=== PATIENT | male | born 1955 | race Caucasian/White ===

== ENCOUNTER 2022-03-20 08:03 | Outpatient (CLI) | payer OTHER, SELFPAY ==
--- NOTE | 2022-03-20 08:15 | MR_ITS ---
[address] [address] Phone:?[phone] Fax:?[phone] Referring Physician Information: Fareed Downing M.D. [facility] [address] [facility] [address] Phone:?[phone] Fax:?[phone] Patient:?Trell Gunter D.O.B:?1955 Sex:?Male Phone:?[phone] [facility] MRN:?[id number] Exam Date:?03/20/2022 ? EXAM: MRI OF THE LEFT ANKLE WITHOUT CONTRAST CLINICAL INFORMATION: Male, 67 years old, with left ankle pain and instability. INDICATION: Evaluate ankle pain. PRIOR SURGERY: History of Achilles tendon repair. PLAIN FILMS: None available. COMPARISONS: No prior MRIs available. TECHNICAL INFORMATION: Using a 1.5T MR scanner and a localizing surface coil: sagittals: PD, T2, STIR coronals: PD, T2 axials: PD, T2FS SEDATION: None. CONTRAST: None. FINDINGS: Osseous structures: No stress/occult fracture or other marrow edema/pathology. Os trigonum: Mildly prominent Stieda's process, which demonstrates bone marrow edema in the posterior tip (sagittal STIR series 5 images 14-16). Tarsal coalition: No calcaneonavicular, talocalcaneal or cubonavicular coalition. Tibiotalar joint: Effusion: Small tibiotalar joint effusion. Ganglion cyst: None. Osteochondral surfaces: No osteochondral abnormality. Loose bodies: No demonstrable loose bodies. Subtalar joint: Effusion: Physiologic. Articular cartilage: No osteochondral abnormality. Tarsal joints: Talonavicular: Unremarkable. Calcaneocuboid: Unremarkable. Naviculocuneiform: Unremarkable. Tarsometatarsal: Unremarkable. Ligaments: Syndesmotic ligaments:?The anterior and posterior inferior tibiofibular syndesmotic ligaments are normal. Lateral ligaments:?Moderate-marked attenuation and irregularity of the anterior talofibular and calcaneofibular ligaments (axial PD series 3 images 17-23). Deltoid ligament:?The visualized components of the superficial and deep deltoid ligament, specifically the tibiospring and posterior tibiotalar ligaments, are intact, but mildly attenuated and irregular in appearance. Calcaneonavicular spring ligament:?The superomedial component of the calcaneonavicular spring ligament is grossly intact. Bifurcate and calcaneocuboid ligaments:?Intact lateral calcaneonavicular and medial calcaneocuboid ligaments. The dorsolateral calcaneocuboid ligament is intact. Tendons: Peroneal:?The peroneal tendons are appropriately situated within the retromalleolar groove and the superior peroneal retinaculum is intact. The peroneus brevis tendon becomes markedly attenuated at the level of the peroneal tubercle, with a slender tendon remnant appearing to extend into the 5th metatarsal attachment (coronal PD series 8 images 5-20). Peroneus longus is unremarkable. No peroneal tenosynovitis. Flexor tendons:?Moderate-marked posterior tibialis insertional tendinopathy, without tear (axial PD series 3 images 21-24). Flexor hallucis longus and flexor digitorum longus are intact, without tendinopathy or tear. No flexor tenosynovitis. Extensor tendons:?The anterior tibialis, extensor digitorum longus, and extensor hallucis longus tendons are intact. No significant tendinopathy and without tenosynovitis, tendon split or tendon disruption. Achilles:?Status post Achilles tendon repair. The Achilles tendon is moderately thickened and irregular in appearance, although without residual or recurrent tendon tearing (sagittal PD series 6 image 14 and axial T2 series 4 image 20). Sinus tarsi:?Moderate soft tissue edema and thickening of the tarsal sinus (sagittal PD series 6 and sagittal STIR series 5 image 19). Plantar aponeurosis: There is no abnormal thickening of, abnormal intrasubstance signal involving, or perifascial edema about the plantar aponeurosis. Specifically, the plantar fascia origin appears normal in signal intensity and morphology. Plantar musculature:?Marked atrophy of the intrinsic foot musculature (coronal PD series 8 image 5). Neurovascular structures and tarsal tunnel: The posterior tibial neurovascular structures appear unremarkable coursing past the ankle and through the tarsal tunnel. IMPRESSION: 1. Chronic sequela of an [id number] lateral ligamentous sprain injury. 2. Moderately-markedly attenuated appearance of the distal aspect of the peroneus brevis tendon, which is suggestive of a chronic injury. 3. Moderate-marked posterior tibialis tendinopathy, without tear. 4. Status post Achilles tendon repair. The tendon is moderately thickened and irregular in appearance, but without residual or recurrent tendon tearing. 5. Mildly edematous Stieda's process, with mild surrounding soft tissue edema. This could reflect any clinical evidence of posterior impingement. 6. Small tibiotalar joint effusion. No chondromalacia or osteochondral lesion throughout the hindfoot/ankle. 7. Marked atrophy of the intrinsic foot musculature, which is nonspecific, but commonly seen in the setting of diabetes mellitus. 8. No fracture or osseous stress reaction. BC Electronically signed on 03/20/2022 11:08:00 AM by Bishnu Grullon M.D.
== END 2022-03-20 08:04 | disposition home or self-care (01) ==
PROVIDERS: PCP Family Medicine; Visit Provider Orthopaedic Surgery Foot and Ankle Surgery
DX: M25.372 Other instability, left ankle (principal); M25.572 Pain in left ankle and joints of left foot; S93.402A Sprain of unspecified ligament of left ankle, initial encounter; M25.472 Effusion, left ankle
CPT/HCPCS: 73721

== ENCOUNTER 2022-03-24 10:42 | Outpatient (CLI) | payer OTHER, SELFPAY ==
[2022-03-24 13:24] LABS: Albumin* 4.3 g/dL (3.3-5.0); Chloride* 101 mmol/L (96-114)
[2022-03-24 13:25] LABS: Sodium* 139 mmol/L (135-149)
[2022-03-24 13:27] LABS: Carbon Dioxide* 32 mmol/L (20-32); Cholesterol* 150 mg/dL (90-199); Creatinine* 0.9 mg/dL (0.5-1.5); Estimated Glomerular Filt Rate 92 ml/min; Total Protein* 6.8 g/dL (6.0-8.3)
[2022-03-24 13:28] LABS: Alanine Aminotransferase* 21 U/L (4-50); Alkaline Phosphatase* 72 U/L (40-150); Aspartate Amino Transferase* 26 U/L (12-35); Bilirubin Total* 0.9 mg/dL (0.1-1.5); Blood Urea Nitrogen* 26 mg/dL (7-30); Calcium* 9.5 mg/dL (8.4-10.6); Glucose* 97 mg/dL (60-115); HDL Cholesterol* 52 mg/dL (>=40); LDL Cholesterol Calculated 80 mg/dL (<100); Triglycerides* 89 mg/dL (40-149)
[2022-03-24 13:53] LABS: PSA Screen* 2.37 ng/mL (0.10-4.00)
== END 2022-03-24 10:43 | disposition home or self-care (01) ==
PROVIDERS: PCP Family Medicine; Visit Provider Family Medicine
DX: Z00.00 Encounter for general adult medical examination without abnormal findings (principal); Z12.5 Encounter for screening for malignant neoplasm of prostate; Z13.6 Encounter for screening for cardiovascular disorders
CPT/HCPCS: 80053; 80061; 84153

== ENCOUNTER 2022-04-10 08:48 | Outpatient (CLI) | payer OTHER, SELFPAY ==
--- NOTE | 2022-04-10 09:00 | CRLHL7_ITS ---
For Patients: As a result of the Century Cures Act, medical imaging exams and procedure reports are released immediately into your electronic medical record. You may view this report before your referring provider. If you have questions, please contact your health care provider. Indication: F/U ASCENDING AORTIC ANEURYSM Technique: Noncontrast CT chest. Please note that all CT scans at this facility use dose modulation, iterative reconstruction, and/or weight-based dosing when appropriate to reduce radiation dose to as low as reasonably achievable. Comparison: 02/10/2020 Findings: Stable 4.5 cm ascending aortic aneurysm. Vascular calcifications. No pleural effusion or edema. Postop changes cholecystectomy. Similar appearance of the splenic artery. No infiltrate. Right shoulder replacement. Stable 4 millimeter left lower lobe nodule stable 2 millimeter right lower lobe nodule. Impression: Stable 4.5 cm aneurysm of the ascending aorta. Please note that all CT scans at this facility use dose modulation, iterative reconstruction, and/or weight-based dosing when appropriate to reduce radiation dose to as low as reasonably achievable. Dictated by Roger Jasso MD @ 04/10/2022 10:35:43 AM (Electronically Signed)
== END 2022-04-10 08:49 | disposition home or self-care (01) ==
LOC: CT 08:49
PROVIDERS: PCP Family Medicine; Visit Provider Family Medicine
DX: I71.2 Thoracic aortic aneurysm, without rupture (principal)
CPT/HCPCS: 71250

== ENCOUNTER 2022-07-02 17:06 | Observation (INO) | payer OTHER, SELFPAY ==
[2022-07-02] VITALS (26 sets, daily range): BP systolic 106–145; BP diastolic 74–97; PULSE 61–93; RESP 20; TEMP 36.4–36.6; O2SAT 89–98; BMI 36.0; BMI 36.1
--- NOTE | 2022-07-02 17:49 | ED.SOB ---
HPI - SOB/Dyspnea General Time Seen by Provider: 17:49 Date Seen: 07/02/22 Chief Complaint: Shortness of Breath/Dyspnea Stated Complaint: Trouble Breathing Time Seen by Provider: 07/02/22 17:49 Source: patient, family, RN notes reviewed and old records reviewed Mode of arrival: ambulatory Limitations: no limitations History of Present Illness HPI Narrative: Patient is a very pleasant 67-year-old gentleman with a history of COPD recent treatment with prednisone and inhaler for reactive airway as well as history of hypertension and TE who comes to the emergency room for evaluation regarding difficulty breathing. Patient notes that he had helped of family with 5 weeks of harvest and that there was a lot of dust this year because the crops or so dry. Patient saw his primary doctor Ac who put him on prednisone and Combivent. He did feel that this that helped somewhat. He then went fast and hunting this past week and upon his return he noticed increased work of breathing and difficulty sleeping even with his CPAP. Specifically he could not lay flat. He notes that he has a cough that is productive of green sputum and more of a headache today. He notes that he is also short of breath with any activity. He does not smoke anymore having given at up previously but still uses cigars. He denies nausea vomiting. He denies any unusual lower extremity edema. He does have a history of a right lower extremity DVT following surgery in 2017. He is not on blood thinners but does take an aspirin daily. He is his 6 hour trip to [place] was interrupted at least 3 times for a bathroom break. He has no fever. No chest pain at this time. He has a known aortic aneurysm and states that recently he had an ultrasound that showed no change. Patient's describes shortness of breath with activity. Related Data Home Medications Medication Instructions Recorded Confirmed aspirin 81 mg tablet,delayed 81 mg PO DAILY 03/27/22 06/06/22 release coenzyme Q10 30 mg capsule mg PO 03/27/22 06/06/22 glucosamine sulfate 500 mg capsule 500 mg PO 03/27/22 06/06/22 ibuprofen 200 mg tablet 200 - 400 mg PO PRN 03/27/22 06/06/22 omega-3 acid ethyl esters 1 gram 1 cap PO QDAY 03/27/22 06/06/22 capsule triamcinolone acetonide 0.1 % 1 applic topical BID PRN 03/28/22 06/06/22 topical ointment Previous Rx's Medication Instructions Recorded hydrochlorothiazide 12.5 mg capsule 12.5 mg PO DAILY #90 caps 03/28/22 losartan 100 mg tablet 100 mg PO QDAY #90 tabs 03/28/22 omeprazole 20 mg capsule,delayed 20 mg PO DAILY #90 caps 03/28/22 release rosuvastatin 10 mg tablet 10 mg PO .Bedtime #90 tabs 03/28/22 ipratropium 20 mcg-albuterol 100 1 puff inhalation Q6H #4 grams 06/06/22 mcg/actuation mist for inhalation (Combivent Respimat) prednisone 20 mg tablet 20 mg PO .COMPLEX #20 tabs 06/06/22 Allergies Allergy/AdvReac Type Severity Reaction Status Date / Time penicillin V Allergy Intermediate Swelling Verified 06/06/22 18:02 and redness Review of Systems Status of ROS: Reports: 10 or more systems reviewed and unremarkable except as noted in History and below Const: Reports: fatigue; Denies: fever or chills Eyes: Denies: change in vision ENMT: Denies: throat pain or difficulty swallowing Cardio: Reports: swelling of feet/ankles (Chronic and unchanged) and shortness of breath with exertion; Denies: chest pain Resp: Reports: shortness of breath, cough and change in phlegm color (Green) GI: Denies: abdominal pain, nausea, vomiting or difficulty swallowing : Denies: painful urination Integ/Breast: Denies: rash Neuro: Reports: headache; Denies: weakness in extremities Endo: Reports: fatigue PFSH PFS Medical History Encounter for routine history and physical examination of adult Rupture of Achilles tendon Umbilical hernia (07/29/09) Surgical History H/O Achilles tendon repair (08/05/12) H/O arthroscopy of left knee (03/11/12) H/O inguinal hernia repair (07/29/09) Hx of shoulder surgery (07/29/09) Status post cholecystectomy 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 Very pleasant gentleman in no acute distress. Eyes are clear. Neck is supple without lymphadenopathy. Heart with a regular rate and rhythm. Lung sounds decreased on the right. No wheezing noted. Abdomen soft nontender. Lower extremities with increased edema of the right lower extremity but no calf tenderness. Const: Vital Signs, click to edit/add: Vital Signs - 24 hr 07/02/22 17:11 07/02/22 19:13 07/02/22 19:14 Temperature 97.9 F Pulse Rate 63 80 Pulse Rate [Pulse Oximeter] 87 Respiratory Rate 20 Blood Pressure 124/95 H Blood Pressure [Ri ght Upper Arm] 145/94 H Pulse Oximetry 98 97 96 Oxygen Delivery Me thod Room Air 07/02/22 19:15 07/02/22 19:30 07/02/22 19:32 Temperature Pulse Rate 61 75 86 Pulse Rate [Pulse Oximeter] Respiratory Rate Blood Pressure 117/90 H Blood Pressure [Ri ght Upper Arm] Pulse Oximetry 97 95 95 Oxygen Delivery Me thod 07/02/22 19:45 07/02/22 20:00 07/02/22 20:01 Temperature Pulse Rate 77 77 69 Pulse Rate [Pulse Oximeter] Respiratory Rate Blood Pressure 119/93 H Blood Pressure [Ri ght Upper Arm] Pulse Oximetry 94 96 95 Oxygen Delivery Me thod 07/02/22 20:15 07/02/22 20:53 07/02/22 20:54 Temperature Pulse Rate 78 80 79 Pulse Rate [Pulse Oximeter] Respiratory Rate Blood Pressure 110/97 H Blood Pressure [Ri ght Upper Arm] Pulse Oximetry 97 93 94 Oxygen Delivery Me thod 07/02/22 21:00 07/02/22 21:02 Temperature Pulse Rate 90 76 Pulse Rate [Pulse Oximeter] Respiratory Rate Blood Pressure 115/79 Blood Pressure [Ri ght Upper Arm] Pulse Oximetry 92 89 Oxygen Delivery Me thod Documenting provider has reviewed patient's vital signs: yes Course Course Hospital Course: Given patient's increasing symptoms, orthopnea and recent travel I thought it best that we go forward with not only checking chest x-ray, COVID/influenza/RSV but also do some blood work to ensure no other lying abnormality. CBC, comprehensive panel, sed rate, troponin, EKG are pending at this time. Reevaluation(s) Reevaluation #1: Patient noted improvement from DuoNeb. Patient is informed that his D-dimer is elevated and that I do suggest CT. He is receptive to this idea. Vital Signs Vital signs: Initial Vital Signs Temperature 97.9 F 07/02/22 17:11 Temperature Source Temporal Artery Scan 07/02/22 17:11 Pulse Rate 87 07/02/22 17:11 Respiratory Rate 20 07/02/22 17:11 Blood Pressure 145/94 H 07/02/22 17:11 Blood Pressure Mean 111 07/02/22 17:11 Blood Pressure Position Sitting 07/02/22 17:11 Pulse Oximetry 98 07/02/22 17:11 Oxygen Delivery Method 07/02/22 17:11 Vital Signs Temperature 97.9 F 07/02/22 17:11 Pulse Rate 87 07/02/22 17:11 Respiratory Rate 20 07/02/22 17:11 Blood Pressure 145/94 H 07/02/22 17:11 Pulse Oximetry 98 07/02/22 17:11 Oxygen Delivery Method 07/02/22 17:11 Temperature 97.9 F 07/02/22 17:11 Pulse Rate 76 07/02/22 21:02 Respiratory Rate 20 07/02/22 17:11 Blood Pressure 115/79 07/02/22 21:02 Pulse Oximetry 89 07/02/22 21:02 Oxygen Delivery Method 07/02/22 17:11 MDM - SOB/Dyspnea MDM Narrative Medical decision making narrative: 1. Pulmonary embolism-patient has positive CT but is maintaining his oxygen levels. Main symptoms are shortness of breath with exertion and orthopnea. At this time I have spoken with our hospitalist. Patient will be admitted for outpatient observation. Will initiate Lovenox 110 mg subQ. Plan on echocardiogram. 2. COPD exacerbation-patient noted to have green sputum and improvement with DuoNeb. Zithromax 500 mg p.o.. 3. Frequent PVC-EKG shows sinus rhythm but with frequent PVC. Magnesium level pending. 4.TE-patient's is going to get his CPAP machine for tonight. 5. Disposition-admitted under the care of [facility] hospitalist. Medical Records Attestation: I reviewed the patient's medical records. Lab Data Attestation: I reviewed the patient's lab results. Labs: Lab Results 07/02/22 07/02/22 07/02/22 Range/Units 18:20 18:20 18:20 WBC 5.30 (4.50-11.00) K/uL RBC 4.78 (4.30-5.90) m/uL Hgb 15.2 (13.5-17.5) gm/dL Hct 43.5 (37.0-53.0) % MCV 91 (80-100) fL MCH 32 (26-34) pg MCHC 35 (32-36) gm/dL RDW Coeff of Sandra 13.0 (11.5-15.5) % Plt Count 221 (140-440) K/uL Neut % (Auto) 39.8 L (42.0-72.0) % Lymph % (Auto) 40.0 (20-44) % [place] % (Auto) 15.3 H (0.0-11.0) % Eos % (Auto) 3.4 (0.0-7.0) % Baso % (Auto) 1.1 (0.0-3.0) % Neut # (Auto) 2.10 (1.7-7.0) K/uL Lymph # (Auto) 2.12 (0.90-2.90) K/uL [place] # (Auto) 0.80 (0.00-0.90) K/UL Eos # (Auto) 0.18 (0.00-0.50) K/uL Baso # (Auto) 0.06 (0.00-0.30) K/uL Abs Immat Gran (auto) 0.02 (0.00-0.30) K/uL Imm/Tot Granulo (auto) 0.4 % D-Dimer Quant (PE/DVT) (0.00-0.50) ug/ml Sodium 139 (135-149) mmol/L Potassium 4.0 (3.6-5.1) mmol/L Chloride 108 (96-114) mmol/L Carbon Dioxide 25 (20-32) mmol/L BUN 26 (7-30) mg/dL Creatinine 0.9 (0.5-1.5) mg/dL Estimated Creat Clear 67.45 Estimated GFR 92 ml/min Glucose 86 (60-115) mg/dL Calcium 9.4 (8.4-10.6) mg/dL Total Bilirubin 0.9 (0.1-1.5) mg/dL AST 30 (12-35) U/L ALT 27 (4-50) U/L Alkaline Phosphatase 70 (40-150) U/L C-Reactive Protein < 0.5 L (0.5-1.0) mg/dL NT-Pro-B Natriuret Pep 144 H (0-125) PG/mL Total Protein 7.2 (6.0-8.3) g/dL Albumin 4.4 (3.3-5.0) g/dL SARS-CoV-2 (PCR) (Negative) Influenza Type A (PCR) (Negative) Influenza Type B (PCR) (Negative) RSV (PCR) (Negative) POC Troponin I 0.00 L (0.01-0.04) ng/ml 07/02/22 07/02/22 Range/Units 18:20 18:20 WBC (4.50-11.00) K/uL RBC (4.30-5.90) m/uL Hgb (13.5-17.5) gm/dL Hct (37.0-53.0) % MCV (80-100) fL MCH (26-34) pg MCHC (32-36) gm/dL RDW Coeff of Sandra (11.5-15.5) % Plt Count (140-440) K/uL Neut % (Auto) (42.0-72.0) % Lymph % (Auto) (20-44) % [place] % (Auto) (0.0-11.0) % Eos % (Auto) (0.0-7.0) % Baso % (Auto) (0.0-3.0) % Neut # (Auto) (1.7-7.0) K/uL Lymph # (Auto) (0.90-2.90) K/uL [place] # (Auto) (0.00-0.90) K/UL Eos # (Auto) (0.00-0.50) K/uL Baso # (Auto) (0.00-0.30) K/uL Abs Immat Gran (auto) (0.00-0.30) K/uL Imm/Tot Granulo (auto) % D-Dimer Quant (PE/DVT) 2.22 H (0.00-0.50) ug/ml Sodium (135-149) mmol/L Potassium (3.6-5.1) mmol/L Chloride (96-114) mmol/L Carbon Dioxide (20-32) mmol/L BUN (7-30) mg/dL Creatinine (0.5-1.5) mg/dL Estimated Creat Clear Estimated GFR ml/min Glucose (60-115) mg/dL Calcium (8.4-10.6) mg/dL Total Bilirubin (0.1-1.5) mg/dL AST (12-35) U/L ALT (4-50) U/L Alkaline Phosphatase (40-150) U/L C-Reactive Protein (0.5-1.0) mg/dL NT-Pro-B Natriuret Pep (0-125) PG/mL Total Protein (6.0-8.3) g/dL Albumin (3.3-5.0) g/dL SARS-CoV-2 (PCR) Negative SARS-CoV-2 (Negative) Influenza Type A (PCR) Negative PCR FLU A (Negative) Influenza Type B (PCR) Negative PCR FLU B (Negative) RSV (PCR) Negative PCR RSV (Negative) POC Troponin I (0.01-0.04) ng/ml Imaging Data Chest x-ray: Attestation: I have reviewed the pertinent imaging results. My impression: No significant infiltrates. Radiologist's impression: No airspace consolidation. No pleural effusion or pneumothorax. Pulmonary vasculature and cardiomediastinal silhouette are unremarkable. IMPRESSION: No cardiopulmonary abnormality. CT scan - chest: Attestation: I have reviewed the pertinent imaging results. My impression: I believe he has PE. Radiologist's impression: Heart and vasculature: Contrast opacification of the pulmonary arterial tree is adequate to the proximal subsegmental pulmonary arteries, and mildly limited of the left lower lobe pulmonary artery secondary to poor contrast bolus. Acute pulmonary embolism in the right middle and lower lobe segmental and subsegmental pulmonary arteries. Additional emboli seen in the left upper, and lingular lingular, segmental/subsegmental pulmonary artery heart size is normal. Mild enlargement of the ascending aorta, measuring approximately 4.5 centimeters. Aortic arch and coronary artery calcifications. Lungs and pleura: Stable scattered pulmonary nodules. No suspicious nodules or infiltrates.? No pleural effusions, pleural thickening, or pneumothorax. Lymph nodes/mediastinum: No mediastinal, hilar, or axillary adenopathy. Chest wall: No masses. Upper abdomen: Cholecystectomy. Pneumobilia, also seen on prior study. Bones: Unremarkable for age. Right shoulder arthroplasty. IMPRESSION: Acute pulmonary embolism involving the right upper/middle and left upper segmental and subsegmental pulmonary arteries.? No definite right heart strain. Mild ascending aortic aneurysm, measuring approximately 4.5 centimeters. ECG Data Attestation: I personally reviewed and interpreted this ECG as follows: Interpretation: EKG shows sinus rhythm at a rate of 78. Occasional PVC. Otherwise no acute ST or T-wave changes. Discharge Plan Discharge Clinical Impression: Chronic obstructive pulmonary disease with acute exacerbation, Pulmonary embolism Patient Disposition: Admitted As Inpatient Condition: Stable
--- NOTE | 2022-07-02 18:06 | CRLHL7_ITS ---
For Patients: As a result of the Cures Act, medical imaging exams and procedure reports are released immediately into your electronic medical record. You may view this report before your referring provider. If you have questions, please contact your health care provider. HISTORY: Orthopnea. TECHNIQUE: Two-view chest. COMPARISON: None. FINDINGS: No airspace consolidation. No pleural effusion or pneumothorax. Pulmonary vasculature and cardiomediastinal silhouette are unremarkable. IMPRESSION: No cardiopulmonary abnormality. Dictated by Kalyan Riley MD @ 07/02/2022 6:39:00 PM (Electronically Signed)
[2022-07-02 18:35] LABS: Basophils Absolute Auto 0.06 K/uL (0.00-0.30); Basophils Percent Auto 1.1 % (0.0-3.0); Eosinophils Absolute Auto 0.18 K/uL (0.00-0.50); Eosinophils Percent Auto 3.4 % (0.0-7.0); Hematocrit 43.5 % (37.0-53.0); Hemoglobin* 15.2 gm/dL (13.5-17.5); Immature Granulocytes Abs Auto 0.02 K/uL (0.00-0.30); Immature Granulocytes Pct Auto 0.4 %; Lymphocytes Absolute Auto 2.12 K/uL (0.90-2.90); Mean Corpuscular HGB Conc 35 gm/dL (32-36); Mean Corpuscular Hemoglobin 32 pg (26-34); Mean Corpuscular Volume 91 fL (80-100); Monocytes Percent Auto 15.3 % (0.0-11.0); Neutrophils Percent Auto 39.8 % (42.0-72.0); Platelet Count* 221 K/uL (140-440); Red Blood Count 4.78 m/uL (4.30-5.90)
[2022-07-02 18:41] LABS: Slide Review Reflex No
[2022-07-02 18:44] LABS: Albumin* 4.4 g/dL (3.3-5.0); Chloride* 108 mmol/L (96-114); Sodium* 139 mmol/L (135-149)
[2022-07-02 18:48] LABS: Alanine Aminotransferase* 27 U/L (4-50); Alkaline Phosphatase* 70 U/L (40-150); Aspartate Amino Transferase* 30 U/L (12-35); Bilirubin Total* 0.9 mg/dL (0.1-1.5); Blood Urea Nitrogen* 26 mg/dL (7-30); Calcium* 9.4 mg/dL (8.4-10.6); Carbon Dioxide* 25 mmol/L (20-32); Creatinine* 0.9 mg/dL (0.5-1.5); Est. Creatinine Clearance* 67.45; Estimated Glomerular Filt Rate 92 ml/min; Glucose* 86 mg/dL (60-115); Total Protein* 7.2 g/dL (6.0-8.3)
[2022-07-02 18:57] LABS: C Reactive Protein* < 0.5 mg/dL (0.5-1.0)
[2022-07-02 19:14] LABS: PCR FLU A Negative PCR FLU A (Negative); PCR FLU B Negative PCR FLU B (Negative); PCR RSV Negative PCR RSV (Negative)
[2022-07-02 19:19] LABS: SARS PCR* Negative SARS-CoV-2 (Negative)
[2022-07-02 19:58] LABS: D Dimer Quantitative* 2.22 ug/ml (0.00-0.50)
[2022-07-02] MEDS: IPRAT-ALBUT 0.5-2.5 MG/3 ML NEB 1 NEB IH (20:06)
[2022-07-02 20:10] LABS: NT Pro B Type NatriureticPept* 144 PG/mL (0-125)
--- NOTE | 2022-07-02 20:36 | CRLHL7_ITS ---
For Patients: As a result of the Century Cures Act, medical imaging exams and procedure reports are released immediately into your electronic medical record. You may view this report before your referring provider. If you have questions, please contact your health care provider. INDICATION: [id number]. TECHNIQUE: CT chest PE was acquired with 95 cc Omnipaque 350 IV contrast. COMPARISON: April 10, 2022. FINDINGS: Heart and vasculature: Contrast opacification of the pulmonary arterial tree is adequate to the proximal subsegmental pulmonary arteries, and mildly limited of the left lower lobe pulmonary artery secondary to poor contrast bolus. Acute pulmonary embolism in the right middle and lower lobe segmental and subsegmental pulmonary arteries. Additional emboli seen in the left upper, and lingular lingular, segmental/subsegmental pulmonary artery heart size is normal. Mild enlargement of the ascending aorta, measuring approximately 4.5 centimeters. Aortic arch and coronary artery calcifications. Lungs and pleura: Stable scattered pulmonary nodules. No suspicious nodules or infiltrates. No pleural effusions, pleural thickening, or pneumothorax. Lymph nodes/mediastinum: No mediastinal, hilar, or axillary adenopathy. Chest wall: No masses. Upper abdomen: Cholecystectomy. Pneumobilia, also seen on prior study. Bones: Unremarkable for age. Right shoulder arthroplasty. IMPRESSION: Acute pulmonary embolism involving the right upper/middle and left upper segmental and subsegmental pulmonary arteries. No definite right heart strain. Mild ascending aortic aneurysm, measuring approximately 4.5 centimeters. Case discussed with Yaz Norman at 7:55 p.m. on 07/02/2022. Please note that all CT scans at this facility use dose modulation, iterative reconstruction, and/or weight-based dosing when appropriate to reduce radiation dose to as low as reasonably achievable. Dictated by Zuhair Yarbrough MD @ 07/02/2022 10:00:40 PM (Electronically Signed)
[2022-07-02] MEDS: ENOXAPARIN 120 MG/0.8 ML INJ 110 MG SUBCUT (22:25)
[2022-07-02 22:35] LABS: Magnesium* 2.1 mg/dL (1.5-2.6)
[2022-07-02] MEDS: AZITHROMYCIN 250 MG TABLET 500 MG PO (22:43)
--- NOTE | 2022-07-03 00:10 | P.IMCN_ITS ---
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) Social History Highest level of school completed/degree received: high school graduate Smoking Status: Former smoker What tobacco products do you use: cigars Do you use any of these nicotine containing products: None Second hand tobacco smoke exposure: No How often do you have a drink containing alcohol: monthly or less Alcohol type: beer How often do you have six or more drinks on one occasion: Never AUDIT-C Alcohol total score: 1 Non-prescribed substance use: denies use Caffeine: No service: Yes Meds Home Medications and Allergies Home Medications Medication Instructions Recorded Confirmed Type aspirin 81 mg tablet,delayed 81 mg PO DAILY 03/27/22 06/06/22 History release coenzyme Q10 30 mg capsule mg PO 03/27/22 06/06/22 History glucosamine sulfate 500 mg capsule 500 mg PO 03/27/22 06/06/22 History ibuprofen 200 mg tablet 200 - 400 mg PO PRN 03/27/22 06/06/22 History omega-3 acid ethyl esters 1 gram 1 cap PO QDAY 03/27/22 06/06/22 History capsule triamcinolone acetonide 0.1 % 1 applic topical BID PRN 03/28/22 06/06/22 History topical ointment Allergies Allergy/AdvReac Type Severity Reaction Status Date / Time penicillin V Allergy Intermediate Swelling Verified 06/06/22 18:02 and redness Exam Const: Vital Signs, click to edit/add: Vital Signs - 24 hr 07/02/22 17:11 07/02/22 19:13 07/02/22 19:14 Temperature 97.9 F Pulse Rate 63 80 Pulse Rate [Pulse Oximeter] 87 Respiratory Rate 20 Blood Pressure 124/95 H Blood Pressure [Le ft Arm] Blood Pressure [Ri ght Upper Arm] 145/94 H Pulse Oximetry 98 97 96 Oxygen Delivery Me thod Room Air 07/02/22 19:15 07/02/22 19:30 07/02/22 19:32 Temperature Pulse Rate 61 75 86 Pulse Rate [Pulse Oximeter] Respiratory Rate Blood Pressure 117/90 H Blood Pressure [Le ft Arm] Blood Pressure [Ri ght Upper Arm] Pulse Oximetry 97 95 95 Oxygen Delivery Me thod 07/02/22 19:45 07/02/22 20:00 07/02/22 20:01 Temperature Pulse Rate 77 77 69 Pulse Rate [Pulse Oximeter] Respiratory Rate Blood Pressure 119/93 H Blood Pressure [Le ft Arm] Blood Pressure [Ri ght Upper Arm] Pulse Oximetry 94 96 95 Oxygen Delivery Me thod 07/02/22 20:15 07/02/22 20:53 07/02/22 20:54 Temperature Pulse Rate 78 80 79 Pulse Rate [Pulse Oximeter] Respiratory Rate Blood Pressure 110/97 H Blood Pressure [Le ft Arm] Blood Pressure [Ri ght Upper Arm] Pulse Oximetry 97 93 94 Oxygen Delivery Me thod 07/02/22 21:00 07/02/22 21:02 07/02/22 21:03 Temperature Pulse Rate 90 76 80 Pulse Rate [Pulse Oximeter] Respiratory Rate Blood Pressure 115/79 Blood Pressure [Le ft Arm] Blood Pressure [Ri ght Upper Arm] Pulse Oximetry 92 89 93 Oxygen Delivery Me thod 07/02/22 21:35 07/02/22 21:36 07/02/22 21:45 Temperature Pulse Rate 87 93 88 Pulse Rate [Pulse Oximeter] Respiratory Rate Blood Pressure Blood Pressure [Le ft Arm] Blood Pressure [Ri ght Upper Arm] Pulse Oximetry 97 95 97 Oxygen Delivery Me thod 07/02/22 22:05 07/02/22 22:15 07/02/22 22:29 Temperature Pulse Rate 89 80 83 Pulse Rate [Pulse Oximeter] Respiratory Rate Blood Pressure 116/74 Blood Pressure [Le ft Arm] Blood Pressure [Ri ght Upper Arm] Pulse Oximetry 92 96 96 Oxygen Delivery Me thod 07/02/22 22:30 07/02/22 22:32 07/02/22 22:45 Temperature Pulse Rate 81 78 82 Pulse Rate [Pulse Oximeter] Respiratory Rate Blood Pressure 106/77 Blood Pressure [Le ft Arm] Blood Pressure [Ri ght Upper Arm] Pulse Oximetry 96 96 97 Oxygen Delivery Me thod 07/02/22 23:20 07/02/22 19:30 Temperature 97.5 F L Pulse Rate Pulse Rate [Pulse Oximeter] 66 75 Respiratory Rate 20 Blood Pressure Blood Pressure [Le ft Arm] 137/89 Blood Pressure [Ri ght Upper Arm] 117/90 H Pulse Oximetry 95 95 Oxygen Delivery Me thod Room Air Room Air Labs Labs: Short CBC 07/02/22 Range/Units 18:20 WBC 5.30 (4.50-11.00) K/uL Hgb 15.2 (13.5-17.5) gm/dL Hct 43.5 (37.0-53.0) % Plt Count 221 (140-440) K/uL BMP 07/02/22 18:20 Sodium 139 Potassium 4.0 Chloride 108 Carbon Dioxide 25 BUN 26 Creatinine 0.9 Glucose 86 Calcium 9.4 Liver Function 07/02/22 Range/Units 18:20 Total Bilirubin 0.9 (0.1-1.5) mg/dL AST 30 (12-35) U/L ALT 27 (4-50) U/L Alkaline Phosphatase 70 (40-150) U/L Albumin 4.4 (3.3-5.0) g/dL Assessment and Plan Assessment and plan (1) Pulmonary embolism: Status: Acute Plan [facility] Hospitalist CONSULTATION NOTE: Reason for consult: Pulmonary embolism HPI: Patient is a pleasant 67-year-old male past medical history of COPD, obstructive sleep apnea, and a prior DVT in 2017 following surgery. Who presents to the ER today because he has had shortness of breath for the last 4 to 5 weeks which is worsened over the last 1 to 2 days. In the ER he had a CT scan which showed bilateral pulmonary embolism. He was given enoxaparin 1 mg/kg and admitted for further cares. He has not had any associated chest pain. He has been dealing with cough and congestion for the last month or so but his cough is largely nonproductive. He has not had any new swelling in his legs, but does comment that his right leg is always a bit swollen which is where he had a DVT previously. Anticoagulation was stopped after several months for his prior DVT as he was precipitated by surgery. Interestingly, his father had several blood clots following surgeries and his sister has had blood clots following surgery as well. Patient is a non-smoker. He drinks alcohol on occasion. We did discuss CODE STATUS he wishes to be full code. Assessment and Plan: 1. Pulmonary embolism Patient is a pleasant 67-year-old gentleman admitted for bilateral PEs. He is placed on enoxaparin 1 mg/kg subcutaneous every 12 hours. Oral anticoagulant can be chosen tomorrow when pharmacy can be reached and insurance coverage can be determined. With his prior clot as well as his family history he should probably be at lifetime anticoagulation. If carries a hypercoagulable work-up could be considered, however he should be anticoagulated indefinitely regardless. His chronic outpatient medications will be continued as appropriate when fully verified in the morning. PRNs are available for pain and nausea. Patient is a full code. Thank you for including Domenico Degroot in the patients care. This service is available for further assistance as requested by your care team by calling [phone].
[2022-07-03 03:00] VITALS: BP 96/64; PULSE 72; RESP 20; TEMP 36.2; O2SAT 92
[2022-07-03 05:56] VITALS: RESP 20; O2SAT 92
--- NOTE | 2022-07-03 06:38 | PC.NURSE ---
indep in room. Pleasant and cooperative. pts brought in CPAP machine, pt did not wear while asleep, stated ?i can't breathe with that thing on?. O2 sats >90% on RA.
[2022-07-03 08:00] VITALS: BP 117/94; PULSE 80; RESP 18; TEMP 36.6; O2SAT 96
[2022-07-03] MEDS: APIXABAN 5 MG TABLET 10 MG PO (09:18)
--- NOTE | 2022-07-03 10:26 | P.IMHP_ITS ---
Hospitalist- H&P: HPI History of Present Illness Date Seen: 07/04/22 Chief complaint: Trouble Breathing Narrative: Trell Gunter is a 67 year old male [facility] Medical History (Updated 07/03/22 @ 14:59 by Julius Fiore MD) Abnormal echocardiogram Encounter for routine history and physical examination of adult Exertional dyspnea Rupture of Achilles tendon Umbilical hernia (07/29/09) Surgical History H/O Achilles tendon repair (08/05/12) H/O arthroscopy of left knee (03/11/12) H/O inguinal hernia repair (07/29/09) Hx of shoulder surgery (07/29/09) Status post cholecystectomy 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 Highest level of school completed/degree received: high school graduate Smoking Status: Former smoker What tobacco products do you use: cigars Do you use any of these nicotine containing products: None Second hand tobacco smoke exposure: No How often do you have a drink containing alcohol: monthly or less Alcohol type: beer How often do you have six or more drinks on one occasion: Never AUDIT-C Alcohol total score: 1 Non-prescribed substance use: denies use Caffeine: No service: Yes Meds Home Medications and Allergies Home Medications Medication Instructions Recorded Confirmed Type coenzyme Q10 30 mg capsule 30 mg PO DAILY 03/27/22 07/03/22 History glucosamine sulfate 500 mg capsule 500 mg PO DAILY 03/27/22 07/03/22 History omega-3 acid ethyl esters 1 gram 1 cap PO DAILY 03/27/22 07/03/22 History capsule losartan 100 mg tablet 100 mg PO DAILY 07/03/22 07/03/22 History rosuvastatin 10 mg tablet 10 mg PO HS 07/03/22 07/03/22 History Allergies Allergy/AdvReac Type Severity Reaction Status Date / Time penicillin V Allergy Intermediate Swelling Verified 06/06/22 18:02 and redness Exam Const: Vital Signs, click to edit/add: Vital Signs - 24 hr 07/02/22 17:11 07/02/22 19:13 07/02/22 19:14 Temperature 97.9 F Pulse Rate 63 80 Pulse Rate [Pulse Oximeter] 87 Respiratory Rate 20 Blood Pressure 124/95 H Blood Pressure [Le ft Arm] Blood Pressure [Ri ght Arm] Blood Pressure [Ri ght Upper Arm] 145/94 H Pulse Oximetry 98 97 96 Oxygen Delivery Me thod Room Air 07/02/22 19:15 07/02/22 19:30 07/02/22 19:32 Temperature Pulse Rate 61 75 86 Pulse Rate [Pulse Oximeter] Respiratory Rate Blood Pressure 117/90 H Blood Pressure [Le ft Arm] Blood Pressure [Ri ght Arm] Blood Pressure [Ri ght Upper Arm] Pulse Oximetry 97 95 95 Oxygen Delivery Me thod 07/02/22 19:45 07/02/22 20:00 07/02/22 20:01 Temperature Pulse Rate 77 77 69 Pulse Rate [Pulse Oximeter] Respiratory Rate Blood Pressure 119/93 H Blood Pressure [Le ft Arm] Blood Pressure [Ri ght Arm] Blood Pressure [Ri ght Upper Arm] Pulse Oximetry 94 96 95 Oxygen Delivery Me thod 07/02/22 20:15 07/02/22 20:53 07/02/22 20:54 Temperature Pulse Rate 78 80 79 Pulse Rate [Pulse Oximeter] Respiratory Rate Blood Pressure 110/97 H Blood Pressure [Le ft Arm] Blood Pressure [Ri ght Arm] Blood Pressure [Ri ght Upper Arm] Pulse Oximetry 97 93 94 Oxygen Delivery Me thod 07/02/22 21:00 07/02/22 21:02 07/02/22 21:03 Temperature Pulse Rate 90 76 80 Pulse Rate [Pulse Oximeter] Respiratory Rate Blood Pressure 115/79 Blood Pressure [Le ft Arm] Blood Pressure [Ri ght Arm] Blood Pressure [Ri ght Upper Arm] Pulse Oximetry 92 89 93 Oxygen Delivery Me thod 07/02/22 21:35 07/02/22 21:36 07/02/22 21:45 Temperature Pulse Rate 87 93 88 Pulse Rate [Pulse Oximeter] Respiratory Rate Blood Pressure Blood Pressure [Le ft Arm] Blood Pressure [Ri ght Arm] Blood Pressure [Ri ght Upper Arm] Pulse Oximetry 97 95 97 Oxygen Delivery Me thod 07/02/22 22:05 07/02/22 22:15 07/02/22 22:29 Temperature Pulse Rate 89 80 83 Pulse Rate [Pulse Oximeter] Respiratory Rate Blood Pressure 116/74 Blood Pressure [Le ft Arm] Blood Pressure [Ri ght Arm] Blood Pressure [Ri ght Upper Arm] Pulse Oximetry 92 96 96 Oxygen Delivery Me thod 07/02/22 22:30 07/02/22 22:32 07/02/22 22:45 Temperature Pulse Rate 81 78 82 Pulse Rate [Pulse Oximeter] Respiratory Rate Blood Pressure 106/77 Blood Pressure [Le ft Arm] Blood Pressure [Ri ght Arm] Blood Pressure [Ri ght Upper Arm] Pulse Oximetry 96 96 97 Oxygen Delivery Me thod 07/02/22 23:20 07/02/22 19:30 07/03/22 05:56 Temperature 97.5 F L Pulse Rate Pulse Rate [Pulse Oximeter] 66 75 Respiratory Rate 20 20 Blood Pressure Blood Pressure [Le ft Arm] 137/89 Blood Pressure [Ri ght Arm] Blood Pressure [Ri ght Upper Arm] 117/90 H Pulse Oximetry 95 95 92 Oxygen Delivery Me thod Room Air Room Air Room Air 07/02/22 23:57 07/03/22 03:00 Temperature 97.2 F L Pulse Rate Pulse Rate [Pulse Oximeter] 72 Respiratory Rate 20 Blood Pressure Blood Pressure [Le ft Arm] Blood Pressure [Ri ght Arm] 96/64 Blood Pressure [Ri ght Upper Arm] Pulse Oximetry 92 92 Oxygen Delivery Me thod Room Air Hospitalist - H&P: Result Labs Labs: Short CBC 07/02/22 Range/Units 18:20 WBC 5.30 (4.50-11.00) K/uL Hgb 15.2 (13.5-17.5) gm/dL Hct 43.5 (37.0-53.0) % Plt Count 221 (140-440) K/uL BMP 07/02/22 18:20 Sodium 139 Potassium 4.0 Chloride 108 Carbon Dioxide 25 BUN 26 Creatinine 0.9 Glucose 86 Calcium 9.4 Liver Function 07/02/22 Range/Units 18:20 Total Bilirubin 0.9 (0.1-1.5) mg/dL AST 30 (12-35) U/L ALT 27 (4-50) U/L Alkaline Phosphatase 70 (40-150) U/L Albumin 4.4 (3.3-5.0) g/dL
[2022-07-03 11:00] VITALS: BP 126/86; PULSE 81; RESP 18; TEMP 36.6; O2SAT 95
--- NOTE | 2022-07-03 13:23 | P.IMHP_ITS ---
Hospitalist- H&P: HPI History of Present Illness Date Seen: 07/03/22 Chief complaint: Trouble Breathing Narrative: Trell Gunter is a 67 year old male presents with worsening dyspnea and cough. 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 He was seen by his doctor and prescribed an inhaler and prednisone. He did not have formal spirometry to evaluate for COPD. Does not carry a history of asthma or COPD or chronic lung disease. He smokes about 3 or 4 cigars per year. He is not aware of history of heart disease. He has a thoracic aortic aneurysm which is being followed as an outpatient. He is not aware of a fever or other respiratory symptoms of illness. He does have CPAP for sleep apnea. He has a personal history of a DVT following shoulder surgery. He was briefly treated with warfarin after that. Family history is significant for his father and sister both having DVTs after surgery. No known family history of thrombophilia. Patient does not have a history of bleeding or clotting disorder except as above. In the emergency department he was diagnosed with bilateral pulmonary emboli with no evidence of right heart strain. There is no evidence of chronic lung disease or significant parenchymal disease. Ascending thoracic aneurysm at 4.5 cm was noted. Preliminary echo report today shows mildly reduced left and right ventricular function. No pulmonary hypertension. Formal echo interpretation is pending Review of Systems Narrative: He reports he has generally been doing well other than symptoms above. He does note he has had significant coughing which has gotten worse in the last couple days as well. He did report that he got some improvement in symptoms with the nebulizer treatment. 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 Highest level of school completed/degree received: high school graduate Smoking Status: Former smoker What tobacco products do you use: cigars Do you use any of these nicotine containing products: None Second hand tobacco smoke exposure: No How often do you have a drink containing alcohol: monthly or less Alcohol type: beer How often do you have six or more drinks on one occasion: Never AUDIT-C Alcohol total score: 1 Non-prescribed substance use: denies use Caffeine: No service: Yes Meds Home Medications and Allergies Home Medications Medication Instructions Recorded Confirmed Type coenzyme Q10 30 mg capsule 30 mg PO DAILY 03/27/22 07/03/22 History glucosamine sulfate 500 mg capsule 500 mg PO DAILY 03/27/22 07/03/22 History omega-3 acid ethyl esters 1 gram 1 cap PO DAILY 03/27/22 07/03/22 History capsule losartan 100 mg tablet 100 mg PO DAILY 07/03/22 07/03/22 History rosuvastatin 10 mg tablet 10 mg PO HS 07/03/22 07/03/22 History Allergies Allergy/AdvReac Type Severity Reaction Status Date / Time penicillin V Allergy Intermediate Swelling Verified 06/06/22 18:02 and redness Exam Narrative: Exam Narrative: He is alert and appears in no distress. Breathing is unlabored. He is oriented to his circumstances and gives his own history. Eyes normal. Oropharynx normal. Neck is supple without mass or adenopathy. Respirations are clear to auscultation. No wheezing. No prolonged expiratory phase. Good air exchange in all lung martinez. Cardiovascular: S1, S2, regular rate and rhythm. No murmur gallop or rub. Abdomen: Bowel sounds active. Abdomen is soft without tenderness or mass. Extremities with good peripheral perfusion. Good pulses. No edema. No rash. No clubbing. Const: Vital Signs, click to edit/add: Vital Signs - 24 hr 07/02/22 17:11 07/02/22 19:13 07/02/22 19:14 Temperature 97.9 F Pulse Rate 63 80 Pulse Rate [Pulse Oximeter] 87 Respiratory Rate 20 Blood Pressure 124/95 H Blood Pressure [Le ft Arm] Blood Pressure [Ri ght Arm] Blood Pressure [Ri ght Upper Arm] 145/94 H Pulse Oximetry 98 97 96 Oxygen Delivery Me thod Room Air 07/02/22 19:15 07/02/22 19:30 07/02/22 19:32 Temperature Pulse Rate 61 75 86 Pulse Rate [Pulse Oximeter] Respiratory Rate Blood Pressure 117/90 H Blood Pressure [Le ft Arm] Blood Pressure [Ri ght Arm] Blood Pressure [Ri ght Upper Arm] Pulse Oximetry 97 95 95 Oxygen Delivery Me thod 07/02/22 19:45 07/02/22 20:00 07/02/22 20:01 Temperature Pulse Rate 77 77 69 Pulse Rate [Pulse Oximeter] Respiratory Rate Blood Pressure 119/93 H Blood Pressure [Le ft Arm] Blood Pressure [Ri ght Arm] Blood Pressure [Ri ght Upper Arm] Pulse Oximetry 94 96 95 Oxygen Delivery Me thod 07/02/22 20:15 07/02/22 20:53 07/02/22 20:54 Temperature Pulse Rate 78 80 79 Pulse Rate [Pulse Oximeter] Respiratory Rate Blood Pressure 110/97 H Blood Pressure [Le ft Arm] Blood Pressure [Ri ght Arm] Blood Pressure [Ri ght Upper Arm] Pulse Oximetry 97 93 94 Oxygen Delivery Me thod 07/02/22 21:00 07/02/22 21:02 07/02/22 21:03 Temperature Pulse Rate 90 76 80 Pulse Rate [Pulse Oximeter] Respiratory Rate Blood Pressure 115/79 Blood Pressure [Le ft Arm] Blood Pressure [Ri ght Arm] Blood Pressure [Ri ght Upper Arm] Pulse Oximetry 92 89 93 Oxygen Delivery Me thod 07/02/22 21:35 07/02/22 21:36 07/02/22 21:45 Temperature Pulse Rate 87 93 88 Pulse Rate [Pulse Oximeter] Respiratory Rate Blood Pressure Blood Pressure [Le ft Arm] Blood Pressure [Ri ght Arm] Blood Pressure [Ri ght Upper Arm] Pulse Oximetry 97 95 97 Oxygen Delivery Me thod 07/02/22 22:05 07/02/22 22:15 07/02/22 22:29 Temperature Pulse Rate 89 80 83 Pulse Rate [Pulse Oximeter] Respiratory Rate Blood Pressure 116/74 Blood Pressure [Le ft Arm] Blood Pressure [Ri ght Arm] Blood Pressure [Ri ght Upper Arm] Pulse Oximetry 92 96 96 Oxygen Delivery Me thod 07/02/22 22:30 07/02/22 22:32 07/02/22 22:45 Temperature Pulse Rate 81 78 82 Pulse Rate [Pulse Oximeter] Respiratory Rate Blood Pressure 106/77 Blood Pressure [Le ft Arm] Blood Pressure [Ri ght Arm] Blood Pressure [Ri ght Upper Arm] Pulse Oximetry 96 96 97 Oxygen Delivery Me thod 07/02/22 23:20 07/02/22 19:30 07/03/22 05:56 Temperature 97.5 F L Pulse Rate Pulse Rate [Pulse Oximeter] 66 75 Respiratory Rate 20 20 Blood Pressure Blood Pressure [Le ft Arm] 137/89 Blood Pressure [Ri ght Arm] Blood Pressure [Ri ght Upper Arm] 117/90 H Pulse Oximetry 95 95 92 Oxygen Delivery Me thod Room Air Room Air Room Air 07/02/22 23:57 07/03/22 03:00 Temperature 97.2 F L Pulse Rate Pulse Rate [Pulse Oximeter] 72 Respiratory Rate 20 Blood Pressure Blood Pressure [Le ft Arm] Blood Pressure [Ri ght Arm] 96/64 Blood Pressure [Ri ght Upper Arm] Pulse Oximetry 92 92 Oxygen Delivery Me thod Room Air Documenting provider has reviewed patient's vital signs: yes Hospitalist - H&P: Result Labs Labs: Short CBC 07/02/22 Range/Units 18:20 WBC 5.30 (4.50-11.00) K/uL Hgb 15.2 (13.5-17.5) gm/dL Hct 43.5 (37.0-53.0) % Plt Count 221 (140-440) K/uL BMP 07/02/22 18:20 Sodium 139 Potassium 4.0 Chloride 108 Carbon Dioxide 25 BUN 26 Creatinine 0.9 Glucose 86 Calcium 9.4 Liver Function 07/02/22 Range/Units 18:20 Total Bilirubin 0.9 (0.1-1.5) mg/dL AST 30 (12-35) U/L ALT 27 (4-50) U/L Alkaline Phosphatase 70 (40-150) U/L Albumin 4.4 (3.3-5.0) g/dL ECG Attestation: I personally reviewed and interpreted this ECG as follows: (Normal sinus rhythm with frequent PVCs. No acute ST-T changes) Imaging CT scan - chest: Radiologist's impression: Bilateral PE. No apparent right heart strain. Ascending thoracic aortic aneurysm at 4.5 cm Assessment and Plan Assessment and plan (1) Pulmonary embolism: Problem comment: Multiple bilateral pulmonary emboli likely the primary cause of his current dyspnea. Treat with apixaban. Because of family and personal history of DVT, I recommend lifelong treatment unless he develops bleeding disorder. Status: Acute (2) Cough: Problem comment: He has acute on chronic cough. Acute portion likely due to PE. Cause of chronic cough uncertain. He has been clinically diagnosed with COPD. Recommend pulmonary follow-up after he has had appropriate treatment for his PE. Status: Acute (3) Exertional dyspnea: Problem comment: He had exertional dyspnea preceding his current pulmonary embolism. Cause is uncertain. Possible COPD or possibly undiagnosed previous PE. Status: Acute (4) Obstructive sleep apnea treated with continuous positive airway pressure (CPAP): Status: Acute (5) Abnormal echocardiogram: Problem comment: Preliminary echocardiogram shows mildly reduced left and right ventricular function. No pulmonary hypertension. Status: Acute Plan Discharge to home on apixaban for pulmonary emboli. Recommend long-term anticoagulation in the absence of contraindication. Consider outpatient evaluation for possible COPD and heart disease evaluation Total time spent today is 75 minutes, 50 minutes in coordination of care and discussing with patient, and other providers ongoing evaluation management of heart and lung disease
[2022-07-03 15:00] VITALS: PULSE 100; RESP 18
--- NOTE | 2022-07-03 15:05 | PM.DS1 ---
DS: Providers Provider Date Seen: 07/03/22 Date of admission: 07/02/22 22:27 Primary care physician: Ayan Shen MD Admitting Clinician: Yaz Norman MD Attending Physician on discharge: Yaz Norman MD Date of Discharge: 07/03/22 DS: Diagnosis Discharge Diagnosis (1) Pulmonary embolism: Status: Acute Problem details: Multiple bilateral pulmonary emboli likely the primary cause of his current dyspnea. Treat with apixaban. Because of family and personal history of DVT, I recommend lifelong treatment unless he develops bleeding disorder. (2) Cough: Status: Acute Problem details: He has acute on chronic cough. Acute portion likely due to PE. Cause of chronic cough uncertain. He has been clinically diagnosed with COPD. Recommend pulmonary follow-up after he has had appropriate treatment for his PE. (3) Exertional dyspnea: Status: Acute Problem details: He had exertional dyspnea preceding his current pulmonary embolism. Cause is uncertain. Possible COPD or possibly undiagnosed previous PE. (4) Abnormal echocardiogram: Status: Acute Problem details: Preliminary echocardiogram shows mildly reduced left and right ventricular function. No pulmonary hypertension. (5) Obstructive sleep apnea treated with continuous positive airway pressure (CPAP): Status: Acute DS: Summary Hospital Course Hospital Course: 67-year-old male admitted to the hospital with worsening exertional dyspnea. The time of admission he was found to have bilateral pulmonary emboli. He has previous history of DVT. He was started on enoxaparin and then switched to apixaban for treatment of this. During his hospital stay he was not hypoxic. He did not have hypotension. Chest CT did not show right heart strain. Echocardiogram did not show right heart strain or pulmonary hypertension. He did show mildly reduced left and right ventricular function however. Status at Discharge Functional status at discharge: independent ambulation Overall status at discharge: patient is progressing back to baseline Time Spent with Patient Time attestation: Total time spent providing and/or coordinating discharge services: Exam Narrative: Exam Narrative: He is alert no distress. Lungs are clear to auscultation. Cardiovascular: S1, S2, regular rate and rhythm. Abdomen is soft without tenderness. He has 1 + edema in the left lower extremity and 2 to 3+ edema in the right lower extremity. He says this is chronic since his DVT Const: Vital Signs, click to edit/add: Vital Signs - 24 hr 07/02/22 17:11 07/02/22 19:13 07/02/22 19:14 Temperature 97.9 F Pulse Rate 63 80 Pulse Rate [Pulse Oximeter] 87 Respiratory Rate 20 Blood Pressure 124/95 H Blood Pressure [Le ft Arm] Blood Pressure [Ri ght Arm] Blood Pressure [Ri ght Upper Arm] 145/94 H Pulse Oximetry 98 97 96 Oxygen Delivery Me thod Room Air 07/02/22 19:15 07/02/22 19:30 07/02/22 19:32 Temperature Pulse Rate 61 75 86 Pulse Rate [Pulse Oximeter] Respiratory Rate Blood Pressure 117/90 H Blood Pressure [Le ft Arm] Blood Pressure [Ri ght Arm] Blood Pressure [Ri ght Upper Arm] Pulse Oximetry 97 95 95 Oxygen Delivery Me thod 07/02/22 19:45 07/02/22 20:00 07/02/22 20:01 Temperature Pulse Rate 77 77 69 Pulse Rate [Pulse Oximeter] Respiratory Rate Blood Pressure 119/93 H Blood Pressure [Le ft Arm] Blood Pressure [Ri ght Arm] Blood Pressure [Ri ght Upper Arm] Pulse Oximetry 94 96 95 Oxygen Delivery Me thod 07/02/22 20:15 07/02/22 20:53 07/02/22 20:54 Temperature Pulse Rate 78 80 79 Pulse Rate [Pulse Oximeter] Respiratory Rate Blood Pressure 110/97 H Blood Pressure [Le ft Arm] Blood Pressure [Ri ght Arm] Blood Pressure [Ri ght Upper Arm] Pulse Oximetry 97 93 94 Oxygen Delivery Me thod 07/02/22 21:00 07/02/22 21:02 07/02/22 21:03 Temperature Pulse Rate 90 76 80 Pulse Rate [Pulse Oximeter] Respiratory Rate Blood Pressure 115/79 Blood Pressure [Le ft Arm] Blood Pressure [Ri ght Arm] Blood Pressure [Ri ght Upper Arm] Pulse Oximetry 92 89 93 Oxygen Delivery Me thod 07/02/22 21:35 07/02/22 21:36 07/02/22 21:45 Temperature Pulse Rate 87 93 88 Pulse Rate [Pulse Oximeter] Respiratory Rate Blood Pressure Blood Pressure [Le ft Arm] Blood Pressure [Ri ght Arm] Blood Pressure [Ri ght Upper Arm] Pulse Oximetry 97 95 97 Oxygen Delivery Me thod 07/02/22 22:05 07/02/22 22:15 07/02/22 22:29 Temperature Pulse Rate 89 80 83 Pulse Rate [Pulse Oximeter] Respiratory Rate Blood Pressure 116/74 Blood Pressure [Le ft Arm] Blood Pressure [Ri ght Arm] Blood Pressure [Ri ght Upper Arm] Pulse Oximetry 92 96 96 Oxygen Delivery Me thod 07/02/22 22:30 07/02/22 22:32 07/02/22 22:45 Temperature Pulse Rate 81 78 82 Pulse Rate [Pulse Oximeter] Respiratory Rate Blood Pressure 106/77 Blood Pressure [Le ft Arm] Blood Pressure [Ri ght Arm] Blood Pressure [Ri ght Upper Arm] Pulse Oximetry 96 96 97 Oxygen Delivery Me thod 07/02/22 23:20 07/02/22 19:30 07/03/22 05:56 Temperature 97.5 F L Pulse Rate Pulse Rate [Pulse Oximeter] 66 75 Respiratory Rate 20 20 Blood Pressure Blood Pressure [Le ft Arm] 137/89 Blood Pressure [Ri ght Arm] Blood Pressure [Ri ght Upper Arm] 117/90 H Pulse Oximetry 95 95 92 Oxygen Delivery Me thod Room Air Room Air Room Air 07/02/22 23:57 07/03/22 03:00 Temperature 97.2 F L Pulse Rate Pulse Rate [Pulse Oximeter] 72 Respiratory Rate 20 Blood Pressure Blood Pressure [Le ft Arm] Blood Pressure [Ri ght Arm] 96/64 Blood Pressure [Ri ght Upper Arm] Pulse Oximetry 92 92 Oxygen Delivery Me thod Room Air Documenting provider has reviewed patient's vital signs: yes DS: Data Data Completed and Pending Labs on day of discharge: Labs from last 24 hours 07/02/22 07/02/22 07/02/22 18:20 18:20 18:20 WBC RBC Hgb Hct MCV MCH MCHC RDW Coeff of Sandra Plt Count Neut % (Auto) Lymph % (Auto) [place] % (Auto) Eos % (Auto) Baso % (Auto) Neut # (Auto) Lymph # (Auto) [place] # (Auto) Eos # (Auto) Baso # (Auto) Abs Immat Gran (auto) Imm/Tot Granulo (auto) D-Dimer Quant (PE/DVT) 2.22 H Sodium Potassium Chloride Carbon Dioxide BUN Creatinine Estimated Creat Clear Estimated GFR Glucose Calcium Magnesium Total Bilirubin AST ALT Alkaline Phosphatase C-Reactive Protein NT-Pro-B Natriuret Pep Total Protein Albumin SARS-CoV-2 (PCR) Negative SARS-CoV-2 Influenza Type A (PCR) Negative PCR FLU A Influenza Type B (PCR) Negative PCR FLU B RSV (PCR) Negative PCR RSV POC Troponin I 0.00 L 07/02/22 07/02/22 18:20 18:20 WBC 5.30 RBC 4.78 Hgb 15.2 Hct 43.5 MCV 91 MCH 32 MCHC 35 RDW Coeff of Sandra 13.0 Plt Count 221 Neut % (Auto) 39.8 L Lymph % (Auto) 40.0 Hamilton % (Auto) 15.3 H Eos % (Auto) 3.4 Baso % (Auto) 1.1 Neut # (Auto) 2.10 Lymph # (Auto) 2.12 Hamilton # (Auto) 0.80 Eos # (Auto) 0.18 Baso # (Auto) 0.06 Abs Immat Gran (auto) 0.02 Imm/Tot Granulo (auto) 0.4 D-Dimer Quant (PE/DVT) Sodium 139 Potassium 4.0 Chloride 108 Carbon Dioxide 25 BUN 26 Creatinine 0.9 Estimated Creat Clear 67.45 Estimated GFR 92 Glucose 86 Calcium 9.4 Magnesium 2.1 Total Bilirubin 0.9 AST 30 ALT 27 Alkaline Phosphatase 70 C-Reactive Protein < 0.5 L NT-Pro-B Natriuret Pep 144 H Total Protein 7.2 Albumin 4.4 SARS-CoV-2 (PCR) Influenza Type A (PCR) Influenza Type B (PCR) RSV (PCR) POC Troponin I Discharge Plan Discharge Disposition: Home, Self-Care Date of Admission: 07/02/22 22:27 Attending Provider on Discharge: Julius Fiore Primary Care Provider: Ayan Shen Condition: Stable Anticipated Discharge Date/Time: 07/03/22 15:01 Discharge Medications: New apixaban 5 mg (74 tabs) tablets,dose pack 5 mg PO BID Qty: 74 0RF Continued coenzyme Q10 30 mg capsule 30 mg PO DAILY glucosamine sulfate 500 mg capsule 500 mg PO DAILY omega-3 acid ethyl esters 1 gram capsule 1 cap PO DAILY hydrochlorothiazide 12.5 mg capsule 12.5 mg PO DAILY Qty: 90 4RF omeprazole 20 mg capsule,delayed release(DR/EC) 20 mg PO DAILY Qty: 90 4RF Combivent Respimat 20-100 mcg/actuation mist 1 puff inhalation Q6H Qty: 4 1RF losartan 100 mg tablet 100 mg PO DAILY rosuvastatin 10 mg tablet 10 mg PO HS Discontinued ibuprofen 200 mg tablet 200 - 400 mg PO Q8H PRN aspirin 81 mg tablet,delayed release (DR/EC) 81 mg PO DAILY Discharge Orders: Discharge Order (Routine); Ordered 07/03/22 Ordered By: Julius Fiore Additional Instructions: See your doctor next week for recheck of your heart and lungs and blood clots. Activity Level: Activity as Tolerated Discharge Diet: Regular Follow Up Appointments: Ayan Shen MD [Primary Care Provider] - (One week) Forms: [employer] Info Instructions
--- NOTE | 2022-07-03 18:03 | PC.NURSE ---
shift note: pt up indept in room. pt denies c.p or pressure. pt denies sob. pt on RA with sats 95-96%. LS clr. IV dc'd intact prior to dc. Reviewed dc instructions and copies sent with pt. Reviewed belongings. Belongings sent with pt on dc.
== END 2022-07-03 17:30 | disposition home or self-care (01) ==
LOC: ED 22:23 → MEDSURG 22:28
PROVIDERS: Admitting Provider Family Medicine; Emergency Provider Family Medicine; PCP Family Medicine; Visit Provider Family Medicine
DX: I26.99 Other pulmonary embolism without acute cor pulmonale (principal); J44.1 Chronic obstructive pulmonary disease with (acute) exacerbation; R06.01 Orthopnea; R05.9 Cough, unspecified; R06.09 Other forms of dyspnea; R93.1 Abnormal findings on diagnostic imaging of heart and coronary circulation; G47.33 Obstructive sleep apnea (adult) (pediatric); Z99.89 Dependence on other enabling machines and devices; Z83.2 Family history of diseases of the blood and blood-forming organs and certain disorders involving the immune mechanism; I10 Essential (primary) hypertension; Z87.09 Personal history of other diseases of the respiratory system; Z87.891 Personal history of nicotine dependence; Z79.82 Long term (current) use of aspirin; I71.21 Aneurysm of the ascending aorta, without rupture; Z90.49 Acquired absence of other specified parts of digestive tract; Z98.890 Other specified postprocedural states; Z20.822 Contact with and (suspected) exposure to COVID-19; R06.02 Shortness of breath
CPT/HCPCS: 36415; 71046; 71260; 80053; 83735; 83880; 84484; 85025; 85379; 86140; 87502; 87634; 87635; 93005; 93306; 94640; 94761; 96372; 99285; A9270; G0378; J1650; Q9967

== ENCOUNTER 2022-12-05 17:20 | Emergency (ER) | payer OTHER, MEDICARE, SELFPAY ==
[2022-12-05] VITALS (10 sets, daily range): BP systolic 97–133; BP diastolic 66–90; PULSE 81–112; RESP 12–18; TEMP 37.2; O2SAT 92–100; BMI 35.1
--- NOTE | 2022-12-05 17:39 | CRLHL7_ITS ---
For Patients: As a result of the 21st Century Cures Act, medical imaging exams and procedure reports are released immediately into your electronic medical record. You may view this report before your referring provider. If you have questions, please contact your health care provider. INDICATION: Flank pain, hematuria. TECHNIQUE: CT abdomen and pelvis without contrast. COMPARISON: December 2018. FINDINGS: Lower chest: 3 millimeter left lower lobe indeterminate pulmonary nodule. Unchanged, statistically benign. ABDOMEN: Liver: Normal attenuation. Gallbladder and biliary: Cholecystectomy. Pneumobilia. Spleen: Normal size and attenuation. Pancreas: The noncontrast pancreas is homogeneous in attenuation without peripancreatic inflammatory changes or ductal dilatation. Adrenal glands: Normal adrenal glands. Kidneys and ureters: Within the left kidney predominantly in the anterior aspect of the inferior pole there is high attenuation nodular foci, the largest of which measures 60 Hounsfield units and 50 millimeters. No hydroureteronephrosis. Trace fluid fluid levels in the right renal pelvis. No hydroureteronephrosis. Subcentimeter hypodensities are too small to characterize however statistically represent cysts. GI tract: The stomach is relatively decompressed. Normal caliber small and large bowel loops. Normal appendix. Vascular structures: Normal caliber aorta with atherosclerotic calcifications. Lymph nodes: No lymphadenopathy in the abdomen or pelvis by size criteria. Peritoneum: No free air, free fluid, or focal drainable fluid collection. PELVIS: Genitourinary system: Mild circumferential wall thickening of the urinary bladder. Prostatomegaly. SKELETAL STRUCTURES AND SOFT TISSUES: Curvature of the lumbar spine, convex to the left. Severe. Transitional lumbosacral anatomy. IMPRESSION: 1. Within the left kidney predominantly in the anterior aspect of the inferior pole there is high attenuation nodular foci, the largest of which measures 60 Hounsfield units and 50 millimeters. No hydroureteronephrosis. Findings may reflect renal parenchymal hemorrhage into the collecting system. Lack of intravenous contrast degrades solid organ evaluation. Recommend further characterization with dedicated renal protocol CT. 2. A few tiny fluid fluid levels in the right renal pelvis are indeterminate however may also reflect blood products. 3. Circumferential wall thickening of the urinary bladder may be secondary to muscular hypertrophy in the setting of chronic outlet obstruction from an enlarged prostate. Please note that all CT scans at this facility use dose modulation, iterative reconstruction, and/or weight-based dosing when appropriate to reduce radiation dose to as low as reasonably achievable. Dictated by Roger Haider MD @ 12/05/2022 7:41:34 PM (Electronically Signed)
--- NOTE | 2022-12-05 17:51 | ED_ITS ---
HPI - General Adult General Date Seen: 12/05/22 Chief complaint: Urogenital Problems, Male Stated complaint: Possible Kidney Stone Time Seen by Provider: 12/05/22 17:30 Source: patient Mode of arrival: ambulatory Limitations: no limitations History of Present Illness HPI narrative: Patient is a 67-year-old male who presented urgent care today for evaluation of some left-sided flank pain. He notes that yesterday he saw some blood in his urine although that is resolved today. They did do UA in Urgent Care and he had 10-25 red blood cells microscopically. He says it felt like someone was stabbing him in the flank. He received Toradol in Urgent Care and pain is much improved. He denies any history of similar pain, no history of kidney stones. He has not had any other urinary symptoms such as dysuria, frequency, urgency. No fevers, no abdominal pain, nausea, vomiting, diarrhea, black or bloody stools. Medical history was reviewed. He does take Coumadin secondary to history of DVT. Related Data Home Medications Medication Instructions Recorded Confirmed coenzyme Q10 30 mg capsule 30 mg PO DAILY 03/27/22 12/05/22 glucosamine sulfate 500 mg capsule 500 mg PO DAILY 03/27/22 12/05/22 omega-3 acid ethyl esters 1 gram 1 cap PO DAILY 03/27/22 12/05/22 capsule rosuvastatin 10 mg tablet 10 mg PO HS 07/03/22 12/05/22 losartan 100 mg tablet 100 mg PO DAILY 10/31/22 12/05/22 Previous Rx's Medication Instructions Recorded hydrochlorothiazide 12.5 mg capsule 12.5 mg PO DAILY #90 caps 03/28/22 omeprazole 20 mg capsule,delayed 20 mg PO DAILY #90 caps 03/28/22 release fluticasone 250 mcg-salmeterol 50 1 inh inhalation BID #60 ea 07/10/22 mcg/dose blistr powdr for inhalation (Advair Diskus) nebulizers (Aeroneb Go Nebulizer) #1 ea 08/03/22 fluticasone propionate 50 1 spray intranasal BID #16 grams 09/26/22 mcg/actuation nasal spray,suspension (Flonase Allergy Relief) warfarin 5 mg tablet 5 mg PO QDAY #90 tabs 10/31/22 Allergies Allergy/AdvReac Type Severity Reaction Status Date / Time penicillin V Allergy Intermediate Swelling Verified 12/05/22 21:17 and redness Review of Systems Status of ROS: Reports: 10 or more systems reviewed and unremarkable except as noted in History and below PFSH [facility] Medical History Dysuria ?R30.0 - Dysuria (ICD-10) Abnormal echocardiogram ?R93.1 - Abnormal findings on diagnostic imaging of heart and coronary circulation (ICD-10) Exertional dyspnea ?R06.09 - Other forms of dyspnea (ICD-10) Umbilical hernia (07/29/09) ?K42.9 - Umbilical hernia without obstruction or gangrene (ICD-10) Rupture of Achilles tendon ?S86.019A - Strain of unspecified Achilles tendon, initial encounter (ICD-10) Encounter for routine history and physical examination of adult ?Z00.00 - Encounter for general adult medical examination without abnormal findings (ICD-10) Surgical History H/O arthroscopy of left knee (03/11/12) ?Z98.890 - Other specified postprocedural states (ICD-10) H/O Achilles tendon repair (08/05/12) ?Z98.890 - Other specified postprocedural states (ICD-10) H/O inguinal hernia repair (07/29/09) ?Z98.890 - Other specified postprocedural states (ICD-10) ?Z87.19 - Personal history of other diseases of the digestive system (ICD-10) Hx of shoulder surgery (07/29/09) ?Z98.890 - Other specified postprocedural states (ICD-10) 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 Highest level of school completed/degree received: high school graduate Smoking Status: Never smoker Do you use any of these nicotine containing products: None Second hand tobacco smoke exposure: No How often do you have a drink containing alcohol: monthly or less Alcohol type: beer How many standard drinks containing alcohol do you have on a typical day: 1 or 2 How often do you have six or more drinks on one occasion: Never AUDIT-C Alcohol total score: 1 Non-prescribed substance use: denies use Caffeine: No service: Yes Exam Narrative: Exam Narrative: Vital signs as noted above. In general, an alert, well-appearing patient. Looks comfortable at this time. Head: Normocephalic, atraumatic. Eyes: Pupils are equal reactive. Extraocular movements are full. Conjunctivae are normal. ENT: Mucous membranes are moist. Neck: Supple without lymphadenopathy. Heart: Regular rate and rhythm. No murmur or rub. Lungs: Clear bilaterally. No increased work of breathing, crackles or wheezes. Abdomen: Soft and nontender. No CVA tenderness. Extremities: Well perfused. Neurologic: Patient is alert and oriented to person and place. Speech is fluent. Face is symmetric. Moves all extremities equally. Affect: Normal. Skin: Warm and dry. Well perfused. Const: Vital Signs, click to edit/add: Vital Signs - 24 hr 12/05/22 17:24 12/05/22 18:07 12/05/22 19:12 Temperature 99.0 F Pulse Rate Pulse Rate [Right Pulse Oximeter] 112 H 92 87 Respiratory Rate 16 12 18 Blood Pressure Blood Pressure [Ri ght Upper Arm] 133/90 H 110/85 114/80 Pulse Oximetry 95 96 96 Oxygen Delivery Me thod Room Air Room Air Room Air 12/05/22 21:13 12/05/22 21:23 12/05/22 21:30 Temperature Pulse Rate 83 84 Pulse Rate [Right Pulse Oximeter] 88 Respiratory Rate 18 Blood Pressure Blood Pressure [Ri ght Upper Arm] 97/66 Pulse Oximetry 95 92 94 Oxygen Delivery Me thod Room Air 12/05/22 21:32 12/05/22 21:45 Temperature Pulse Rate 83 83 Pulse Rate [Right Pulse Oximeter] Respiratory Rate Blood Pressure 103/76 Blood Pressure [Ri ght Upper Arm] Pulse Oximetry 94 93 Oxygen Delivery Me thod Documenting provider has reviewed patient's vital signs: yes Course Course Hospital Course: Records were reviewed including his UA from Urgent Care. This showed no significant white blood cells but 10-25 red blood cells. Diagnostic cons iderations include kidney stone, other obstructive uropathy, bladder stones, UTI, renal mass, among others. CT scan of the abdomen without contrast is pending at this time to evaluate further. Pain is controlled at this time. Urinalysis does not suggest significant infection currently but culture is pending from urgent care. CT of the abdomen without contrast by my review showed a masslike structure in the left kidney, final radiology read is as follows:IMPRESSION: 1. Within the left kidney predominantly in the anterior aspect of the inferior pole there is high attenuation nodular foci, the largest of which measures 60 Hounsfield units and 50 millimeters. No hydroureteronephrosis. Findings may reflect renal parenchymal hemorrhage into the collecting system. Lack of intravenous contrast degrades solid organ evaluation. Recommend further characterization with dedicated renal protocol CT. 2. A few tiny fluid fluid levels in the right renal pelvis are indeterminate however may also reflect blood products. 3. Circumferential wall thickening of the urinary bladder may be secondary to muscular hypertrophy in the setting of chronic outlet obstruction from an enlarged prostate. He went on to have a CT urogram, an INR was checked as well and this came back elevated at 5.4. Creatinine was 1.4. Urogram read as follows:IMPRESSION: Left renal sinus predominantly hyperattenuating 4.5 cm lesion is without identifiable enhancement on post-contrast imaging, favoring a benign hemorrhagic cyst. Recommend repeat contrast-enhanced renal CT or MR in 3-6 months to evaluate for resolution or underlying neoplasm. Patient is doing well at this point. He has not had significant pain since receiving the Toradol in Urgent Care. I did discuss this with the on-call urologist at [place], who felt that it was reasonable to discharge him home as long as he was feeling okay. Certainly if he is worsening, has significant hematuria or new symptoms such as fever he should come back. I gave him 5 mg of vitamin K, will have him hold his Coumadin for now and have him follow up with primary care for a plan to resume anticoagulation. For pain, I have asked him to use Tylenol and I have given him a few oxycodone if needed for uncontrolled pain. He will need a repeat CT scan in about 6 weeks to reassess this for resolution. Vital Signs Vital signs: Initial Vital Signs Temperature 99.0 F 05/09/23 17:24 Temperature Source Temporal Artery Scan 12/05/22 17:24 Pulse Rate 112 H 12/05/22 17:24 Pulse Rhythm Regular 12/05/22 17:24 Pulse Strength 3+ Normal 12/05/22 17:24 Respiratory Rate 16 12/05/22 17:24 Blood Pressure 133/90 H 12/05/22 17:24 Blood Pressure Mean 104 12/05/22 17:24 Blood Pressure Position Sitting 12/05/22 17:24 Pulse Oximetry 95 12/05/22 17:24 Oxygen Delivery Method Room Air 12/05/22 17:24 Vital Signs Temperature 99.0 F 12/05/22 17:24 Pulse Rate 112 H 12/05/22 17:24 Respiratory Rate 16 12/05/22 17:24 Blood Pressure 133/90 H 12/05/22 17:24 Pulse Oximetry 95 12/05/22 17:24 Oxygen Delivery Method Room Air 12/05/22 17:24 Temperature 99.0 F 12/05/22 17:24 Pulse Rate 83 12/05/22 21:45 Respiratory Rate 18 12/05/22 21:13 Blood Pressure 103/76 12/05/22 21:32 Pulse Oximetry 93 12/05/22 21:45 Oxygen Delivery Method Room Air 12/05/22 21:13 Medical Decision Making Lab Data Labs: Lab Results 12/05/22 12/05/22 Range/Units 20:02 20:18 INR 5.44 H* (0.91-1.10) POC Creatinine 1.4 H (0.6-1.3) mg/dl Discharge Plan Discharge Clinical Impression: Supratherapeutic INR, Hemorrhage of cyst of [place] kidney Patient Disposition: Home, Self-Care Condition: Improved Instructions: Elevated INR (ED), Kidney Cyst (ED) Additional Instructions: Hold your Coumadin for now, call Dr. Alex tomorrow to make a plan for resuming your anticoagulation. You will need a repeat CT scan in about 6 weeks to follow-up on this. If at any time you have more severe pain, significant blood in your urine, new symptoms such as fevers or vomiting, return to the emergency department for re-evaluation. Tylenol 1000 mg 3 times daily, oxycodone if needed for uncontrolled pain. Prescriptions: No Action fluticasone propion-salmeterol [Advair Diskus] 250-50 mcg/dose blister with device 1 inh inhalation BID Qty: 60 1RF fluticasone propionate [Flonase Allergy Relief] 50 mcg/actuation spray,suspension 1 spray intranasal BID Qty: 16 0RF Rx Instructions: administer into each nostril coenzyme Q10 30 mg capsule 30 mg PO DAILY glucosamine sulfate 500 mg capsule 500 mg PO DAILY omega-3 acid ethyl esters 1 gram capsule 1 cap PO DAILY hydrochlorothiazide 12.5 mg capsule 12.5 mg PO DAILY Qty: 90 4RF omeprazole 20 mg capsule,delayed release(DR/EC) 20 mg PO DAILY Qty: 90 4RF losartan 100 mg tablet 100 mg PO DAILY warfarin 5 mg tablet 5 mg PO QDAY Qty: 90 0RF rosuvastatin 10 mg tablet 10 mg PO HS (DME) nebulizers [Aeroneb Go Nebulizer] Misc See Rx Instructions .Route Qty: 1 0RF Rx Instructions: As directed Follow Up/Referrals: Ayan Shen MD [Primary Care Provider] - Stand Alone Forms: [email or web address] Info Instructions
--- NOTE | 2022-12-05 19:51 | CRLHL7_ITS ---
For Patients: As a result of the Century Cures Act, medical imaging exams and procedure reports are released immediately into your electronic medical record. You may view this report before your referring provider. If you have questions, please contact your health care provider. INDICATION: Hematuria. TECHNIQUE: CT abdomen and pelvis acquired with and without intravenous contrast, 100 mL of Isovue 370. Post-contrast imaging performed in nephrographic and urinary excretory phases. Coronal and sagittal reformats. COMPARISON: Earlier same day CT abdomen/pelvis without contrast. CT 01/03/2019. FINDINGS: The imaged lower chest appears unremarkable. Normal liver contour. No suspicious hepatic lesion identified. Gallbladder surgically absent. No biliary dilatation. Mild pneumobilia. The pancreas, spleen, and adrenals are unremarkable. Redemonstrated bilateral renal sinus cysts. Redemonstrated lesion in the left anterior renal sinus measuring approximately 4.5 x 4.1 x 4.0 cm (series 5, image 64; series 8, image 56), which appears predominantly hyperattenuating on noncontrast enhanced imaging (63 Hounsfield units; series 2, image 60) and without apparent enhancement on postcontrast imaging (62 Hounsfield units; series 4, image 37). No urolithiasis or hydronephrosis bilaterally. No suspicious filling defect identified in the contrast opacified portions of the upper urinary tracts. Unremarkable bladder. Prostatomegaly. The bowel appears normal in caliber and enhancement diffusely. Normal appendix. No free air, free fluid, focal collection, or lymphadenopathy. Normal caliber abdominal aorta with mild-moderate atherosclerotic changes. Moderate scoliosis. No suspicious osseous lesion. IMPRESSION: Left renal sinus predominantly hyperattenuating 4.5 cm lesion is without identifiable enhancement on post-contrast imaging, favoring a benign hemorrhagic cyst. Recommend repeat contrast-enhanced renal CT or MR in 3-6 months to evaluate for resolution or underlying neoplasm. Dictated by Franki Cheung MD @ 12/05/2022 9:22:47 PM Please note that all CT scans at this facility use dose modulation, iterative reconstruction, and/or weight-based dosing when appropriate to reduce radiation dose to as low as reasonably achievable. Dictated by: Franki Cheung MD @ 12/05/2022 21:22:51 (Electronically Signed)
[2022-12-05 20:24] LABS: Creatinine, Point-of-Care* 1.4 mg/dl (0.6-1.3)
[2022-12-05 21:20] LABS: Prothrombin Time 51.8 Seconds
[2022-12-05 21:22] LABS: INR 5.44 (0.91-1.10)
--- NOTE | 2022-12-05 21:23 | ED.NURSE ---
Lab called regarding INR value pending for greater then 60 minutes. INR reported at 5.4 per supervisor [facility] facility. They reported a system error.
== END 2022-12-05 22:20 | disposition home or self-care (01) ==
PROVIDERS: Emergency Provider Emergency Medicine; PCP Family Medicine
DX: N28.1 Cyst of kidney, acquired (principal); R79.1 Abnormal coagulation profile
CPT/HCPCS: 36415; 74176; 74178; 82565; 85610; 96372; 99284; J3430; Q9967

== ENCOUNTER 2023-03-05 09:22 | Outpatient (CLI) | payer OTHER, SELFPAY ==
--- NOTE | 2023-03-05 10:00 | CRLHL7_ITS ---
For Patients: As a result of the Century Cures Act, medical imaging exams and procedure reports are released immediately into your electronic medical record. You may view this report before your referring provider. If you have questions, please contact your health care provider. Indication: Left renal lesion Technique: Pre and post-contrast CT abdomen and pelvis. 116 cc Isovue 370 intravenous contrast. Postcontrast images in the arterial, portal venous and delayed phases. Please note that all CT scans at this facility use dose modulation, iterative reconstruction, and/or weight-based dosing when appropriate to reduce radiation dose to as low as reasonably achievable. Comparison: 12/05/2022 Findings: There is decreased size and definition of the previously noted hemorrhagic structure arising from the anterior left kidney. Small residual area of decreased attenuation is present measuring 1.5 cm. No perinephric stranding or perinephric fluid. No abscess. No stone. Simple cyst posterior left kidney measuring 2.7 cm. Right kidney normal. Mild atelectasis in both lung bases. No intrahepatic masses. Gallbladder absent with mild incidental pneumobilia. Small duodenal diverticulum. Pancreas normal. Normal adrenal glands. Ectatic aorta. Scoliotic deformity. No bowel obstruction. Impression: Interval near complete resolution of the previously noted hemorrhagic left renal cyst. No underlying mass. Please note that all CT scans at this facility use dose modulation, iterative reconstruction, and/or weight-based dosing when appropriate to reduce radiation dose to as low as reasonably achievable. Dictated by Roger Jasso MD @ 03/05/2023 1:08:37 PM (Electronically Signed)
[2023-03-05 10:09] LABS: Estimated Glomerular Filt Rate 81 ml/min
== END 2023-03-05 09:23 | disposition home or self-care (01) ==
LOC: CT 09:28
PROVIDERS: PCP Family Medicine; Visit Provider Family Medicine
DX: N28.9 Disorder of kidney and ureter, unspecified (principal); N28.1 Cyst of kidney, acquired
CPT/HCPCS: 36415; 74170; 82565; Q9967

== ENCOUNTER 2023-07-24 09:16 | Outpatient (CLI) | payer OTHER, SELFPAY | END 2023-07-24 09:17 | disposition home or self-care (01) | PROVIDERS: PCP Family Medicine; Visit Provider Family Medicine | DX: I10 Essential (primary) hypertension (principal); Z12.5 Encounter for screening for malignant neoplasm of prostate | CPT/HCPCS: 80053; 84153 ==

== ENCOUNTER 2023-08-09 05:37 | Inpatient (IN) | payer OTHER, MEDICARE, SELFPAY ==
[2023-08-09] VITALS (57 sets, daily range): BP systolic 100–142; BP diastolic 76–102; PULSE 72–104; RESP 18; TEMP 36.6; O2SAT 89–95; BMI 35.4
--- NOTE | 2023-08-09 05:51 | ED_ITS ---
HPI - Chest Pain General Time Seen by Provider: 05:51 <Yaz Norman MD - Last Filed: 08/09/23 08:24> Date Seen: 08/09/23 <Yaz Norman MD - Last Filed: 08/09/23 08:24> Chief Complaint: Chest Pain <Yaz Norman MD - Last Filed: 08/09/23 08:24> Stated Complaint: chest pain, shortness of breath <Yaz Norman MD - Last Filed: 08/09/23 08:24> Time Seen by Provider: 08/09/23 05:51 <Yaz Norman MD - Last Filed: 08/09/23 08:24> Source: patient, RN notes reviewed and old records reviewed <Yaz Norman MD - Last Filed: 08/09/23 08:24> Mode of arrival: ambulatory <Yaz Norman MD - Last Filed: 08/09/23 08:24> Limitations: no limitations <Yaz Norman MD - Last Filed: 08/09/23 08:24> History of Present Illness HPI narrative: Patient is a very pleasant 68-year-old male with a known history of ascending aortic aneurysm, 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 Patient notes the onset of the discomfort in the epigastric area 48 hours ago or 2 nights ago. He thought this probably had something to do with reflux and acid problem as he has had this in the past. However he notes that he has never felt quite this bad. It is now to the point where he cannot sleep very well. He takes omeprazole every evening. He has a history of a cholecystectomy. He does not use alcohol on a regular basis. He has not had any cough cold congestion or recent fevers. patient denies any abdominal distension. Patient notes the discomfort does radiate into the kidney area. Initially it did not do that. He notes that he is sore up onto his lower chest wall. He denies any shortness of breath unless he bends over and then he feels like it is harder for him to breathe. He has not had any nausea vomiting or change in his stools. He has not had a significant cough. Movement does not make the pain worse and lying still does not make the pain better. He describes this as burning and constant. <Yaz Norman MD - Last Filed: 08/09/23 08:24> Related Data Home Medications: Home Medications Medication Instructions Recorded Confirmed coenzyme Q10 30 mg capsule 30 mg PO DAILY 03/27/22 07/24/23 glucosamine sulfate 500 mg capsule 500 mg PO DAILY 03/27/22 07/24/23 omega-3 acid ethyl esters 1 gram 1 cap PO DAILY 03/27/22 07/24/23 capsule Previous Rx's Medication Instructions Recorded fluticasone 250 mcg-salmeterol 50 1 inh inhalation BID #60 ea 07/10/22 mcg/dose blistr powdr for inhalation (Advair Diskus) nebulizers (Aeroneb Go Nebulizer) #1 ea 08/03/22 fluticasone propionate 50 1 spray intranasal BID #16 grams 09/26/22 mcg/actuation nasal spray,suspension (Flonase Allergy Relief) hydrochlorothiazide 12.5 mg capsule 12.5 mg PO DAILY #90 caps 05/25/23 rosuvastatin 10 mg tablet 10 mg PO HS #90 tabs 06/01/23 losartan 100 mg tablet 100 mg PO DAILY #90 tabs 06/08/23 omeprazole 20 mg capsule,delayed 20 mg PO DAILY #90 caps 07/20/23 release triamcinolone acetonide 0.1 % 1 applic topical BID #80 grams 07/24/23 topical ointment apixaban 5 mg tablet (Eliquis) 5 mg PO BID #60 tabs 07/27/23 <Yaz Norman MD - Last Filed: 08/09/23 08:24> Allergies/Adverse Reactions: Allergies Allergy/AdvReac Type Severity Reaction Status Date / Time penicillin V Allergy Intermediate Swelling Verified 07/24/23 08:52 and redness <Yaz Norman MD - Last Filed: 08/09/23 08:24> Review of Systems Status of ROS Reports: 10 or more systems reviewed and unremarkable except as noted in History and below <Yaz Norman MD - Last Filed: 08/09/23 08:24> [facility] Medical History: Medical History Dysuria ?R30.0 - Dysuria (ICD-10) Abnormal echocardiogram ?R93.1 - Abnormal findings on diagnostic imaging of heart and coronary circulation (ICD-10) Exertional dyspnea ?R06.09 - Other forms of dyspnea (ICD-10) Umbilical hernia (07/29/09) ?K42.9 - Umbilical hernia without obstruction or gangrene (ICD-10) Rupture of Achilles tendon ?S86.019A - Strain of unspecified Achilles tendon, initial encounter (ICD-10) Encounter for routine history and physical examination of adult ?Z00.00 - Encounter for general adult medical examination without abnormal findings (ICD-10) <Yaz Norman MD - Last Filed: 08/09/23 08:24> Surgical History: Surgical History H/O arthroscopy of left knee (03/11/12) ?Z98.890 - Other specified postprocedural states (ICD-10) H/O Achilles tendon repair (08/05/12) ?Z98.890 - Other specified postprocedural states (ICD-10) H/O inguinal hernia repair (07/29/09) ?Z98.890 - Other specified postprocedural states (ICD-10) ?Z87.19 - Personal history of other diseases of the digestive system (ICD-10) Hx of shoulder surgery (07/29/09) ?Z98.890 - Other specified postprocedural states (ICD-10) 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 Highest level of school completed/degree received: high school graduate Smoking Status: Never smoker Do you use any of these nicotine containing products: None Second hand tobacco smoke exposure: No How often do you have a drink containing alcohol: monthly or less Alcohol type: beer How many standard drinks containing alcohol do you have on a typical day: 1 or 2 How often do you have six or more drinks on one occasion: Never AUDIT-C Alcohol total score: 1 Non-prescribed substance use: denies use Caffeine: No Little interest or pleasure in doing things: not at all Feeling down, depressed, or hopeless: not at all service: Yes <Yaz Norman MD - Last Filed: 08/09/23 08:24> Exam Narrative Exam Narrative: Alert and oriented. Good color. Nontoxic in appearance Heart with a tachycardic rate but normal rhythm. Lungs are with decreased breath In the basesounds but no crackles bilaterally. Abdomen shows Tenderness with palpation in the epigastrium. I do not palpate pulsating mass. Tenderness does not extend onto the lower chest wall or sternum with palpation. Bowel sounds are present. Are normal. Lower extremities without edema. Pedal pulses symmetrical and intact. Moving all extremities <Yaz Norman MD - Last Filed: 08/09/23 08:24> Const Vital Signs, click to edit/add: Vital Signs - 24 hr 08/09/23 05:45 08/09/23 05:46 08/09/23 05:46 Temperature 97.9 F Pulse Rate 99 104 H Pulse Rate [Pulse Oximeter] 99 Respiratory Rate 18 Blood Pressure 142/102 H Blood Pressure [Right Upper Arm] 142/102 H Pulse Oximetry 94 95 91 Oxygen Delivery Method Room Air 08/09/23 05:47 08/09/23 06:00 08/09/23 06:01 Temperature Pulse Rate 98 93 94 Pulse Rate [Pulse Oximeter] Respiratory Rate Blood Pressure 125/94 H 133/94 H Blood Pressure [Right Upper Arm] Pulse Oximetry 95 92 93 Oxygen Delivery Method 08/09/23 06:16 08/09/23 06:17 08/09/23 06:30 Temperature Pulse Rate 89 90 90 Pulse Rate [Pulse Oximeter] Respiratory Rate Blood Pressure 121/92 H Blood Pressure [Right Upper Arm] Pulse Oximetry 90 94 94 Oxygen Delivery Method 08/09/23 06:31 08/09/23 06:32 08/09/23 07:01 Temperature Pulse Rate 92 95 Pulse Rate [Pulse Oximeter] Respiratory Rate 18 Blood Pressure 118/91 H 116/90 H Blood Pressure [Right Upper Arm] Pulse Oximetry 91 94 Oxygen Delivery Method 08/09/23 07:20 08/09/23 07:54 08/09/23 08:00 Temperature Pulse Rate 85 86 Pulse Rate [Pulse Oximeter] Respiratory Rate Blood Pressure 113/93 H Blood Pressure [Right Upper Arm] Pulse Oximetry 91 92 Oxygen Delivery Method 08/09/23 08:15 08/09/23 08:38 08/09/23 08:45 Temperature Pulse Rate 85 83 Pulse Rate [Pulse Oximeter] Respiratory Rate Blood Pressure 116/85 Blood Pressure [Right Upper Arm] Pulse Oximetry 90 92 Oxygen Delivery Method 08/09/23 09:00 08/09/23 10:06 08/09/23 10:07 Temperature Pulse Rate 83 88 85 Pulse Rate [Pulse Oximeter] Respiratory Rate Blood Pressure 106/80 Blood Pressure [Right Upper Arm] Pulse Oximetry 91 92 90 Oxygen Delivery Method 08/09/23 10:15 08/09/23 10:30 08/09/23 10:45 Temperature Pulse Rate 84 83 83 Pulse Rate [Pulse Oximeter] Respiratory Rate Blood Pressure Blood Pressure [Right Upper Arm] Pulse Oximetry 93 90 90 Oxygen Delivery Method 08/09/23 11:00 08/09/23 11:15 08/09/23 11:30 Temperature Pulse Rate 81 82 84 Pulse Rate [Pulse Oximeter] Respiratory Rate Blood Pressure Blood Pressure [Right Upper Arm] Pulse Oximetry 91 92 91 Oxygen Delivery Method 08/09/23 11:45 08/09/23 12:00 08/09/23 12:11 Temperature Pulse Rate 84 87 84 Pulse Rate [Pulse Oximeter] Respiratory Rate Blood Pressure 100/79 Blood Pressure [Right Upper Arm] Pulse Oximetry 91 91 94 Oxygen Delivery Method 08/09/23 12:15 08/09/23 12:30 08/09/23 12:42 Temperature Pulse Rate 85 80 88 Pulse Rate [Pulse Oximeter] Respiratory Rate Blood Pressure 113/86 Blood Pressure [Right Upper Arm] Pulse Oximetry 93 90 92 Oxygen Delivery Method 08/09/23 12:45 08/09/23 13:00 08/09/23 13:02 Temperature Pulse Rate 82 85 86 Pulse Rate [Pulse Oximeter] Respiratory Rate Blood Pressure 100/79 Blood Pressure [Right Upper Arm] Pulse Oximetry 93 93 94 Oxygen Delivery Method 08/09/23 13:15 08/09/23 13:30 08/09/23 13:31 Temperature Pulse Rate 83 83 82 Pulse Rate [Pulse Oximeter] Respiratory Rate Blood Pressure 105/79 Blood Pressure [Right Upper Arm] Pulse Oximetry 90 91 92 Oxygen Delivery Method 08/09/23 13:45 08/09/23 14:00 08/09/23 14:01 Temperature Pulse Rate 82 83 82 Pulse Rate [Pulse Oximeter] Respiratory Rate Blood Pressure 107/78 Blood Pressure [Right Upper Arm] Pulse Oximetry 90 89 89 Oxygen Delivery Method 08/09/23 14:15 08/09/23 14:30 08/09/23 14:31 Temperature Pulse Rate 83 84 85 Pulse Rate [Pulse Oximeter] Respiratory Rate Blood Pressure 100/78 Blood Pressure [Right Upper Arm] Pulse Oximetry 92 89 89 Oxygen Delivery Method 08/09/23 14:45 08/09/23 15:00 08/09/23 15:02 Temperature Pulse Rate 84 81 82 Pulse Rate [Pulse Oximeter] Respiratory Rate Blood Pressure 102/76 Blood Pressure [Right Upper Arm] Pulse Oximetry 89 90 90 Oxygen Delivery Method 08/09/23 15:15 08/09/23 15:30 08/09/23 15:31 Temperature Pulse Rate 81 80 80 Pulse Rate [Pulse Oximeter] Respiratory Rate Blood Pressure 104/83 Blood Pressure [Right Upper Arm] Pulse Oximetry 90 90 90 Oxygen Delivery Method 08/09/23 15:45 08/09/23 16:00 08/09/23 16:51 Temperature Pulse Rate 82 82 79 Pulse Rate [Pulse Oximeter] Respiratory Rate Blood Pressure Blood Pressure [Right Upper Arm] Pulse Oximetry 90 92 92 Oxygen Delivery Method <Yaz Norman MD - Last Filed: 08/09/23 08:24> Vital Signs - 24 hr 08/09/23 05:45 08/09/23 05:46 08/09/23 05:46 Temperature 97.9 F Pulse Rate 99 104 H Pulse Rate [Pulse Oximeter] 99 Respiratory Rate 18 Blood Pressure 142/102 H Blood Pressure [Right Upper Arm] 142/102 H Pulse Oximetry 94 95 91 Oxygen Delivery Method Room Air 08/09/23 05:47 08/09/23 06:00 08/09/23 06:01 Temperature Pulse Rate 98 93 94 Pulse Rate [Pulse Oximeter] Respiratory Rate Blood Pressure 125/94 H 133/94 H Blood Pressure [Right Upper Arm] Pulse Oximetry 95 92 93 Oxygen Delivery Method 08/09/23 06:16 08/09/23 06:17 08/09/23 06:30 Temperature Pulse Rate 89 90 90 Pulse Rate [Pulse Oximeter] Respiratory Rate Blood Pressure 121/92 H Blood Pressure [Right Upper Arm] Pulse Oximetry 90 94 94 Oxygen Delivery Method 08/09/23 06:31 08/09/23 06:32 08/09/23 07:01 Temperature Pulse Rate 92 95 Pulse Rate [Pulse Oximeter] Respiratory Rate 18 Blood Pressure 118/91 H 116/90 H Blood Pressure [Right Upper Arm] Pulse Oximetry 91 94 Oxygen Delivery Method 08/09/23 07:20 08/09/23 07:54 08/09/23 08:00 Temperature Pulse Rate 85 86 Pulse Rate [Pulse Oximeter] Respiratory Rate Blood Pressure 113/93 H Blood Pressure [Right Upper Arm] Pulse Oximetry 91 92 Oxygen Delivery Method 08/09/23 08:15 08/09/23 08:38 08/09/23 08:45 Temperature Pulse Rate 85 83 Pulse Rate [Pulse Oximeter] Respiratory Rate Blood Pressure 116/85 Blood Pressure [Right Upper Arm] Pulse Oximetry 90 92 Oxygen Delivery Method 08/09/23 09:00 08/09/23 10:06 08/09/23 10:07 Temperature Pulse Rate 83 88 85 Pulse Rate [Pulse Oximeter] Respiratory Rate Blood Pressure 106/80 Blood Pressure [Right Upper Arm] Pulse Oximetry 91 92 90 Oxygen Delivery Method 08/09/23 10:15 08/09/23 10:30 08/09/23 10:45 Temperature Pulse Rate 84 83 83 Pulse Rate [Pulse Oximeter] Respiratory Rate Blood Pressure Blood Pressure [Right Upper Arm] Pulse Oximetry 93 90 90 Oxygen Delivery Method 08/09/23 11:00 08/09/23 11:15 08/09/23 11:30 Temperature Pulse Rate 81 82 84 Pulse Rate [Pulse Oximeter] Respiratory Rate Blood Pressure Blood Pressure [Right Upper Arm] Pulse Oximetry 91 92 91 Oxygen Delivery Method 08/09/23 11:45 08/09/23 12:00 08/09/23 12:11 Temperature Pulse Rate 84 87 84 Pulse Rate [Pulse Oximeter] Respiratory Rate Blood Pressure 100/79 Blood Pressure [Right Upper Arm] Pulse Oximetry 91 91 94 Oxygen Delivery Method 08/09/23 12:15 08/09/23 12:30 08/09/23 12:42 Temperature Pulse Rate 85 80 88 Pulse Rate [Pulse Oximeter] Respiratory Rate Blood Pressure 113/86 Blood Pressure [Right Upper Arm] Pulse Oximetry 93 90 92 Oxygen Delivery Method 08/09/23 12:45 08/09/23 13:00 08/09/23 13:02 Temperature Pulse Rate 82 85 86 Pulse Rate [Pulse Oximeter] Respiratory Rate Blood Pressure 100/79 Blood Pressure [Right Upper Arm] Pulse Oximetry 93 93 94 Oxygen Delivery Method 08/09/23 13:15 08/09/23 13:30 08/09/23 13:31 Temperature Pulse Rate 83 83 82 Pulse Rate [Pulse Oximeter] Respiratory Rate Blood Pressure 105/79 Blood Pressure [Right Upper Arm] Pulse Oximetry 90 91 92 Oxygen Delivery Method 08/09/23 13:45 08/09/23 14:00 08/09/23 14:01 Temperature Pulse Rate 82 83 82 Pulse Rate [Pulse Oximeter] Respiratory Rate Blood Pressure 107/78 Blood Pressure [Right Upper Arm] Pulse Oximetry 90 89 89 Oxygen Delivery Method 08/09/23 14:15 08/09/23 14:30 08/09/23 14:31 Temperature Pulse Rate 83 84 85 Pulse Rate [Pulse Oximeter] Respiratory Rate Blood Pressure 100/78 Blood Pressure [Right Upper Arm] Pulse Oximetry 92 89 89 Oxygen Delivery Method 08/09/23 14:45 08/09/23 15:00 08/09/23 15:02 Temperature Pulse Rate 84 81 82 Pulse Rate [Pulse Oximeter] Respiratory Rate Blood Pressure 102/76 Blood Pressure [Right Upper Arm] Pulse Oximetry 89 90 90 Oxygen Delivery Method 08/09/23 15:15 08/09/23 15:30 08/09/23 15:31 Temperature Pulse Rate 81 80 80 Pulse Rate [Pulse Oximeter] Respiratory Rate Blood Pressure 104/83 Blood Pressure [Right Upper Arm] Pulse Oximetry 90 90 90 Oxygen Delivery Method 08/09/23 15:45 08/09/23 16:00 08/09/23 16:51 Temperature Pulse Rate 82 82 79 Pulse Rate [Pulse Oximeter] Respiratory Rate Blood Pressure Blood Pressure [Right Upper Arm] Pulse Oximetry 90 92 92 Oxygen Delivery Method <Kavin Morton, DO - Last Filed: 08/09/23 15:54> Vital Signs - 24 hr 08/09/23 05:45 08/09/23 05:46 08/09/23 05:46 Temperature 97.9 F Pulse Rate 99 104 H Pulse Rate [Pulse Oximeter] 99 Respiratory Rate 18 Blood Pressure 142/102 H Blood Pressure [Right Upper Arm] 142/102 H Pulse Oximetry 94 95 91 Oxygen Delivery Method Room Air 08/09/23 05:47 08/09/23 06:00 08/09/23 06:01 Temperature Pulse Rate 98 93 94 Pulse Rate [Pulse Oximeter] Respiratory Rate Blood Pressure 125/94 H 133/94 H Blood Pressure [Right Upper Arm] Pulse Oximetry 95 92 93 Oxygen Delivery Method 08/09/23 06:16 08/09/23 06:17 08/09/23 06:30 Temperature Pulse Rate 89 90 90 Pulse Rate [Pulse Oximeter] Respiratory Rate Blood Pressure 121/92 H Blood Pressure [Right Upper Arm] Pulse Oximetry 90 94 94 Oxygen Delivery Method 08/09/23 06:31 08/09/23 06:32 08/09/23 07:01 Temperature Pulse Rate 92 95 Pulse Rate [Pulse Oximeter] Respiratory Rate 18 Blood Pressure 118/91 H 116/90 H Blood Pressure [Right Upper Arm] Pulse Oximetry 91 94 Oxygen Delivery Method 08/09/23 07:20 08/09/23 07:54 08/09/23 08:00 Temperature Pulse Rate 85 86 Pulse Rate [Pulse Oximeter] Respiratory Rate Blood Pressure 113/93 H Blood Pressure [Right Upper Arm] Pulse Oximetry 91 92 Oxygen Delivery Method 08/09/23 08:15 08/09/23 08:38 08/09/23 08:45 Temperature Pulse Rate 85 83 Pulse Rate [Pulse Oximeter] Respiratory Rate Blood Pressure 116/85 Blood Pressure [Right Upper Arm] Pulse Oximetry 90 92 Oxygen Delivery Method 08/09/23 09:00 08/09/23 10:06 08/09/23 10:07 Temperature Pulse Rate 83 88 85 Pulse Rate [Pulse Oximeter] Respiratory Rate Blood Pressure 106/80 Blood Pressure [Right Upper Arm] Pulse Oximetry 91 92 90 Oxygen Delivery Method 08/09/23 10:15 08/09/23 10:30 08/09/23 10:45 Temperature Pulse Rate 84 83 83 Pulse Rate [Pulse Oximeter] Respiratory Rate Blood Pressure Blood Pressure [Right Upper Arm] Pulse Oximetry 93 90 90 Oxygen Delivery Method 08/09/23 11:00 08/09/23 11:15 08/09/23 11:30 Temperature Pulse Rate 81 82 84 Pulse Rate [Pulse Oximeter] Respiratory Rate Blood Pressure Blood Pressure [Right Upper Arm] Pulse Oximetry 91 92 91 Oxygen Delivery Method 08/09/23 11:45 08/09/23 12:00 08/09/23 12:11 Temperature Pulse Rate 84 87 84 Pulse Rate [Pulse Oximeter] Respiratory Rate Blood Pressure 100/79 Blood Pressure [Right Upper Arm] Pulse Oximetry 91 91 94 Oxygen Delivery Method 08/09/23 12:15 08/09/23 12:30 08/09/23 12:42 Temperature Pulse Rate 85 80 88 Pulse Rate [Pulse Oximeter] Respiratory Rate Blood Pressure 113/86 Blood Pressure [Right Upper Arm] Pulse Oximetry 93 90 92 Oxygen Delivery Method 08/09/23 12:45 08/09/23 13:00 08/09/23 13:02 Temperature Pulse Rate 82 85 86 Pulse Rate [Pulse Oximeter] Respiratory Rate Blood Pressure 100/79 Blood Pressure [Right Upper Arm] Pulse Oximetry 93 93 94 Oxygen Delivery Method 08/09/23 13:15 08/09/23 13:30 08/09/23 13:31 Temperature Pulse Rate 83 83 82 Pulse Rate [Pulse Oximeter] Respiratory Rate Blood Pressure 105/79 Blood Pressure [Right Upper Arm] Pulse Oximetry 90 91 92 Oxygen Delivery Method 08/09/23 13:45 08/09/23 14:00 08/09/23 14:01 Temperature Pulse Rate 82 83 82 Pulse Rate [Pulse Oximeter] Respiratory Rate Blood Pressure 107/78 Blood Pressure [Right Upper Arm] Pulse Oximetry 90 89 89 Oxygen Delivery Method 08/09/23 14:15 08/09/23 14:30 08/09/23 14:31 Temperature Pulse Rate 83 84 85 Pulse Rate [Pulse Oximeter] Respiratory Rate Blood Pressure 100/78 Blood Pressure [Right Upper Arm] Pulse Oximetry 92 89 89 Oxygen Delivery Method 08/09/23 14:45 08/09/23 15:00 08/09/23 15:02 Temperature Pulse Rate 84 81 82 Pulse Rate [Pulse Oximeter] Respiratory Rate Blood Pressure 102/76 Blood Pressure [Right Upper Arm] Pulse Oximetry 89 90 90 Oxygen Delivery Method 08/09/23 15:15 08/09/23 15:30 08/09/23 15:31 Temperature Pulse Rate 81 80 80 Pulse Rate [Pulse Oximeter] Respiratory Rate Blood Pressure 104/83 Blood Pressure [Right Upper Arm] Pulse Oximetry 90 90 90 Oxygen Delivery Method 08/09/23 15:45 08/09/23 16:00 08/09/23 16:51 Temperature Pulse Rate 82 82 79 Pulse Rate [Pulse Oximeter] Respiratory Rate Blood Pressure Blood Pressure [Right Upper Arm] Pulse Oximetry 90 92 92 Oxygen Delivery Method <Pamella Luke MD - Last Filed: 08/09/23 20:42> Documenting provider has reviewed patient's vital signs: yes <Yaz Norman MD - Last Filed: 08/09/23 08:24> Course Course ED Course: differential diagnosis includes but is not limited to angina, acute coronary eventgastritis, pancreatitis, bowel obstruction, aortic aneurysm ill dissection, muscular strain, esophagitis. At this time will place IV, obtain EKG, draw labs to include CBC, troponin, comprehensive panel, lactate, lipase. At this time given patient's history of aortic aneurysm as well as pain now radiating to kidney area in his back do suggest CT of the chest abdomen and pelvis <Yaz Norman MD - Last Filed: 08/09/23 08:24> Reevaluation(s) Reevaluation #1: patient is requesting pain medication. Patient received morphine 4 mg and Zofran 4 mg with relief. <Yaz Norman MD - Last Filed: 08/09/23 08:24> Reevaluation #2: Discussed with patient and his the fact that CT showed acute cholangitis. However, patient is not experiencing any fever, is not jaundice and really has normal LFTs. I did add a direct bilirubin as total bilirubin is near the upper limits of normal at 1.5. <Yaz Norman MD - Last Filed: 08/09/23 08:24> Time of Reevaluation #3: 18:06 <Pamella Luke MD - Last Filed: 08/09/23 20:42> Reevaluation #3: Have reviewed MRI report with patient and his . Did speak with our surgeon again Dr. Osorio. Will try to talk to GI at [facility], believe this patient needs transfer where he can have potential ERCP and EUS. He did require more morphine little while ago, is feeling better. <Pamella Luke MD - Last Filed: 08/09/23 20:42> Consultations Consultation #1: I had the pleasure of speaking with resourcing consultant Dr. Osorio. At this time suggestion of MRCP as well as antibiotics with GI consult after MRCP results have been returned <Yaz Norman MD - Last Filed: 08/09/23 08:24> Consultation #2: Just spoke with GI on-call from [facility], Dr. Santizo. he agreed that patient should have further GI evaluation. They will wait list patient where in ERCP could potentially be done which includes the facilities of [facility]. We will maintain him on clears, NPO after midnight. If he is not transferred by morning, will have to re-evaluate his nutrition status to see if he maybe allowed to have clears longer. <Pamella Luke MD - Last Filed: 08/09/23 20:42> Time: 18:28 <Pamella Luke MD - Last Filed: 08/09/23 20:42> Consultation #3: We have learned from [facility] that there are 19 people in front of [facility], they absolutely do not expect any bed availability for him this evening. They did actually recommend looking at other institutions. Nursing staff did contact all major organization surrounding us with ERCP capacity, there is no availability. Thus, did talk with Dr. Fiore our hospitalist. Plan will be for admission to our floor, transfer for available ERCP when this can be arranged. <Pamella Luke MD - Last Filed: 08/09/23 20:42> Time: 20:36 <Pamella Luke MD - Last Filed: 08/09/23 20:42> Vital Signs Vital signs: Initial Vital Signs Pulse Rate 99 08/09/23 05:45 Blood Pressure 142/102 H 08/09/23 05:45 Blood Pressure Mean 115 H 08/09/23 05:45 Pulse Oximetry 94 08/09/23 05:45 Vital Signs Pulse Rate 99 08/09/23 05:45 Blood Pressure 142/102 H 08/09/23 05:45 Pulse Oximetry 94 08/09/23 05:45 Temperature 97.9 F 08/09/23 05:46 Pulse Rate 79 08/09/23 16:51 Respiratory Rate 18 08/09/23 06:31 Blood Pressure 104/83 08/09/23 15:31 Pulse Oximetry 92 08/09/23 16:51 Oxygen Delivery Method Room Air 08/09/23 05:46 <Yaz Norman MD - Last Filed: 08/09/23 08:24> Initial Vital Signs Pulse Rate 99 08/09/23 05:45 Blood Pressure 142/102 H 08/09/23 05:45 Blood Pressure Mean 115 H 08/09/23 05:45 Pulse Oximetry 94 08/09/23 05:45 Vital Signs Pulse Rate 99 08/09/23 05:45 Blood Pressure 142/102 H 08/09/23 05:45 Pulse Oximetry 94 08/09/23 05:45 Temperature 97.9 F 08/09/23 05:46 Pulse Rate 79 08/09/23 16:51 Respiratory Rate 18 08/09/23 06:31 Blood Pressure 104/83 08/09/23 15:31 Pulse Oximetry 92 08/09/23 16:51 Oxygen Delivery Method Room Air 08/09/23 05:46 <Kavin Morton DO - Last Filed: 08/09/23 15:54> Initial Vital Signs Pulse Rate 99 08/09/23 05:45 Blood Pressure 142/102 H 08/09/23 05:45 Blood Pressure Mean 115 H 08/09/23 05:45 Pulse Oximetry 94 08/09/23 05:45 Vital Signs Pulse Rate 99 08/09/23 05:45 Blood Pressure 142/102 H 08/09/23 05:45 Pulse Oximetry 94 08/09/23 05:45 Temperature 97.9 F 08/09/23 05:46 Pulse Rate 79 08/09/23 16:51 Respiratory Rate 18 08/09/23 06:31 Blood Pressure 104/83 08/09/23 15:31 Pulse Oximetry 92 08/09/23 16:51 Oxygen Delivery Method Room Air 08/09/23 05:46 <Pamella Luke MD - Last Filed: 08/09/23 20:42> Medications Administered Medications: Generic Name Dose Route Start Last Admin Trade Name Freq PRN Reason Stop Dose Admin Lactated Ringer's 1,000 mls @ 75 mls/hr 08/09/23 18:30 08/09/23 18:42 Lactated Ringers 1000 Ml IV 75 mls/hr .[id number] JOHN Administration Discontinued Medications Generic Name Dose Route Start Last Admin Trade Name Danny PRN Reason Stop Dose Admin Ertapenem 1 gm/ Sodium 100 mls @ 200 mls/hr 08/09/23 08:02 08/09/23 10:00 Chloride IVPB 08/09/23 08:03 Infused ONCE ONE Infusion Sodium Chloride 1,000 mls @ 1,000 mls/hr 08/09/23 08:14 08/09/23 10:45 0.9 % Sodium Chloride 1000 Ml IV 08/09/23 09:13 Infused .Q1H JOHN Infusion Morphine Sulfate 4 mg 08/09/23 07:17 08/09/23 07:23 Morphine 4 Mg/Ml Inj IVP 08/09/23 07:18 4 mg ONCE ONE Administration Morphine Sulfate 4 mg 08/09/23 09:55 08/09/23 10:04 Morphine 4 Mg/Ml Inj IVP 08/09/23 09:56 4 mg ONCE ONE Administration Morphine Sulfate 4 mg 08/09/23 14:06 08/09/23 14:17 Morphine 4 Mg/Ml Inj IVP 08/09/23 14:07 4 mg ONCE ONE Administration Morphine Sulfate 4 mg 08/09/23 16:52 08/09/23 16:55 Morphine 4 Mg/Ml Inj IVP 08/09/23 16:53 4 mg ONCE ONE Administration Ondansetron HCl 4 mg 08/09/23 07:17 08/09/23 07:23 Ondansetron 2 Mg/Ml Inj IVP 08/09/23 07:18 4 mg ONCE ONE Administration <Yaz Norman MD - Last Filed: 08/09/23 08:24> Generic Name Dose Route Start Last Admin Trade Name Freq PRN Reason Stop Dose Admin Lactated Ringer's 1,000 mls @ 75 mls/hr 08/09/23 18:30 08/09/23 18:42 Lactated Ringers 1000 Ml IV 75 mls/hr .[id number] JOHN Administration Discontinued Medications Generic Name Dose Route Start Last Admin Trade Name Freq PRN Reason Stop Dose Admin Ertapenem 1 gm/ Sodium 100 mls @ 200 mls/hr 08/09/23 08:02 08/09/23 10:00 Chloride IVPB 08/09/23 08:03 Infused ONCE ONE Infusion Sodium Chloride 1,000 mls @ 1,000 mls/hr 08/09/23 08:14 08/09/23 10:45 0.9 % Sodium Chloride 1000 Ml IV 08/09/23 09:13 Infused .Q1H JOHN Infusion Morphine Sulfate 4 mg 08/09/23 07:17 08/09/23 07:23 Morphine 4 Mg/Ml Inj IVP 08/09/23 07:18 4 mg ONCE ONE Administration Morphine Sulfate 4 mg 08/09/23 09:55 08/09/23 10:04 Morphine 4 Mg/Ml Inj IVP 08/09/23 09:56 4 mg ONCE ONE Administration Morphine Sulfate 4 mg 08/09/23 14:06 08/09/23 14:17 Morphine 4 Mg/Ml Inj IVP 08/09/23 14:07 4 mg ONCE ONE Administration Morphine Sulfate 4 mg 08/09/23 16:52 08/09/23 16:55 Morphine 4 Mg/Ml Inj IVP 08/09/23 16:53 4 mg ONCE ONE Administration Ondansetron HCl 4 mg 08/09/23 07:17 08/09/23 07:23 Ondansetron 2 Mg/Ml Inj IVP 08/09/23 07:18 4 mg ONCE ONE Administration <Kavin Morton, DO - Last Filed: 08/09/23 15:54> Generic Name Dose Route Start Last Admin Trade Name Danny PRN Reason Stop Dose Admin Lactated Ringer's 1,000 mls @ 75 mls/hr 08/09/23 18:30 08/09/23 18:42 Lactated Ringers 1000 Ml IV 75 mls/hr .[id number] JOHN Administration Discontinued Medications Generic Name Dose Route Start Last Admin Trade Name Danny PRN Reason Stop Dose Admin Ertapenem 1 gm/ Sodium 100 mls @ 200 mls/hr 08/09/23 08:02 08/09/23 10:00 Chloride IVPB 08/09/23 08:03 Infused ONCE ONE Infusion Sodium Chloride 1,000 mls @ 1,000 mls/hr 08/09/23 08:14 08/09/23 10:45 0.9 % Sodium Chloride 1000 Ml IV 08/09/23 09:13 Infused .Q1H JOHN Infusion Morphine Sulfate 4 mg 08/09/23 07:17 08/09/23 07:23 Morphine 4 Mg/Ml Inj IVP 08/09/23 07:18 4 mg ONCE ONE Administration Morphine Sulfate 4 mg 08/09/23 09:55 08/09/23 10:04 Morphine 4 Mg/Ml Inj IVP 08/09/23 09:56 4 mg ONCE ONE Administration Morphine Sulfate 4 mg 08/09/23 14:06 08/09/23 14:17 Morphine 4 Mg/Ml Inj IVP 08/09/23 14:07 4 mg ONCE ONE Administration Morphine Sulfate 4 mg 08/09/23 16:52 08/09/23 16:55 Morphine 4 Mg/Ml Inj IVP 08/09/23 16:53 4 mg ONCE ONE Administration Ondansetron HCl 4 mg 08/09/23 07:17 08/09/23 07:23 Ondansetron 2 Mg/Ml Inj IVP 08/09/23 07:18 4 mg ONCE ONE Administration <Pamella Luke MD - Last Filed: 08/09/23 20:42> MDM - Chest Pain MDM Narrative Medical decision making narrative: 1. Epigastric pain- at this time there is no evidence of acute coronary syndrome . CT of the abdomen showed a suggestion of cholangitis with pneumobilia and some mild wall thickening and hyper enhancement of the extrahepatic bile duct.. patient is without fever, elevated LFTs or jaunice. at this time MRCP is pending. Will start antibiotic given possibility of cholangitis. Patient is penicillin allergic to and therefore we will use 1 g of ertapenem. No fevers but have ordered blood cultures prior to the administration of this medication. Plan on GI consult once MRCP results have been returned. Abdominal pain has been controlled with morphine and Zofran. 2. chest pain -pain radiated into chest EKG is reassuring with no evidence of acute ST or T-wave changes. Initial troponin is negative. Second troponin pending. 3. Disposition -this case will be signed out to my partner Dr. Morton. Pending at this time include 2nd troponin, blood cultures, lactate, MRCP. <Yaz Norman MD - Last Filed: 08/09/23 08:24> Patient was signed out to me by Dr. Norman pending MRCP a repeat troponin. Repeat troponin within normal limits. MRCP cannot give a definitive diagnosis says there was no contrast but there is no signs of mass or blockage in the biliary tree. I spoke to Dr. Sullivan and explained the symptoms along with his lab work. I was informed that it is extremely unlikely to be cholangitis considering the normal LFTs. He is not believe it is cholangitis and does not believe the patient needs transferred. I spoke to Dr. Suarez of general surgery and she came down to see the patient. She is concerned he could have a stricture due to his ERCP in 2017. He also told her that he is having pain in his epigastric region when he swallows. States he has not eaten for 2 days. I spoke to Dr. Sullivan again and he states it does not get strictures from ERCPs. He does recommend doing an MRI with contrast to better evaluate for possible cholangitis. He is aware this will be his 2nd MRI. Did repeat CBC and CMP showing no concerning findings Patient will be signed out to Dr. Jimenez pending MRI results <Kavin Morton DO - Last Filed: 08/09/23 15:54> Medical Records Data Attestation: I reviewed the patient's medical records. <Yaz Norman MD - Last Filed: 08/09/23 08:24> Lab Data Attestation: I reviewed the patient's lab results. <Yaz Norman MD - Last Filed: 08/09/23 08:24> Labs: Lab Results 08/09/23 08/09/23 08/09/23 Range/Units 05:55 07:46 14:37 WBC 8.54 7.93 (4.50-11.00) K/uL RBC 4.99 4.76 (4.30-5.90) m/uL Hgb 15.9 15.2 (13.5-17.5) gm/dL Hct 46.0 44.3 (37.0-53.0) % MCV 92 93 (80-100) fL MCH 32 32 (26-34) pg MCHC 35 34 (32-36) gm/dL RDW Coeff of Sandra 12.2 12.3 (11.5-15.5) % Plt Count 243 234 (140-440) K/uL Neut % (Auto) 58.3 64.9 (42.0-72.0) % Lymph % (Auto) 28.3 21.6 (20-44) % [place] % (Auto) 11.7 H 11.9 H (0.0-11.0) % Eos % (Auto) 0.9 0.6 (0.0-7.0) % Baso % (Auto) 0.7 0.5 (0.0-3.0) % Neut # (Auto) 4.97 5.15 (1.7-7.0) K/uL Lymph # (Auto) 2.42 1.71 (0.90-2.90) K/uL [place] # (Auto) 1.00 H 0.90 (0.00-0.90) K/UL Eos # (Auto) 0.08 0.05 (0.00-0.50) K/uL Baso # (Auto) 0.06 0.04 (0.00-0.30) K/uL Abs Immat Gran (auto) 0.01 0.04 (0.00-0.30) K/uL Imm/Tot Granulo (auto) 0.1 0.5 % Sodium 138 137 (135-149) mmol/L Potassium 3.5 L 3.9 (3.6-5.1) mmol/L Chloride 102 102 (96-114) mmol/L Carbon Dioxide 27 26 (20-32) mmol/L Anion Gap 9 9 (7-15) mEq/L BUN 20 17 (7-30) mg/dL Creatinine 0.7 0.8 (0.5-1.5) mg/dL Estimated Creat Clear 68.74 68.74 Estimated GFR 99 95 ml/min Glucose 111 117 H (60-115) mg/dL Lactate 0.9 (0.5-1.9) mmol/L Calcium 9.3 8.6 (8.4-10.6) mg/dL Total Bilirubin 1.5 1.2 (0.1-1.5) mg/dL Direct Bilirubin 0.2 (0.0-0.5) mg/dL AST 28 25 (12-35) U/L ALT 27 24 (4-50) U/L Alkaline Phosphatase 66 56 (40-150) U/L C-Reactive Protein 1.2 H (0.5-1.0) mg/dL Total Protein 7.5 7.2 (6.0-8.3) g/dL Albumin 4.6 4.4 (3.3-5.0) g/dL Lipase 95 (23-300) U/L Lab Acknowledgement Test Added POC Creatinine 0.8 (0.6-1.3) mg/dl POC Troponin I 0.01 0.01 (0.01-0.04) ng/ml <Yaz Norman MD - Last Filed: 08/09/23 08:24> Lab Results 08/09/23 08/09/23 08/09/23 Range/Units 05:55 07:46 14:37 WBC 8.54 7.93 (4.50-11.00) K/uL RBC 4.99 4.76 (4.30-5.90) m/uL Hgb 15.9 15.2 (13.5-17.5) gm/dL Hct 46.0 44.3 (37.0-53.0) % MCV 92 93 (80-100) fL MCH 32 32 (26-34) pg MCHC 35 34 (32-36) gm/dL RDW Coeff of Sandra 12.2 12.3 (11.5-15.5) % Plt Count 243 234 (140-440) K/uL Neut % (Auto) 58.3 64.9 (42.0-72.0) % Lymph % (Auto) 28.3 21.6 (20-44) % [place] % (Auto) 11.7 H 11.9 H (0.0-11.0) % Eos % (Auto) 0.9 0.6 (0.0-7.0) % Baso % (Auto) 0.7 0.5 (0.0-3.0) % Neut # (Auto) 4.97 5.15 (1.7-7.0) K/uL Lymph # (Auto) 2.42 1.71 (0.90-2.90) K/uL [place] # (Auto) 1.00 H 0.90 (0.00-0.90) K/UL Eos # (Auto) 0.08 0.05 (0.00-0.50) K/uL Baso # (Auto) 0.06 0.04 (0.00-0.30) K/uL Abs Immat Gran (auto) 0.01 0.04 (0.00-0.30) K/uL Imm/Tot Granulo (auto) 0.1 0.5 % Sodium 138 137 (135-149) mmol/L Potassium 3.5 L 3.9 (3.6-5.1) mmol/L Chloride 102 102 (96-114) mmol/L Carbon Dioxide 27 26 (20-32) mmol/L Anion Gap 9 9 (7-15) mEq/L BUN 20 17 (7-30) mg/dL Creatinine 0.7 0.8 (0.5-1.5) mg/dL Estimated Creat Clear 68.74 68.74 Estimated GFR 99 95 ml/min Glucose 111 117 H (60-115) mg/dL Lactate 0.9 (0.5-1.9) mmol/L Calcium 9.3 8.6 (8.4-10.6) mg/dL Total Bilirubin 1.5 1.2 (0.1-1.5) mg/dL Direct Bilirubin 0.2 (0.0-0.5) mg/dL AST 28 25 (12-35) U/L ALT 27 24 (4-50) U/L Alkaline Phosphatase 66 56 (40-150) U/L C-Reactive Protein 1.2 H (0.5-1.0) mg/dL Total Protein 7.5 7.2 (6.0-8.3) g/dL Albumin 4.6 4.4 (3.3-5.0) g/dL Lipase 95 (23-300) U/L Lab Acknowledgement Test Added POC Creatinine 0.8 (0.6-1.3) mg/dl POC Troponin I 0.01 0.01 (0.01-0.04) ng/ml <Kavin Morton, DO - Last Filed: 08/09/23 15:54> Lab Results 08/09/23 08/09/23 08/09/23 Range/Units 05:55 07:46 14:37 WBC 8.54 7.93 (4.50-11.00) K/uL RBC 4.99 4.76 (4.30-5.90) m/uL Hgb 15.9 15.2 (13.5-17.5) gm/dL Hct 46.0 44.3 (37.0-53.0) % MCV 92 93 (80-100) fL MCH 32 32 (26-34) pg MCHC 35 34 (32-36) gm/dL RDW Coeff of Sandra 12.2 12.3 (11.5-15.5) % Plt Count 243 234 (140-440) K/uL Neut % (Auto) 58.3 64.9 (42.0-72.0) % Lymph % (Auto) 28.3 21.6 (20-44) % [place] % (Auto) 11.7 H 11.9 H (0.0-11.0) % Eos % (Auto) 0.9 0.6 (0.0-7.0) % Baso % (Auto) 0.7 0.5 (0.0-3.0) % Neut # (Auto) 4.97 5.15 (1.7-7.0) K/uL Lymph # (Auto) 2.42 1.71 (0.90-2.90) K/uL [place] # (Auto) 1.00 H 0.90 (0.00-0.90) K/UL Eos # (Auto) 0.08 0.05 (0.00-0.50) K/uL Baso # (Auto) 0.06 0.04 (0.00-0.30) K/uL Abs Immat Gran (auto) 0.01 0.04 (0.00-0.30) K/uL Imm/Tot Granulo (auto) 0.1 0.5 % Sodium 138 137 (135-149) mmol/L Potassium 3.5 L 3.9 (3.6-5.1) mmol/L Chloride 102 102 (96-114) mmol/L Carbon Dioxide 27 26 (20-32) mmol/L Anion Gap 9 9 (7-15) mEq/L BUN 20 17 (7-30) mg/dL Creatinine 0.7 0.8 (0.5-1.5) mg/dL Estimated Creat Clear 68.74 68.74 Estimated GFR 99 95 ml/min Glucose 111 117 H (60-115) mg/dL Lactate 0.9 (0.5-1.9) mmol/L Calcium 9.3 8.6 (8.4-10.6) mg/dL Total Bilirubin 1.5 1.2 (0.1-1.5) mg/dL Direct Bilirubin 0.2 (0.0-0.5) mg/dL AST 28 25 (12-35) U/L ALT 27 24 (4-50) U/L Alkaline Phosphatase 66 56 (40-150) U/L C-Reactive Protein 1.2 H (0.5-1.0) mg/dL Total Protein 7.5 7.2 (6.0-8.3) g/dL Albumin 4.6 4.4 (3.3-5.0) g/dL Lipase 95 (23-300) U/L Lab Acknowledgement Test Added POC Creatinine 0.8 (0.6-1.3) mg/dl POC Troponin I 0.01 0.01 (0.01-0.04) ng/ml <Pamella Luke MD - Last Filed: 08/09/23 20:42> Imaging Data CT Chest/Ab/Pelvis: Attestation: I have reviewed the pertinent imaging results. <Yaz Norman MD - Last Filed: 08/09/23 08:24> Radiologist's impression: Inspiratory phase imaging. No worrisome nodules or masses. No consolidations. Normal appearance of the pulmonary interstitium. Pleura: No pleural effusion. No pneumothorax. Airway: Normal tracheobronchial tree. Lymph nodes: No thoracic adenopathy. Mediastinum: No pneumomediastinum. Heart and great vessels: No pericardial effusion. Normal cardiac chamber size. Few atherosclerotic plaques. No thoracic aortic aneurysm. Chest wall: Normal. No masses. ABDOMEN AND PELVIS Liver: Normal. No masses. Normal vasculature. Gallbladder and biliary tree: Cholecystectomy. Pneumobilia. No biliary ductal dilatation. There is some mild wall thickening and hyper enhancement of the extrahepatic bile duct.. Pancreas: Pancreas divisum morphology. No pancreatic or peripancreatic edema. The pancreatic duct is not dilated. Spleen: Normal. Normal size. Adrenal glands: Normal. No nodules. Kidneys and bladder: Normal size and position. There are several low-density renal lesions in both kidneys that do not appear substantially changed compared to previous exams. Minimal residual previously noted hemorrhagic left renal cyst. No calculi. No urinary tract dilation. The urinary bladder is normal. GI: Normal. No dilated segments. No abnormal bowel wall thickening or hyperenhancement. Small stool burden. The appendix is normal. Vessels: Aorta and major branches, including the mesenteric vessels: Patent. Partially peripherally calcified splenic artery aneurysm measures 1.4 cm, unchanged. Moderate diffuse atherosclerotic plaques. IVC and tributaries: Normal. Mesenteric and portal veins: Normal. Peritoneum: No free fluid. Lymph nodes: No adenopathy. Pelvis: Prostatomegaly. Abdominal wall: Small amount of irregular soft tissue just above the left inguinal ring may be related to prior hernia repair. Appearance is similar to prior. BONES: No fractures. No focal bone lesions. Normal for age. IMPRESSION: 1. Normal chest. 2. Possible cholangitis. No hepatobiliary abscess or obstruction seen. <Yaz Norman MD - Last Filed: 08/09/23 08:24> MRI - abdomen: Attestation: I have reviewed the pertinent imaging results. <Pamella Anand MD - Last Filed: 08/09/23 20:42> Radiologist's impression: Patient: TRELL MCCRARY Facility:?[facility] Patient ID:?[id number] Site Patient ID:?[id number]. Site :?[id number] Study:?MRI Abdomen/Pelvis WO/W DOTAREM 20ML-08/09/2023 4:31:10 PM Ordering Physician:Dimitri Vale Final Report: Indication: Concern for cholangitis. Technique: Limited multisequence multiplanar MRI of the abdomen both with and without IV contrast (20 mL Dotarem). MRCP and T2 weighted sequences performed on an earlier study were not repeated. Comparison: Unenhanced MRI abdomen and CT chest/abdomen/pelvis earlier same day, dated 08/09/2023. Findings: Suboptimal study secondary to motion artifact on multiple sequences. Liver: No suspicious focal hepatic lesion. Bile ducts: No significant intrahepatic or extrahepatic biliary duct dilation. There is short-segment hyperenhancement of the common bile duct/common hepatic duct wall (series 8, image 33), similar to prior CT, may reflect mild cholan gitis. Gallbladder: Postcholecystectomy. Pancreas: Unremarkable. Spleen: Unremarkable. Adrenals: Unremarkable. Kidneys: Kidneys enhance symmetrically, without hydronephrosis. Multiple small bilateral renal cysts. A 2.5 cm cyst in the lower pole of the left kidney shows layering T1 hyperintensities, compatible with proteinaceous/hemorrhagic products. Similar additional 0.7 cm proteinaceous/hemorrhagic cyst in the lower pole of the left kidney. Retroperitoneum: No lymphadenopathy. Visualized Bowel and mesentery: Visualized bowel is nondilated. Vessels: Unremarkable. Abdominal wall: No acute abdominal wall abnormality. Bones: Multilevel degenerative changes of the spine. Scoliosis. No suspicious/aggressive enhancing focal osseous lesion. Impression: 1. Short-segment hyperenhancement of the common bile duct/common hepatic duct wall, similar to prior CT, may reflect mild cholangitis. 2. Hemorrhagic/proteinaceous cysts in the left kidney noted. Dictated by Reyna Galeas MD @ 08/09/2023 5:48:45 PM (Electronic Signature) <Pamella Luke MD - Last Filed: 08/09/23 20:42> ECG Data Attestation: I personally reviewed and interpreted this ECG as follows: <Yaz Norman MD - Last Filed: 08/09/23 08:24> ECG interpretation date: 08/09/23 <Yaz Norman MD - Last Filed: 08/09/23 08:24> Interpretation: EKG by my read Shows sinus rhythm at a rate 84. No acute ST or T-wave changes. Normal QT and VA intervals. <Yaz Norman MD - Last Filed: 08/09/23 08:24> Discharge Plan Discharge Clinical Impression: Cholangitis <Yaz Norman MD - Last Filed: 08/09/23 08:24> Patient Disposition: Admitted As Observation <Yaz Norman MD - Last Filed: 08/09/23 08:24> Prescriptions: No Action fluticasone propion-salmeterol [Advair Diskus] 250-50 mcg/dose blister with device 1 inh inhalation BID Qty: 60 1RF fluticasone propionate [Flonase Allergy Relief] 50 mcg/actuation spray,suspension 1 spray intranasal BID Qty: 16 0RF Rx Instructions: administer into each nostril coenzyme Q10 30 mg capsule 30 mg PO DAILY glucosamine sulfate 500 mg capsule 500 mg PO DAILY omega-3 acid ethyl esters 1 gram capsule 1 cap PO DAILY triamcinolone acetonide 0.1 % ointment 1 applic topical BID Qty: 80 2RF (DME) nebulizers [Aeroneb Go Nebulizer] Misc See Rx Instructions .Route Qty: 1 0RF Rx Instructions: As directed hydrochlorothiazide 12.5 mg capsule 12.5 mg PO DAILY Qty: 90 0RF rosuvastatin 10 mg tablet 10 mg PO HS Qty: 90 0RF losartan 100 mg tablet 100 mg PO DAILY Qty: 90 0RF omeprazole 20 mg capsule,delayed release(DR/EC) 20 mg PO DAILY Qty: 90 2RF Eliquis 5 mg tablet 5 mg PO BID Qty: 60 5RF <Yaz Norman MD - Last Filed: 08/09/23 08:24> Follow Up/Referrals: Ayan Shen MD [Primary Care Provider] - <Yaz Norman MD - Last Filed: 08/09/23 08:24>
[2023-08-09 06:14] LABS: Creatinine, Point-of-Care* 0.8 mg/dl (0.6-1.3); Troponin, Point-of-Care* 0.01 ng/ml (0.01-0.04)
--- NOTE | 2023-08-09 06:16 | CRLHL7_ITS ---
For Patients: As a result of the 21st Century Cures Act, medical imaging exams and procedure reports are released immediately into your electronic medical record. You may view this report before your referring provider. If you have questions, please contact your health care provider. INDICATION: Chest and epigastric pain COMPARISON: Chest CT 07/02/2022, CT abdomen 03/05/2023 and 12/05/2022 TECHNIQUE: CT chest, abdomen, and pelvis with contrast. Multiplanar axial, coronal, and sagittal reformats are included. MIP images to improve detection of pulmonary nodules are included. Intravenous contrast: 118 ml Isovue 370 Oral contrast was not administered. FINDINGS: CHEST Lungs: Inspiratory phase imaging. No worrisome nodules or masses. No consolidations. Normal appearance of the pulmonary interstitium. Pleura: No pleural effusion. No pneumothorax. Airway: Normal tracheobronchial tree. Lymph nodes: No thoracic adenopathy. Mediastinum: No pneumomediastinum. Heart and great vessels: No pericardial effusion. Normal cardiac chamber size. Few atherosclerotic plaques. No thoracic aortic aneurysm. Chest wall: Normal. No masses. ABDOMEN AND PELVIS Liver: Normal. No masses. Normal vasculature. Gallbladder and biliary tree: Cholecystectomy. Pneumobilia. No biliary ductal dilatation. There is some mild wall thickening and hyper enhancement of the extrahepatic bile duct.. Pancreas: Pancreas divisum morphology. No pancreatic or peripancreatic edema. The pancreatic duct is not dilated. Spleen: Normal. Normal size. Adrenal glands: Normal. No nodules. Kidneys and bladder: Normal size and position. There are several low-density renal lesions in both kidneys that do not appear substantially changed compared to previous exams. Minimal residual previously noted hemorrhagic left renal cyst. No calculi. No urinary tract dilation. The urinary bladder is normal. GI: Normal. No dilated segments. No abnormal bowel wall thickening or hyperenhancement. Small stool burden. The appendix is normal. Vessels: Aorta and major branches, including the mesenteric vessels: Patent. Partially peripherally calcified splenic artery aneurysm measures 1.4 cm, unchanged. Moderate diffuse atherosclerotic plaques. IVC and tributaries: Normal. Mesenteric and portal veins: Normal. Peritoneum: No free fluid. Lymph nodes: No adenopathy. Pelvis: Prostatomegaly. Abdominal wall: Small amount of irregular soft tissue just above the left inguinal ring may be related to prior hernia repair. Appearance is similar to prior. BONES: No fractures. No focal bone lesions. Normal for age. IMPRESSION: 1. Normal chest. 2. Possible cholangitis. No hepatobiliary abscess or obstruction seen. Please note that all CT scans at this facility use dose modulation, iterative reconstruction, and/or weight-based dosing when appropriate to reduce radiation dose to as low as reasonably achievable. Dictated by Sonia Xavier MD @ 08/09/2023 7:23:36 AM (Electronically Signed)
--- OUTSIDE RECORDS SUMMARY | 2023-08-09 06:20 | XMS_ITS | Encounter Summary ---
Author Name [facility] Organization [facility] Address [address] [place] [address] Support Name Relationship Address Phone LASHAWN MCCRARY Next of Kin [phone] [place] [address] LASHAWN MCCRARY Emergency Contact [address] [place] [address] Insurance Providers: All historical and current Section Date Range: From patient's date of to the date document was created. This section includes the names of all active insurance providers for the patient. Insurance Provider Type of Coverage Plan Name Start of Policy Coverage End of Policy Coverage Group Number Member ID Insurance Provider's Telephone Number Policy De La Rosa's Name Patient's Relationship to Policy De La Rosa PREFERRED ONE ADM [facility] PREFERRED PROVIDER ORGANIZAT ION (PPO) [facility] Jul 30, 2019 [id number] RTIS PATIENT SS&C RX PRESCRIPT ION PREFE RRED ONE RX Jul 30, 2019 [id number] RT[place] PATIENT Selected Encounter This section includes the information on record at [place] for the Encounter. Date/Time Encounter Type Encounter Description Reason Provider Source December 21, 2022 01:30 PM CONFORMITY EVALUATION AUDIOLOGY ICD-10-CM Z46.1 Encounter for fitting and adjustment of hearing aid GASTON SMITH Encounter Template Text not used by [place] Assessments - Encounter Diagnoses This section includes the primary and secondary diagnoses documented for the Encounter. Date/Time Primary/Secondary Diagnosis Diagnosis Name Provider Source December 21, 2022 02:09 PM PRIMARY Encounter for fitting and adjustment of hearing aid JEREMIAH SMITH [facility] December 21, 2022 02:09 PM SECONDARY Sensorineural hearing loss, bilateral JEREMIAH SMITH [facility] December 21, 2022 02:09 PM SECONDARY Tinnitus, bilateral JEREMIAH SMITH [facility] Encounter Notes: All associated encounter notes This section contains the clinical notes associated to the Encounter. Date/Time Encounter Note(s) Provider Source December 21, 2022 02:07 PM AUDIOLOGY NOTE: LOCAL TITLE: AUDIOLOGY CLINIC NOTE STANDARD TITLE: AUDIOLOGY NOTE DATE OF NOTE: DECEMBER 21, 2022@14:07 ENTRY DATE: DECEMBER 21, 2022@14:07:49 AUTHOR: VALDO SMIHT COSIGNER: URGENCY: STATUS: COMPLETED SUBJECT: Hearing Aid Fitting DIAGNOSIS: Encounter for Fitting and Adjustment of Hearing Aid, Bilateral sensorineural hearing loss, Bilateral tinnitus REASON FOR VISIT: Therapeutic - hearing aid fitting, conformity evaluation (real-ear measures) Appointment Length: 60 minute appointment OTOSCOPY: Free of excessive cerumen, normal anatomy bilaterally HISTORY: is an experienced hearing aid user. He stopped using them due to frequent repair issues. Hearing aids right/left; Date Fit: November Make: Phonak Model: Audeo L90-R Style: GILMA Serial #: [id number] Clipper And Turner/Slim Tube Size: 2M Dome/Earmold: Small vented 4.0 CONFORMITY EVALUATION (VERIFICATION OF HEARING AID FUNCTION): Real Ear Aided Response (REAR) was measured using the Audioscan Verifit 2 system. According to the NAL-NL2 fitting method, the patient's hearing aid(s) is meeting target for soft, average, and loud speech. Loudness intolerance was measured using a 90 dB MPO tone sweep and the patient was able to tolerate the output of the hearing device(s). The fit was found to be satisfactory. ACTION: Hearing aid(s) are a good physical fit. Hearing aid(s) were programmed to prescriptive targets, which were derived from the Veterans hearing loss. Veterans subjective impressions were considered while adjusting the hearing aid(s). The frequency response is set at 100% of target gain. Feedback test was completed and feedback manager molecular was activated. Volume control enabled Synchronized 's cell phone was paired to the hearing aid(s). A practice phone call was completed to verify functionality. Education and counseling was completed regarding streaming capabilities. [place] was counseled on the following: -Full-time hearing aid use and acclimating to amplification -Realistic expectations for hearing aid use -Appropriate communication strategies -Charging the hearing aids -Location and operation of all controls -Proper care and maintenance -Protecting hearing in high noise levels -[facility] and Call Center contact information and services, including the trial period [place] reported good sound quality and equal balance between ears after adjustments were made. reported a comfortable fit. [place] demonstrated understanding of the new aid(s) and was able to insert the hearing aid(s) appropriately, as well as manipulate the volume control. Prognosis for success is good given the [place]'s response to the hearing aid(s). Hearing aid(s) were issued and supplies were mailed. PLAN: will return to clinic as needed for service. Patient is in agreement with this plan. /DARLING Brown STAFF SPOT WELDER BODY ASSEMBLY Signed: 12/21/2022 14:12 VALDO SMITH [facility] December 21, 2022 01:33 PM AUDIOLOGY NOTE: LOCAL TITLE: AUDIOLOGY CLINIC NOTE STANDARD TITLE: AUDIOLOGY NOTE DATE OF NOTE: DECEMBER 21, 2022@13:33 ENTRY DATE: DECEMBER 21, 2022@13:33:28 AUTHOR: VALDO SMITH EXP COSIGNER: URGENCY: STATUS: COMPLETED Toxic Exposure Screening: The [place]/caregiver was asked if they believe the experienced any toxic exposure(s), such as Airborne Hazards and Open Burn Pit, [place] War related exposures, Agent Hanna, Radiation, contaminated water at [place] or other such exposures, while serving in the Armed Forces. 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 The /caregiver was informed that we will continue to ask this screening question every 5 years. They can contact their provider/healthcare team if they have concerns about exposures and would like to be screened sooner. Printed information was offered and provided if desired. /DARLING Brown STAFF SPOT WELDER BODY ASSEMBLY Signed: 12/21/2022 14:13 VALDO SMITH [facility]
--- OUTSIDE RECORDS SUMMARY | 2023-08-09 06:20 | XMS_ITS | Continuity of Care Document ---
Author Name Unknown Organization [facility] Address [address] [address] [place] [address] Phone Care Team Providers Care Bandmill Operator Name Role Phone Vesta COREAS, Richard Unavailable Unavaila ble Procedures Procedure Date Subsqt Hosp-da E&m Stable 15 M 17 Init Hosp-da E&m Mod Severity 6 Ercp; W/sphincterotomy/papillo 16 Ercp; W/endo Retro Remov Stone 16 Subsqt Hosp-da E&m Minr Compl 6 Ugi Endo; W/bx 1/mx Init Hosp-da E&m Mod Severity 6 Advance Directives Directive Yes / No Effective Date File Name No Information Encounters Encounter Description Practice Location Reason(s) For Visit Diagnoses Date Provider Providers Copied on Encounter [facility], [address] [address], [place], [place], [id number], [place] tel:[phone] [facility] No Information 9 Vesta Ramos. [address] [place] [address], [id number], [place]. tel:[phone] Referring Provider: Richard Vegas, [address] [place] [address], [address]. tel:[phone] Subsqt Hosp-da E&m Stable 15 M [facility], [address] [address], [place], [place], [id number], tel:[phone] [facility] No Information 7 No Information Init Hosp-da E&m Mod Severity [facility], [address] [address], [place], [place], [id number], [place] tel:[phone] [facility] No Information 6 No Information [facility], [address] [address], [place], [id number], [place] tel:[phone] [facility] No Information 6 Vanda Mckay. [address] [facility] [address], [place], [place], [address], [place]. tel:[phone] Referring Provider: Woody Dc MD, [address] [facility] [address], [place], [address]. tel:[phone] Subsqt Hosp-da E&m Minr Compl [facility], [address] [address], [place], [address], [place] tel:[phone] [facility] No Information 6 Armando Perez. [address] [facility] [address], [address], [place], [place], [address], [place]. tel:[phone] Referring Provider: Freedom Kowalski, [address] [facility] [address] [place] [address], [address]. tel:[phone] [facility], [address] [address], [place], [id number], [place] tel:[phone] [facility] No Information 6 Joaquin Arias. [address] [facility], [address], [place], [place], [address], [place]. tel:[phone] Referring Provider: Freedom Kowalski, [address] [facility] [address], [place], [address]. tel:[phone] Init Hosp-da E&m Mod Severity [facility], [address] [address], [place], [address], [place] tel:[phone] [facility] No Information 6 Arlette Gabriel. [address] [facility], [facility] [address], [place], [place], [id number], . tel:[phone] Referring Provider: Freedom Comer MD [place], [address] [facility] [address], [place], [address]. tel:[phone] Family History Family Member Type Diagnosis Age At Onset No Information Payers Payer name Insurance type Covered democrat ID Authoriza tifei(s) Preferred One CI [id number] Social History Type Description Quantity Date Captured Comments Sex Male Smoking Status No Information Chief Complaint And Reason For Visit No Information Reason For Referral Reason For Referral No Information History Of Present Illness Encounter Date Complaint History Of Prese nt Illness No Information Functional Status Date Functional Assessmen t No Information Instructions Date Instruction Additional Infor mation No Information Assessments Type Assessment Date No Information Patient Care Teams Name Effective Dates (start - stop) Status Members No Information
--- OUTSIDE RECORDS SUMMARY | 2023-08-09 06:20 | XMS_ITS | Clinical Summary ---
Author Name Unknown Organization [facility] Address [place], [place] [address] Care Team Providers Care Tire Room Supervisor Name Role Phone Nonstaff, Doctor Primary Care Provider Unavailab le Allergies Active Allergy Reactions Criticality Noted Date Comments Penicillin G Rash 05/20/2016 In 20s Penicillins *Unknown 01/24/2002 Medications Medication Sig Dispensed Refills Start Date End Date Status aspirin chewable 81 mg chewable tablet Take 81 mg by mouth once daily with a meal. 0 Active coQ10, ubiquinol, 100 mg cap Take by mouth. 0 Active omega-3 fatty acids-vitamin E (FISH OIL) 1,000 mg cap Take by mouth once daily. 0 Active GLUCOSAMINE HCL (GLUCOSAMINE, BULK, MISC) As directed once daily. 0 Active losartan (COZAAR) 100 mg tablet Take 100 mg by mouth once daily. 0 Active omeprazole (PRILOSEC) 20 mg Delayed-Release capsule Take 20 mg by mouth once daily before a meal. 0 Active pravastatin (PRAVACHOL) 40 mg tablet Take 40 mg by mouth at bedtime. 0 Active acetaminophen (TYLENOL) 325 mg tablet Take 2 tablets by mouth every 4 hours if needed (For mild pain.). Max acetaminophen dose: 4000mg in 24 hrs. 0 07/30/2016 Active ginkgo biloba (GINKOBA ORAL) Take 120 mg by mouth once daily. 0 Active Active Problems Problem Noted Date Diagnosed Date Sensorineural hearing loss, bilateral 06/28/2017 Calculus of bile duct without cholangitis with o bstruction 07/28/2016 Acute deep vein thrombosis ( DVT) of popliteal vein of right lower extremity 07/28/2016 Warfarin anticoagulation 07/28/2016 Acute bilateral thoracic back pain 05/21/2016 Generalized abdominal pain 05/20/2016 Essential hypertension 05/20/2016 Hyperlipidemia 05/20/2016 Gastroesophageal reflux disease without esophagi tis 05/20/2016 Aortic aneurysm 05/20/2016 Acute cholecystitis Immunizations Name Administration Dates Next Due Influenza, IIV4 05/12/2016 Family History Medical History Relation Name Comments Aneurysm Father Heart attack Father Stroke Father Heart attack Mother Relation Name Status Comments Father Mother Social History Tobacco Use Types Packs/Day Years Used Date Smoking Tobacco: Former Smokeless Tobacco: Never Comments:cigars once in a wh ile Alcohol Use Standard Drinks/Week Comments Yes 0 (1 standard drink = 0.6 oz pur e alcohol) Not frequent Sex and Gender Information Value Date Recorded Sex Assigned at Not on file Gender Identity Not on file Sexual Orientation Not on file Obstetrics History Last Filed Vital Signs Vital Sign Reading Time Taken Comments Blood Pressure 107/74 01/21/2019 10:25 AM CDT Pulse 71 01/21/2019 10:25 AM CDT Temperature 35.9 ??C (96.7 ??F) 01/21/2019 8:56 AM CD T Respiratory Rate 18 01/21/2019 10:10 AM CDT Oxygen Saturation 91% 01/21/2019 10:25 AM CDT Inhaled Oxygen Concentration - - Weight 96.2 kg (212 lb) 01/20/2019 4:09 PM CDT Height 175.3 cm (5' 9) 01/20/2019 4:09 PM CDT Body Mass Index 31.31 01/20/2019 4:09 PM CDT Plan of Treatment Health Maintenance Due Date Last Done Comments Tdap 1964 Depression screening for age 12+ 1965 BMI (ht and wt on same day) for age 18+ 1971 Hepatitis C screening for age 18-79 1971 Tetanus booster 1973 Colonoscopy through age 75 1998 Lipids for age 45-75 1998 Zoster (shingles) series for age 50+ (1 of 2) 2003 Pneumococcal series for age 65+ (1 of 1 - PCV) 2018 COVID-19 vaccine series (3 - 2022- season) 2023 10/23/2020, 10/02/2020 Influenza for age 65+ 03/30/2023 05/12/2016 Advance Directives Latest Code Status on File Code Status Date Activated Date Inactivated Comments Full Code 01/21/2019 8:17 AM 01/21/2019 11:01 AM Code Status History Code Status Date Activated Date Inactivated Comments Full Code 07/28/2016 7:07 PM 07/30/2016 4:24 PM Question Answer Comments Code Status Discussion: Discussed Full Code 07/28/2016 6:35 PM 07/28/2016 7:07 PM Question Answer Comments Code Status Discussion: Not Discussed Per Advance Care Plan Full Code 05/24/2016 10:41 AM 05/25/2016 3:52 PM Question Answer Comments Code Status Discussion: Not Discussed Full Code 05/22/2016 1:55 PM 05/24/2016 10:41 AM Care Teams Tire Room Supervisor Relationship Specialty Start Date End Date Nonstaff, Doctor NON STAFF DOCTOR PCP - General 01/17/19
--- OUTSIDE RECORDS SUMMARY | 2023-08-09 06:20 | XMS_ITS | Continuity of Care Document ---
Author Name [facility] Organization [facility] Care Team Providers Care Environmental Services Director Name Role Phone [facility] Unavailable Unavailable Problems Combined list of problems from Department of Defense and Veterans [facility] facilities. It does not include entries that were removed or entered in error. Problem Status Onset Date Problem Type Date of Resolution Comments Source Diagnosis: ICD-10-CM Z46.1 Encounter for fitting and adjustment of hearing aid Active Diagnosis [facility] Diagnosis: ICD-10-CM H90.3 Sensorineural hearing loss, bilateral Active Diagnosis [facility] Encounters Combined list of: 1) Encounters from Department of Veterans Affairs facilities going back up to thelast 18 months. 2) Encounters from the Department of [facility] facilities going back up to 280 months. Location Location Details Encounter Type Encounter Number Reason For Visit Attending Provider ADM Date DC Date Status Disposition Source [facility] [place] [id number] Diagnos is: ICD-10- CM H90.3 Sensori neural hearing loss, bilater al
RUTHY SMITH 11/02 [facility] CONFORMITY EVALUATION [id number] Diagnos is: ICD-10- CM Z46.1 Encount er for fitting and adjustm ent of hearing aid<br/ > RUTHY SMITH E 12/21 [facility]
--- OUTSIDE RECORDS SUMMARY | 2023-08-09 06:20 | XMS_ITS | Encounter Summary ---
Author Name [facility] of Vetera [facility] Organization [facility] Address [address] [place] [address] Support Name Relationship Address Phone LASHAWN MCCRARY Next of Kin [address] [place] [address] LASHAWN MCCRARY Emergency Contact [address] [place] [address] Insurance Providers: All historical and [...] [facility] Jul 30, 2019 [id number] PATIENT SS&C RX PRESCRIPT ION PREFE RRED ONE RX Jul 30, 2019 [id number] [address] RT[address] PATIENT Selected Encounter This section includes the information on record at [place] for the Encounter. Date/Time Encounter Type Encounter Description Reason Provider Source Nov 02, 2022 09:45 AM TYMPANOMETRY AUDIOLOGY ICD-10-CM H90.3 Sensorineural hearing loss, bilateral JEREMIAH SMITH [facility] Encounter Template Text not used by [place] Assessments - Encounter Diagnoses This section includes the primary and secondary diagnoses documented for the Encounter. Date/Time Primary/Secondary Diagnosis Diagnosis Name Provider Source Nov 02, 2022 10:29 AM PRIMARY Sensorineural hearing loss, bilateral JEREMIAH SMITHA E [facility] Nov 02, 2022 10:29 AM SECONDARY Tinnitus, bilateral JEREMIAH SMITH [facility] Plan of Treatment: Future Appointments (+ 6 months) and Future Tests (+/- 45 days) The Plan of Treatment section includes future care activities for the patient [facility] This section includes future appointments and future orders which are active, pending or scheduled. Future Appointments This section includes appointments that were scheduled to occur 6 months from the date of the Encounter, up to a maximum of 20 appointments. The data comes from all [place] treatment facilities. Appointment Date/Time Appointment Type Appointme nt Facility Name December 21, 2022 01:30 PM AMBULATORY - SURGERY [facility] Encounter Notes: All associated encounter notes This section contains the clinical notes associated to the Encounter. Date/Time Encounter Note(s) Provider Source Nov 02, 2022 10:21 AM AUDIOLOGY NOTE: LOCAL TITLE: AUDIOLOGY CLINIC NOTE STANDARD TITLE: AUDIOLOGY NOTE DATE OF NOTE: NOV 02, 2022@10:21 ENTRY DATE: NOV 02, 2022@10:21:12 AUTHOR: VALDO SMITH EXP COSIGNER: URGENCY: STATUS: COMPLETED SUBJECT: HAE DIAGNOSIS: Bilateral sensorineural hearing loss. Bilateral tinnitus. REASON FOR VISIT: THERAPEUTIC:HEARING AID EVALUATION, 60 minutes: [place] was seen in the clinic today for a hearing evaluation. The is new to this clinic. The is Service Connected for Hearing Loss/Tinnitus. was unaccompanied. The has never worn hearing aids before. 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 HEALTH HISTORY: Concerns reported today by : Hearing loss, both ears: gradual Tinnitus, both ears: intermittent, onset date: Service connected condition. Denies any significant otologic history. 's reported hearing concerns: One-on-one conversations, Restaurants/Background noise, Group situations, Family/Spouse's voice, Workplace/Meetings PROCEDURES: OTOSCOPY Bilaterally: Free of excessive cerumen. Normal appearing TMs and canals. TYMPANOMETRY: RIGHT EAR: Type A Pressure: Normal Compliance: Normal Volume: Normal LEFT EAR: Type A Pressure: Normal Compliance: Normal Volume: Normal AUDIOMETRICS: Air conduction, Bone conduction, Speech testing Transducer: Circumaural headphones Reliability: good RIGHT EAR (Hz) 250 839 125 3416 1500 2000 3000 4000 6000 8000 Air: see Audiogram display under Tools->Audiology->ROES or see ADRY database. Bone: see Audiogram display under Tools->Audiology->ROES or see ADRY database. LEFT EAR (Hz) 250 893 517 7376 1500 2000 3000 4000 6000 8000 Air: see Audiogram display under Tools->Audiology->ROES or see ADRY database. Bone: see Audiogram display under Tools->Audiology->ROES or see ADRY database. - All thresholds are in dB HL * = Masked Threshold SPEECH RECOGNITION THRESHOLD (SRT): Spondees Right: 20 dB HL Left: 30 dB HL Pure tone results were consistent with speech customer service receptionist thresholds. WORD RECOGNITION: / word list Right Ear: 80% Level: 70* dB Left Ear: 64% Level: 70* dB SUMMARY: Pure tone thresholds are essentially stable when results are compared to off-site C&P exam dated 12/20/2020 (results located in [facility]). Word recognition scores obtained today are significantly better than 2020 results. RIGHT EAR: Hearing WNL 250-2000 Hz, dropping to a moderately-severe to severe SNHL 8884-8897 Hz. LEFT EAR: Hearing WNL 250-1500 Hz, dropping to a moderate to severe SNHL 3496-0331 Hz. AMPLIFICATION: - [place] is a good candidate for hearing aid use. - was counseled on their type, degree and configuration of hearing loss. - The [place]'s hearing loss has progressed currently to the extent that it affects full participation in the provision of health care as noted today in our discussions. Hearing aids are medically indicated to treat the 's auditory conditions. - Different styles/technologies were reviewed with consideration given to Houston's listening situations and lifestyle needs. - The [place] has good vision, memory, and dexterity for hearing aid use. - Hearing aids ordered: Phonak Audeo L90-R RICs, color P7, 2M receivers, small vented domes. uses an iPhone XR. He reports he is not very tech savvy and does not download apps to his phone. He may be interested in [employer] streaming for phone calls. PLAN: - will be scheduled for a 60-minute hearing aid fitting appointment. - is in agreement with this plan. /DARLING Brown STAFF SECONDARY SPECIAL EDUCATION TEACHER Signed: 11/02/2022 10:32 VALDO SMITH [facility] Nov 02, 2022 09:54 AM SUICIDE PREVENTION RISK ASSESSMENT SCREENING NOTE: LOCAL TITLE: [place] SCREENING NOTE STANDARD TITLE: SUICIDE PREVENTION RISK ASSESSMENT SCREENING NOT DATE OF NOTE: NOV 02, 2022@09:54 ENTRY DATE: NOV 02, 2022@09:54:49 AUTHOR: VALDO SMITH EXP COSIGNER: URGENCY: STATUS: COMPLETED C-SSRS Screening [place]-Suicide Severity Rating Scale (C-SSRS Screener) 1. Over the past month, have you wished you were or wished you could go to sleep and not wake up? No 2. Over the past month, have you had any actual thoughts of killing yourself? No 3. Over the past month, have you been thinking about how you might do this? Response not required due to responses to other questions. 4. Over the past month, have you had these thoughts and had some intention of acting on them? Response not required due to responses to other questions. 5. Over the past month, have you started to work out or worked out the details of how to kill yourself? Response not required due to responses to other questions. 6. If yes, at any time in the past month did you intend to carry out this plan? Response not required due to responses to other questions. 7. In your lifetime, have you ever done anything, started to do anything, or prepared to do anything to end your life (for example, collected pills, obtained a gun, gave away valuables, went to the roof but didn't jump)? No 8. If YES, was this within the past 3 months? Response not required due to responses to other questions. /DARLING Brown STAFF SECONDARY SPECIAL EDUCATION TEACHER Signed: 11/02/2022 10:37 VALDO SMITH [facility]
[2023-08-09 06:37] LABS: Chloride* 102 mmol/L (96-114)
[2023-08-09 06:38] LABS: Albumin* 4.6 g/dL (3.3-5.0); Potassium* 3.5 mmol/L (3.6-5.1); Sodium* 138 mmol/L (135-149)
[2023-08-09 06:40] LABS: Creatinine* 0.7 mg/dL (0.5-1.5); Est. Creatinine Clearance* 68.74; Estimated Glomerular Filt Rate 99 ml/min
[2023-08-09 06:41] LABS: Alanine Aminotransferase* 27 U/L (4-50); Alkaline Phosphatase* 66 U/L (40-150); Anion Gap 9 mEq/L (7-15); Aspartate Amino Transferase* 28 U/L (12-35); Bilirubin Total* 1.5 mg/dL (0.1-1.5); Blood Urea Nitrogen* 20 mg/dL (7-30); Calcium* 9.3 mg/dL (8.4-10.6); Carbon Dioxide* 27 mmol/L (20-32); Glucose* 111 mg/dL (60-115); Lipase* 95 U/L (23-300); Total Protein* 7.5 g/dL (6.0-8.3)
[2023-08-09 06:44] LABS: C Reactive Protein* 1.2 mg/dL (0.5-1.0)
[2023-08-09 06:45] LABS: Basophils Absolute Auto 0.06 K/uL (0.00-0.30); Basophils Percent Auto 0.7 % (0.0-3.0); Eosinophils Absolute Auto 0.08 K/uL (0.00-0.50); Eosinophils Percent Auto 0.9 % (0.0-7.0); Hemoglobin* 15.9 gm/dL (13.5-17.5); Immature Granulocytes Abs Auto 0.01 K/uL (0.00-0.30); Immature Granulocytes Pct Auto 0.1 %; Lymphocytes Absolute Auto 2.42 K/uL (0.90-2.90); Lymphocytes Percent Auto 28.3 % (20-44); Mean Corpuscular HGB Conc 35 gm/dL (32-36); Mean Corpuscular Hemoglobin 32 pg (26-34); Mean Corpuscular Volume 92 fL (80-100); Monocytes Percent Auto 11.7 % (0.0-11.0); Neutrophils Absolute Auto 4.97 K/uL (1.7-7.0); Neutrophils Percent Auto 58.3 % (42.0-72.0); Platelet Count* 243 K/uL (140-440); RDW Coefficient of Variation % 12.2 % (11.5-15.5); Red Blood Count 4.99 m/uL (4.30-5.90); White Blood Count* 8.54 K/uL (4.50-11.00)
[2023-08-09 06:52] LABS: Slide Review Reflex No
[2023-08-09] MEDS: MORPHINE 4 MG/ML INJ IVP ×4 (07:23→16:55)
[2023-08-09] MEDS: ONDANSETRON 2 MG/ML inj 4 MG IVP (07:23)
--- NOTE | 2023-08-09 07:42 | CRLHL7_ITS ---
For Patients: As a result of the Century Cures Act, medical imaging exams and procedure reports are released immediately into your electronic medical record. You may view this report before your referring provider. If you have questions, please contact your health care provider. INDICATION: MRCP. Cholangitis Indication: Wall thickening and hyper enhancement of the bile ducts. Cholangitis suspected. Technique: MRI of the abdomen without intravenous gadolinium, MRCP. Three plane localizer, 3 plane SSFP, axial T1 weighted in and out of phase, axial T2 weighted haste, high-resolution, heavily T2 weighted 2D/3D MRCP images. No intravenous gadolinium administered. Comparison: CT of the chest, abdomen, and pelvis, 08/09/2023. CT of the abdomen and pelvis, 03/05/2023. Findings: The common bile duct measures 10 millimeters. No choledocholithiasis or obstructing mass. Mild dilation of intrahepatic biliary radicles. The patient is post cholecystectomy. Mural thickening of the extrahepatic common duct was present on the recent CT scan. The findings remain suspicious for cholangitis. No drainable fluid collection. Peripelvic area enhancement cannot be assessed without intravenous contrast. There is a lymph node at the hepatic hilum which may be reactive in nature measuring 13 millimeters. GI consultation is suggested for this finding. Spleen size is normal. There are renal sinus and renal cortical cysts present. No abdominal lymphadenopathy. Liver morphology is non cirrhotic. No evidence for gastric outlet obstruction. No pancreatic duct dilation or glandular atrophy. Normal caliber common bile duct. Scoliosis. There is no evidence for steatosis or iron deposition and chemical shift imaging. There is no pleural or pericardial effusion. Impression: 1. There is no common bile duct stone or mass. 2. Peribiliary enhancement cannot be assessed without intravenous gadolinium. However, wall thickening on the recent CT scan involving the extrahepatic common duct is suspicious for cholangitis. Suggest correlation with LFTs and GI consultation. 3. Nerve roots within the spinal canal appear clumped together. This is favored to be secondary to the significant S-shaped scoliotic curvature. Arachnoiditis is considered less likely. Dictated by Ronnie Ruiz MD @ 08/09/2023 10:13:05 AM Dictated by: Ronnie Ruiz MD @ 08/09/2023 10:13:45 (Electronically Signed)
[2023-08-09 07:52] LABS: Lactate* 0.9 mmol/L (0.5-1.9)
[2023-08-09 08:01] LABS: Troponin, Point-of-Care* 0.01 ng/ml (0.01-0.04)
[2023-08-09 08:10] LABS: Bilirubin Direct* 0.2 mg/dL (0.0-0.5)
[2023-08-09] MEDS: ERTAPENEM 1 GM in 0.9 % SODIUM CHLORIDE Mini-bag 100 ML IVPB (08:40)
[2023-08-09] MEDS: 0.9 % SODIUM CHLORIDE 1000 ml 1,000 ML IV (08:40)
--- NOTE | 2023-08-09 12:53 | CRLHL7_ITS ---
For Patients: As a result of the Century Cures Act, medical imaging exams and procedure reports are released immediately into your electronic medical record. You may view this report before your referring provider. If you have questions, please contact your health care provider. Indication: Concern for cholangitis. Technique: Limited multisequence multiplanar MRI of the abdomen both with and without IV contrast (20 mL Dotarem). MRCP and T2 weighted sequences performed on an earlier study were not repeated. Comparison: Unenhanced MRI abdomen and CT chest/abdomen/pelvis earlier same day, dated 08/09/2023. Findings: Suboptimal study secondary to motion artifact on multiple sequences. Liver: No suspicious focal hepatic lesion. Bile ducts: No significant intrahepatic or extrahepatic biliary duct dilation. There is short-segment hyperenhancement of the common bile duct/common hepatic duct wall (series 8, image 33), similar to prior CT, may reflect mild cholangitis. Gallbladder: Postcholecystectomy. Pancreas: Unremarkable. Spleen: Unremarkable. Adrenals: Unremarkable. Kidneys: Kidneys enhance symmetrically, without hydronephrosis. Multiple small bilateral renal cysts. A 2.5 cm cyst in the lower pole of the left kidney shows layering T1 hyperintensities, compatible with proteinaceous/hemorrhagic products. Similar additional 0.7 cm proteinaceous/hemorrhagic cyst in the lower pole of the left kidney. Retroperitoneum: No lymphadenopathy. Visualized Bowel and mesentery: Visualized bowel is nondilated. Vessels: Unremarkable. Abdominal wall: No acute abdominal wall abnormality. Bones: Multilevel degenerative changes of the spine. Scoliosis. No suspicious/aggressive enhancing focal osseous lesion. Impression: 1. Short-segment hyperenhancement of the common bile duct/common hepatic duct wall, similar to prior CT, may reflect mild cholangitis. 2. Hemorrhagic/proteinaceous cysts in the left kidney noted. Dictated by Reyna Galeas MD @ 08/09/2023 5:48:45 PM (Electronically Signed)
--- NOTE | 2023-08-09 13:24 | ED.NURSE ---
tolerating food well. No n/v
[2023-08-09 14:49] LABS: Basophils Absolute Auto 0.04 K/uL (0.00-0.30); Basophils Percent Auto 0.5 % (0.0-3.0); Eosinophils Absolute Auto 0.05 K/uL (0.00-0.50); Eosinophils Percent Auto 0.6 % (0.0-7.0); Hematocrit 44.3 % (37.0-53.0); Hemoglobin* 15.2 gm/dL (13.5-17.5); Immature Granulocytes Abs Auto 0.04 K/uL (0.00-0.30); Immature Granulocytes Pct Auto 0.5 %; Lymphocytes Absolute Auto 1.71 K/uL (0.90-2.90); Lymphocytes Percent Auto 21.6 % (20-44); Mean Corpuscular HGB Conc 34 gm/dL (32-36); Mean Corpuscular Hemoglobin 32 pg (26-34); Mean Corpuscular Volume 93 fL (80-100); Monocytes Percent Auto 11.9 % (0.0-11.0); Neutrophils Absolute Auto 5.15 K/uL (1.7-7.0); Neutrophils Percent Auto 64.9 % (42.0-72.0); Platelet Count* 234 K/uL (140-440); RDW Coefficient of Variation % 12.3 % (11.5-15.5); Red Blood Count 4.76 m/uL (4.30-5.90); White Blood Count* 7.93 K/uL (4.50-11.00)
[2023-08-09 14:56] LABS: Albumin* 4.4 g/dL (3.3-5.0)
[2023-08-09 14:57] LABS: Chloride* 102 mmol/L (96-114); Potassium* 3.9 mmol/L (3.6-5.1); Sodium* 137 mmol/L (135-149)
[2023-08-09 14:59] LABS: Aspartate Amino Transferase* 25 U/L (12-35); Bilirubin Total* 1.2 mg/dL (0.1-1.5); Carbon Dioxide* 26 mmol/L (20-32); Creatinine* 0.8 mg/dL (0.5-1.5); Est. Creatinine Clearance* 68.74; Estimated Glomerular Filt Rate 95 ml/min
[2023-08-09 15:00] LABS: Alanine Aminotransferase* 24 U/L (4-50); Alkaline Phosphatase* 56 U/L (40-150); Anion Gap 9 mEq/L (7-15); Blood Urea Nitrogen* 17 mg/dL (7-30); Calcium* 8.6 mg/dL (8.4-10.6); Glucose* 117 mg/dL (60-115); Total Protein* 7.2 g/dL (6.0-8.3)
[2023-08-09 15:08] LABS: Slide Review Reflex No
[2023-08-09] MEDS: LACTATED RINGERS 1000 ML 1,000 ML 75 ML IV (18:42)
--- NOTE | 2023-08-09 19:09 | ED.NURSE ---
pt report given to oncbrooke RN
--- NOTE | 2023-08-09 20:40 | ED.NURSE ---
all major surrounding institutes able to do ERCP contacted, no beds available at this time, [facility] updated .
--- NOTE | 2023-08-09 21:18 | P.IMHP_ITS ---
Hospitalist- H&P: HPI History of Present Illness Date Seen: 08/09/23 Chief complaint: chest pain, shortness of breath Narrative: Trell Gunter is a 68 year old male with previous history of cholecystectomy, DVT and PE on Eliquis, hypertension and ascending aortic aneurysm presents with severe epigastric pain for 2 days. Patient reported that the evening of August 07 he has had onset of epigastric pain. The pain was pressure sensation and was quite severe. It did not radiate. He is unable to sleep that night or the next night. The pain seemed to be getting worse and so he came to the emergency room this morning. He has not had a fever. He had nausea without vomiting. In April of 2016 he had pain between his shoulder blades which was difficult to diagnose. Eventually went to [facility] where he was diagnosed with cholecystitis based on HIDA scan and had a laparoscopic cholecystectomy. In June of 2016 he developed epigastric pain and was found to have a common bile duct stone. Treated [facility] with ERCP. In December of 2018 he had another common bile duct stone with another ERCP. Also in June 2016 he had a right popliteal DVT after a right shoulder arthroplasty. In June 2022 he had and unprovoked pulmonary embolism. With his previous history of DVT and current P and family history of his father and sister having DVTs he was recommended to be on lifelong anticoagulation. He is currently on apixaban 5 mg b.i.d. Review of Systems Narrative: Reports no other concerns other than the past 2 days of epigastric pain. He reports he has been able to eat a little bit of food in the last 2 days but has a poor appetite. [facility] Medical History (Updated 08/09/23 @ 21:46 by Julius Fiore MD) Chronic anticoagulation ?Z79.01 - watermelon inspector (current) use of anticoagulants (ICD-10) BPH associated with nocturia ?N40.1 - Benign prostatic hyperplasia with lower urinary tract symptoms (ICD- 10) ?R35.1 - Nocturia (ICD-10) Pulmonary embolism ?I26.99 - Other pulmonary embolism without acute cor pulmonale (ICD-10) Osteoarthritis of knees, bilateral ?M17.0 - Bilateral primary osteoarthritis of knee (ICD-10) Hypertension (07/29/09) ?I10 - Essential (primary) hypertension (ICD-10) Hyperlipidemia ?E78.5 - Hyperlipidemia, unspecified (ICD-10) Dysuria ?R30.0 - Dysuria (ICD-10) Abnormal echocardiogram ?R93.1 - Abnormal findings on diagnostic imaging of heart and coronary circulation (ICD-10) Exertional dyspnea ?R06.09 - Other forms of dyspnea (ICD-10) Umbilical hernia (07/29/09) ?K42.9 - Umbilical hernia without obstruction or gangrene (ICD-10) Rupture of Achilles tendon ?S86.019A - Strain of unspecified Achilles tendon, initial encounter (ICD-10) Encounter for routine history and physical examination of adult ?Z00.00 - Encounter for general adult medical examination without abnormal findings (ICD-10) Surgical History (Updated 08/09/23 @ 21:37 by Julius Fiore MD) History of ERCP ?Z98.890 - Other specified postprocedural states (ICD-10) H/O arthroscopy of left knee (03/11/12) ?Z98.890 - Other specified postprocedural states (ICD-10) H/O Achilles tendon repair (08/05/12) ?Z98.890 - Other specified postprocedural states (ICD-10) H/O inguinal hernia repair (07/29/09) ?Z98.890 - Other specified postprocedural states (ICD-10) ?Z87.19 - Personal history of other diseases of the digestive system (ICD-10) Hx of shoulder surgery (07/29/09) ?Z98.890 - Other specified postprocedural states (ICD-10) 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 Highest level of school completed/degree received: high school graduate Smoking Status: Never smoker Do you use any of these nicotine containing products: None Second hand tobacco smoke exposure: No How often do you have a drink containing alcohol: monthly or less Alcohol type: beer How many standard drinks containing alcohol do you have on a typical day: 1 or 2 How often do you have six or more drinks on one occasion: Never AUDIT-C Alcohol total score: 1 Non-prescribed substance use: denies use Caffeine: No Little interest or pleasure in doing things: not at all Feeling down, depressed, or hopeless: not at all service: Yes Meds Home Medications and Allergies Home Medications Medication Instructions Recorded Confirmed Type coenzyme Q10 30 mg capsule 30 mg PO DAILY 03/27/22 07/24/23 History glucosamine sulfate 500 mg capsule 500 mg PO DAILY 03/27/22 07/24/23 History omega-3 acid ethyl esters 1 gram 1 cap PO DAILY 03/27/22 07/24/23 History capsule Allergies Allergy/AdvReac Type Severity Reaction Status Date / Time penicillin V Allergy Intermediate Swelling Verified 07/24/23 08:52 and redness Exam Narrative: Exam Narrative: He is alert and appears in no distress. He gives his own history. Eyes are normal. Sclerae nonicteric. Oropharynx with small airway. Neck is supple without mass or adenopathy. Respirations are clear to auscultation. Cardiovascular: S1, S2, regular rate and rhythm. No murmur gallop or rub. Abdomen: Bowel sounds active. Abdomen is soft without tenderness or mass. He indicates the very distal sternum as the location of pain but this is not tender to palpate. There is no rash. No CVA tenderness or back tenderness. External genitalia normal. Extremities notable for mild swelling in the right lower extremity compared to the left which she reports is chronic related to his previous right lower extremity popliteal DVT in 2016. Intact pedal pulses. No rash Const: Vital Signs, click to edit/add: Vital Signs - 24 hr 08/09/23 05:45 08/09/23 05:46 08/09/23 05:46 Temperature 97.9 F Pulse Rate 99 104 H Pulse Rate [Pulse Oximeter] 99 Respiratory Rate 18 Blood Pressure 142/102 H Blood Pressure [Ri ght Upper Arm] 142/102 H Pulse Oximetry 94 95 91 Oxygen Delivery Me thod Room Air 08/09/23 05:47 08/09/23 06:00 08/09/23 06:01 Temperature Pulse Rate 98 93 94 Pulse Rate [Pulse Oximeter] Respiratory Rate Blood Pressure 125/94 H 133/94 H Blood Pressure [Ri ght Upper Arm] Pulse Oximetry 95 92 93 [facility] 08/09/23 06:16 08/09/23 06:17 08/09/23 06:30 Temperature Pulse Rate 89 90 90 Pulse Rate [Pulse Oximeter] Respiratory Rate Blood Pressure 121/92 H Blood Pressure [Ri ght Upper Arm] Pulse Oximetry 90 94 94 Oxygen Delivery [facility] 08/09/23 06:31 08/09/23 06:32 08/09/23 07:01 Temperature Pulse Rate 92 95 Pulse Rate [Pulse Oximeter] Respiratory Rate 18 Blood Pressure 118/91 H 116/90 H Blood Pressure [Ri ght Upper Arm] Pulse Oximetry 91 94 Oxygen Delivery [facility] 08/09/23 07:20 08/09/23 07:54 08/09/23 08:00 Temperature Pulse Rate 85 86 Pulse Rate [Pulse Oximeter] Respiratory Rate Blood Pressure 113/93 H Blood Pressure [Ri ght Upper Arm] Pulse Oximetry 91 92 Oxygen Delivery [facility] 08/09/23 08:15 08/09/23 08:38 08/09/23 08:45 Temperature Pulse Rate 85 83 Pulse Rate [Pulse Oximeter] Respiratory Rate Blood Pressure 116/85 Blood Pressure [Ri ght Upper Arm] Pulse Oximetry 90 92 Oxygen Delivery [facility] 08/09/23 09:00 08/09/23 10:06 08/09/23 10:07 Temperature Pulse Rate 83 88 85 Pulse Rate [Pulse Oximeter] Respiratory Rate Blood Pressure 106/80 Blood Pressure [Ri ght Upper Arm] Pulse Oximetry 91 92 90 Oxygen Delivery [facility] 08/09/23 10:15 08/09/23 10:30 08/09/23 10:45 Temperature Pulse Rate 84 83 83 Pulse Rate [Pulse Oximeter] Respiratory Rate Blood Pressure Blood Pressure [Ri ght Upper Arm] Pulse Oximetry 93 90 90 Oxygen Delivery [facility] 08/09/23 11:00 08/09/23 11:15 08/09/23 11:30 Temperature Pulse Rate 81 82 84 Pulse Rate [Pulse Oximeter] Respiratory Rate Blood Pressure Blood Pressure [Ri ght Upper Arm] Pulse Oximetry 91 92 91 Oxygen Delivery [facility] 08/09/23 11:45 08/09/23 12:00 08/09/23 12:11 Temperature Pulse Rate 84 87 84 Pulse Rate [Pulse Oximeter] Respiratory Rate Blood Pressure 100/79 Blood Pressure [Ri ght Upper Arm] Pulse Oximetry 91 91 94 Oxygen Delivery [facility] 08/09/23 12:15 08/09/23 12:30 08/09/23 12:42 Temperature Pulse Rate 85 80 88 Pulse Rate [Pulse Oximeter] Respiratory Rate Blood Pressure 113/86 Blood Pressure [Ri ght Upper Arm] Pulse Oximetry 93 90 92 Oxygen Delivery [facility] 08/09/23 12:45 08/09/23 13:00 08/09/23 13:02 Temperature Pulse Rate 82 85 86 Pulse Rate [Pulse Oximeter] Respiratory Rate Blood Pressure 100/79 Blood Pressure [Ri ght Upper Arm] Pulse Oximetry 93 93 94 Oxygen Delivery [facility] 08/09/23 13:15 08/09/23 13:30 08/09/23 13:31 Temperature Pulse Rate 83 83 82 Pulse Rate [Pulse Oximeter] Respiratory Rate Blood Pressure 105/79 Blood Pressure [Ri ght Upper Arm] Pulse Oximetry 90 91 92 Oxygen Delivery [facility] 08/09/23 13:45 08/09/23 14:00 08/09/23 14:01 Temperature Pulse Rate 82 83 82 Pulse Rate [Pulse Oximeter] Respiratory Rate Blood Pressure 107/78 Blood Pressure [Ri ght Upper Arm] Pulse Oximetry 90 89 89 Oxygen Delivery [facility] 08/09/23 14:15 08/09/23 14:30 08/09/23 14:31 Temperature Pulse Rate 83 84 85 Pulse Rate [Pulse Oximeter] Respiratory Rate Blood Pressure 100/78 Blood Pressure [Ri ght Upper Arm] Pulse Oximetry 92 89 89 Oxygen Delivery [facility] 08/09/23 14:45 08/09/23 15:00 08/09/23 15:02 Temperature Pulse Rate 84 81 82 Pulse Rate [Pulse Oximeter] Respiratory Rate Blood Pressure 102/76 Blood Pressure [Ri ght Upper Arm] Pulse Oximetry 89 90 90 Oxygen Delivery [facility] 08/09/23 15:15 08/09/23 15:30 08/09/23 15:31 Temperature Pulse Rate 81 80 80 Pulse Rate [Pulse Oximeter] Respiratory Rate Blood Pressure 104/83 Blood Pressure [Ri ght Upper Arm] Pulse Oximetry 90 90 90 Oxygen Delivery [facility] 08/09/23 15:45 08/09/23 16:00 08/09/23 16:51 Temperature Pulse Rate 82 82 79 Pulse Rate [Pulse Oximeter] Respiratory Rate Blood Pressure Blood Pressure [Ri ght Upper Arm] Pulse Oximetry 90 92 92 Oxygen Delivery Me thod 08/09/23 20:43 08/09/23 20:45 Temperature Pulse Rate 72 73 Pulse Rate [Pulse Oximeter] Respiratory Rate Blood Pressure Blood Pressure [Ri ght Upper Arm] Pulse Oximetry 89 89 Oxygen Delivery Me thod Documenting provider has reviewed patient's vital signs: yes Hospitalist - H&P: Result Labs Labs: Short CBC 08/09/23 08/09/23 Range/Units 05:55 14:37 WBC 8.54 7.93 (4.50-11.00) K/uL Hgb 15.9 15.2 (13.5-17.5) gm/dL Hct 46.0 44.3 (37.0-53.0) % Plt Count 243 234 (140-440) K/uL BMP 08/09/23 08/09/23 05:55 14:37 Sodium 138 137 Potassium 3.5 L 3.9 Chloride 102 102 Carbon Dioxide 27 26 BUN 20 17 Creatinine 0.7 0.8 Glucose 111 117 H Calcium 9.3 8.6 Liver Function 08/09/23 08/09/23 08/09/23 Range/Units 05:55 07:46 14:37 Total Bilirubin 1.5 1.2 (0.1-1.5) mg/dL Direct Bilirubin 0.2 (0.0-0.5) mg/dL AST 28 25 (12-35) U/L ALT 27 24 (4-50) U/L Alkaline Phosphatase 66 56 (40-150) U/L Albumin 4.6 4.4 (3.3-5.0) g/dL Imaging MRI - abdomen: Radiologist's impression: MRCP: Indication: Wall thickening and hyper enhancement of the bile ducts. Cholangitis suspected. Technique: MRI of the abdomen without intravenous gadolinium, MRCP. Three plane localizer, 3 plane SSFP, axial T1 weighted in and out of phase, axial T2 weighted haste, high-resolution, heavily T2 weighted 2D/3D MRCP images. No intravenous gadolinium administered. Comparison: CT of the chest, abdomen, and pelvis, 08/09/2023. CT of the abdomen and pelvis, 03/05/2023. Findings: The common bile duct measures 10 millimeters. No choledocholithiasis or obstructing mass. Mild dilation of intrahepatic biliary radicles. The patient is post cholecystectomy. Mural thickening of the extrahepatic common duct was present on the recent CT scan. The findings remain suspicious for cholangitis. No drainable fluid collection. Peripelvic area enhancement cannot be assessed without intravenous contrast. There is a lymph node at the hepatic hilum which may be reactive in nature measuring 13 millimeters. GI consultation is suggested for this finding. Spleen size is normal. There are renal sinus and renal cortical cysts present. No abdominal lymphadenopathy. Liver morphology is non cirrhotic. No evidence for gastric outlet obstruction. No pancreatic duct dilation or glandular atrophy. Normal caliber common bile duct. Scoliosis. There is no evidence for steatosis or iron deposition and chemical shift imaging. There is no pleural or pericardial effusion. MRI with contrast Impression: 1. There is no common bile duct stone or mass. 2. Peribiliary enhancement cannot be assessed without intravenous gadolinium. However, wall thickening on the recent CT scan involving the extrahepatic common duct is suspicious for cholangitis. Suggest correlation with LFTs and GI consultation. 3. Nerve roots within the spinal canal appear clumped together. This is favored to be secondary to the significant S-shaped scoliotic curvature. Arachnoiditis is considered less likely. Indication: Concern for cholangitis. Technique: Limited multisequence multiplanar MRI of the abdomen both with and without IV contrast (20 mL Dotarem). MRCP and T2 weighted sequences performed on an earlier study were not repeated. Comparison: Unenhanced MRI abdomen and CT chest/abdomen/pelvis earlier same day, dated 08/09/2023. Findings: Suboptimal study secondary to motion artifact on multiple sequences. Liver: No suspicious focal hepatic lesion. Bile ducts: No significant intrahepatic or extrahepatic biliary duct dilation. There is short-segment hyperenhancement of the common bile duct/common hepatic duct wall (series 8, image 33), similar to prior CT, may reflect mild cholangitis. Gallbladder: Postcholecystectomy. Pancreas: Unremarkable. Spleen: Unremarkable. Adrenals: Unremarkable. Kidneys: Kidneys enhance symmetrically, without hydronephrosis. Multiple small bilateral renal cysts. A 2.5 cm cyst in the lower pole of the left kidney shows layering T1 hyperintensities, compatible with proteinaceous/hemorrhagic products. Similar additional 0.7 cm proteinaceous/hemorrhagic cyst in the lower pole of the left kidney. Retroperitoneum: No lymphadenopathy. Visualized Bowel and mesentery: Visualized bowel is nondilated. Vessels: Unremarkable. Abdominal wall: No acute abdominal wall abnormality. Bones: Multilevel degenerative changes of the spine. Scoliosis. No suspicious/aggressive enhancing focal osseous lesion. Impression: 1. Short-segment hyperenhancement of the common bile duct/common hepatic duct wall, similar to prior CT, may reflect mild cholangitis. 2. Hemorrhagic/proteinaceous cysts in the left kidney noted. Dictated by Reyna Galeas MD @ 08/09/2023 5:48:45 PM ----- ADDENDUM ----- There is a stable 1.2 cm splenic artery aneurysm. Assessment and Plan Assessment and plan (1) Cholangitis: Problem comment: MRCP suggest cholangitis. Clinically patient does not have obvious cholangitis without fever or elevated white blood count and abnormal liver enzymes or abdominal tenderness. Treat with Primaxin pending clinical course. Current recommendation is for transfer for ERCP when tertiary care bed becomes available. Status: Acute (2) Common bile duct calculus: Problem comment: 2 previous episodes of obstructing gallstones after cholecystitis in 2016 and 2019 with ERCP at [facility] Status: Acute (3) Pulmonary embolism: Problem comment: June 2022: Multiple bilateral pulmonary emboli likely the primary cause of his current dyspnea. Treat with apixaban. Because of family and personal history of DVT, I recommend lifelong treatment unless he develops bleeding disorder. Had DVT in his right popliteal after shoulder arthroplasty in June 2016 Status: Acute (4) Chronic anticoagulation: Problem comment: 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 Will hold Eliquis pending decision about surgical intervention and use enoxaparin for DVT prophylaxis in the meantime Status: Acute (5) Hypertension: Problem comment: Hold blood pressure medicine pending clinical course and blood pressure Status: Acute (6) Obstructive sleep apnea treated with continuous positive airway pressure (CPAP): Status: Acute Plan Patient is admitted to the hospital for ongoing evaluation treatment of suspected cholangitis. Patient prolonged stay in the emergency department pending definitive diagnosis and then pending transfer to tertiary care for possible ERCP or EUS. Tertiary care beds not available at this time. Will admit here pending clinical course and ongoing search for transfer to a facility to perform ERCP. Total time spent today is 80 minutes, 50 minutes in coordination of care discussing with patient other providers ongoing evaluation management of cholangitis.
[2023-08-10 04:24] VITALS: BP 119/77; PULSE 84; RESP 16; TEMP 37.1; O2SAT 93; BMI 35.1
[2023-08-10] MEDS: ACETAMINOPHEN 325 MG TABLET 650 MG PO (04:55)
[2023-08-10 05:00] VITALS: BP 97/71; PULSE 79; RESP 14; TEMP 36.5; O2SAT 92
[2023-08-10 07:00] VITALS: BP 106/79; PULSE 76; RESP 14; TEMP 36.7; O2SAT 94
[2023-08-10] MEDS: OMEPRAZOLE 20 MG CAPSULE DR PO (07:46)
--- NOTE | 2023-08-10 07:52 | PC.NURSE ---
Pt alert and oriented x3. Afebrile. Pt reports 2/10 epigastric pain and 4/10 headache, managed with PRN medication. Pt denies SOB and N/V. Pt is up IND on in room, tolerating a clear liquid diet. Pt slept intermittently throughout night.
[2023-08-10 08:13] LABS: Basophils Absolute Auto 0.05 K/uL (0.00-0.30); Basophils Percent Auto 0.9 % (0.0-3.0); Eosinophils Absolute Auto 0.12 K/uL (0.00-0.50); Eosinophils Percent Auto 2.1 % (0.0-7.0); Hematocrit 45.5 % (37.0-53.0); Hemoglobin* 15.4 gm/dL (13.5-17.5); Immature Granulocytes Abs Auto 0.01 K/uL (0.00-0.30); Immature Granulocytes Pct Auto 0.2 %; Lymphocytes Absolute Auto 2.03 K/uL (0.90-2.90); Lymphocytes Percent Auto 35.9 % (20-44); Mean Corpuscular HGB Conc 34 gm/dL (32-36); Mean Corpuscular Hemoglobin 32 pg (26-34); Mean Corpuscular Volume 94 fL (80-100); Monocytes Percent Auto 15.9 % (0.0-11.0); Neutrophils Absolute Auto 2.54 K/uL (1.7-7.0); Platelet Count* 234 K/uL (140-440); RDW Coefficient of Variation % 12.2 % (11.5-15.5); Red Blood Count 4.86 m/uL (4.30-5.90); White Blood Count* 5.65 K/uL (4.50-11.00)
[2023-08-10 08:14] LABS: HCO3 VBG 28 mmol/L (21-28); PCO2 VBG 43 mmHG (40-50); PO2 VBG 45.8 mmHG (25-47); pH VBG 7.419 (7.32-7.43)
[2023-08-10 08:17] LABS: Slide Review Reflex No
[2023-08-10 08:45] LABS: Albumin* 4.1 g/dL (3.3-5.0); Chloride* 103 mmol/L (96-114); Potassium* 3.8 mmol/L (3.6-5.1); Sodium* 137 mmol/L (135-149)
[2023-08-10 08:47] LABS: Bilirubin Total* 1.1 mg/dL (0.1-1.5); Creatinine* 0.8 mg/dL (0.5-1.5); Est. Creatinine Clearance* 68.74; Estimated Glomerular Filt Rate 95 ml/min
[2023-08-10 08:48] LABS: Alanine Aminotransferase* 21 U/L (4-50); Alkaline Phosphatase* 56 U/L (40-150); Anion Gap 7 mEq/L (7-15); Aspartate Amino Transferase* 24 U/L (12-35); Blood Urea Nitrogen* 20 mg/dL (7-30); Calcium* 8.8 mg/dL (8.4-10.6); Carbon Dioxide* 27 mmol/L (20-32); Gamma Glutamyl Transpeptidase* 24 U/L (8-55); Glucose* 99 mg/dL (60-115); Lipase* 136 U/L (23-300); Total Protein* 6.8 g/dL (6.0-8.3)
[2023-08-10 08:49] LABS: Magnesium* 2.2 mg/dL (1.5-2.6)
[2023-08-10 08:50] LABS: INR 0.99 (0.91-1.10); Prothrombin Time 13.7 Seconds
[2023-08-10 09:02] LABS: Troponin I* < 0.01 ng/mL (0.01-0.04)
[2023-08-10] MEDS: ENOXAPARIN 30 MG/0.3ML INJ SUBCUT (09:14)
[2023-08-10] MEDS: SODIUM CHLORIDE 0.9 % (FLUSH) 10 ML SYRINGE 5 ML IVF (09:14)
--- NOTE | 2023-08-10 12:42 | P.DS_ITS ---
DS: Providers Provider Date Seen: 08/10/23 Date of admission: 08/09/23 22:03 Primary care physician: Ayan Shen MD Admitting Clinician: Julius Fiore MD Consults: 08/09/23 21:15 Consult to Physician [CONS] Routine Comment: Consulting Provider: Pily Osorio Has provider been notified: Yes Attending Physician on discharge: Linda Isidro MD [facility] Hospitalist Date of Discharge: 08/10/23 DS: Diagnosis Discharge Diagnosis (1) Abdominal pain: Status: Acute Problem details: -unclear etiology. Clearly there was an abnormal MRCP finding of the common bile duct. However, with resolution of pain, no fever and absence of abnormal lab we felt it prudent not to transfer and to have this patient follow-up as an outpatient. (2) Abnormal magnetic resonance cholangiopancreatography (MRCP): Status: Acute Problem details: -his imaging from [facility] has been placed on CD to be review with [facility] provider. Imaging was also pushed through the PACS system to [facility]. -differential includes stricture of his common bile duct, debris, passed stone, malignancy. Follow-up imaging verses EUS/ERCP to be determined. (3) Chronic anticoagulation: Status: Acute Problem details: 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 (4) Common bile duct calculus: Status: Acute Problem details: 2 previous episodes of obstructing gallstones after cholecystitis in 2016 and 2019 with ERCP at [facility] (5) History of laparoscopic cholecystectomy: Status: Acute DS: Summary Hospital Course Hospital Course: FINAL DIAGNOSIS/FOLLOW UP ISSUES: 1. Abnormal MRCP with brief episode of abdominal pain. Given his history of common bile duct stone x2 after cholecystectomy, there is concern that this represented a similar episode. His MRCP should be reviewed by GI and further recommendations made as an outpatient. BRIEF HOSPITAL COURSE: Patient was admitted overnight. Synopsis of acute inpatient issues are outlined above. Chronic medical conditions with notable findings outlined above. DISCHARGE MEDICATIONS: See Reconciled list - SIGNIFICANT CHANGES: None Specific instructions to the patient and follow-up are outlined below. REVIEW OF SYSTEMS No new chest pain or dyspnea Pain controlled No voiding difficulties Tolerating diet challenge PHYSICAL EXAM: CONSTITUTIONAL: Alert, oriented. Tolerating a normal diet. VITAL SIGNS: see record. HEENT: Normocephalic, atraumatic. PERRL, EOMI, conjunctivae pink, no scleral icterus. Ears and nose externally normal. Pharynx normal. NECK: No JVD. No carotid bruit, no thyromegaly, no adenopathy. CHEST: Clear to auscultation bilaterally. HEART: S1 and S2 normal. Edema ABDOMEN: Soft, nontender. Normal bowel sounds. MUSCULOSKELETAL: No gross joint deformity or swelling. NEURO: Cranial nerves intact. Grossly intact. No asymmetric findings. SKIN: No rashes, petechiae, concerning changes PSYCHIATRIC: Mood euthymic. DISPOSITION: Home with Time spent on discharge 37 minutes. Time Spent with Patient Time attestation: Total time spent providing and/or coordinating discharge services: Exam Const: Vital Signs, click to edit/add: Vital Signs - 24 hr 08/09/23 12:45 08/09/23 13:00 08/09/23 13:02 Temperature Pulse Rate 82 85 86 Pulse Rate [Pulse Oximeter] Respiratory Rate Blood Pressure 100/79 Blood Pressure [Ri ght Arm] Pulse Oximetry 93 93 [facility] 08/09/[facility] 13:15 08/09/23 13:30 08/09/23 13:31 Temperature Pulse Rate 83 83 82 Pulse Rate [Pulse Oximeter] Respiratory Rate Blood Pressure 105/79 Blood Pressure [Ri ght Arm] Pulse Oximetry 90 91 92 [facility] 08/09/23 13:45 08/09/23 14:00 08/09/23 14:01 Temperature Pulse Rate 82 83 82 Pulse Rate [Pulse Oximeter] Respiratory Rate Blood Pressure 107/78 Blood Pressure [Ri ght Arm] Pulse Oximetry 90 89 89 [facility] 08/09/23 14:15 08/09/23 14:30 08/09/23 14:31 Temperature Pulse Rate 83 84 85 Pulse Rate [Pulse Oximeter] Respiratory Rate Blood Pressure 100/78 Blood Pressure [Ri ght Arm] Pulse Oximetry 92 89 89 [facility] 08/09/23 14:45 08/09/23 15:00 08/09/23 15:02 Temperature Pulse Rate 84 81 82 Pulse Rate [Pulse Oximeter] Respiratory Rate Blood Pressure 102/76 Blood Pressure [Ri ght Arm] Pulse Oximetry 89 90 90 [facility] 08/09/23 15:15 08/09/23 15:30 08/09/23 15:31 Temperature Pulse Rate 81 80 80 Pulse Rate [Pulse Oximeter] Respiratory Rate Blood Pressure 104/83 Blood Pressure [Ri ght Arm] Pulse Oximetry 90 90 90 Oxygen Delivery Me thod 08/09/23 15:45 08/09/23 16:00 08/09/23 16:51 Temperature Pulse Rate 82 82 79 Pulse Rate [Pulse Oximeter] Respiratory Rate Blood Pressure Blood Pressure [Ri ght Arm] Pulse Oximetry 90 92 92 Oxygen Delivery [facility] 08/09/23 20:43 08/09/23 20:45 08/09/23 21:01 Temperature Pulse Rate 72 73 80 Pulse Rate [Pulse Oximeter] Respiratory Rate Blood Pressure 110/83 Blood Pressure [Ri ght Arm] Pulse Oximetry 89 89 94 Oxygen Delivery Me thod 08/09/23 21:34 08/10/23 04:24 08/10/23 04:24 Temperature 98.8 F Pulse Rate 77 Pulse Rate [Pulse Oximeter] 84 Respiratory Rate 16 16 Blood Pressure 113/80 Blood Pressure [Ri ght Arm] 119/77 Pulse Oximetry 93 93 93 [facility] Room Air 08/10/23 05:00 08/10/23 07:00 08/10/23 07:00 Temperature 97.7 F 98.1 F Pulse Rate Pulse Rate [Pulse Oximeter] 79 76 76 Respiratory Rate 14 14 14 Blood Pressure Blood Pressure [Ri ght Arm] 97/71 106/79 Pulse Oximetry 92 94 Oxygen Delivery Me od Room Air Room Air DS: Data Data Completed and Pending Labs on day of discharge: Labs from last 24 hours 08/10/23 08/10/23 08/09/23 09:43 08:03 14:37 WBC 5.65 7.93 RBC 4.86 4.76 Hgb 15.4 15.2 Hct 45.5 44.3 MCV 94 93 MCH 32 32 MCHC 34 34 RDW Coeff of Sandra 12.2 12.3 Plt Count 234 234 Neut % (Auto) 45.0 64.9 Lymph % (Auto) 35.9 21.6 [place] % (Auto) 15.9 H 11.9 H Eos % (Auto) 2.1 0.6 Baso % (Auto) 0.9 0.5 Neut # (Auto) 2.54 5.15 Lymph # (Auto) 2.03 1.71 [place] # (Auto) 0.90 0.90 Eos # (Auto) 0.12 0.05 Baso # (Auto) 0.05 0.04 Abs Immat Gran (auto) 0.01 0.04 Imm/Tot Granulo (auto) 0.2 0.5 INR 0.99 VBG pH 7.419 VBG pCO2 43 VBG pO2 45.8 VBG HCO3 28 Sodium 137 137 Potassium 3.8 3.9 Chloride 103 102 Carbon Dioxide 27 26 Anion Gap 7 9 BUN 20 17 Creatinine 0.8 0.8 Estimated Creat Clear 68.74 68.74 Estimated GFR 95 95 Glucose 99 117 H Calcium 8.8 8.6 Magnesium 2.2 Total Bilirubin 1.1 1.2 GGT 24 AST 24 25 ALT 21 24 Alkaline Phosphatase 56 56 Troponin I < 0.01 L C-Reactive Protein 3.0 H Total Protein 6.8 7.2 Albumin 4.1 4.4 Lipase 136 Lab Acknowledgement Test Added Preliminary micro results at discharge 08/09/23 08:20 Blood Culture - Preliminary Blood NO GROWTH AFTER 24 HOURS 08/09/23 08:14 Blood Culture - Preliminary Blood NO GROWTH AFTER 24 HOURS Discharge Plan Discharge Disposition: Home, Self-Care Date of Admission: 08/09/23 22:03 Consulting Providers: Pily Osorio Primary Care Provider: Ayan Shen Condition: Improved Anticipated Discharge Date/Time: 08/10/23 12:31 Discharge Medications: Continued fluticasone propion-salmeterol [Advair Diskus] 250-50 mcg/dose blister with device 1 inh inhalation BID Qty: 60 1RF coenzyme Q10 30 mg capsule 30 mg PO DAILY glucosamine sulfate 500 mg capsule 500 mg PO DAILY omega-3 acid ethyl esters 1 gram capsule 1 cap PO DAILY triamcinolone acetonide 0.1 % ointment 1 applic topical BID PRN fluticasone propionate [Flonase Allergy Relief] 50 mcg/actuation spray,suspension 1 spray intranasal BID PRN Rx Instructions: administer into each nostril hydrochlorothiazide 12.5 mg capsule 12.5 mg PO DAILY Qty: 90 0RF rosuvastatin 10 mg tablet 10 mg PO HS Qty: 90 0RF losartan 100 mg tablet 100 mg PO DAILY Qty: 90 0RF omeprazole 20 mg capsule,delayed release(DR/EC) 20 mg PO DAILY Qty: 90 2RF Eliquis 5 mg tablet 5 mg PO BID Qty: 60 5RF Discharge Orders: Discharge Order (Routine); Ordered 08/10/23 Ordered By: Linda Isidro Patient Education: Gallstones (DC) Additional Instructions: resume all home meds. eat normally. be normal. if you get a fever, abdominal pain, vomiting - please come right back. Take your CD of all your images and present to [facility] appt on Sunday. Activity Level: No Restrictions Discharge Diet: Regular Follow Up Appointments: Nakul Gallo MD [Referring] - 08/15/23 10:40 am ([facility] [address] [place] [address]) Forms: [employer] Info Instructions
--- NOTE | 2023-08-10 14:37 | PC.NURSE ---
Discharge: patient discharged today at 1300 to home accompanied by daughter. IV removed intact. Patient VSS, denies pain, N/V/SOB. Patient signed discharge instructions, and belongings sheet. Patient verbalized understanding of instructions.
== END 2023-08-10 13:00 | disposition home or self-care (01) | DRG 446 ==
LOC: ED 20:42 → MEDSURG 22:03
PROVIDERS: Family Medicine; Student in an Organized Health Care Education/Training Program; Admitting Provider Family Medicine; Emergency Provider Family Medicine; PCP Family Medicine; Visit Provider Family Medicine
DX: K83.09 Other cholangitis (principal); K83.8 Other specified diseases of biliary tract; Z90.49 Acquired absence of other specified parts of digestive tract; R10.13 Epigastric pain; R07.9 Chest pain, unspecified; Z79.01 Long term (current) use of anticoagulants; I10 Essential (primary) hypertension; G47.33 Obstructive sleep apnea (adult) (pediatric); Z99.89 Dependence on other enabling machines and devices; Z86.711 Personal history of pulmonary embolism; Z86.718 Personal history of other venous thrombosis and embolism; I71.21 Aneurysm of the ascending aorta, without rupture; E78.5 Hyperlipidemia, unspecified
CPT/HCPCS: 36415; 71260; 74177; 74181; 74183; 80053; 82248; 82565; 82803; 82977; 83605; 83690; 83735; 84484; 85025; 85610; 86140; 87040; 93005; 99285; A9270; A9575; J0743; J1335; J1650; J2270; J2405; J7030; J7120; Q9967

== ENCOUNTER 2023-09-04 08:01 | Outpatient (CLI) | payer OTHER, SELFPAY ==
--- OUTSIDE RECORDS SUMMARY | 2023-09-04 08:05 | XMS_ITS | Clinical Summary ---
Author Name Unknown Organization [facility] Address [place], [place] [address] Care Team Providers Care Rail Switchman Name Role Phone Nonstaff, Doctor Primary Care [...] tis 05/20/2016 Aortic aneurysm 05/20/2016 Acute cholecystitis Encounters Date Type Department Care Team Description 08/07/2023 4:00 PM TIE UP WORKER Hospital Encounter [address] [address] s, U Hospitalist Svc from Last 3 Months Immunizations Name Administration Dates Next Due Influenza, [...] 1 - PCV) 2018 COVID-19 vaccine series ( - 2022- season) 2023 10/23/2020, 10/02/2020 Influenza [...] 1:55 PM 05/24/2016 10:41 AM Care Teams Rail Switchman Relationship Specialty Start Date End Date Nonstaff, Doctor NON STAFF DOCTOR PCP - General 01/17/19
--- OUTSIDE RECORDS SUMMARY | 2023-09-04 08:05 | XMS_ITS | Continuity of Care Document ---
Author Name [facility] Organization [facility] Care Team Providers Care Health Information Provider Name Role Phone [facility] Unavailable Unavailable Problems Combined list of problems from Department of Defense and Veterans [facility] facilities. It does not include entries that were removed or entered in error. Problem Status Onset Date Problem Type Date of Resolution Comments Source Diagnosis: ICD-10-CM Z46.1 Encounter for fitting and adjustment of hearing aid Active Diagnosis [facility] Diagnosis: ICD-10-CM H90.3 Sensorineural hearing loss, bilateral Active Diagnosis [facility] Encounters Combined list of: 1) Encounters from Department of Veterans Affairs facilities going back up to thelast 18 months. 2) Encounters from the Department of [facility] facilities going back up to 280 months. Location Location Details Encounter Type Encounter Number Reason For Visit Attending Provider ADM Date DC Date Status Disposition Source [facility] [place] [id number] Diagnos is: ICD-10- CM H90.3 Sensori neural hearing loss, bilater al
RUTHY SMITH 11/02 [facility] CONFORMITY EVALUATION [id number] Diagnos is: ICD-10- CM Z46.1 Encount er for fitting and adjustm ent of hearing aid<br/ > RUTHY SMITH E 12/21 [facility]
--- NOTE | 2023-09-04 08:15 | CRLHL7_ITS ---
For Patients: As a result of the Century Cures Act, medical imaging exams and procedure reports are released immediately into your electronic medical record. You may view this report before your referring provider. If you have questions, please contact your health care provider. INDICATION: RLE SWELLING, HX DVT COMPARISON: 06/29/2016 TECHNIQUE: A compression venous ultrasound exam was performed of both lower extremities using anderson scale imaging, color Doppler and spectral Doppler analysis. FINDINGS: Sonographic imaging of the lower extremities demonstrates normal compressibility and color Doppler venous blood flow within the common femoral, deep femoral, and proximal greater saphenous veins. Within the thighs the femoral veins are patent and compressible. At a lower level the left popliteal and posterior tibial veins also show normal compressibility and color Doppler venous blood flow. Popliteal cyst is present on the left measuring 7.7 x 3.5 x 4.1 cm. Nonocclusive thrombus within the right distal popliteal vein and right peroneal veins with partial flow. 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 No acute DVT. Left-sided popliteal cyst. Dictated by Roger Jasso MD @ 09/04/2023 9:22:44 AM (Electronically Signed)
== END 2023-09-04 08:02 | disposition home or self-care (01) ==
LOC: US 08:03
PROVIDERS: PCP Family Medicine; Visit Provider Family Medicine
DX: R22.43 Localized swelling, mass and lump, lower limb, bilateral (principal); I82.5Z1 Chronic embolism and thrombosis of unspecified deep veins of right distal lower extremity; I82.409 Acute embolism and thrombosis of unspecified deep veins of unspecified lower extremity
CPT/HCPCS: 93970

== ENCOUNTER 2023-10-26 09:13 | Outpatient (CLI) | payer OTHER, SELFPAY | END 2023-10-26 09:14 | disposition home or self-care (01) | LOC: NFLDREF 10-27 05:47 | PROVIDERS: PCP Family Medicine; Referring Provider Family Medicine; Visit Provider Family Medicine | DX: E78.5 Hyperlipidemia, unspecified (principal) | CPT/HCPCS: 80061 ==

== ENCOUNTER 2023-11-06 07:00 | Outpatient (CLI) | payer OTHER, SELFPAY ==
--- OUTSIDE RECORDS SUMMARY | 2023-11-06 07:04 | XMS_ITS | Continuity of Care Document ---
Author Name [facility] Organization [facility] Care Team Providers Care Academic Hospitalist Name Role Phone [facility] Unavailable Unavailable Problems Combined list of problems from Department of Defense and Veterans [facility] facilities. It does not include entries that were removed or entered in error. Problem Status Onset Date Problem Type Date of Resolution Comments Source Diagnosis: ICD-10-CM Z46.1 Encounter for fitting and adjustment of hearing aid Active Diagnosis [facility] Diagnosis: ICD-10-CM H90.3 Sensorineural hearing loss, bilateral Active Diagnosis [facility] Encounters Combined list of: 1) Encounters from Department of Veterans Affairs facilities going back up to thelast 18 months. 2) Encounters from the Department of [facility] facilities going back up to 280 months. Location Location Details Encounter Type Encounter Number Reason For Visit Attending Provider ADM Date DC Date Status Disposition Source [facility] [place] [id number] Diagnos is: ICD-10- CM H90.3 Sensori neural hearing loss, bilater al
RUTHY SMITH 11/02 [facility] CONFORMITY EVALUATION [id number] Diagnos is: ICD-10- CM Z46.1 Encount er for fitting and adjustm ent of hearing aid<br/ > RUTHY SMITH E 12/21 [facility]
--- OUTSIDE RECORDS SUMMARY | 2023-11-06 07:04 | XMS_ITS | Clinical Summary ---
Author Name Unknown Organization [facility] Address [facility] [place] [address] Care Team Providers Care Brokerage Coordinator Name Role Phone Ayan Shen MD Primary Care Provider [phone] Allergies Active Allergy Reactions Criticality Noted Date Comments Penicillins 01/24/2002 Medications Medication Sig Dispensed Refills Start Date End Date Status PRINIVIL 10 MG OR TABS 1po qd 30 6 01/27/2002 Active Ubiquinol 100 MG CAPS Take 1 capsule by mouth daily 0 Active losartan (COZAAR) 100 MG tablet Take 100 mg by mouth daily 0 Active omeprazole (PRILOSEC) [address] capsule Take 20 mg by mouth daily 0 Active acetaminophen (TYLENOL) 325 MG tablet Take 325-650 mg by mouth every 6 hours as needed for mild pain 0 Active apixaban ANTICOAGULANT (ELIQUIS) 5 MG tablet Take 5 mg by mouth 2 times daily 0 Active NONFORMULARY Take 1 capsule by mouth daily Coffee xt-phosphatidyl serine 100-100mg (Neuriva original) 0 Active fluticasone-salmeterol (ADVAIR) 250-50 MCG/ACT inhaler Inhale 1 puff into the lungs every 12 hours as needed (wheezing, SOB) 0 Active glucosamine 500 MG CAPS capsule Take 1,500 mg by mouth daily 0 Active hydrochlorothiazide (HYDRODIURIL) 12.5 MG tablet Take 12.5 mg by mouth daily 0 Active rosuvastatin (CRESTOR) 10 MG tablet Take 10 mg by mouth daily 0 Active triamcinolone (KENALOG) 0.1 % external lotion Apply topically 2 times daily as needed for irritation 0 Active Encounters Date Type Department Care Team Description 09/05/2023 1:30 PM [facility] [address] [place] [phone] Darion Walton MD Scott, Meredith R, HOLLY BAUM 09/05/2023 1:20 PM [facility] - 09/05/2023 2:55 PM [facility] Surgery [facility] [address] [place] [phone] Richard Sandoval MD endoscopic ultrasound 09/05/2023 10:55 AM [facility] - 09/05/2023 2:56 PM [facility] Hospital Encounter [facility] PreOP/Phase II [address] [place] [phone] Richard Sandoval MD Discharge Disposition: Home or Self Care 08/16/2023 Medical Correspondence [facility] [address] [place] [address] Scan, Non-Provider from Last 3 Months Social History Tobacco Use Types Packs/Day Years Used Date Smoking Tobacco: Never Smokeless Tobacco: Never Alcohol Use Standard Drinks/Week Comments Yes 0 (1 standard drink = 0.6 oz pur e alcohol) 1 per week Adolescent Education Answer Date Record ed Getting School Help Needed Not on file 08/30 Sex and Gender Information Value Date Recorded Sex Assigned at Not on file Gender Identity Not on file Sexual Orientation Not on file Last Filed Vital Signs Vital Sign Reading Time Taken Comments Blood Pressure 108/81 09/05/2023 2:55 PM [facility] Pulse 72 09/05/2023 2:30 PM [facility] Temperature 36.3 ??C (97.4 ??F) 09/05/2023 2:30 PM CS T Respiratory Rate 16 09/05/2023 2:55 PM [facility] Oxygen Saturation 97% 09/05/2023 2:55 PM [facility] Inhaled Oxygen Concentration - - Weight 112 kg (247 lb) 09/05/2023 11:14 AM [facility] Height 177.8 cm (5' 10) 09/05/2023 11:14 AM [facility] Body Mass Index 35.44 09/05/2023 11:14 AM [facility] Plan of Treatment Health Maintenance Due Date Last Done Comments ADVANCE CARE PLANNING 1955 ANNUAL REVIEW OF HM ORDERS 1955 CT COLONOGRAPHY 1955 FIT 1955 FLEX SIG 1955 LIPID 1953 sDNA (Cologuard) 1955 COLONOSCOPY 1963 COLORECTAL CANCER SCREENING 1963 HEPATITIS C SCREENING 1971 GLUCOSE 11/25/2007 11/24/2004 RSV VACCINE ( & 60+) (1 - 1-dose 60+ series) 2013 FALL RISK ASSESSMENT 2018 MEDICARE ANNUAL WELLNESS VISIT 2018 COVID-19 Vaccine (3 - 2022- season) 2023 10/23/2020, 10/02/2020 PHQ-2 (once per calendar year) 2023 DTAP/TDAP/TD IMMUNIZATION (3 - Td or Tdap) 07/24/2033 07/24/2023, 11/23/2010 Pneumococcal Vaccine: 65+ Years Completed 02/06/2020, 08/02/2018 ZOSTER IMMUNIZATION Completed 07/29/2020, 0 INFLUENZA VACCINE Completed 06/14/2023, , 06/10/2021, Additional history exists HPV IMMUNIZATION Aged Out No longer e ligible based on patient's age to complete this topic IPV IMMUNIZATION Aged Out No longer e ligible based on patient's age to complete this topic MENINGITIS IMMUNIZATION Aged Out No l onger eligible based on patient's age to complete this topic RSV MONOCLONAL ANTIBODY Aged Out No l onger eligible based on patient's age to complete this topic Procedures Procedure Name Priority Date/Time Associated Diagnosis Comments ESOPHAGOGASTRODUOD ENOSCOPY, WITH ENDOSCOPIC ULTRASOUND GUIDANCE 09/05/2023 1:20 PM [facility] Common bile duct (CBD) stricture (H28) History of cholangitis Special Needs *robby-cpap, htn, dvt(2016). UPPER EUS Routine 09/05/2023 12:23 PM [facility] from Last 3 Months Results * UPPER EUS (09/05/2023 12:23 PM [facility]) Upper EUS [facility] [address] ??[place] [address] ___ Patient Name: Trell Gunter ? Procedure Date: 09/05/2023 12:23 PM ? Date of : 1955 ?Admit Type: Outpatient Age: 68 ? Room: OR [facility] Note Status: Finalized ?Attending MD: RICHARD SANDOVAL MD, Instrument Name: [id number] Linear ___ Procedure: ?Upper EUS Indications: ?previous cbd stones requiring ERCP x 2 (last in ?2019) with stenosis of sphincterotomy site and ?stone removal. Recent episode of abd pain and ?increased bile duct vascularity on CT Providers: ?RICHARD SANDOVAL MD, Kika Negron RN, ?Pinky Lincoln RN Referring : ? Medicines: ?Monitored Anesthesia Care Complications: ?No immediate complications. ___ Procedure: ?After obtaining informed consent, the endoscope was ?passed under direct vision. Throughout the ?procedure, the patient's blood pressure, pulse, and ?oxygen saturations were monitored continuously. The ?Endosonoscope was introduced through the mouth, and ?advanced to the third part of duodenum. The upper ?EUS was accomplished without difficulty. The ?patient tolerated the procedure well. ? Findings: ? ENDOSCOPIC FINDING: : ? The examined esophagus was endoscopically normal. ? The entire examined stomach was endoscopically normal. ? A small diverticulum was found in the third portion of the duodenum. The ? sphincterotomy site was seen and was widely patent. ? ENDOSONOGRAPHIC FINDING: : ? Hyperechoic material suggestive of air was visualized in the common bile ? duct. ? There was no sign of significant endosonographic abnormality in the ? visualized portion of the liver. ? There was no sign of significant endosonographic abnormality in the ? entire pancreas. The pancreatic duct measured up to 2 mm in diameter. ? The pancreas was well visualized, no masses, no cysts, no ? calcifications, the pancreatic duct was well visualized from ampulla to ? tail, the pancreatic duct was thin in caliber, the pancreatic duct was ? regular in contour. ? No lymphadenopathy seen. ? Impression: ? - Pneumobilia, no stones or stricture seen in ?biliary tree. ?- Small D3 diverticulum. ?- Unremarkable post cholecystectomy upper EUS ?examination otherwise. Recommendation: ? - Discharge patient to home. ?- Resume diet. ?- Follow up with Dr. Lorenzo as needed. ? Procedure Code(s): ? --- Professional --- ? 34335, Esophagogastroduode noscopy, flexible, transoral; with endoscopic ? ultrasound examination, including the esophagus, stomach, and either the ? duodenum or a surgically altered stomach where the jejunum is examined ? distal to the anastomosis CPT copyright 2021 [employer]. All rights reserved. The codes documented in this report are preliminary and upon pmp project manager review may be revised to meet current compliance requirements. Richard Sandoval MD RICHARD SANDOVAL MD 09/05/2023 2:15:54 PM I was physically present for the entire viewing portion of the exam. RICHARD SANDOVAL MD Number of Addenda: 0 Note Initiated On: 09/05/2023 12:23 PM Total Procedure Duration: 0 hours 6 minutes 20 seconds Estimated Blood Loss: ? Estimated blood loss: none. Scope In: 1:39:56 PM Scope Out: 1:46:16 PM RADIOLOGY RESULTS 09/05/2023 12:2 3 PM [facility] Richard Sandoval MD PROCEDURES RADIOLOGY RESULTS from Last 3 Months Care Teams Brokerage Coordinator Relationship Specialty Start Date End Date Ayan Shen MD [facility] [address] [address] PCP - General Family Medicine 09/05/23
--- OUTSIDE RECORDS SUMMARY | 2023-11-06 07:04 | XMS_ITS | Clinical Summary ---
Author Name Unknown Organization [facility] Address [place], [place] [address] Care Team Providers Care Client Services Account Manager Name Role Phone Nonstaff, Doctor Primary Care Provider Unavailab le Allergies Active Allergy Reactions Criticality Noted Date Comments Penicillin G Rash 05/20/2016 In 20s Penicillins *Unknown 01/24/2002 Medications Medication Sig Dispensed Refills Start Date End Date Status aspirin chewable 81 mg chewable tablet Take 81 mg by mouth once daily with a meal. Active coQ10, ubiquinol, 100 mg cap Take by mouth. Active omega-3 fatty acids-vitamin E (FISH OIL) 1,000 mg cap Take by mouth once daily. Active GLUCOSAMINE HCL (GLUCOSAMINE, BULK, MISC) As directed once daily. Active losartan (COZAAR) 100 mg tablet Take 100 mg by mouth once daily. Active omeprazole (PRILOSEC) 20 mg Delayed-Release capsule Take 20 mg by mouth once daily before a meal. Active pravastatin (PRAVACHOL) 40 mg tablet Take 40 mg by mouth at bedtime. Active acetaminophen (TYLENOL) 325 mg tablet Take 2 tablets by mouth every 4 hours if needed (For mild pain.). Max acetaminophen dose: 4000mg in 24 hrs. 0 07/30/2016 Active ginkgo biloba (GINKOBA ORAL) Take 120 mg by mouth once daily. Active Active Problems Problem Noted Date Diagnosed [...] 2023 10/23/2020, 10/02/2020 Influenza for age 65+ 03/30/2024 05/12/2016 Advance Directives * Full Code (Latest Code Status on File) Date Activated Date Inactivated Comments 01/21/2019 8:17 AM 01/21/2019 11:01 AM * Full Code Date Activated Date Inactivated Comments 07/28/2016 7:07 PM 07/30/2016 4:24 PM Question Answer Comments Code Status Discussion: Discussed * Full Code Date Activated Date Inactivated Comments 07/28/2016 6:35 PM 07/28/2016 7:07 PM Question Answer Comments Code Status Discussion: Not DiscussedPer Advance Care Plan * Full Code Date Activated Date Inactivated Comments 05/24/2016 10:41 AM 05/25/2016 3:52 PM Question Answer Comments Code Status Discussion: Not Discussed * Full Code Date Activated Date Inactivated Comments 05/22/2016 1:55 PM 05/24/2016 10:41 AM Care Teams Client Services Account Manager Relationship Specialty Start Date End Date Nonstaff, Doctor NON STAFF DOCTOR PCP - General 01/17/19
--- OUTSIDE RECORDS SUMMARY | 2023-11-06 07:04 | XMS_ITS | Encounter Summary ---
Author Name Unknown Organization [facility] Address [address] [place] [address]. [place] [address] Care Team Providers Care Shipping Support Name Role Phone Ayan Shen MD Primary Care Provider [phone] Encounter Details Date Type Department Care Team (Late st Contact Info) Description 08/16/2023 Medical Correspondence [facility] Info Mgmt [facility] [address] [place] [id number] Scan, Non-Provider Social History Tobacco Use Types Packs/Day Years Used Date Smoking Tobacco: Never Assessed Adolescent Education Answer Date Record ed Getting School Help Needed Not on file 08/30 Sex and Gender Information Value Date Recorded Sex Assigned at Not on file Gender Identity Not on file Sexual Orientation Not on file documented as of this encounter Plan of Treatment Not on file documented as of this encounter Visit Diagnoses Not on filedocumented in this encounter Care Teams Shipping Support Relationship Specialty Start Date End Date Ayan Shen MD [facility] [address] [id number] PCP - General Family Medicine 09/05/23 documented as of this encounter
--- OUTSIDE RECORDS SUMMARY | 2023-11-06 07:04 | XMS_ITS | Encounter Summary ---
Author Name Unknown Organization [facility] Address [address] [place] [address] Care Team Providers Care Diesel Locomotive Firer Name Role Phone Ayan Shen MD Primary Care Provider [phone] Reason for Visit * Auth/Cert (Routine) Specialty Diagnoses / Procedures Referred By Jeffery pollard Referred To Contact Surgery Diagnoses Common bile duct (CBD) stricture (H28) History of cholangitis Common bile duct (CBD) stricture (H28) [K83.1] History of cholangitis [Z87.19] Procedures KS ERCP DX COLLECTION SPECIMEN BRUSHING/WASHING KS ENDOSCOPIC US EXAM, ESOPH KS UPPR GI ENDOSCOPY W/US FN BX KS EGD INTRMURAL NEEDLE ASPIR/BIOP ALTERED ANATOMY KS EDG US EXAM SURGICAL ALTER STOM DUODENUM/JEJUNUM Endoscopic retrograde cholangiopancreatogram endoscopic ultrasound [facility] [address] [place] [address] Referral ID Status Reason Start Date Expiration Date Visits Re quested Visits Authorized [id number] 1 1 Encounter Details Date Type Department Care Team (Late st Contact Info) Description 09/05/2023 1:20 PM MANAGER PEST - 09/05/2023 2:55 PM MANAGER PEST Surgery [facility] [address] [place] [address] Richard Sandoval MD [facility] [address] [facility] [place] [id number] endoscopic ultrasound Surgery Details Date/Time Status Location OR Service Patient Class Case Class Case Type Trauma Case? 09/05/23 1:20 PM Posted SH OR R 03 Gastroenterology Same Day Surgery Elective Panel 1 Procedure LRB Anes Op Region Wound Class Comments endoscopic ultrasound N/A MAC Esophagus II-Clean Contaminated Surgeon Surgeon Role Service Panel Richard Sandoval MD Primary Gastroenter ology 1 Special Needs *robby-cpap, htn, dvt(2016). documented in this encounter Social History Tobacco Use Types Packs/Day Years [...] on file documented as of this encounter Last Filed Vital Signs Vital Sign Reading Time Taken Comments Blood Pressure 108/81 09/05/2023 2:55 PM MANAGER PEST Pulse 72 09/05/2023 2:30 PM MANAGER PEST Temperature 36.3 ??C (97.4 ??F) 09/05/2023 2:30 PM CS T Respiratory Rate 16 09/05/2023 2:55 PM MANAGER PEST Oxygen Saturation 97% 09/05/2023 2:55 PM MANAGER PEST Inhaled Oxygen Concentration - - Weight 112 kg (247 lb) 09/05/2023 11:14 AM MANAGER PEST Height 177.8 cm (5' 10) 09/05/2023 11:14 AM MANAGER PEST Body Mass Index 35.44 09/05/2023 11:14 AM MANAGER PEST documented in this encounter Discharge Instructions * Discharge Instructions* Aleksander Youngblood RN - 09/05/2023 2:02 PM MANAGER PEST Same Day Surgery Discharge Instructions for Sedation and General Anesthesia It's not unusual to feel dizzy, light-headed or faint for up to 24 hours after surgery or while taking pain medication. If you have these symptoms: sit for a few minutes before standing and have someone assist you when you get up to walk or use the bathroom. You should rest and relax for the next 24 hours. We recommend you make arrangements to have an adult stay with you for at least 24 hours after your discharge. Avoid hazardous and strenuous activity. DO NOT DRIVE any vehicle or operate mechanical equipment for 24 hours following the end of your surgery. Even though you may feel normal, your reactions may be affected by the medication you have received. Do not drink alcoholic beverages for 24 hours following surgery. Slowly progress to your regular diet as you feel able. It's not unusual to feel nauseated and/or vomit after receiving anesthesia. If you develop these symptoms, drink clear liquids (apple juice, rosana alex, broth, 7-up, etc. ) until you feel better. If your nausea and vomiting persists for 24 hours, please notify your surgeon. All narcotic pain medications, along with inactivity and anesthesia, can cause constipation. Drinking plenty of liquids and increasing fiber intake will help. For any questions of a medical nature, call your surgeon. Do not make important decisions for 24 hours. If you had general anesthesia, you may have a sore throat for a couple of days related to the breathing tube used during surgery. You may use Cepacol lozenges to help with this discomfort. If it worsens or if you develop a fever, contact your surgeon. If you feel your pain is not well managed with the pain medications prescribed by your surgeon, please contact your surgeon's office to let them know so they can address your concerns. If you have questions or concerns about your procedure, call Dr. Sandoval at [phone]. GER PEST documented in this encounter Medications at Time of Discharge Medication Sig Dispensed Refills Start Date End Date acetaminophen (TYLENOL) 325 MG tablet Take 325-650 mg by mouth every 6 hours as needed for mild pain 0 fluticasone-salmeterol (ADVAIR) 250-50 MCG/ACT inhaler Inhale 1 puff into the lungs every 12 hours as needed (wheezing, SOB) 0 glucosamine 500 MG CAPS capsule Take 1,500 mg by mouth daily 0 hydrochlorothiazide (HYDRODIURIL) 12.5 MG tablet Take 12.5 mg by mouth daily 0 losartan (COZAAR) 100 MG tablet Take 100 mg by mouth daily 0 NONFORMULARY Take 1 capsule by mouth daily Coffee xt-phosphatidyl serine 100-100mg (Neuriva original) 0 omeprazole (PRILOSEC) [address] capsule Take 20 mg by mouth daily 0 PRINIVIL 10 MG OR TABS 1po qd 30 6 01/27/2002 rosuvastatin (CRESTOR) 10 MG tablet Take 10 mg by mouth daily 0 triamcinolone (KENALOG) 0.1 % external lotion Apply topically 2 times daily as needed for irritation 0 Ubiquinol 100 MG CAPS Take 1 capsule by mouth daily 0 apixaban ANTICOAGULANT (ELIQUIS) 5 MG tablet Take 5 mg by mouth 2 times daily 0 documented as of this encounter Progress Notes * Aleksander Youngblood RN - 09/05/2023 2:40 PM CST Pt dressed, up in recliner and transported to Phase 2. GER PEST * Itz Beck RN - 09/05/2023 12:37 PM CST Pt gave his wallet and cell phone to his daughter to hold onto while in surgery. GER PEST documented in this encounter Plan of Treatment Not on file documented as of this encounter Procedures Procedure Name Priority Date/Time Associated Diagnosis Comments ESOPHAGOGASTRODUOD ENOSCOPY, WITH ENDOSCOPIC ULTRASOUND GUIDANCE 09/05/2023 1:20 PM MANAGER PEST Common bile duct (CBD) stricture (H28) History of cholangitis Special Needs *robby-cpap, htn, dvt(2016). UPPER EUS Routine 09/05/2023 12:23 PM MANAGER PEST documented in this encounter Results * UPPER EUS (09/05/2023 12:23 PM MANAGER PEST) Upper EUS [facility] [address] ??[place] [id number] ___ Patient Name: Trell Gunter ? Procedure Date: 09/05/2023 12:23 PM ? Date of : 1955 ?Admit Type: Outpatient Age: 68 ? Room: OR 03 Note Status: Finalized ?Attending MD: RICHARD SANDOVAL MD, Instrument Name: [id number] Linear ___ Procedure: ?Upper EUS Indications: ?previous [...] Procedure Code(s): ? --- Professional --- ? 31196, Esophagogastroduode noscopy, flexible, transoral; with endoscopic ? ultrasound examination, including the esophagus, stomach, and either the ? duodenum or a surgically altered stomach where the jejunum is examined ? distal to the anastomosis CPT copyright 2021 [employer]. All rights reserved. The codes documented in this report are preliminary and upon outdoor adventure guides review may be revised to meet current compliance requirements. Richard Sandoval MD IRCHARD SANDOVAL MD 09/05/2023 2:15:54 PM I was physically present for the entire viewing portion of the exam. RICHARD SANDOVAL MD Number of Addenda: 0 Note Initiated On: 09/05/2023 12:23 PM Total Procedure Duration: 0 hours 6 minutes 20 seconds Estimated Blood Loss: ? Estimated blood loss: none. Scope In: 1:39:56 PM Scope Out: 1:46:16 PM RADIOLOGY RESULTS 09/05/2023 12:2 3 PM MANAGER PEST Richard Sandoval MD PROCEDURES RADIOLOGY RESULTS documented in this encounter Visit Diagnoses Diagnosis Common bile duct (CBD) stricture (H28) Obstruction of bile duct History of cholangitis Personal history of other diseases of digestive system documented in this encounter Administered Medications Inactive Administered Medications - up to 3 most recent administrations Medication Order MAR Action Action Date Dose Rate Site flumazenil (ROMAZICON) injection 0.2 mg 0.2 mg, Intravenous, EVERY 1 MIN PRN, benzodiazepine reversal, over sedation, Administer over 1 Minutes, Starting on Sun09/05/23 at 1407, For 12 hours, Give over 15 seconds. If inadequate response after 45 seconds, may repeat up to a MAX total dose of 1 mg. Continue monitoring until discharge criteria are met for a minimum of 2 hours Irritant. Use with caution in patients on benzodiazepine therapy. lactated ringers infusion at 10 mL/hr, Intravenous, CONTINUOUS, IF patient NOT on dialysis., Pre-procedure, Starting on Sun09/05/23 at 1130, Until Sun09/05/23 at 1357 $New Bag 09/05/2023 11:54 AM MANAGER PEST 10 mL/hr naloxone (NARCAN) injection 0.2 mg 0.2 mg, Intravenous, EVERY 2 MIN PRN, opioid reversal, Starting on Sun09/05/23 at 1407, Administer intravenous route when available and notify provider when administered. For unintended sedation or respiratory depression if all of the below criteria are met: ~ respiratory rate LESS than or EQUAL to 8. ~SaO2 less than 92% and or/end-tidal CO2 is greater than 50. ~ the patient is receiving an opioid, has unintended sedations assessed as RASS (-3), and is currently not on mechanical ventilation. RASS scale moderate (-3) is movement or eye opening to voice but no eye contact. Patient Monitoring Once the patient has demonstrated a response to the naloxone, continue to monitor respiratory rate, depth, oxygen saturation and end-tidal CO2 (if available) every 15 minutes x 2, then every 30 minutes x 2, then every 1 hour x 1 after each naloxone dose. Consider transfer to ICU if patient respiratory parameters have not improved after 4 naloxone doses. naloxone (NARCAN) injection 0.2 mg 0.2 mg, Intramuscular, EVERY 2 MIN PRN, opioid reversal, Starting on Sun09/05/23 at 1407, Administer intramuscular if an intravenous route is not available and notify provider when administered. For unintended sedation or respiratory depression if all of the below criteria are met: ~ respiratory rate LESS than or EQUAL to 8. ~SaO2 less than 92% and or/end-tidal CO2 is greater than 50. ~ the patient is receiving an opioid, has unintended sedations assessed as RASS (-3), and is currently not on mechanical ventilation. RASS scale moderate (-3) is movement or eye opening to voice but no eye contact. Patient Monitoring Once the patient has demonstrated a response to the naloxone, continue to monitor respiratory rate, depth, oxygen saturation and end-tidal CO2 (if available) every 15 minutes x 2, then every 30 minutes x 2, then every 1 hour x 1 after each naloxone dose. Consider transfer to ICU if patient respiratory parameters have not improved after 4 naloxone doses. naloxone (NARCAN) injection 0.4 mg 0.4 mg, Intravenous, EVERY 2 MIN PRN, opioid reversal, Starting on Sun09/05/23 at 1407, Administer intravenous route when available and notify provider when administered. For unintended sedation or respiratory depression if all of the below criteria are met: ~ respiratory rate LESS than or EQUAL to 8. ~ SaO2 less than 92% and or/end-tidal CO2 is greater than 50. ~ the patient is receiving an opioid, has unintended sedation assessed as RASS (-4) or (-5) and patient is currently not on mechanical ventilation. RASS scale (-4) is deep sedation with no response to voice but movement or eye opening to physical stimulation. RASS scale (-5) is unarousable. Patient Monitoring Once the patient has demonstrated a response to the naloxone, continue to monitor respiratory rate, depth, oxygen saturation and end-tidal CO2 (if available) every 15 minutes x 2, then every 30 minutes x 2, then every 1 hour x 1 after each naloxone dose. Consider transfer to ICU if patient respiratory parameters have not improved after 4 naloxone doses. naloxone (NARCAN) injection 0.4 mg 0.4 mg, Intramuscular, EVERY 2 MIN PRN, opioid reversal, Starting on Sun09/05/23 at 1407, Administer intramuscular if an intravenous route is not available and notify provider when administered. For unintended sedation or respiratory depression if all of the below criteria are met: ~ respiratory rate LESS than or EQUAL to 8. ~ SaO2 less than 92% and or/end-tidal CO2 is greater than 50. ~ the patient is receiving an opioid, has unintended sedation assessed as RASS (-4) or (-5) and patient is currently not on mechanical ventilation. RASS scale (-4) is deep sedation with no response to voice but movement or eye opening to physical stimulation. RASS scale (-5) is unarousable. Patient Monitoring Once the patient has demonstrated a response to the naloxone, continue to monitor respiratory rate, depth, oxygen saturation and end-tidal CO2 (if available) every 15 minutes x 2, then every 30 minutes x 2, then every 1 hour x 1 after each naloxone dose. Consider transfer to ICU if patient respiratory parameters have not improved after 4 naloxone doses. ondansetron (ZOFRAN ODT) ODT tab 4 mg 4 mg, Oral, EVERY 6 HOURS PRN, nausea, vomiting, Starting on Sun09/05/23 at 1407, This is Step 1 of nausea and vomiting management. If nausea not resolved in 15 minutes, go to Step 2 prochlorperazine (COMPAZINE). Do not push through foil backing. Peel back foil and gently remove. Place on tongue immediately. Administration with liquid unnecessary With dry hands, peel back foil backing and gently remove tablet. Do not push oral disintegrating tablet through foil backing. Administer immediately on tongue and oral disintegrating tablet dissolves in seconds, then swallow with saliva. Liquid not required. ondansetron (ZOFRAN) injection 4 mg 4 mg, Intravenous, EVERY 6 HOURS PRN, nausea, vomiting, Administer over 2-5 Minutes, Starting on Sun09/05/23 at 1407, This is Step 1 of nausea and vomiting management. If nausea not resolved in 15 minutes, go to Step 2 prochlorperazine (COMPAZINE). Irritant. documented in this encounter Active and Recently Administered Medications Times are shown in MANAGER PEST. Continuous Medication Order 09/03/2023 09/04/2023 09/05/2023 lactated ringers infusion (CANCELED) at 10 mL/hr, Intravenous, CONTINUOUS, IF patient NOT on dialysis., Pre-procedure, Starting on Sun09/05/23 at 1130, Until Sun09/05/23 at 1357 1154 ($New Bag - Pro vider: Itz Beck RN) PRN Medication Order 09/03/2023 09/04/2023 09/05/2023 flumazenil (ROMAZICON) injection 0.2 mg 0.2 mg, Intravenous, EVERY 1 MIN PRN, benzodiazepine reversal, over sedation, Administer over 1 Minutes, Starting on Sun09/05/23 at 1407, For 12 hours, Give over 15 seconds. If inadequate response after 45 seconds, may repeat up to a MAX total dose of 1 mg. Continue monitoring until discharge criteria are met for a minimum of 2 hours Irritant. Use with caution in patients on benzodiazepine therapy. naloxone (NARCAN) injection 0.2 mg 0.2 mg, Intravenous, EVERY 2 MIN PRN, opioid reversal, Starting on Sun09/05/23 at 1407, Administer intravenous route when available and notify provider when administered. For unintended sedation or respiratory depression if all of the below criteria are met: ~ respiratory rate LESS than or EQUAL to 8. ~SaO2 less than 92% and or/end-tidal CO2 is greater than 50. ~ the patient is receiving an opioid, has unintended sedations assessed as RASS (-3), and is currently not on mechanical ventilation. RASS scale moderate (-3) is movement or eye opening to voice but no eye contact. Patient Monitoring Once the patient has demonstrated a response to the naloxone, continue to monitor respiratory rate, depth, oxygen saturation and end-tidal CO2 (if available) every 15 minutes x 2, then every 30 minutes x 2, then every 1 hour x 1 after each naloxone dose. Consider transfer to ICU if patient respiratory parameters have not improved after 4 naloxone doses. naloxone (NARCAN) injection 0.2 mg 0.2 mg, Intramuscular, EVERY 2 MIN PRN, opioid reversal, Starting on Sun09/05/23 at 1407, Administer intramuscular if an intravenous route is not available and notify provider when administered. For unintended sedation or respiratory depression if all of the below criteria are met: ~ respiratory rate LESS than or EQUAL to 8. ~SaO2 less than 92% and or/end-tidal CO2 is greater than 50. ~ the patient is receiving an opioid, has unintended sedations assessed as RASS (-3), and is currently not on mechanical ventilation. RASS scale moderate (-3) is movement or eye opening to voice but no eye contact. Patient Monitoring Once the patient has demonstrated a response to the naloxone, continue to monitor respiratory rate, depth, oxygen saturation and end-tidal CO2 (if available) every 15 minutes x 2, then every 30 minutes x 2, then every 1 hour x 1 after each naloxone dose. Consider transfer to ICU if patient respiratory parameters have not improved after 4 naloxone doses. naloxone (NARCAN) injection 0.4 mg 0.4 mg, Intravenous, EVERY 2 MIN PRN, opioid reversal, Starting on Sun09/05/23 at 1407, Administer intravenous route when available and notify provider when administered. For unintended sedation or respiratory depression if all of the below criteria are met: ~ respiratory rate LESS than or EQUAL to 8. ~ SaO2 less than 92% and or/end-tidal CO2 is greater than 50. ~ the patient is receiving an opioid, has unintended sedation assessed as RASS (-4) or (-5) and patient is currently not on mechanical ventilation. RASS scale (-4) is deep sedation with no response to voice but movement or eye opening to physical stimulation. RASS scale (-5) is unarousable. Patient Monitoring Once the patient has demonstrated a response to the naloxone, continue to monitor respiratory rate, depth, oxygen saturation and end-tidal CO2 (if available) every 15 minutes x 2, then every 30 minutes x 2, then every 1 hour x 1 after each naloxone dose. Consider transfer to ICU if patient respiratory parameters have not improved after 4 naloxone doses. naloxone (NARCAN) injection 0.4 mg 0.4 mg, Intramuscular, EVERY 2 MIN PRN, opioid reversal, Starting on Sun09/05/23 at 1407, Administer intramuscular if an intravenous route is not available and notify provider when administered. For unintended sedation or respiratory depression if all of the below criteria are met: ~ respiratory rate LESS than or EQUAL to 8. ~ SaO2 less than 92% and or/end-tidal CO2 is greater than 50. ~ the patient is receiving an opioid, has unintended sedation assessed as RASS (-4) or (-5) and patient is currently not on mechanical ventilation. RASS scale (-4) is deep sedation with no response to voice but movement or eye opening to physical stimulation. RASS scale (-5) is unarousable. Patient Monitoring Once the patient has demonstrated a response to the naloxone, continue to monitor respiratory rate, depth, oxygen saturation and end-tidal CO2 (if available) every 15 minutes x 2, then every 30 minutes x 2, then every 1 hour x 1 after each naloxone dose. Consider transfer to ICU if patient respiratory parameters have not improved after 4 naloxone doses. ondansetron (ZOFRAN ODT) ODT tab 4 mg(Linked Group 1) 4 mg, Oral, EVERY 6 HOURS PRN, nausea, vomiting, Starting on Sun09/05/23 at 1407, This is Step 1 of nausea and vomiting management. If nausea not resolved in 15 minutes, go to Step 2 prochlorperazine (COMPAZINE). Do not push through foil backing. Peel back foil and gently remove. Place on tongue immediately. Administration with liquid unnecessary With dry hands, peel back foil backing and gently remove tablet. Do not push oral disintegrating tablet through foil backing. Administer immediately on tongue and oral disintegrating tablet dissolves in seconds, then swallow with saliva. Liquid not required. ondansetron (ZOFRAN) injection 4 mg(Linked Group 1) 4 mg, Intravenous, EVERY 6 HOURS PRN, nausea, vomiting, Administer over 2-5 Minutes, Starting on Sun09/05/23 at 1407, This is Step 1 of nausea and vomiting management. If nausea not resolved in 15 minutes, go to Step 2 prochlorperazine (COMPAZINE). Irritant. Linked Groups Order Group 1: ondansetron (ZOFRAN ODT) ODT tab 4 mgJump to med 4 mg, Oral, EVERY 6 HOURS PRN, nausea, vomiting, Starting on Sun09/05/23 at 1407, This is Step 1 of nausea and vomiting management. If nausea not resolved in 15 minutes, go to Step 2 prochlorperazine (COMPAZINE). Do not push through foil backing. Peel back foil and gently remove. Place on tongue immediately. Administration with liquid unnecessary With dry hands, peel back foil backing and gently remove tablet. Do not push oral disintegrating tablet through foil backing. Administer immediately on tongue and oral disintegrating tablet dissolves in seconds, then swallow with saliva. Liquid not required. Or ondansetron (ZOFRAN) injection 4 mgJump to med 4 mg, Intravenous, EVERY 6 HOURS PRN, nausea, vomiting, Administer over 2-5 Minutes, Starting on Sun09/05/23 at 1407, This is Step 1 of nausea and vomiting management. If nausea not resolved in 15 minutes, go to Step 2 prochlorperazine (COMPAZINE). Irritant. documented in this encounter Care Teams Diesel Locomotive Firer Relationship Specialty Start Date End Date Ayan Shen MD [facility] [address], [place] [address] PCP - General Family Medicine 09/05/23 documented as of this encounter
--- OUTSIDE RECORDS SUMMARY | 2023-11-06 07:04 | XMS_ITS | Referral Summary ---
Author Name Unknown Organization [facility] Address [address] [place] [address]. [place] [address] Care Team Providers Care Internet Marketing Specialist Name Role Phone Ayan Shen MD Primary Care Provider [phone] Encounters Date Type Department Care Team Description 09/05/2023 1:30 PM FIGURE SKATER Anesthesia Event [facility] [address], [address] [place] [address] Darion Walton MD Scott, Meredith R, CAR BUILDER RACING MANAGER 09/05/2023 1:20 PM FIGURE SKATER - 09/05/2023 2:55 PM FIGURE SKATER Surgery [facility] [address], [address] [place] [address] Richard Sandoval MD endoscopic ultrasound 09/05/2023 10:55 AM FIGURE SKATER - 09/05/2023 2:56 PM FIGURE SKATER Hospital Encounter [facility] PreOP/Phase II [address], [address] [place] [address] Richard Sandoval MD Discharge Disposition: Home or Self Care 08/16/2023 Medical Correspondence [facility] [address] [place] [address] [place] [id number] Scan, Non-Provider from Last 3 Months Allergies Active Allergy Reactions Criticality Noted Date [...] daily as needed for irritation 0 Active Social History Tobacco Use Types Packs/Day Years [...] Comments Blood Pressure 108/81 09/05/2023 2:55 PM FIGURE SKATER Pulse 72 09/05/2023 2:30 PM FIGURE SKATER Temperature 36.3 ??C (97.4 ??F) 09/05/2023 2:30 PM CS T Respiratory Rate 16 09/05/2023 2:55 PM FIGURE SKATER Oxygen Saturation 97% 09/05/2023 2:55 PM FIGURE SKATER Inhaled Oxygen Concentration - - Weight 112 kg (247 lb) 09/05/2023 11:14 AM FIGURE SKATER Height 177.8 cm (5' 10) 09/05/2023 11:14 AM FIGURE SKATER Body Mass Index 35.44 09/05/2023 11:14 AM FIGURE SKATER Plan of Treatment Not on file Procedures Procedure Name Priority Date/Time Associated Diagnosis Comments ESOPHAGOGASTRODUOD ENOSCOPY, WITH ENDOSCOPIC ULTRASOUND GUIDANCE 09/05/2023 1:20 PM FIGURE SKATER Common bile duct (CBD) stricture (H28) History of cholangitis Special Needs *robby-cpap, htn, dvt(2016). UPPER EUS Routine 09/05/2023 12:23 PM FIGURE SKATER from Last 3 Months Results * UPPER EUS (09/05/2023 12:23 PM FIGURE SKATER) Upper EUS [place] [address] ??[place] [address] ___ Patient Name: Trell Gunter ? Procedure Date: 09/05/2023 12:23 PM ? Date of : 1955 ?Admit Type: Outpatient Age: 68 ? Room: OR [facility] Note Status: Finalized ?Attending MD: RICHARD SANDOVAL MD, Instrument Name: [id number] Linear ___ Procedure: ?Upper EUS Indications: ?previous [...] Procedure Code(s): ? --- Professional --- ? 43871, Esophagogastroduode noscopy, flexible, transoral; with endoscopic ? ultrasound examination, including the esophagus, stomach, and either the ? duodenum or a surgically altered stomach where the jejunum is examined ? distal to the anastomosis CPT copyright 2021 [employer]. All rights reserved. The codes documented in this report are preliminary and upon candy rolling machine operator review may be revised to meet current [...] PM RADIOLOGY RESULTS 09/05/2023 12:2 3 PM FIGURE SKATER Richard Sandoval MD PROCEDURES RADIOLOGY RESULTS from Last 3 Months Care Teams Internet Marketing Specialist Relationship Specialty Start Date End Date Ayan Shen MD [facility] [address] [address] PCP - General Family Medicine 09/05/23
--- OUTSIDE RECORDS SUMMARY | 2023-11-06 07:04 | XMS_ITS | Encounter Summary ---
Author Name Unknown Organization [facility] Address [address] [place] [address] Care Team Providers Care Aluminum Pool Installer Name Role Phone Ayan Shen MD Primary Care Provider [phone] Reason for Visit * Auth/Cert (Routine) Specialty Diagnoses / Procedures Referred By Jeffery t Referred To Contact Surgery Diagnoses Common bile duct (CBD) stricture (H28) History of cholangitis Common bile duct (CBD) stricture (H28) [K83.1] History of cholangitis [Z87.19] Procedures TN ERCP DX COLLECTION SPECIMEN BRUSHING/WASHING TN ENDOSCOPIC US EXAM, ESOPH TN UPPR GI ENDOSCOPY W/US FN BX TN EGD INTRMURAL NEEDLE ASPIR/BIOP ALTERED ANATOMY TN EDG US EXAM SURGICAL ALTER STOM DUODENUM/JEJUNUM Endoscopic retrograde cholangiopancreatogram endoscopic ultrasound [facility] [address] [place] [address] Referral ID Status Reason Start Date Expiration Date Visits Re quested Visits Authorized [id number] 1 1 Encounter Details Date Type Department Care Team (Late st Contact Info) Description 09/05/2023 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 Event [facility] [address] [place] [address] Darion Walton MD [facility] [address] [place] [id number] Ginna Arias, ENDOSCOPY NURSE C ENGINEER [address] [place] [address] Anesthesia Record Procedure Summary Procedure Name Responsible Anesthesiologist Anesthesia Start Time Anesthesia Stop Time endoscopic ultrasound (Esophagus) Darion Walton MD 09/05/23 1330 09/05/23 1400 Events Date Time Event Comment 09/05/2023 1304 1330 An Start 1331 An Start Data 1332 AN REASSESS I attest that I have identified and re-evaluated the patient immediately before the induction of anesthesia and I am satisfied that the anesthetic plan is suitable for the patient's condition and procedure. The first vital signs recorded are pre- induction. Ginna Arias APRN C ENGINEER 1335 Anesthesia Ready for Procedu re 1339 AN INCISION 1349 an stop data 1400 An Stop Electronically signed by Ginna Arias APRN CRNA on September 05, 2023 2:00 PM Meds Name Total fentaNYL 50 mcg/mL 50 mcg lidocaine 2% 60 mg ondansetron 2 mg/mL 4 mg propofol (DIPRIVAN) 10 mg/mL 50 mg propofol drip mcg/kg/min 117.6 mg LR 300 mL * Agents Name NO HELIOX O2 N2O Air Exp Sevoflurane Exp Isoflurane Exp Desflurane Exp N2O O2 Delivery Device Ins Sevoflurane Ins Isoflurane Ins Desflurane O2 Auxiliary * Blood No blood administrations on file. Lines, Drains, and Airways Type Details Placement Removal Peripheral IV 09/05/23; 1154; 22 G ; BD; Left; Lower forearm; Chlorhexidine; 1; Tolerated well 09/05/23 1154 by Itz Beck RN 09/05/23 1454 by Dena Robb RN documented in this encounter Social History Tobacco [...] on file documented as of this encounter OR Notes * Anesthesia Postprocedure Evaluation - Darion Walton MD - 09/05/2023 2:34 PM CST Patient: Trell R Jani Procedure: Procedure(s): endoscopic ultrasound Anesthesia Type: MAC Note: Postop Pain Control: Uneventful Sign Out: Well controlled pain PONV: Neuro/Psych: Uneventful Sign Out: Acceptable/Baseline neuro status Airway/Respiratory: Uneventful Sign Out: Acceptable/Baseline resp. status CV/Hemodynamics: Uneventful Sign Out: Acceptable CV status; No obvious hypovolemia; No obvious fluid overload Other NRE: DID A NON-ROUTINE EVENT OCCUR? Last vitals: Vitals Value Taken Time BP 105/76 09/05/23 1430 Temp 36.3 ??C (97.4 ??F) 09/05/23 1430 Pulse 73 09/05/23 1432 Resp 14 09/05/23 1432 SpO2 94 % 09/05/23 1432 Vitals shown include unfiled device data. Electronically Signed By: Darion Walton MD September 05, 2023 2:34 PM VERY MOTORCYCLE DRIVER * Anesthesia Preprocedure Evaluation - Darion Walton MD - 09/05/2023 12:36 PM CST Anesthesia Pre-Procedure Evaluation Patient: Trell Gunter : 1955 Procedure : Procedure(s): Endoscopic retrograde cholangiopancreatogram endoscopic ultrasound Past Medical History: Diagnosis Date BPH (benign prostatic hyperplasia) DVT (deep venous thrombosis) (H) Hypertension Mixed hyperlipidemia Pulmonary embolism (H) Sleep apnea Thoracic ascending aortic aneurysm (H24) Past Surgical History: Procedure Laterality Date CHOLECYSTECTOMY ENDOSCOPIC RETROGRADE CHOLANGIOPANCREATOGRAPHY HERNIA REPAIR ORTHOPEDIC SURGERY Allergies Allergen Reactions Penicillins Social History Tobacco Use Smoking status: Never Smokeless tobacco: Never Substance Use Topics Alcohol use: Yes Comment: 1 per week Wt Readings from Last 1 Encounters: 09/05/23 112 kg (247 lb) Anesthesia Evaluation ROS/MED HX ENT/Pulmonary: (+) sleep apnea, uses CPAP, (-) tobacco use, asthma and COPD Neurologic: (-) no seizures and no CVA Cardiovascular: Comment: Ascending aortic aneurysm (+) Dyslipidemia hypertension- - - - - Previous cardiac testing Echo: Date: 2021 Results: EF WNL, mild MR Stress Test: Date: Results: ECG Reviewed: Date: Results: Cath: Date: Results: (-) CAD, CHF and arrhythmias METS/Exercise Tolerance: Hematologic: (+) History of blood clots, Musculoskeletal: GI/Hepatic: (-) GERD and liver disease Renal/Genitourinary: (+) BPH, (-) renal disease Endo: (-) Type I DM and Type II DM Psychiatric/Substance Use: Infectious Disease: Malignancy: Other: Physical Exam Airway Mallampati: III TM distance: > 3 FB Neck ROM: full Mouth opening: < 3 cm Respiratory Devices and Support Dental no notable dental history (+) Minor Abnormalities - some fillings, tiny chips Cardiovascular Rhythm and rate: regular Pulmonary breath sounds clear to auscultation OUTSIDE LABS: CBC: Lab Results Component Value Date HGB 16.4 11/24/2004 PLT 287 11/24/2004 BMP: Lab Results Component Value Date NA 139 11/24/2004 POTASSIUM 4.2 11/24/2004 CHLORIDE 102 11/24/2004 CO2 27 11/24/2004 BUN 22 11/24/2004 CR 0.94 11/24/2004 GLC 100 11/24/2004 COAGS: Lab Results Component Value Date PTT 32 11/24/2004 INR 0.96 11/24/2004 POC: No results found for: BGM, HCG, HCGS HEPATIC: No results found for: ALBUMIN, PROTTOTAL, ALT, AST, GGT, ALKPHOS, BILITOTAL,BILIDIRECT, GEOVANY OTHER: Lab Results Component Value Date WERO 9.5 11/24/2004 Anesthesia Plan ASA Status: 3 Anesthesia Type: MAC. Consents Anesthesia Plan(s) and associated risks, benefits, and realistic alternatives discussed. Questions answered and patient/food service representative(s) expressed understanding. - Discussed: - Discussed with: Patient Postoperative Care Pain management: Multi-modal analgesia. PONV prophylaxis: Ondansetron (or other 5HT-3) Comments: Darion Walton MD I have reviewed the pertinent notes and labs in the chart from the past 30 days and (re)examined the patient. Any updates or changes from those notes are reflected in this note. # Drug Induced Coagulation Defect: home medication list includes an anticoagulant medication # Obesity: Estimated body mass index is 35.44 kg/m?? as calculated from the following: Height as of this encounter: 1.778 m (5' 10). Weight as of this encounter: 112 kg (247 lb). VERY MOTORCYCLE DRIVER documented in this encounter Miscellaneous Notes * Anesthesia Care Transfer Note - Ginna Arias APRN CRNA - 09/05/2023 1:59 PM CST Patient: Trell Gunter Procedure: Procedure(s): endoscopic ultrasound Diagnosis: Common bile duct (CBD) stricture (H28) [K83.1] History of cholangitis [Z87.19] Diagnosis Additional Information: No value filed. Anesthesia Type: MAC Note: Oropharynx: oropharynx clear of all foreign objects and spontaneously breathing Level of Consciousness: awake Oxygen Supplementation: nasal cannula Level of Supplemental Oxygen (L/min / FiO2): 4 Independent Airway: airway patency satisfactory and stable Dentition: dentition unchanged Vital Signs Stable: post-procedure vital signs reviewed and stable Report to RN Given: handoff report given Patient transferred to: PACU Comments: At end of procedure, spontaneous respirations, patient alert to voice, able to follow commands. Oxygen via nasal cannula at 3 liters per minute to PACU. Oxygen tubing connected to wall O2 in PACU, SpO2, NiBP, and EKG monitors and alarms on and functioning, Ree Hugger warmer connected to patient gown, report on patient's clinical status given to DEVULCANIZER LOADER, RN questions answered. Handoff Report: Identifed the Patient, Identified the Reponsible Provider, Reviewed the pertinent medical history, Discussed the surgical course, Reviewed Intra-OP anesthesia mangement and issues during anesthesia, Set expectations for post-procedure period and Allowed opportunity for questions andacknowledgement of understanding Vitals: Vitals Value Taken Time BP 101/60 Temp Pulse 77 09/05/23 1358 Resp 9 09/05/23 1358 SpO2 97 % 09/05/23 1358 Vitals shown include unfiled device data. Electronically Signed By: Ginna Arias APRN CRNA September 05, 2023 1:59 PM VERY MOTORCYCLE DRIVER documented in this encounter Plan of Treatment Not on file documented as of this encounter Visit Diagnoses Not on filedocumented in this encounter Administered Medications Inactive Administered Medications - up to 3 most recent administrations Medication Order MAR Action Action Date Dose Rate Site fentaNYL (PF) (SUBLIMAZE) injection Intravenous, PRN, Administer over 3-5 Minutes, Starting on Sun09/05/23 at 1341, Anesthesia Intra-op $Given 09/05/2023 1:41 PM DELIVERY MOTORCYCLE DRIVER 50 mcg lactated ringers infusion Intravenous, CONTINUOUS PRN, Anesthesia Intra-op, Starting on Sun09/05/23 at 1330, Until Sun09/05/23 at 1400 $New Bag 09/05/2023 1:30 PM DELIVERY MOTORCYCLE DRIVER lidocaine 2% injection (MDV) Intravenous, PRN, Starting on Sun09/05/23 at 1333, Anesthesia Intra-op $Given 09/05/2023 1:33 PM DELIVERY MOTORCYCLE DRIVER 60 mg ondansetron (ZOFRAN) injection Intravenous, PRN, Administer over 2-5 Minutes, Starting on Sun09/05/23 at 1333, Anesthesia Intra-op $Given 09/05/2023 1:33 PM DELIVERY MOTORCYCLE DRIVER 4 mg propofol (DIPRIVAN) infusion Intravenous, CONTINUOUS PRN, Starting on Sun09/05/23 at 1334, Anesthesia Intra-op $New Bag 09/05/2023 1:34 PM DELIVERY MOTORCYCLE DRIVER 150 mcg/kg/min 100.8 mL/hr propofol (DIPRIVAN) injection 10 mg/mL vial Intravenous, PRN, Starting on Sun09/05/23 at 1334, Anesthesia Intra-op $Given 09/05/2023 1:37 PM DELIVERY MOTORCYCLE DRIVER 20 mg $Given 09/05/2023 1:34 PM DELIVERY MOTORCYCLE DRIVER 30 mg documented in this encounter Care Teams Aluminum Pool Installer Relationship Specialty Start Date End Date Ayan Shen MD [facility] [address] [address] PCP - General Family Medicine 09/05/23 documented as of this encounter
--- OUTSIDE RECORDS SUMMARY | 2023-11-06 07:04 | XMS_ITS | Continuity of Care Document ---
Author Name Unknown Organization [facility] Address [address] [address] [place] [address] Phone Care Team Providers Care Automatic Brine Mixer Operator Name Role Phone Kenneth Amaya MD Unavailable Unavailabl e Allergies, Adverse Reactions, Alerts Substance Reaction Status Criticality Penicillins Rash Active No Information Medications Medication Instructions Dosage Effective Dates (start - stop) Status Comments Eliquis 5 mg tablet take 1 tablet by oral route 2 times every day 5 MG - Active ATORVASTATIN CALCIUM (unknown strength) take 1 tablet by oral route every day Not Available - Active LISINOPRIL (unknown strength) take 2 tablet by oral route every day Not Available - Active COENZYME Q-10 (unknown strength) Take 1 tablet by oral every day Not Available - Active Glucosamine 500 mg tablet Take 1 tablet by oral every day - Active Procedures Procedure Date Ugi Endo; W/endo Ultrasound Ex 24 Offic/outpt E&m New Mod-hi Routine Serum Collection Subsqt Hosp-da E&m Stable 15 M 17 [...] Diagnoses Date Provider Providers Copied on Encounter [facility], [address] [address], [place], [id number], [place] tel:[phone] [facility] No Information 4 Kyle Cooper. [address] [facility], [address], [id number], [place]. tel:[phone] [facility], [address] [address], [place], [id number], [place] tel:[phone] [facility] No Information 4 Vesta Ramos. [address] [place] [address], [address], [id number], [place]. tel:[phone] Referring Provider: Ayan Shen MD, [address] [place] [address], [address]. tel:[phone] Offic/outpt E&m New Mod-hi [facility], [address] [address], [place], [id number], [place] tel:[phone] [facility] Symptoms or Concerns (chief complaint) Common bile duct stoneHx of cholangitis 4 Travis Mota. [address] [facility], [address], [id number], [place]. [phone] Ayan Shen MD. tel:[phone] erring Provider: Referral Self, USE FOR SELF REFERRALS. [facility], [address] [address], [place], [id number], [place] tel:[phone] [facility] No Information 4 Kyle Cooper. [address] [facility], [facility] [address], [place], [place], [id number], [place]. tel:[phone] Subsqt Hosp-da E&m Stable 15 M [facility], [address] [address], [place], [id number], [place] tel:[phone] [facility] No Information 7 No Information Init Hosp-da E&m Mod Severity [facility], [address] [address], [place], [id number], [place] tel:[phone] [facility] No Information 6 No Information [facility], [address] [address], [place], [id number], [place] tel:[phone] [facility] No Information 6 Vanda Mckay. [address] [facility], [address], [place], [place], [id number], [place]. tel:[phone] Referring Provider: Woody Dc MD, [address] [facility] [address], [facility] [place], [address] . tel:[phone] Subsqt Hosp-da E&m Minr Compl [facility], [address] [address], [place], [id number], [place] tel:[phone] [facility] No Information 6 Armando Perez. [address] [facility], [address], [place], [place], [id number], [place]. tel:[phone] Referring Provider: Freedom Kowalski, [address], [facility] [place], [address]. tel:[phone] [facility], [address] [address], [place], [id number], [place] tel:[phone] [facility] No Information 6 Joaquin Arias. [address] [facility], [address], [place], [place], [id number], [place]. tel:[phone] Referring Provider: Freedom Kowalski, [address], [place], [address]. tel:[phone] Init Hosp-da E&m Mod Severity [facility], [address] [address], [place], [id number], [place] tel:[phone] [facility] No Information 6 Arlette Gabriel. [address] [facility], [address], [place], [place], [id number], [place]. tel:[phone] Referring Provider: Freedom Kowalski, [address] [facility] [address], [place], [address]. tel:[phone] Family History Family Member Type Diagnosis Age At Onset No Information Immunizations Vaccine Date Status Comments tetanus toxoid, reduced diphtheria toxoid, and acellular pertussis vaccine, adsorbed administered Note: [facility] b i-directional interface ; Source: Other Registry influenza, high-dose seasona l, quadrivalent, 0.7mL dose, preservative free administered Note: [facility] bi-direct ional interface ; Source: Other Registry influenza, high-dose seasona l, quadrivalent, 0.7mL dose, preservative free administered Note: [facility] bi-direct ional interface ; Source: Other Registry influenza, high-dose seasona l, quadrivalent, 0.7mL dose, preservative free administered Note: [facility] bi-direct ional interface ; Source: Other Registry SARS-COV-2 (COVID-19) vaccin e, mRNA, spike protein, LNP, preservative free, 30 mcg/0.3mL dose administered Note: [facility] bi-direct ional interface ; Source: Other Registry SARS-COV-2 (COVID-19) vaccin e, mRNA, spike protein, LNP, preservative free, 30 mcg/0.3mL dose administered Note: [facility] bi-direct ional interface ; Source: Other Registry zoster vaccine recombinant administered N ote: [facility] bi-directional interface ; Source: Other Registry influenza, high-dose seasona l, quadrivalent, 0.7mL dose, preservative free administered Note: [facility] bi-direct ional interface ; Source: Other Registry zoster vaccine recombinant administered N ote: [facility] bi-directional interface ; Source: Other Registry Pneumovax 23 administered Note: [facility] bi-d irectional interface ; Source: Other Registry influenza, high dose seasona l, preservative-free administered Note: [facility] bi-direct ional interface ; Source: Other Registry Prevnar 13 administered Note: [facility] bi-d irectional interface ; Source: Other Registry influenza, high dose seasona l, preservative-free administered Note: [facility] bi-direct ional interface ; Source: Other Registry Afluria Qd administered Note: [facility] bi-directional interface ; Source: Other Registry Afluria Qd administered Note: [facility] bi-directional interface ; Source: Other Registry Afluria Qd administered Note: [facility] bi-directional interface ; Source: Other Registry Influenza, seasonal, injecta ble, preservative free administered Note: [facility] bi-direct ional interface ; Source: Other Registry Influenza, seasonal, injecta ble, preservative free administered Note: [facility] bi-direct ional interface ; Source: Other Registry Influenza, seasonal, injecta ble, preservative free administered Note: [facility] bi-direct ional interface ; Source: Other Registry Influenza, seasonal, injecta ble, preservative free administered Note: [facility] bi-direct ional interface ; Source: Other Registry tetanus toxoid, reduced diphtheria toxoid, and acellular pertussis vaccine, adsorbed administered Note: [facility] b i-directional interface ; Source: Other Registry Influenza, seasonal, injecta ble, preservative free administered Note: [facility] bi-direct ional interface ; Source: Other Registry Afluria Qd administered Note: [facility] bi-directional interface ; Source: Other Registry Novel [id number], injectable administered Note: [facility] bi-direct ional interface ; Source: Other Registry Influenza, seasonal, injecta ble, preservative free administered Note: [facility] bi-direct ional interface ; Source: Other Registry Influenza, seasonal, injectable administe red Note: [facility] bi- directional interface ; Source: Other Registry Influenza, seasonal, injectable administe red Note: [facility] bi- directional interface ; Source: Other Registry Influenza, seasonal, injectable administe red Note: [facility] bi- directional interface ; Source: Other Registry Influenza, seasonal, injectable administe red Note: [facility] bi- directional interface ; Source: Other Registry Payers Payer name Insurance type Covered democrat ID John montiel(s) R [id number] Social History Type Description Quantity Date Captured Comments Alcohol Use Details Unknown Caffeine Use Details Unknown Tobacco Use Status Smoking Status No Information Sex Male Chief Complaint And Reason For Visit No Information Reason For Referral Reason For Referral No Information Plan Of Treatment Date Type Action Status Referral Ordered: EUS Appointment date/timeframe: 09/05/2023 ordered Referral Ordered: ERCP Appointment date/timeframe: 09/05/2023 ordered History Of Present Illness Encounter Date Complaint History Of Prese nt Illness GI Symptoms or Concerns This is a 68-year-old male with a past medical history of previous cholecystectomy in 2016 for cholecystitis, follow up ERCP done for choledocholithiasis with sphincterotomy, 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 Of note patient was diagnosed with cholecystitis in 2016 that led to cholecystectomy. Patient then had his 1st ERCP a few months later with a common bile duct stone extraction as well as sphincterotomy. Patient then developed in-situ common bile duct stone that led to again stone extraction as well as extended sphincterotomy. Patient was in his normal state of health with no GI symptoms until last week where he developed significant epigastric pain which is very similar to the previous episodes that he has had in the past for choledocholithiasis that required ERCP. Reviewing records, it was demonstrated that he had a CT abdomen and pelvis that was essentially normal except for mild wall thickening and pneumobilia. Patient then had MRI of the abdomen that showed again hyper enhancement of the common bile duct and common hepatic wall but otherwise nothing concerning for an overt choledocholithiasis. During this episode he had normal hepatic function panel. Mildly increased CRP. Patient was admitted in [facility] and then placed on an antibiotic for a few days. Symptoms completely resolved and he was discharged. He comes today for evaluation of these symptoms that he had as he is currently asymptomatic with no abdominal pain nausea or vomiting and having his normal bowel movements. Functional Status Date Functional Assessmen t No Information Instructions Date Instruction Additional Infor brendan -- As we discussed i t is reassuring that your symptoms have gone away and it is potential that you could have had a stone in her common bile duct that has since passed-- it is reassuring that MRI has demonstrated no stones in your common bile duct therefore it is unlikely that there is something significant-- using a patient centered approach to ensure that there is nothing that is remaining we will perform an endoscopic ultrasound after discussion with our advanced endoscopy colleagues to ensure that there is nothing further in her common bile duct and that thickening is nothing concerning that would warrant any further testing-- if EUS is negative we will not proceed with any further intervention but if positive could proceed with ERCP during the same procedure-- our schedulers will talk to you about holding apixaban prior to the procedure in case any intervention is needed--We will obtain some blood work today as well to ensure no liver abnormalities Related to Hx of cholangitis Assessments Type Assessment Date No Information Patient Care Teams Name Effective Dates (start - stop) Status Members No Information
--- OUTSIDE RECORDS SUMMARY | 2023-11-06 07:04 | XMS_ITS | Encounter Summary ---
Author Name Unknown Organization [facility] Address [address] [place] [address] Care Team Providers Care Flash Welder Name Role Phone Ayan Shen MD Primary Care Provider [phone] Reason for Visit * Auth/Cert (Routine) Specialty Diagnoses / Procedures Referred By Jeffery t Referred To Contact Surgery Diagnoses Common bile duct (CBD) stricture (H28) History of cholangitis Common bile duct (CBD) stricture (H28) [K83.1] History of cholangitis [Z87.19] Procedures MA ERCP DX COLLECTION SPECIMEN BRUSHING/WASHING MA ENDOSCOPIC US EXAM, ESOPH MA UPPR GI ENDOSCOPY W/US FN BX MA EGD INTRMURAL NEEDLE ASPIR/BIOP ALTERED ANATOMY MA EDG US EXAM SURGICAL ALTER STOM DUODENUM/JEJUNUM Endoscopic retrograde cholangiopancreatogram endoscopic ultrasound [facility] [address], [address] [place] [address] Referral ID Status Reason Start Date Expiration Date Visits Re quested Visits Authorized [id number] 1 1 Encounter Details Date Type Department Care Team (Late st Contact Info) Description 09/05/2023 10:55 AM PERIODICALS CLERK - 09/05/2023 2:56 PM PERIODICALS CLERK Hospital Encounter [facility] PreOP/Phase II [address] [place] [address] Richard Sandoval MD [facility] [address] [facility] [place] [id number] Discharge Disposition: Home or Self Care Social History Tobacco Use Types Packs/Day Years [...] Comments Blood Pressure 108/81 09/05/2023 2:55 PM PERIODICALS CLERK Pulse 72 09/05/2023 2:30 PM PERIODICALS CLERK Temperature 36.3 ??C (97.4 ??F) 09/05/2023 2:30 PM CS T Respiratory Rate 16 09/05/2023 2:55 PM PERIODICALS CLERK Oxygen Saturation 97% 09/05/2023 2:55 PM PERIODICALS CLERK Inhaled Oxygen Concentration - - Weight 112 kg (247 lb) 09/05/2023 11:14 AM PERIODICALS CLERK Height 177.8 cm (5' 10) 09/05/2023 11:14 AM PERIODICALS CLERK Body Mass Index 35.44 09/05/2023 11:14 AM PERIODICALS CLERK documented in this encounter Discharge Instructions * Discharge Instructions* Aleksander Youngblood RN - 09/05/2023 2:02 PM PERIODICALS CLERK Same Day Surgery Discharge Instructions for Sedation [...] about your procedure, call Dr. Sandoval at [phone]. ODICALS CLERK documented in this encounter Medications at Time [...] in recliner and transported to Phase 2. ODICALS CLERK * Itz Beck RN - 09/05/2023 12:37 PM CST Pt gave his wallet and cell phone to his daughter to hold onto while in surgery. ODICALS CLERK documented in this encounter Plan of Treatment Not on file documented as of this encounter Procedures Procedure Name Priority Date/Time Associated Diagnosis Comments ESOPHAGOGASTRODUOD ENOSCOPY, WITH ENDOSCOPIC ULTRASOUND GUIDANCE 09/05/2023 1:20 PM PERIODICALS CLERK Common bile duct (CBD) stricture (H28) History of cholangitis Special Needs *robby-cpap, htn, dvt(2016). UPPER EUS Routine 09/05/2023 12:23 PM PERIODICALS CLERK documented in this encounter Results * UPPER EUS (09/05/2023 12:23 PM PERIODICALS CLERK) Upper EUS [place] [address] [place] [address] ___ Patient Name: Trell Gunter ? Procedure Date: 09/05/2023 12:23 PM ? Date of : 1955 ?Admit Type: Outpatient Age: 68 ? Room: SH OR R 03 Note Status: Finalized ?Attending MD: RICHARD SANDOVAL MD, Instrument Name: [id number] Linear ___ Procedure: ?Upper EUS Indications: ?previous [...] Procedure Code(s): ? --- Professional --- ? 69400, Esophagogastroduode noscopy, flexible, transoral; with endoscopic ? ultrasound examination, including the esophagus, stomach, and either the ? duodenum or a surgically altered stomach where the jejunum is examined ? distal to the anastomosis CPT copyright 2021 [employer]. All rights reserved. The codes documented in this report are preliminary and upon sales vendor review may be revised to meet current [...] PM RADIOLOGY RESULTS 09/05/2023 12:2 3 PM PERIODICALS CLERK Richard Sandoval MD PROCEDURES RADIOLOGY RESULTS documented in this encounter Visit Diagnoses Not on filedocumented [...] at 1357 $New Bag 09/05/2023 11:54 AM PERIODICALS CLERK 10 mL/hr naloxone (NARCAN) injection 0.2 mg [...] Recently Administered Medications Times are shown in PERIODICALS CLERK. Continuous Medication Order 09/03/2023 09/04/2023 09/05/2023 lactated [...] Irritant. documented in this encounter Care Teams Flash Welder Relationship Specialty Start Date End Date Ayan Shen MD [facility] [address] [address] PCP - General Family Medicine 09/05/23 documented as of this encounter
--- OUTSIDE RECORDS SUMMARY | 2023-11-06 07:04 | XMS_ITS | Encounter Summary ---
Author Name Unknown Organization [facility] Address [address] [place] [address] Care Team Providers Care Gas Or Petroleum Operator Name Role Phone Anisha Burnett MD Primary [facility] Provider [facility] Ayan Shah MD Primary Care Provider [phone] Encounter Details Date Type Department Care Team (Late st Contact Info) Description 01/28/2002 [facility] [address] [facility] [address] [place] [phone] Martita Franks MD [address] [place] [address] Social History Tobacco Use Types Packs/Day Years Used Date Smoking Tobacco: Never Assessed Sex and Gender Information Value Date Recorded Sex Assigned at Not on file Gender Identity Not on file Sexual Orientation Not on file documented as of this encounter Plan of Treatment Not on file documented as of this encounter Visit Diagnoses Not on filedocumented in this encounter Care Teams Gas Or Petroleum Operator Relationship Specialty Start Date End Date Anisha Burnett MD PCP - General 09/13/01 03/29/17 Ayan Shen MD [facility] [address] [address] PCP - General Family Medicine 09/05/23 documented as of this encounter
--- NOTE | 2023-11-06 07:15 | MR_ITS ---
[address] [address] Phone:?[phone] Fax:?[phone] Referring Physician Information: Oz Harp M.D. [address] [facility] [address] Phone:?[phone] Fax:?[phone] Patient:Mark Gunter D.O.B:?1955 Sex:?Male Phone:?[phone] [facility] MRN:?[id number] Exam Date:?11/06/2023 EXAM: MRI of the RIGHT KNEE, without contrast CLINICAL INFORMATION: Male, 68 years old, with right knee pain. INDICATION: Evaluate for medial meniscal tear. PRIOR SURGERY: None reported. PLAIN FILMS: Knee radiographs dated 11/01/2023. COMPARISONS: No prior MRIs available. TECHNICAL INFORMATION: Using a 1.5T MR scanner and a localizing surface coil: sagittals: PD, PDFS coronals: PD, T2FS axials: PD, PDFS SEDATION: None CONTRAST: None FINDINGS: Knee joint: Effusion: Moderate right knee effusion, with synovitis. Popliteal cyst: None. Loose bodies: None. Subcutaneous and extra-articular soft tissues: Unremarkable. Ligaments: ACL: Mild-moderate thickening and abnormal signal throughout the ACL, without ACL tear (sagittal PDFS series 6 image 15). PCL: Intact PCL, without acute or chronic injury. MCL: Intact MCL superficial and deep layers, without injury. LCL: Intact LCL, without injury. Posterolateral corner: Mild popliteus tendinopathy, without tear. Biceps femoris, iliotibial band, popliteofibular ligament and lateral gastrocnemius are intact. Posteromedial corner: Mild semimembranosus tendinopathy, without tear. Pes anserine tendons and posterior oblique ligament are without injury, tendinopathy or bursitis. Extensor mechanism: Patellar tendon: Intact, without tendinopathy. Quadriceps tendon: Intact, without tendinopathy. Retinacula: Medial and lateral retinacula are intact. Fat pads: Mild-moderate edema is present throughout the knee fat pads, in keeping with synovitis. Medial compartment: Medial meniscus: Oblique horizontal undersurface tearing of the posterior horn and body of the medial meniscus measures 2.5 cm (sagittal PDFS series 6 images 23-26 and coronal STIR series 8 images 19-22). Meniscal extrusion measures 4 mm. A 2 x 2 x 3 mm flap fragment is present at the posterior horn/root junction (sagittal PD series 5 image 20 and axial T2FS series 4 image 22). Additionally, there is intrasubstance degeneration and complex tearing throughout the anterior horn/root of the medial meniscus over a length of 2.0 cm (sagittal PDFS series 6 images 17-22). This is associated with a 1.8 x 1.7 x 2.3 cm region of localized synovitis and a complex ganglion cyst (sagittal PD series 5 image 19 and coronal STIR series 8 image 11). Medial femoral condyle & tibial plateau: Broad-based grade III chondromalacia throughout the central, weightbearing aspect of the medial compartment, with mild marginal osteophytosis and mild/moderate reactive osseous changes. Lateral compartment: Lateral meniscus: Intrasubstance degeneration and partial tearing is present throughout the posterior root of the lateral meniscus (sagittal PDFS series 6 images 12-16). Apical free edge and undersurface tearing of the body segment measures 1.2 cm (coronal STIR series 8 images 18-21). Lateral femoral condyle: [Broad-based grade II/III chondromalacia of the central surface of the lateral femoral condyle, with mild marginal osteophytosis and a prominent intra-articular osteophyte. Lateral tibial plateau: Broad-based grade III chondromalacia involving the posterior one half of the lateral tibial plateau, with mild marginal osteophytosis. Patellofemoral joint: Patella: Generalized grade III/IV chondromalacia of the patella, with mild- moderate marginal osteophytosis. Trochlea: Generalized grade III/IV chondromalacia of the trochlea, with mild marginal osteophytosis. Proximal tibiofibular joint: Unremarkable, without evidence of ligament sprain injury, joint effusion or adjacent marrow edema. Bones: No stress/occult fractures or other marrow edema/pathology. IMPRESSION: 1. Complex tear of the medial meniscus, comprised of: -Oblique horizontal undersurface tearing at the posterior horn/body junction over a length of 2.5 cm. -Intrasubstance degeneration and complex tearing of the anterior horn/root over a length of 2.0 cm. -Approximately 1.8 x 1.7 x 2.3 cm region of localized synovitis and/or complex ganglion cyst adjacent to the anterior root. -4 mm of meniscal extrusion. -Approximately 2 x 2 x 3 mm flap fragment posterior horn/root junction. 2. Complex tear of the lateral meniscus, comprised of: -Apical free edge and undersurface tearing of the body segment measuring 1.2 cm. -Intrasubstance degeneration and low-grade partial tearing of the posterior root. 3. Tricompartmental osteoarthritis of the right knee: -Moderate-advanced osteoarthritis of the patellofemoral compartment. -Mild-moderate osteoarthritis of the lateral compartment. -Moderate osteoarthritis of the medial compartment. 4. Moderate knee joint effusion, synovitis. No popliteal (Sandy's) cyst. 5. Mild popliteus and semimembranosus tendinopathy, without tear. 6. Mild mucinous degeneration of the ACL. No cruciate or collateral ligament tear. BC Electronically signed on 11/06/2023 11:04:00 AM by Bishnu Grullon M.D.
== END 2023-11-06 07:01 | disposition home or self-care (01) ==
LOC: MRI 07:02
PROVIDERS: PCP Family Medicine; Visit Provider Orthopaedic Surgery Sports Medicine
DX: M25.561 Pain in right knee (principal); S83.231A Complex tear of medial meniscus, current injury, right knee, initial encounter; S83.271A Complex tear of lateral meniscus, current injury, right knee, initial encounter; M17.11 Unilateral primary osteoarthritis, right knee; M25.461 Effusion, right knee; S89.91XA Unspecified injury of right lower leg, initial encounter
CPT/HCPCS: 73721

== ENCOUNTER 2023-11-12 10:39 | Day surgery (SDC) | payer OTHER, SELFPAY ==
[2023-11-12] VITALS (22 sets, daily range): BP systolic 86–127; BP diastolic 25–88; PULSE 60–80; RESP 10–18; TEMP 35.7–36.6; O2SAT 92–118; BMI 36.6
--- OUTSIDE RECORDS SUMMARY | 2023-11-12 10:48 | XMS_ITS | Clinical Summary ---
Author Name Unknown Organization [place] Address [address] [place] [address] Care Team Providers Care Cement Conveyor Operator Name Role Phone Ayan Shen MD Primary Care Provider [phone] Allergies Active Allergy Reactions Criticality Noted Date Comments Penicillins 01/24/2002 Medications Medication Sig Dispensed Refills Start Date End Date Status PRINIVIL 10 MG OR TABS 1po qd 30 6 01/27/2002 Active Ubiquinol 100 MG CAPS Take 1 capsule by mouth daily Active losartan (COZAAR) 100 MG tablet Take 100 mg by mouth daily Active omeprazole (PRILOSEC) [address] capsule Take 20 mg by mouth daily Active acetaminophen (TYLENOL) 325 MG tablet Take 325-650 mg by mouth every 6 hours as needed for mild pain Active apixaban ANTICOAGULANT (ELIQUIS) 5 MG tablet Take 5 mg by mouth 2 times daily Active NONFORMULARY Take 1 capsule by mouth daily Coffee xt-phosphatidyl serine 100-100mg (Neuriva original) Active fluticasone-salmeterol (ADVAIR) 250-50 MCG/ACT inhaler Inhale 1 puff into the lungs every 12 hours as needed (wheezing, SOB) Active glucosamine 500 MG CAPS capsule Take 1,500 mg by mouth daily Active hydrochlorothiazide (HYDRODIURIL) 12.5 MG tablet Take 12.5 mg by mouth daily Active rosuvastatin (CRESTOR) 10 MG tablet Take 10 mg by mouth daily Active triamcinolone (KENALOG) 0.1 % external lotion Apply topically 2 times daily as needed for irritation Active Encounters Date Type Department Care Team Description 09/05/2023 1:30 PM COMPONENT ASSEMBLER SUPERVISOR Anesthesia Event [facility] [address] [place] [address] Darion Walton MD Scott, Meredith R, APRN HAMMER DRIVER 09/05/2023 1:20 PM COMPONENT ASSEMBLER SUPERVISOR - 09/05/2023 2:55 PM COMPONENT ASSEMBLER SUPERVISOR Surgery [facility] [address] [place] [address] Richard Sandoval MD endoscopic ultrasound 09/05/2023 10:55 AM COMPONENT ASSEMBLER SUPERVISOR - 09/05/2023 2:56 PM COMPONENT ASSEMBLER SUPERVISOR Hospital Encounter [facility] PreOP/Phase II [address] [place] [phone] Richard Sandoval MD Discharge Disposition: Home or Self Care 08/16/2023 Medical Correspondence [facility] [address] [facility] [phone] Scan, Non-Provider from Last 3 Months Social [...] Comments Blood Pressure 108/81 09/05/2023 2:55 PM COMPONENT ASSEMBLER SUPERVISOR Pulse 72 09/05/2023 2:30 PM COMPONENT ASSEMBLER SUPERVISOR Temperature 36.3 ??C (97.4 ??F) 09/05/2023 2:30 PM CS T Respiratory Rate 16 09/05/2023 2:55 PM COMPONENT ASSEMBLER SUPERVISOR Oxygen Saturation 97% 09/05/2023 2:55 PM COMPONENT ASSEMBLER SUPERVISOR Inhaled Oxygen Concentration - - Weight 112 kg (247 lb) 09/05/2023 11:14 AM COMPONENT ASSEMBLER SUPERVISOR Height 177.8 cm (5' 10) 09/05/2023 11:14 AM COMPONENT ASSEMBLER SUPERVISOR Body Mass Index 35.44 09/05/2023 11:14 AM COMPONENT ASSEMBLER SUPERVISOR Plan of Treatment Health Maintenance Due Date [...] WELLNESS VISIT 2018 COVID-19 Vaccine (3 - season) 2023 10/23/2020, 10/02/2020 PHQ-2 (once per [...] WITH ENDOSCOPIC ULTRASOUND GUIDANCE 09/05/2023 1:20 PM COMPONENT ASSEMBLER SUPERVISOR Common bile duct (CBD) stricture (H28) History of cholangitis Special Needs *robby-cpap, htn, dvt(2016). UPPER EUS Routine 09/05/2023 12:23 PM COMPONENT ASSEMBLER SUPERVISOR BASIC METABOLIC PANEL Routine 11/24/2004 8:10 AM CDT from Last 3 Months or Most Recently Relevant to Health Maintenance Results * UPPER EUS (09/05/2023 12:23 PM COMPONENT ASSEMBLER SUPERVISOR) [place] [address] [place] ??[id number] ___ Patient Name: Trell Gunter ? Procedure Date: 09/05/2023 12:23 PM ? Date of : 1955 ?Admit Type: Outpatient Age: 68 ? Room: OR R 03 Note Status: Finalized ?Attending MD: RICHARD SANDOVAL MD, Instrument Name: [id number] Linear ___ Procedure: ?Upper EUS Indications: ?previous [...] Procedure Code(s): ? --- Professional --- ? 64440, Esophagogastroduode noscopy, flexible, transoral; with endoscopic ? ultrasound examination, including the esophagus, stomach, and either the ? duodenum or a surgically altered stomach where the jejunum is examined ? distal to the anastomosis CPT copyright 2021 [employer]. All rights reserved. The codes documented in this report are preliminary and upon lane attendant review may be revised to meet current [...] PM RADIOLOGY RESULTS 09/05/2023 12:2 3 PM COMPONENT ASSEMBLER SUPERVISOR Richard Sandoval MD PROCEDURES RADIOLOGY RESULTS * Basic metabolic panel (11/24/2004 8:10 AM CDT) Sodium 139 133 - 144 mmol/L [facility] Potassium 4.2 3.4 - 5.3 mmol/L [facility] Chloride 102 94 - 109 mmol/L [facility] Carbon Dioxide 27 20 - 32 mmol/L [facility] Glucose 100 60 - 110 mg/dL [facility] Urea Nitrogen 22 7 - 30 mg/dL [facility] Creatinine 0.94 0.80 - 1.50 mg/dL [facility] GFR Estimate >80 >60 mL/min/1.7 m2 M[facility]YS GFR Estimate If Black >80 >60 mL/min/1.7 m2 [facility] Calcium 9.5 8.5 - 10.4 mg/dL [facility] Anion Gap 10 6 - 17 mmol/L [facility] 11/24/2004 8:10 AM CDT 11/24/2004 8:24 AM CDT Familia Waldron MD LAB - BLOOD ALDO [facility] from Last 3 Months or Most Recently Relevant to Health Maintenance Care Teams Cement Conveyor Operator Relationship Specialty Start Date End Date Ayan Shen MD [facility] [address] [facility] [address] PCP - General Family Medicine 09/05/23
--- OUTSIDE RECORDS SUMMARY | 2023-11-12 10:48 | XMS_ITS | Referral Summary ---
Author Name Unknown Organization [place] Address [address] [place] [address]. [place] [address] Care Team Providers Care Grinder Set Up Operator Surface Name Role Phone Ayan Shen MD Primary Care Provider [phone] Encounters Date Type Department Care Team Description 09/05/2023 1:30 PM FIELD CONTRACTOR Anesthesia Event [facility] [address] [place] [address] Darion Walton MD Scott, Meredith R, GRAB JACK WORKER TAX ADJUSTER 09/05/2023 1:20 PM FIELD CONTRACTOR - 09/05/2023 2:55 PM FIELD CONTRACTOR Surgery [facility] [address] [place] [address] Richard Snadoval MD endoscopic ultrasound 09/05/2023 10:55 AM FIELD CONTRACTOR - 09/05/2023 2:56 PM FIELD CONTRACTOR Hospital Encounter [facility] PreOP/Phase II [address] [place] [address] Richard Sandoval MD Discharge Disposition: Home or Self Care 08/16/[address] [facility] [address] [place] [address] [place] [phone] Scan, Non-Provider from Last 3 Months Allergies [...] times daily as needed for irritation Active Social History Tobacco Use Types Packs/Day [...] Comments Blood Pressure 108/81 09/05/2023 2:55 PM FIELD CONTRACTOR Pulse 72 09/05/2023 2:30 PM FIELD CONTRACTOR Temperature 36.3 ??C (97.4 ??F) 09/05/2023 2:30 PM CS T Respiratory Rate 16 09/05/2023 2:55 PM FIELD CONTRACTOR Oxygen Saturation 97% 09/05/2023 2:55 PM FIELD CONTRACTOR Inhaled Oxygen Concentration - - Weight 112 kg (247 lb) 09/05/2023 11:14 AM FIELD CONTRACTOR Height 177.8 cm (5' 10) 09/05/2023 11:14 AM FIELD CONTRACTOR Body Mass Index 35.44 09/05/2023 11:14 AM FIELD CONTRACTOR Plan of Treatment Not on file Procedures Procedure Name Priority Date/Time Associated Diagnosis Comments ESOPHAGOGASTRODUOD ENOSCOPY, WITH ENDOSCOPIC ULTRASOUND GUIDANCE 09/05/2023 1:20 PM FIELD CONTRACTOR Common bile duct (CBD) stricture (H28) History of cholangitis Special Needs *robby-cpap, htn, dvt(2016). UPPER EUS Routine 09/05/2023 12:23 PM FIELD CONTRACTOR BASIC METABOLIC PANEL Routine 11/24/2004 8:10 AM CDT from Last 3 Months or Most Recently Relevant to Health Maintenance Results * UPPER EUS (09/05/2023 12:23 PM FIELD CONTRACTOR) Upper EUS [place] [address] [place] ??[address] ___ Patient Name: Trell Gunter ? Procedure Date: 09/05/2023 12:23 PM ? Date of : 1955 ?Admit Type: Outpatient Age: 68 ? Room: OR [facility] Note Status: Finalized ?Attending MD: RICHARD SANDOVAL MD, Instrument Name: [id number] Linear ___ Procedure: ?Upper EUS Indications: ?previous [...] Procedure Code(s): ? --- Professional --- ? 62032, Esophagogastroduode noscopy, flexible, transoral; with endoscopic ? ultrasound examination, including the esophagus, stomach, and either the ? duodenum or a surgically altered stomach where the jejunum is examined ? distal to the anastomosis CPT copyright 2021 [employer]. All rights reserved. The codes documented in this report are preliminary and upon manufacturing intern review may be revised to meet current [...] PM RADIOLOGY RESULTS 09/05/2023 12:2 3 PM FIELD CONTRACTOR Richard Sandoval MD PROCEDURES RADIOLOGY RESULTS * [...] Recently Relevant to Health Maintenance Care Teams Grinder Set Up Operator Surface Relationship Specialty Start Date End Date Ayan Shen MD [facility] [address] [id number] PCP - General Family Medicine 09/05/23
--- OUTSIDE RECORDS SUMMARY | 2023-11-12 10:48 | XMS_ITS | Encounter Summary ---
Author Name Unknown Organization [place] Address [address] [place] [address] Care Team Providers Care As400 Consultant Name Role Phone Ayan Shen MD Primary Care Provider [phone] Reason for Visit * Auth/Cert (Routine) Specialty Diagnoses / Procedures Referred By Jeffery pollard Referred To Contact Surgery Diagnoses Common bile duct (CBD) stricture (H28) History of cholangitis Common bile duct (CBD) stricture (H28) [K83.1] History of cholangitis [Z87.19] Procedures [place] ERCP DX COLLECTION SPECIMEN BRUSHING/WASHING [place] ENDOSCOPIC US EXAM, ESOPH [place] UPPR GI ENDOSCOPY W/US FN BX [place] EGD INTRMURAL NEEDLE ASPIR/BIOP ALTERED ANATOMY [place] EDG US EXAM SURGICAL ALTER STOM DUODENUM/JEJUNUM Endoscopic retrograde cholangiopancreatogram endoscopic ultrasound [facility] Services [address] [place] [address] Referral ID Status Reason Start Date Expiration Date Visits Re quested Visits Authorized [id number] 1 1 Encounter Details Date Type Department Care Team (Late st Contact Info) Description 09/05/2023 1:20 PM HEATING REPAIR TECHNICIAN - 09/05/2023 2:55 PM HEATING REPAIR TECHNICIAN Surgery [facility] [address] [place] [address] Richard Sandoval MD [facility] [address] [facility] [place] [id number] endoscopic ultrasound Surgery Details Date/Time Status Location [...] Comments Blood Pressure 108/81 09/05/2023 2:55 PM HEATING REPAIR TECHNICIAN Pulse 72 09/05/2023 2:30 PM HEATING REPAIR TECHNICIAN Temperature 36.3 ??C (97.4 ??F) 09/05/2023 2:30 PM CS T Respiratory Rate 16 09/05/2023 2:55 PM HEATING REPAIR TECHNICIAN Oxygen Saturation 97% 09/05/2023 2:55 PM HEATING REPAIR TECHNICIAN Inhaled Oxygen Concentration - - Weight 112 kg (247 lb) 09/05/2023 11:14 AM HEATING REPAIR TECHNICIAN Height 177.8 cm (5' 10) 09/05/2023 11:14 AM HEATING REPAIR TECHNICIAN Body Mass Index 35.44 09/05/2023 11:14 AM HEATING REPAIR TECHNICIAN documented in this encounter Discharge Instructions * Discharge Instructions* Aleksander Youngblood RN - 09/05/2023 2:02 PM HEATING REPAIR TECHNICIAN Same Day Surgery Discharge Instructions for Sedation [...] about your procedure, call Dr. Sandoval at [phone]. ING REPAIR TECHNICIAN documented in this encounter Medications at Time of Discharge Medication Sig Dispensed Refills Start Date End Date acetaminophen (TYLENOL) 325 MG tablet Take 325-650 mg by mouth every 6 hours as needed for mild pain fluticasone-salmeterol (ADVAIR) 250-50 MCG/ACT inhaler Inhale 1 puff into the lungs every 12 hours as needed (wheezing, SOB) glucosamine 500 MG CAPS capsule Take 1,500 mg by mouth daily hydrochlorothiazide (HYDRODIURIL) 12.5 MG tablet Take 12.5 mg by mouth daily losartan (COZAAR) 100 MG tablet Take 100 mg by mouth daily NONFORMULARY Take 1 capsule by mouth daily Coffee xt-phosphatidyl serine 100-100mg (Neuriva original) omeprazole (PRILOSEC) [address] capsule Take 20 mg by mouth daily PRINIVIL 10 MG OR TABS 1po qd 30 6 01/27/2002 rosuvastatin (CRESTOR) 10 MG tablet Take 10 mg by mouth daily triamcinolone (KENALOG) 0.1 % external lotion Apply topically 2 times daily as needed for irritation Ubiquinol 100 MG CAPS Take 1 capsule by mouth daily apixaban ANTICOAGULANT (ELIQUIS) 5 MG tablet Take 5 mg by mouth 2 times daily documented as of this encounter Progress Notes * Aleksander Youngblood RN - 09/05/2023 2:40 PM CST Pt dressed, up in recliner and transported to Phase 2. ING REPAIR TECHNICIAN * Itz Beck RN - 09/05/2023 12:37 PM CST Pt gave his wallet and cell phone to his daughter to hold onto while in surgery. ING REPAIR TECHNICIAN documented in this encounter Plan of Treatment Not on file documented as of this encounter Procedures Procedure Name Priority Date/Time Associated Diagnosis Comments ESOPHAGOGASTRODUOD ENOSCOPY, WITH ENDOSCOPIC ULTRASOUND GUIDANCE 09/05/2023 1:20 PM HEATING REPAIR TECHNICIAN Common bile duct (CBD) stricture (H28) History of cholangitis Special Needs *robby-cpap, htn, dvt(2016). UPPER EUS Routine 09/05/2023 12:23 PM HEATING REPAIR TECHNICIAN documented in this encounter Results * UPPER EUS (09/05/2023 12:23 PM HEATING REPAIR TECHNICIAN) Upper EUS [place] [address] ??[place] ??[id number] ___ Patient Name: Trell Gunter ? Procedure Date: 09/05/2023 12:23 PM ? Date of : 1955 ?Admit Type: Outpatient Age: 68 ? Room: OR 03 Note Status: Finalized ?Attending MD: RICHARD SANDOVAL MD, Instrument Name: [id number] Linear ___ Procedure: ?Upper EUS Indications: ?previous [...] Procedure Code(s): ? --- Professional --- ? 54552, Esophagogastroduode noscopy, flexible, transoral; with endoscopic ? ultrasound examination, including the esophagus, stomach, and either the ? duodenum or a surgically altered stomach where the jejunum is examined ? distal to the anastomosis CPT copyright 2021 [employer]. All rights reserved. The codes documented in this report are preliminary and upon ramp lead review may be revised to meet current [...] PM RADIOLOGY RESULTS 09/05/2023 12:2 3 PM HEATING REPAIR TECHNICIAN Richard Sandoval MD PROCEDURES RADIOLOGY RESULTS documented [...] at 1357 $New Bag 09/05/2023 11:54 AM HEATING REPAIR TECHNICIAN 10 mL/hr naloxone (NARCAN) injection 0.2 mg [...] Recently Administered Medications Times are shown in HEATING REPAIR TECHNICIAN. Continuous Medication Order 09/03/2023 09/04/2023 09/05/2023 lactated [...] Irritant. documented in this encounter Care Teams As400 Consultant Relationship Specialty Start Date End Date Ayan Shen MD [facility] [address] [address] PCP - General Family Medicine 09/05/23 documented as of this encounter
--- OUTSIDE RECORDS SUMMARY | 2023-11-12 10:48 | XMS_ITS | Encounter Summary ---
Author Name Unknown Organization [place] Address [address] [place] [address] Care Team Providers Care School Psychometrist Name Role Phone Ayan Shen MD Primary Care Provider [phone] Reason for Visit * Auth/Cert (Routine) Specialty Diagnoses / Procedures Referred By Jeffery t Referred To Contact Surgery Diagnoses Common bile duct (CBD) stricture (H28) History of cholangitis Common bile duct (CBD) stricture (H28) [K83.1] History of cholangitis [Z87.19] Procedures [place] ERCP DX COLLECTION SPECIMEN BRUSHING/WASHING [place] ENDOSCOPIC [place] EXAM, ESOPH [place] UPPR GI ENDOSCOPY W/US FN BX [place] EGD INTRMURAL NEEDLE ASPIR/BIOP ALTERED ANATOMY [place] EDG US EXAM SURGICAL ALTER STOM DUODENUM/JEJUNUM Endoscopic retrograde cholangiopancreatogram endoscopic ultrasound [facility] [address] [place] [address] Referral ID Status Reason Start Date Expiration Date Visits Re quested Visits Authorized [id number] 1 1 Encounter Details Date Type Department Care Team (Late st Contact Info) Description 09/05/2023 1:30 PM DIRECTOR QUALITY ASSURANCE Anesthesia Event [facility] Peri[facility] [address] [place] [address] Darion Walton MD [facility] [address] [place] [id number] Ginna Arias, EVENTS ASSISTANT OXYGRAPH OPERATOR [address] [place] [address] [...] recorded are pre- induction. Ginna Arias APRN OXYGRAPH OPERATOR 1335 Anesthesia Ready for Procedu re 1339 [...] Walton MD September 05, 2023 2:34 PM CTOR QUALITY ASSURANCE * Anesthesia Preprocedure Evaluation - Darion Walton [...] and realistic alternatives discussed. Questions answered and patient/public health representative(s) expressed understanding. - Discussed: - Discussed [...] of this encounter: 112 kg (247 lb). CTOR QUALITY ASSURANCE documented in this encounter Miscellaneous Notes * [...] report on patient's clinical status given to SENIOR FINANCE MANAGER, RN questions answered. Handoff Report: Identifed the [...] APRN CRNA September 05, 2023 1:59 PM CTOR QUALITY ASSURANCE documented in this encounter Plan of Treatment [...] 1341, Anesthesia Intra-op $Given 09/05/2023 1:41 PM DIRECTOR QUALITY ASSURANCE 50 mcg lactated ringers infusion Intravenous, CONTINUOUS PRN, Anesthesia Intra-op, Starting on Sun09/05/23 at 1330, Until Sun09/05/23 at 1400 $New Bag 09/05/2023 1:30 PM DIRECTOR QUALITY ASSURANCE lidocaine 2% injection (MDV) Intravenous, PRN, Starting on Sun09/05/23 at 1333, Anesthesia Intra-op $Given 09/05/2023 1:33 PM DIRECTOR QUALITY ASSURANCE 60 mg ondansetron (ZOFRAN) injection Intravenous, PRN, Administer over 2-5 Minutes, Starting on Sun09/05/23 at 1333, Anesthesia Intra-op $Given 09/05/2023 1:33 PM DIRECTOR QUALITY ASSURANCE 4 mg propofol (DIPRIVAN) infusion Intravenous, CONTINUOUS PRN, Starting on Sun09/05/23 at 1334, Anesthesia Intra-op $New Bag 09/05/2023 1:34 PM DIRECTOR QUALITY ASSURANCE 150 mcg/kg/min 100.8 mL/hr propofol (DIPRIVAN) injection 10 mg/mL vial Intravenous, PRN, Starting on Sun09/05/23 at 1334, Anesthesia Intra-op $Given 09/05/2023 1:37 PM DIRECTOR QUALITY ASSURANCE 20 mg $Given 09/05/2023 1:34 PM DIRECTOR QUALITY ASSURANCE 30 mg documented in this encounter Care Teams School Psychometrist Relationship Specialty Start Date End Date Ayan Shen MD [facility] [address] [address] PCP - General Family Medicine 09/05/23 documented as of this encounter
--- OUTSIDE RECORDS SUMMARY | 2023-11-12 10:49 | XMS_ITS | Encounter Summary ---
Author Name Unknown Organization [place] Address [address] [place] [address]. [place] [address] Care Team Providers Care Sandblaster Paint Sprayer Name Role Phone Ayan Shen MD Primary Care Provider [phone] Encounter Details Date Type Department Care Team (Late st Contact Info) Description 08/16/2023 Medical Correspondence [facility] Info Mgmt [facility] [address] [place] [address] Scan, Non-Provider Social History Tobacco Use [...] on filedocumented in this encounter Care Teams Sandblaster Paint Sprayer Relationship Specialty Start Date End Date Ayan Shen MD [facility] [address] [address] PCP - General Family Medicine 09/05/23 documented as of this encounter
--- OUTSIDE RECORDS SUMMARY | 2023-11-12 10:49 | XMS_ITS | Continuity of Care Document ---
Author Name Unknown Organization [facility] Address [address] [address] [place] [address] Phone Care Team Providers Care Clinical Neuropsychologist Name Role Phone Kenneth Amaya MD Unavailable [...] Diagnoses Date Provider Providers Copied on Encounter [facility], [address] [address], [place], [id number], [place] tel:[phone] [facility] No Information 4 Kyle Cooper. [address] [facility], [address], [id number], [place]. tel:[phone] [facility], [address] [address], [place], [id number], [place] tel:[phone] [facility] No Information 4 Vesta Ramos. [address] [place] [address], [address], [id number], [place]. tel:[phone] Referring Provider: Ayan Shen MD, [address] [place] [address], [address]. tel:[phone] Offic/outpt E&m New Mod-hi [facility], [address] [address], [place], [id number], [place] tel:[phone] [facility] GI Symptoms or Concerns (chief complaint) Common bile duct stoneHx of cholangitis 4 Travis Mota. [address] [facility], [address], [id number], [place]. [phone] Ayan Shen MD. tel:[phone] erring Provider: Referral Self, USE FOR SELF REFERRALS. [facility], [address] [address], [place], [id number], [place] tel:[phone] [facility] No Information 4 Kyle Cooper. [address] [facility], [facility] [address], [place], [place], [id number], [place]. tel:[phone] Subsqt Hosp-da E&m Stable 15 M [facility], [address] [address], [place], [id number], [place] tel:[phone] [facility] No Information 7 No Information Init Hosp-da E&m Mod Severity [facility], [address] [address], [place], [id number], [place] tel:[phone] [facility] No Information 6 No Information [facility], [address] [address], [place], [id number], [place] tel:[phone] [facility] No Information 6 Vanda Mckay. [address] [facility], [address], [place], [place], [id number], [place]. tel:[phone] Referring Provider: Woody Dc MD, [address] [facility] [address], [facility] [place], [address] . tel:[phone] Subsqt Hosp-da E&m Minr Compl [facility], [address] [address], [place], [id number], [place] tel:[phone] [facility] No Information 6 Armando Perez. [address] [facility], [address], [place], [place], [id number], [place]. tel:[phone] Referring Provider: Freedom Kowalski, [address], [facility] [place], [address]. tel:[phone] [facility], [address] [address], [place], [id number], [place] tel:[phone] [facility] No Information 6 Joaquin Arias. [address] [facility], [address], [place], [place], [id number], [place]. tel:[phone] Referring Provider: Freedom Kowalski, [address], [place], [address]. tel:[phone] Init Hosp-da E&m Mod Severity [facility], [address] [address], [place], [id number], [place] tel:[phone] [facility] No Information 6 Arlette Gabriel. [address] [facility], [address], [place], [place], [id number], [place]. tel:[phone] Referring Provider: Freedom Kowalski, [address] [facility] [address], [place], [address]. tel:[phone] Family History Family Member Type Diagnosis Age [...] bi-directional interface ; Source: Other Registry Novel [id number], injectable administered Note: [facility] bi-direct ional interface [...] Registry Payers Payer name Insurance type Covered green party ID John montiel(s) R CI [id number] Social History Type Description Quantity Date Captured [...] Mildly increased CRP. Patient was admitted in [facility] and then placed on an antibiotic for [...]
--- OUTSIDE RECORDS SUMMARY | 2023-11-12 10:49 | XMS_ITS | Clinical Summary ---
Author Name Unknown Organization [facility] Address [place], [place] [address] Care Team Providers Care Event Marketing Manager Name Role Phone Nonstaff, Doctor Primary [...] 1:55 PM 05/24/2016 10:41 AM Care Teams Event Marketing Manager Relationship Specialty Start Date End Date Nonstaff, Doctor NON STAFF DOCTOR PCP - General 01/17/19
--- OUTSIDE RECORDS SUMMARY | 2023-11-12 10:49 | XMS_ITS | Continuity of Care Document ---
Author Name [facility] Organization [facility] Care Team Providers Care Structural Rigger Name Role Phone [facility] Unavailable Unavailable Problems Combined list of problems from Department of Defense and Veterans [facility] facilities. It does not include entries that were removed or entered in error. Problem Status Onset Date Problem Type Date of Resolution Comments Source Diagnosis: ICD-10-CM Z46.1 Encounter for fitting and adjustment of hearing aid Active Diagnosis [facility] Diagnosis: ICD-10-CM H90.3 Sensorineural hearing loss, bilateral Active Diagnosis [facility] Encounters Combined list of: 1) Encounters from Department of Veterans Affairs facilities going back up to thelast 18 months. 2) Encounters from the Department of [facility] facilities going back up to 280 months. Location Location Details Encounter Type Encounter Number Reason For Visit Attending Provider ADM Date DC Date Status Disposition Source [facility] [place] [id number] Diagnos is: ICD-10- CM H90.3 Sensori neural hearing loss, bilater al
RUTHY SMITH 11/02 [facility]FORMITY EVALUATION [id number] Diagnos is: ICD-10- CM Z46.1 Encount er for fitting and adjustm ent of hearing aid<br/ > RUTHY SMITH E 12/21 [facility]
--- OUTSIDE RECORDS SUMMARY | 2023-11-12 10:49 | XMS_ITS | Encounter Summary ---
Author Name Unknown Organization [facility] Address [address] [place] [address] Care Team Providers Care Online Merchandising Coordinator Name Role Phone Ayan Shen MD Primary Care Provider [phone] Reason for Visit * Auth/Cert (Routine) Specialty [...] [address], [address] [place] [address] Referral ID Status Reason Start Date Expiration Date Visits Re quested Visits Authorized [id number] 1 1 Encounter Details Date Type Department Care Team (Late st Contact Info) Description 09/05/2023 10:55 AM [facility] - 09/05/2023 2:56 PM [facility] Hospital Encounter [facility] PreOP/Phase II [address] [place] [address] Richard Sandoval MD [facility] [address] [facility] [place] [id number] Discharge Disposition: Home or Self Care Social [...] Comments Blood Pressure 108/81 09/05/2023 2:55 PM [facility] Pulse 72 09/05/2023 2:30 PM [facility] Temperature 36.3 ??C (97.4 ??F) 09/05/2023 2:30 PM CS T Respiratory Rate 16 09/05/2023 2:55 PM [facility] Oxygen Saturation 97% 09/05/2023 2:55 PM [facility] Inhaled Oxygen Concentration - - Weight 112 kg (247 lb) 09/05/2023 11:14 AM [facility] Height 177.8 cm (5' 10) 09/05/2023 11:14 AM [facility] Body Mass Index 35.44 09/05/2023 11:14 AM [facility] documented in this encounter Discharge Instructions * Discharge Instructions* Aleksander Youngblood RN - 09/05/2023 2:02 PM [facility] Same Day Surgery Discharge Instructions for Sedation [...] about your procedure, call Dr. Sandoval at [phone]. [facility] documented in this encounter Medications at Time [...] in recliner and transported to Phase 2. [facility] * Itz Beck RN - 09/05/2023 12:37 PM CST Pt gave his wallet and cell phone to his daughter to hold onto while in surgery. [facility] documented in this encounter Plan of Treatment Not on file documented as of this encounter Procedures Procedure Name Priority Date/Time Associated Diagnosis Comments ESOPHAGOGASTRODUOD ENOSCOPY, WITH ENDOSCOPIC ULTRASOUND GUIDANCE 09/05/2023 1:20 PM [facility] Common bile duct (CBD) stricture (H28) History of cholangitis Special Needs *robby-cpap, htn, dvt(2016). UPPER EUS Routine 09/05/2023 12:23 PM [facility] documented in this encounter Results * UPPER EUS (09/05/2023 12:23 PM [facility]) Upper EUS [place] [address] ??[place] ??[id number] ___ Patient Name: Trell Gunter ? Procedure Date: 09/05/2023 12:23 PM ? Date of : 1955 ?Admit Type: Outpatient Age: 68 ? Room: OR R 03 Note Status: Finalized ?Attending MD: RICHARD SANDOVAL MD, Instrument Name: [id number] Linear ___ Procedure: ?Upper EUS Indications: ?previous [...] Procedure Code(s): ? --- Professional --- ? 77298, Esophagogastroduode noscopy, flexible, transoral; with endoscopic ? ultrasound examination, including the esophagus, stomach, and either the ? duodenum or a surgically altered stomach where the jejunum is examined ? distal to the anastomosis CPT copyright 2021 [employer]. All rights reserved. The codes documented in this report are preliminary and upon wax specialist review may be revised to meet current [...] PM RADIOLOGY RESULTS 09/05/2023 12:2 3 PM [facility] Richard Sandoval MD PROCEDURES RADIOLOGY RESULTS documented [...] at 1357 $New Bag 09/05/2023 11:54 AM [facility] 10 mL/hr naloxone (NARCAN) injection 0.2 mg [...] Recently Administered Medications Times are shown in [facility]. Continuous Medication Order 09/03/2023 09/04/2023 09/05/2023 lactated [...] Irritant. documented in this encounter Care Teams Online Merchandising Coordinator Relationship Specialty Start Date End Date Ayan Shen MD [facility] [address] [address] PCP - General Family Medicine 09/05/23 documented as of this encounter
--- OUTSIDE RECORDS SUMMARY | 2023-11-12 10:49 | XMS_ITS | Encounter Summary ---
Author Name Unknown Organization [facility] Address [address] [place] [address] Care Team Providers Care Health Aid Name Role Phone Anisha Burnett MD Primary Care Provider [facility] Ayan Shah MD Primary Care Provider [phone] Encounter Details Date Type Department Care Team (Late st Contact Info) Description 01/28/2002 Abstract [facility] [address] [place] [phone] Martita Franks MD [address] [place] [address] Social History Tobacco Use Types Packs/Day Years Used Date Smoking Tobacco: Never Assessed Sex and Gender Information Value Date Recorded Sex Assigned at Not on file Gender Identity Not on file Sexual Orientation Not on file documented as of this encounter Plan of Treatment Not on file documented as of this encounter Visit Diagnoses Not on filedocumented in this encounter Care Teams Health Aid Relationship Specialty Start Date End Date Anisha Burnett MD PCP - General 09/13/01 03/29/17 Ayan Shen MD [facility] [address] [address] PCP - General Family Medicine 09/05/23 documented as of this encounter
[2023-11-12] MEDS: OXYCODONE (CR) 10 MG TAB.ER.12H PO (11:30)
[2023-11-12] MEDS: ACETAMINOPHEN 500 MG TABLET 1000 MG PO ×2 (11:30→17:54)
[2023-11-12] MEDS: SODIUM CHLORIDE 0.9 % (FLUSH) 10 ML SYRINGE IVF (11:35)
[2023-11-12] MEDS: LACTATED RINGERS 1000 ML 1,000 ML 100 ML IV ×2 (11:35→13:33)
--- NOTE | 2023-11-12 11:44 | XR_ITS ---
Patient: MARIE MCCRARY Facility:?[facility] Patient ID:?[id number] Site Patient ID:?[id number]. Site :?1955 Study:?XRay-Knee Right POST OP-11/12/2023 3:36:39 PM Ordering Physician:LUIS Final Report: INDICATION: Postop TKA. TECHNIQUE: Two views of the right knee. FINDINGS: New right TKA. Components appear well seated. Adjacent postop soft tissue air. Dictated by Aleksander Dodge MD @ 11/13/2023 9:12:03 AM Signed by:?Aleksander Dodge MD @11/13/2023 9:12:03 AM (Electronic Signature)
[2023-11-12] MEDS: MIDAZOLAM HCL 1 MG/ML inj IVP (12:44)
[2023-11-12] MEDS: fentaNYL 100 MCG/2 ML inj IVP (12:44)
--- NOTE | 2023-11-12 12:59 | SUR.PREOP ---
TIME?OUT:?1244 PT/RN/MDA?VERIFICATION?OF?SURGICAL?SITE,?PROCEDURE,?AND?CONSENT OBTAINED?PRIOR?TO?INVASIVE?PROCEDURE.
--- NOTE | 2023-11-12 13:01 | P.NB_ITS ---
Nerve Block Nerve Block Time Seen by Provider: 12:48 Date Seen: 11/12/23 Type of block requested by surgeon for post-operative analgesia: geniculars Side: right Time out performed: Yes Verification of patient name: Yes Verification of date of : Yes Site marking: site marked Name of person performing procedure: Jurgen Continuous monitoring Was continuous monitoring of O2 sat, B/P, monitor car operator, recorded every 15 minutes?: Yes Procedure Checklist: sterile prep, needles and gloves Medications given in 5ml increments after negative aspiration: Ropivicaine %: 0.5 mL: 9 Needle gauge: 25 Patient tolerated procedure well: Yes Block Charges Block Charge (with Pro Fee): Genicular Nerve Block Use of Ultrasound Machine for Block: No
--- NOTE | 2023-11-12 13:01 | W.PM.NB ---
Nerve Block Nerve Block Time Seen by Provider: 12:48 Date Seen: 11/12/23 Type of block requested by surgeon for post-operative analgesia: adductor canal Side: right Time out performed: Yes Verification of patient name: Yes Verification of date of : Yes Site marking: site marked Name of person performing procedure: Jurgen Continuous monitoring Was continuous monitoring of O2 sat, B/P, phototypesetting equipment monitor, recorded every 15 minutes?: Yes Procedure Checklist: sterile prep, needles and gloves Ultrasound guided. Images saved: Yes Medications given in 5ml increments after negative aspiration: Ropivicaine %: 0.5 mL: 20 Needle gauge: 20 Decadron (mg): 10 Precedex (mcg): 25 Patient tolerated procedure well: Yes Additional comments: Needle noted adjacent to nerve Block Charges Block Charge (with Pro Fee): Femoral Nerve Use of Ultrasound Machine for Block: Yes- US Guidance/pain block
--- NOTE | 2023-11-12 13:15 | W.PM.H&PU ---
History & Physical Update History & Physical Update H&P Reviewed and patient assessed: No changes noted
[2023-11-12] MEDS: TRANEXAMIC ACID 100 MG/ML INJ 1000 MG IV (13:20)
[2023-11-12] MEDS: CEFAZOLIN 2 GM in 0.9 % SODIUM CHLORIDE Mini-bag 100 ML IVPB ×2 (13:25→20:48)
--- NOTE | 2023-11-12 14:40 | P.ORPRC_ITS ---
Procedure Note Date of procedure: 11/12/23 Procedure: PREOPERATIVE DIAGNOSIS: 1. Right knee osteoarthritis, primary, severe POSTOPERATIVE DIAGNOSIS: 1. Right knee osteoarthritis, primary, severe PROCEDURE: 1. Right total knee arthroplasty - subvastus SURGEON: Oz Harp MD. DIRECT SUPPORT STAFF MEMBER: REKHA Carmona - Of note, a skilled visitor service assistant was critical for this case to aid in patient positioning, tissue retraction, limb manipulation/positioning, and closure. ANESTHESIA: Spinal anesthetic IMPLANTS: DePuy J&J all cemented TKA - Attune PS femur size 8, size 7 tibia, 5 poly spacer, 41mm patella TOURNIQUET: 90 min at 300 torr EBL: 50 ml COMPLICATIONS: None evident INDICATIONS: The patient is a pleasant 68-year-old male who has experienced severe right knee pain and difficulty bearing weight. Workup included x-rays which revealed severe osteoarthrosis in the knee. Given the deformity, the dysfunction, and the pain, as well as the failure of nonoperative management, recommendation was made for surgery. FINDINGS: Full-thickness chondral loss diffusely throughout the medial and patellofemoral compartments. To a lesser degree lateral compartment. Degenerative lateral meniscus and medial meniscus tearing. Large effusion upon entering the joint. DESCRIPTION OF PROCEDURE: Following a thorough discussion of risks, benefits, and alternatives consent was obtained and the right knee was marked. The patient was brought to the operating room and placed supine on the operating table. Induction of anesthesia was undertaken. 2 g IV Ancef and 1 g tranexamic acid was administered within 1 hr of incision preoperatively. Proper time-out was performed identifying proper patient, site, procedure. The operative extremity was prepped and draped in the appropriate sterile fashion using ChloraPrep after the patient was positioned supine with all bony prominences well padded. A longitudinal, anterior, midline skin incision was made starting approximately 3cm proximal to the superior pole of the patella and advanced distal to the tibial tubercle. A subvastus approach was utilized. A medial subperiosteal sleeve was created with knife, almonte elevator and curved osteotome. The retropatellar fatpad was resected and the synovium in the suprapatellar pouch excised to visualize the anterior femoral cortex. Femoral preparation was performed via an intramedullary guide. Step drill allowed access into the femoral canal. The distal cutting guide was placed with 5? of valgus and 10 mm cut on the distal femur. Femur was sized using a posterior referencing guide in 3? of external rotation. This found have a best fit with the sizing noted above. The 4 in 1 cutting block was then placed, and the distal femur shaped accordingly. The box cut was then created and the trial implant inserted to confirm appropriate fit. We turned our attention to the proximal tibia. Extramedullary guide was utilized for cutting with the goal of being 90 degree cut from the mechanical axis of the tibia in the varus/valgus plane utilizing tibial crest as the primary alignment. Initially a 2 mm resection was performed from the medial tibial plateau. Ultimately, balancing was achieved in both flexion and extension in both varus and valgus. The knee was able to achieve full extension as well comfortably. The patella was initially measured and found have a thickness of 23.5 mm. It was resected back to approximately 14 mm. It was sized to be a best fit with as noted above. This was drilled, trial placed. All trials were placed and found to have an excellent stability and balance. At this stage, trial implants were removed, the knee was thoroughly irrigated with normal saline, and the cement was mixed. After irrigation, the knee was thoroughly dried, and cement placed, with the real tibial and femoral implants placed along with the patella. Trial poly spacer was placed and confirmed to have excellent range of motion and full extension, and the real poly spacer opened and inserted. All extra cement was removed, and a 3 min Betadine soak performed. Finally, a final irrigation round with normal saline was performed. Closure performed with 0 Vicryl and #0 Stratafix for the quad tendon/retinacul um. 2-0 Vicryl for the subcutaneous and 4-0 Stratafix for subcuticular closure. Dressings were applied and the patient was awoken from anesthesia after the tourniquet deflated and transferred the PACU in stable condition. A skilled visitor service assistant was critical for this case to aid in patient positioning, tissue retraction, bone exposure, limb manipulation/positioning, patient safety, and closure. PLAN: 1. Weight bear as tolerated operative extremity. 2. 23 hr perioperative antibiotics. 3. Ice. 4. PT/OT consults for ambulation assistance/mobility education. 5. Social work consult for discharge planning. 6. DVT prophylaxis with at SCDs and aspirin twice daily.
--- NOTE | 2023-11-12 14:43 | W.ANESCHARGE ---
Anesthesia Charges Start Date/Time Anesthesia Start Date: 11/12/23 Anesthesia Start Time: 13:05 Stop Date/Time Anesthesia Stop Date: 11/12/23 Anesthesia Stop Time: 15:20 Summary Extremes of Age - Over 70 or under 1: MDA
--- NOTE | 2023-11-12 15:19 | W.ANESCHARGE ---
Anesthesia Charges Start Date/Time Anesthesia Start Date: 11/12/23 Anesthesia Start Time: 13:05 Stop Date/Time Anesthesia Stop Date: 11/12/23 Anesthesia Stop Time: 15:20
[2023-11-12] MEDS: LACTATED RINGERS 1000 ML 1,000 ML 125 ML IV (15:40)
[2023-11-12] MEDS: OXYCODONE 5 MG TABLET PO ×3 (17:54→22:10)
[2023-11-12] MEDS: HYDROmorphone 0.5 mg/0.5 ml inj IVP (18:37)
--- NOTE | 2023-11-12 19:15 | PC.NURSE ---
Nursing Care Hours: 4027-3161 Pt this shift arrived from PACU alert and oriented. No c/o pain and VSS. Pain increased to 7/10, treated per eMAR. Tolerating regular diet, no nausea. IV fluids running. Remains in bed at this time, able to pump feet and move legs. Using IS independently with 2500ml. Vitals remained stable.
--- NOTE | 2023-11-12 20:02 | P.IMCN_ITS ---
Date of Consult Consult date: 11/12/23 Requesting Physician: Orthopedics Primary Care Provider: Ayan Shen MD Consult Narrative Reason for consult: Medical management of comorbidities Narrative: Trell Gunter is a 68 year old male who presented to the hospital today for an elective R TKA with Dr. Harp of Orthopedic Surgery. There were no surgical or anesthetic complications noted during procedure. Patient's H&P reviewed, PCP is Dr Shen. Past medical history significant for: DVT and PE, hyperlipidemia, essential hypertension. History of blood clots: Yes, on apixaban b.i.d.. He has been holding this for the past 5 days and we will restarted tomorrow morning. Postoperative plan: Home with . Tyler has no concerns for hospitalist team postoperatively. Review of Systems Status of ROS: Reports: 10 or more systems reviewed and unremarkable except as noted in History and below [facility] Medical History (Updated 11/12/23 @ 20:05 by Mira Kc MD) Chronic anticoagulation ?Z79.01 - senior care (current) use of anticoagulants (ICD-10) BPH associated with nocturia ?N40.1 - Benign prostatic hyperplasia with lower urinary tract symptoms (ICD- 10) ?R35.1 - Nocturia (ICD-10) Pulmonary embolism ?I26.99 - Other pulmonary embolism without acute cor pulmonale (ICD-10) Osteoarthritis of knees, bilateral ?M17.0 - Bilateral primary osteoarthritis of knee (ICD-10) Hypertension (07/29/09) ?I10 - Essential (primary) hypertension (ICD-10) Hyperlipidemia ?E78.5 - Hyperlipidemia, unspecified (ICD-10) Dysuria ?R30.0 - Dysuria (ICD-10) Abnormal echocardiogram ?R93.1 - Abnormal findings on diagnostic imaging of heart and coronary circulation (ICD-10) Exertional dyspnea ?R06.09 - Other forms of dyspnea (ICD-10) Umbilical hernia (07/29/09) ?K42.9 - Umbilical hernia without obstruction or gangrene (ICD-10) Rupture of Achilles tendon ?S86.019A - Strain of unspecified Achilles tendon, initial encounter (ICD-10) Encounter for routine history and physical examination of adult ?Z00.00 - Encounter for general adult medical examination without abnormal findings (ICD-10) Surgical History (Updated 11/12/23 @ 20:04 by Mira Kc MD) H/O arthroscopy of right knee (02/14/08) ?Z98.890 - Other specified postprocedural states (ICD-10) History of ERCP ?Z98.890 - Other specified postprocedural states (ICD-10) H/O arthroscopy of left knee (03/11/12) ?Z98.890 - Other specified postprocedural states (ICD-10) H/O Achilles tendon repair (08/05/12) ?Z98.890 - Other specified postprocedural states (ICD-10) H/O inguinal hernia repair (07/29/09) ?Z98.890 - Other specified postprocedural states (ICD-10) ?Z87.19 - Personal history of other diseases of the digestive system (ICD-10) Hx of shoulder surgery (07/29/09) ?Z98.890 - Other specified postprocedural states (ICD-10) 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 What is your current living situation?: I presently have a place to live Problems where you live: no known problems Problems where you live details: N/A In the past 12 months, utilities in danger of being shut off: no In past 12 months, lack of transportation kept you from medical appts, meetings, work, or getting things needed for daily living: no In the past 12 mos, have been you worried that your food would run out before you had money to buy more?: never true In the past 12 mos, the food you bought just didn't last and you didn't have money to buy more?: never true Highest level of school completed/degree received: high school graduate Smoking Status: Never smoker Do you use any of these nicotine containing products: None Second hand tobacco smoke exposure: No How often do you have a drink containing alcohol: 2-4 times a month Alcohol typ e: hard liquor How many standard drinks containing alcohol do you have on a typical day: 1 or 2 How often do you have six or more drinks on one occasion: Never AUDIT-C Alcohol total score: 2 Non-prescribed substance use: denies use Caffeine: No How often does anyone, including family, friends and others, physically hurt you : never How often does anyone, including family, friends and others, insult or talk down to you: never How often does anyone, including family, friends and others, threaten you with harm: never How often does anyone, including family, friends and others, scream or curse at you: never Little interest or pleasure in doing things: not at all Feeling down, depressed, or hopeless: not at all service: Yes Meds Home Medications and Allergies Home Medications Medication Instructions Recorded Confirmed Type triamcinolone acetonide 0.1 % 1 applic topical BID PRN 08/10/23 11/12/23 History topical ointment acetaminophen 325 mg tablet 650 mg PO Q4H PRN 08/15/23 11/12/23 History coffee extract 100 mg-phosphatidyl 1 cap PO DAILY 08/16/23 11/12/23 History serine 100 mg capsule (Neuriva Original) coenzyme Q10 30 mg capsule 100 mg PO DAILY 08/31/23 11/12/23 History fluticasone 250 mcg-salmeterol 50 1 inh inhalation BID PRN 08/31/23 11/12/23 History mcg/dose blistr powdr for inhalation (Advair Diskus) glucosamine sulfate 500 mg capsule 1,500 mg PO DAILY 08/31/23 11/12/23 History Allergies Allergy/AdvReac Type Severity Reaction Status Date / Time Penicillins Allergy Unknown swelling Verified 11/12/23 11:09 and redness Exam Narrative: Exam Narrative: GEN: Alert and oriented, sitting comfortably in bed HEENT: Normal external ears, EOMIs bilaterally, no scleral icterus CV: RRR, No concerning murmurs R: LCTA bilaterally without concerning wheezing Ext: wwp, no concerning edema, wearing SCDs Skin: No concerning skin lesions or rashes on exposed skin Neuro: Nonfocal Psych: Appropriate Const: Vital Signs, click to edit/add: Vital Signs - 24 hr 11/12/23 11:50 11/12/23 12:45 11/12/23 12:50 Temperature 97.9 F Pulse Rate 76 70 65 Respiratory Rate 16 16 16 Blood Pressure 127/88 107/76 102/70 Pulse Oximetry 93 98 98 Oxygen Delivery Me thod Room Air Nasal Cannula Nasal Cannula Oxygen Flow Rate 2 2 11/12/23 15:15 11/12/23 15:20 11/12/23 15:25 Temperature 97.4 F L Pulse Rate 80 67 76 Respiratory Rate 10 L 10 L 12 Blood Pressure 94/74 91/76 98/76 Pulse Oximetry 94 96 94 Oxygen Delivery Me thod Nasal Cannula Nasal Cannula Nasal Cannula Oxygen Flow Rate 4 4 4 11/12/23 15:30 11/12/23 15:35 11/12/23 15:40 Temperature Pulse Rate 69 73 70 Respiratory Rate 10 L 12 12 Blood Pressure 86/59 L 117/79 111/84 Pulse Oximetry 94 94 96 Oxygen Delivery Me thod Room Air Room Air Room Air Oxygen Flow Rate 11/12/23 15:45 11/12/23 15:59 11/12/23 15:59 Temperature 96.2 F L 96.3 F L Pulse Rate 70 67 69 Respiratory Rate 12 14 14 Blood Pressure 92/57 L 90/25 L 104/77 Pulse Oximetry 94 94 93 Oxygen Delivery Me thod Room Air Room Air Room Air Oxygen Flow Rate 11/12/23 16:15 11/12/23 16:30 11/12/23 16:45 Temperature 96.4 F L Pulse Rate 68 67 69 Respiratory Rate 14 16 Blood Pressure 103/77 107/83 105/79 Pulse Oximetry 92 Oxygen Delivery Me thod Room Air Room Air Room Air Oxygen Flow Rate 11/12/23 17:00 11/12/23 17:30 11/12/23 19:01 Temperature 96.9 F L 96.7 F L 97.3 F L Pulse Rate 70 76 74 Respiratory Rate 16 18 16 Blood Pressure 93/76 115/85 116/63 Pulse Oximetry 95 95 Oxygen Delivery Me thod Room Air Room Air Room Air Oxygen Flow Rate 4 Assessment and Plan Assessment and plan (1) Total knee replacement status: Problem comment: - Loyd, 11/12/23 Status: Acute (2) Chronic anticoagulation: Problem comment: - 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 Status: Acute Plan - pain management per orthopedic surgery team - restart apixaban tomorrow morning, continue at 5 mg BID - continue home medications for comorbidities - anticipate routine postoperative course
[2023-11-12] MEDS: SENNOSIDES 1 TAB TABLET 2 TAB PO (20:47)
[2023-11-12] MEDS: ASPIRIN 81 MG TABLET EC PO (20:48)
[2023-11-12] MEDS: ROSUVASTATIN CALCIUM 10 MG TABLET PO (22:10)
[2023-11-13] MEDS: ACETAMINOPHEN 500 MG TABLET 1000 MG PO ×3 (01:08→11:47)
[2023-11-13] MEDS: OXYCODONE 5 MG TABLET PO ×4 (04:27→11:49)
[2023-11-13 05:00] VITALS: BP 103/74; PULSE 70; RESP 20; TEMP 36.1; O2SAT 97
[2023-11-13] MEDS: CEFAZOLIN 2 GM in 0.9 % SODIUM CHLORIDE Mini-bag 100 ML IVPB (06:24)
[2023-11-13 06:29] LABS: Basophils Percent Auto 0.1 % (0.0-3.0); Hematocrit 43.5 % (37.0-53.0); Hemoglobin* 14.7 gm/dL (13.5-17.5); Immature Granulocytes Pct Auto 0.2 %; Lymphocytes Percent Auto 8.4 % (20-44); Mean Corpuscular HGB Conc 34 gm/dL (32-36); Mean Corpuscular Hemoglobin 32 pg (26-34); Mean Corpuscular Volume 94 fL (80-100); Monocytes Percent Auto 6.1 % (0.0-11.0); Neutrophils Percent Auto 85.2 % (42.0-72.0); Platelet Count* 238 K/uL (140-440); Red Blood Count 4.65 m/uL (4.30-5.90); White Blood Count* 12.81 K/uL (4.50-11.00)
[2023-11-13 06:32] LABS: Slide Review Reflex No
[2023-11-13 06:45] LABS: Potassium* 4.3 mmol/L (3.6-5.1); Sodium* 136 mmol/L (135-149)
[2023-11-13 06:48] LABS: Creatinine* 0.8 mg/dL (0.5-1.5); Estimated Glomerular Filt Rate 95 ml/min
[2023-11-13 06:49] LABS: Blood Urea Nitrogen* 27 mg/dL (7-30)
[2023-11-13 07:38] VITALS: BP 100/77; PULSE 66; RESP 12; TEMP 36.4; O2SAT 93
[2023-11-13] MEDS: ASPIRIN 81 MG TABLET EC PO (09:09)
[2023-11-13] MEDS: OMEPRAZOLE 20 MG CAPSULE DR PO (09:09)
[2023-11-13] MEDS: LOSARTAN POTASSIUM 50 MG TABLET 100 MG PO (09:09)
[2023-11-13] MEDS: APIXABAN 5 MG TABLET PO (09:09)
[2023-11-13] MEDS: SENNOSIDES 1 TAB TABLET 2 TAB PO (09:09)
[2023-11-13 11:00] VITALS: BP 104/77; PULSE 78; RESP 16; TEMP 36.9; O2SAT 94
--- NOTE | 2023-11-13 11:46 | PM.ORPN ---
Subjective Subjective Date Seen: 11/13/23 Principal diagnosis: Status postop day 1 right total knee arthroplasty Interval history: Patient reports doing well. No acute events over night. Pain managed with scheduled and PRN medications, ice. DVT prophylaxis: Apixaban due to history of DVT/PE following right shoulder surgery, SCDs, walking. Denies fevers, chills, aches, N/V, CP, SOB/GARIBAY, or lightheadedness. No flatus to date. Ortho Exam Narrative Exam Narrative: -Patient appears comfortable; no apparent acute distress -Alert and oriented times 3 -Operative knee mildly swollen; soft tissues supple; no ecchymosis; no erythematous streaking Warmth appropriate -Surgical dressing clean, dry, intact; no drainage -Bilateral calfs soft; no edema, tenderness, erythema, discoloration, warmth, or palpable cords. The right calf is larger than the left, which is baseline per patient. He states there is a chronic clot in the right lower extremity. -2+ DP/PT pulses, intact dermatomes and myotomes distally (5/5 strength) Const Vital Signs, click to edit/add: Vital Signs - 24 hr 11/12/23 11:50 11/12/23 12:45 11/12/23 12:50 Temperature 97.9 F Pulse Rate 76 70 65 Pulse Rate [Pulse Oximeter] Respiratory Rate 16 16 16 Blood Pressure 127/88 107/76 102/70 Blood Pressure [Left Arm] Blood Pressure [Right Arm'] Pulse Oximetry 93 98 98 Oxygen Delivery Method Room Air Nasal Cannula Nasal Cannula Oxygen Flow Rate 2 2 11/12/23 15:15 11/12/23 15:20 11/12/23 15:25 Temperature 97.4 F L Pulse Rate 80 67 76 Pulse Rate [Pulse Oximeter] Respiratory Rate 10 L 10 L 12 Blood Pressure 94/74 91/76 98/76 Blood Pressure [Left Arm] Blood Pressure [Right Arm'] Pulse Oximetry 94 96 94 Oxygen Delivery Method Nasal Cannula Nasal Cannula Nasal Cannula Oxygen Flow Rate 4 4 4 11/12/23 15:30 11/12/23 15:35 11/12/23 15:40 Temperature Pulse Rate 69 73 70 Pulse Rate [Pulse Oximeter] Respiratory Rate 10 L 12 12 Blood Pressure 86/59 L 117/79 111/84 Blood Pressure [Left Arm] Blood Pressure [Right Arm'] Pulse Oximetry 94 94 96 Oxygen Delivery Method Room Air Room Air Room Air Oxygen Flow Rate 11/12/23 15:45 11/12/23 15:59 11/12/23 15:59 Temperature 96.2 F L 96.3 F L Pulse Rate 70 67 69 Pulse Rate [Pulse Oximeter] Respiratory Rate 12 14 14 Blood Pressure 92/57 L 90/25 L 104/77 Blood Pressure [Left Arm] Blood Pressure [Right Arm'] Pulse Oximetry 94 94 93 Oxygen Delivery Method Room Air Room Air Room Air Oxygen Flow Rate 11/12/23 16:15 11/12/23 16:30 11/12/23 16:45 Temperature 96.4 F L Pulse Rate 68 67 69 Pulse Rate [Pulse Oximeter] Respiratory Rate 14 16 Blood Pressure 103/77 107/83 105/79 Blood Pressure [Left Arm] Blood Pressure [Right Arm'] Pulse Oximetry 92 Oxygen Delivery Method Room Air Room Air Room Air Oxygen Flow Rate 11/12/23 17:00 11/12/23 17:30 11/12/23 19:01 Temperature 96.9 F L 96.7 F L 97.3 F L Pulse Rate 70 76 74 Pulse Rate [Pulse Oximeter] Respiratory Rate 16 18 16 Blood Pressure 93/76 115/85 116/63 Blood Pressure [Left Arm] Blood Pressure [Right Arm'] Pulse Oximetry 95 95 Oxygen Delivery Method Room Air Room Air Room Air Oxygen Flow Rate 4 11/12/23 20:12 11/12/23 20:39 11/12/23 20:45 Temperature 97.3 F L 97.3 F L 97.6 F Pulse Rate 74 Pulse Rate [Pulse Oximeter] 60 Respiratory Rate 16 16 Blood Pressure 116/78 Blood Pressure [Left Arm] Blood Pressure [Right Arm'] Pulse Oximetry 96 118 H Oxygen Delivery Method Room Air Room Air Oxygen Flow Rate 6 11/12/23 20:46 11/12/23 23:00 11/12/23 23:00 Temperature 97.6 F 97.6 F Pulse Rate 60 Pulse Rate [Pulse Oximeter] 73 Respiratory Rate 16 16 Blood Pressure 118/87 Blood Pressure [Left Arm] 112/81 Blood Pressure [Right Arm'] Pulse Oximetry 118 H 96 Oxygen Delivery Method Room Air Room Air Oxygen Flow Rate 0 11/13/23 05:00 11/13/23 07:38 11/13/23 07:38 Temperature 96.9 F L 97.6 F Pulse Rate Pulse Rate [Pulse Oximeter] 70 66 Respiratory Rate 20 12 Blood Pressure Blood Pressure [Left Arm] 103/74 Blood Pressure [Right Arm'] 100/77 Pulse Oximetry 97 93 93 Oxygen Delivery Method Room Air Room Air Oxygen Flow Rate 11/13/23 07:38 11/13/23 11:00 Temperature 98.5 F Pulse Rate Pulse Rate [Pulse Oximeter] 66 78 Respiratory Rate 12 16 Blood Pressure Blood Pressure [Left Arm] Blood Pressure [Right Arm'] 104/77 Pulse Oximetry 94 Oxygen Delivery Method Room Air Oxygen Flow Rate Assessment and Plan Assessment and plan (1) Total knee replacement status: Problem details: - Loyd FRAZIER, 11/12/23 Status: Acute (2) Chronic anticoagulation: Problem details: - 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 - apixaban Status: Acute Plan - Complete 23 hour perioperative antibiotics. - PT/OT consult for education and assistance. - Social work consult for discharge planning - Prescribed analgesics as needed - DVT prophylaxis: Apixaban 5mg twice daily, and SCDs. Will apply his own compression socks when he returns home. - Anticipation is for discharge to home with spouse today, 11/13/2023 if the patient remains medically stable, pain is controlled, and they are safe with mobilization.
--- NOTE | 2023-11-13 15:31 | PC.NURSE ---
Discharge: Patient pleasant and cooperative. Patient vitally stable, lungs clear, BS WNL, IV removed, catheter intact. Patient rates right knee pain at most 4/10, dressing C/D/I. Scheduled tylenol given and 10 mg of oxy given x3. Patient tolerating regular diet, urinating well, and passing gas. Patient signed belonging sheet and discharge form. Patient had no further questions regarding discharge. Patient left the floor to home by wheelchair at 1520.
== END 2023-11-13 15:20 | disposition home or self-care (01) ==
LOC: OR 10:40 → MEDSURG 10:47
PROVIDERS: PCP Family Medicine; Visit Provider Orthopaedic Surgery Sports Medicine
PROC: (CPT 27447; principal; 2023-11-12 13:00)
DX: M17.11 Unilateral primary osteoarthritis, right knee (principal); G89.18 Other acute postprocedural pain; Z86.718 Personal history of other venous thrombosis and embolism; Z86.711 Personal history of pulmonary embolism; Z79.01 Long term (current) use of anticoagulants; I10 Essential (primary) hypertension
CPT/HCPCS: 27447; 01402; 36415; 64447; 64454; 73560; 76942; 82565; 84132; 84295; 84520; 85025; 97110; 97116; 97161; 97165; 97530; 99100; A9270; C1776; J0690; J1100; J1170; J2250; J2371; J2405; J2704; J2795; J3010; J7120

== ENCOUNTER 2023-11-14 09:46 | Emergency (ER) | payer OTHER, SELFPAY ==
[2023-11-14 10:06] VITALS: BP 105/72; PULSE 79; RESP 18; O2SAT 98; BMI 36.5
--- NOTE | 2023-11-14 11:52 | ED_ITS ---
HPI - General Adult General Chief complaint: Extremity Pain/Injury, Lower Stated complaint: post knee surgery pain/swelling Time Seen by Provider: 11/14/23 10:51 History of Present Illness HPI narrative: This 68-year-old male comes in with severe right knee pain. He had an knee replacement procedure done 2 days ago and was discharged yesterday. He resumed his Eliquis for chronic anticoagulation also yesterday. He comes in today stating that his pain is out of control with increased swelling in his right knee. He did take oxycodone this morning. Related Data Home Medications Medication Instructions Recorded Confirmed triamcinolone acetonide 0.1 % 1 applic topical BID PRN 08/10/23 11/12/23 topical ointment acetaminophen 325 mg tablet 650 mg PO Q4H PRN 08/15/23 11/12/23 coffee extract 100 mg-phosphatidyl 1 cap PO DAILY 08/16/23 11/12/23 serine 100 mg capsule (Neuriva Original) coenzyme Q10 30 mg capsule 100 mg PO DAILY 08/31/23 11/12/23 fluticasone 250 mcg-salmeterol 50 1 inh inhalation BID PRN 08/31/23 11/12/23 mcg/dose blistr powdr for inhalation (Advair Diskus) glucosamine sulfate 500 mg capsule 1,500 mg PO DAILY 08/31/23 11/12/23 Previous Rx's Medication Instructions Recorded omeprazole 20 mg capsule,delayed 20 mg PO DAILY #90 caps 07/20/23 release apixaban 5 mg tablet (Eliquis) 5 mg PO BID #60 tabs 07/27/23 losartan 100 mg tablet 100 mg PO DAILY #90 tabs 09/06/23 hydrochlorothiazide 12.5 mg capsule 12.5 mg PO DAILY #90 caps 09/28/23 rosuvastatin 10 mg tablet 10 mg PO HS #90 tabs 10/26/23 oxycodone 5 mg tablet 2.5 - 5 mg (0.5 - 1 x 5 mg) PO 11/13/23 Q4-6H PRN pain #42 tabs sennosides 8.6 mg-docusate sodium 1 - 4 tab-cap (1 - 4 x 8.6-50 mg) 11/13/23 50 mg tablet (Senna-S) PO BID PRN constipation #60 tabs tramadol 50 mg tablet 50 mg PO Q6H PRN pain #20 tabs 11/14/23 Allergies Allergy/AdvReac Type Severity Reaction Status Date / Time Penicillins Allergy Unknown swelling Verified 11/14/23 10:09 and redness PFSH PFSH Medical History (Updated 11/14/23 @ 14:06 by Familia De Los Santos MD) Chronic anticoagulation ?Z79.01 - buttermilk drier operator (current) use of anticoagulants (ICD-10) BPH associated with nocturia ?N40.1 - Benign prostatic hyperplasia with lower urinary tract symptoms (ICD- 10) ?R35.1 - Nocturia (ICD-10) Pulmonary embolism ?I26.99 - Other pulmonary embolism without acute cor pulmonale (ICD-10) Osteoarthritis of knees, bilateral ?M17.0 - Bilateral primary osteoarthritis of knee (ICD-10) Hypertension (07/29/09) ?I10 - Essential (primary) hypertension (ICD-10) Hyperlipidemia ?E78.5 - Hyperlipidemia, unspecified (ICD-10) Dysuria ?R30.0 - Dysuria (ICD-10) Abnormal echocardiogram ?R93.1 - Abnormal findings on diagnostic imaging of heart and coronary circulation (ICD-10) Exertional dyspnea ?R06.09 - Other forms of dyspnea (ICD-10) Umbilical hernia (07/29/09) ?K42.9 - Umbilical hernia without obstruction or gangrene (ICD-10) Rupture of Achilles tendon ?S86.019A - Strain of unspecified Achilles tendon, initial encounter (ICD-10) Encounter for routine history and physical examination of adult ?Z00.00 - Encounter for general adult medical examination without abnormal findings (ICD-10) Surgical History (Updated 11/12/23 @ 20:04 by Mira Kc MD) H/O arthroscopy of right knee (02/14/08) ?Z98.890 - Other specified postprocedural states (ICD-10) History of ERCP ?Z98.890 - Other specified postprocedural states (ICD-10) H/O arthroscopy of left knee (03/11/12) ?Z98.890 - Other specified postprocedural states (ICD-10) H/O Achilles tendon repair (08/05/12) ?Z98.890 - Other specified postprocedural states (ICD-10) H/O inguinal hernia repair (07/29/09) ?Z98.890 - Other specified postprocedural states (ICD-10) ?Z87.19 - Personal history of other diseases of the digestive system (ICD-10) Hx of shoulder surgery (07/29/09) ?Z98.890 - Other specified postprocedural states (ICD-10) 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 What is your current living situation?: I presently have a place to live Problems where you live: no known problems Problems where you live details: N/A In the past 12 months, utilities in danger of being shut off: no In past 12 months, lack of transportation kept you from medical appts, meetings, work, or getting things needed for daily living: no In the past 12 mos, have been you worried that your food would run out before you had money to buy more?: never true In the past 12 mos, the food you bought just didn't last and you didn't have money to buy more?: never true Highest level of school completed/degree received: high school graduate Smoking Status: Never smoker Do you use any of these nicotine containing products: None Second hand tobacco smoke exposure: No How often do you have a drink containing alcohol: 2-4 times a month Alcohol type: hard liquor How many standard drinks containing alcohol do you have on a typical day: 1 or 2 How often do you have six or more drinks on one occasion: Never AUDIT-C Alcohol total score: 2 Non-prescribed substance use: denies use Caffeine: No How often does anyone, including family, friends and others, physically hurt you : never How often does anyone, including family, friends and others, insult or talk down to you: never How often does anyone, including family, friends and others, threaten you with harm: never How often does anyone, including family, friends and others, scream or curse at you: never Little interest or pleasure in doing things: not at all Feeling down, depressed, or hopeless: not at all service: Yes Exam Const: Vital Signs, click to edit/add: Vital Signs - 24 hr 11/14/23 10:06 Pulse Rate [Right] 79 Respiratory Rate 18 Blood Pressure [Ri ght Upper Arm] 105/72 Pulse Oximetry 98 Oxygen Delivery Me thod Room Air Course Vital Signs Vital signs: Initial Vital Signs Pulse Rate 79 11/14/23 10:06 Respiratory Rate 18 11/14/23 10:06 Blood Pressure 105/72 11/14/23 10:06 Blood Pressure Mean 83 11/14/23 10:06 Blood Pressure Position Sitting 11/14/23 10:06 Pulse Oximetry 98 11/14/23 10:06 Oxygen Delivery Method Room Air 11/14/23 10:06 Vital Signs Pulse Rate 79 11/14/23 10:06 Respiratory Rate 18 11/14/23 10:06 Blood Pressure 105/72 11/14/23 10:06 Pulse Oximetry 98 11/14/23 10:06 Oxygen Delivery Method Room Air 11/14/23 10:06 Pulse Rate 79 11/14/23 10:06 Respiratory Rate 18 11/14/23 10:06 Blood Pressure 105/72 11/14/23 10:06 Pulse Oximetry 98 11/14/23 10:06 Oxygen Delivery Method Room Air 11/14/23 10:06 Medications Administered Medications: Discontinued Medications Generic Name Dose Route Start Last Admin Trade Name Danny PRN Reason Stop Dose Admin Morphine Sulfate 10 mg 11/14/23 11:47 11/14/23 12:02 Morphine 10 Mg/Ml Inj IM 11/14/23 11:48 10 mg ONCE ONE Administration Medical Decision Making MDM Narrative Medical decision making narrative: This patient comes in with severe pain in his right knee after having a knee replacement surgery 2 days ago. He did restart his Eliquis yesterday and now reports increased pain and swelling in his right knee. He does have a little bit of bruising on the medial aspect. It seems most likely that he has had some extra bleeding after restarting Eliquis. He is not showing sign of infection as he has no increased pain when passively moving his knee joint. He does have a prior history of a deep venous thrombus in that same leg and this is the reason why he has been on Eliquis. I did speak with the orthopedic physician's stylist assistant hydraulic elevator constructor, Kaivn Do, who did come to evaluate the patient. A x-ray of the right knee is obtained and returns with no findings to explain the increased pain. The patient did receive an intramuscular injection of morphine 10 mg and later a tablet of oxycodone. He states that he is feeling better now. He is okay to be discharged home. I did provide a prescription for tramadol and encouraged him 1st to take 2 tablets of oxycodone every 6 hours if needed for extra pain relief. Imaging Data XR R Knee: Radiologist's impression: Knee arthroplasty hardware intact. No fracture. No hardware loosening. Prepatellar soft tissue swelling noted. A small amount of residual subcutaneous emphysema is present. Quadriceps tendon is intact. No effusion within the joint space Discharge Plan Discharge Clinical Impression: Post-op pain Patient Disposition: Home w/ Parent or Adult Condition: Improved Additional Instructions: Continue current plans. Take 2 tablets of oxycodone every 6 hours as needed for pain. Add tramadol if additional pain management is needed. Follow up with MD return if worsening. Prescriptions: New tramadol 50 mg tablet 50 mg PO Q6H PRN (Reason: pain) Qty: 20 0RF No Action fluticasone propion-salmeterol [Advair Diskus] 250-50 mcg/dose blister with device 1 inh inhalation BID PRN coenzyme Q10 30 mg capsule 100 mg PO DAILY glucosamine sulfate 500 mg capsule 1,500 mg PO DAILY acetaminophen 325 mg tablet 650 mg PO Q4H PRN Neuriva Original 100-100 mg capsule 1 cap PO DAILY triamcinolone acetonide 0.1 % ointment 1 applic topical BID PRN sennosides-docusate sodium [Senna-S] 8.6-50 mg tablet 1 - 4 tab-cap PO BID PRN (Reason: constipation) Qty: 60 0RF Rx Instructions: Hold medication if experiencing loose stools. oxycodone 5 mg tablet 2.5 - 5 mg PO Q4-6H MDD 6 PRN (Reason: pain) Qty: 42 0RF Rx Instructions: Take as needed for postop pain: 2.5mg mild pain, 5mg moderate-severe pain; wean as tolerated. omeprazole 20 mg capsule,delayed release(DR/EC) 20 mg PO DAILY Qty: 90 2RF Eliquis 5 mg tablet 5 mg PO BID Qty: 60 5RF losartan 100 mg tablet 100 mg PO DAILY Qty: 90 3RF hydrochlorothiazide 12.5 mg capsule 12.5 mg PO DAILY Qty: 90 3RF rosuvastatin 10 mg tablet 10 mg PO HS Qty: 90 3RF Follow Up/Referrals: Ayan Shen MD [Primary Care Provider] - Stand Alone Forms: [facility] Info Instructions
--- OUTSIDE RECORDS SUMMARY | 2023-11-14 11:53 | XMS_ITS | Encounter Summary ---
Author Name Unknown Organization [place] Address [address] [place] [address] Care Team Providers Care Core Laying Machine Operator Name Role Phone Ayan Shen MD Primary Care Provider [phone] Reason for Visit * Auth/Cert (Routine) Specialty Diagnoses / Procedures Referred By Jeffery t Referred To Contact Surgery Diagnoses Common bile duct (CBD) stricture (H28) History of cholangitis Common bile duct (CBD) stricture (H28) [K83.1] History of cholangitis [Z87.19] Procedures NJ ERCP DX COLLECTION SPECIMEN BRUSHING/WASHING NJ ENDOSCOPIC US EXAM, ESOPH NJ UPPR GI ENDOSCOPY W/US FN BX NJ EGD INTRMURAL NEEDLE ASPIR/BIOP ALTERED ANATOMY NJ EDG US EXAM SURGICAL ALTER STOM DUODENUM/JEJUNUM Endoscopic retrograde cholangiopancreatogram endoscopic ultrasound Periop Services [address], [address] [place] [address] Referral ID Status Reason Start Date Expiration Date Visits Re quested Visits Authorized [id number] 1 1 Encounter Details Date Type Department Care Team (Late st Contact Info) Description 09/05/2023 1:30 PM PRIEST Anesthesia Event [facility] PeriOP Services [address] [place] [address] Darion Walton MD [facility] [address] [place] [id number] Ginna Arias, TRUSS DESIGNER SECURITY CONTROL ASSESSOR [address] [place] [address] [...] recorded are pre- induction. Ginna Arias APRN SECURITY CONTROL ASSESSOR [id number] Anesthesia Ready for Procedu re 1339 [...] Walton MD September 05, 2023 2:[address] * Anesthesia Preprocedure Evaluation - Darion Walton [...] and realistic alternatives discussed. Questions answered and patient/senior sales representative(s) expressed understanding. - Discussed: - Discussed [...] of this encounter: 112 kg ([address] documented in this encounter Miscellaneous Notes * [...] report on patient's clinical status given to DIRECTOR OF TEENAGE ACTIVITIES, RN questions answered. Handoff Report: Identifed the [...] APRN CRNA September 05, 2023 1:[address] documented in this encounter Plan of Treatment [...] 1341, Anesthesia Intra-op $Given 09/05/2023 1:41 PM PRIEST 50 mcg lactated ringers infusion Intravenous, CONTINUOUS PRN, Anesthesia Intra-op, Starting on Sun09/05/23 at 1330, Until Sun09/05/23 at 1400 $New Bag 09/05/2023 1:30 PM PRIEST lidocaine 2% injection (MDV) Intravenous, PRN, Starting on Sun09/05/23 at 1333, Anesthesia Intra-op $Given 09/05/2023 1:33 PM PRIEST 60 mg ondansetron (ZOFRAN) injection Intravenous, PRN, Administer over 2-5 Minutes, Starting on Sun09/05/23 at 1333, Anesthesia Intra-op $Given 09/05/2023 1:33 PM PRIEST 4 mg propofol (DIPRIVAN) infusion Intravenous, CONTINUOUS PRN, Starting on Sun09/05/23 at 1334, Anesthesia Intra-op $New Bag 09/05/2023 1:34 PM PRIEST 150 mcg/kg/min 100.8 mL/hr propofol (DIPRIVAN) injection 10 mg/mL vial Intravenous, PRN, Starting on Sun09/05/23 at 1334, Anesthesia Intra-op $Given 09/05/2023 1:37 PM PRIEST 20 mg $Given 09/05/2023 1:34 PM PRIEST 30 mg documented in this encounter Care Teams Core Laying Machine Operator Relationship Specialty Start Date End Date Ayan Shen MD [facility] [address] [address] PCP - General Family Medicine 09/05/23 documented as of this encounter
--- OUTSIDE RECORDS SUMMARY | 2023-11-14 11:53 | XMS_ITS | Referral Summary ---
Author Name Unknown Organization [place] Address [address] [place] [address]. [place] [address] Care Team Providers Care Landscape Designer Name Role Phone Ayan Shen MD Primary Care Provider [phone] Encounters Date Type Department Care Team Description 09/05/2023 1:30 PM DIDACTIC INSTRUCTOR Anesthesia Event [facility] [address] [place] [address] Darion Walton MD Scott, Meredith R, FAMILY NURSE PRACTITIONER THREAD GRINDER TOOL 09/05/2023 1:20 PM DIDACTIC INSTRUCTOR - 09/05/2023 2:55 PM DIDACTIC INSTRUCTOR Surgery [facility] [address] [place] [address] Richard Sandoval MD endoscopic ultrasound 09/05/2023 10:55 AM DIDACTIC INSTRUCTOR - 09/05/2023 2:56 PM DIDACTIC INSTRUCTOR Hospital Encounter [facility] PreOP/Phase II [address] [place] [address] Richard Sandoval MD Discharge Disposition: Home or Self Care 08/16/[address] [facility] [address] [place] [address] [place] [phone] Scan, Non-Provider from Last 3 Months Allergies [...] Comments Blood Pressure 108/81 09/05/2023 2:55 PM DIDACTIC INSTRUCTOR Pulse 72 09/05/2023 2:30 PM DIDACTIC INSTRUCTOR Temperature 36.3 ??C (97.4 ??F) 09/05/2023 2:30 PM CS T Respiratory Rate 16 09/05/2023 2:55 PM DIDACTIC INSTRUCTOR Oxygen Saturation 97% 09/05/2023 2:55 PM DIDACTIC INSTRUCTOR Inhaled Oxygen Concentration - - Weight 112 kg (247 lb) 09/05/2023 11:14 AM DIDACTIC INSTRUCTOR Height 177.8 cm (5' 10) 09/05/2023 11:14 AM DIDACTIC INSTRUCTOR Body Mass Index 35.44 09/05/2023 11:14 AM DIDACTIC INSTRUCTOR Plan of Treatment Not on file Procedures Procedure Name Priority Date/Time Associated Diagnosis Comments ESOPHAGOGASTRODUOD ENOSCOPY, WITH ENDOSCOPIC ULTRASOUND GUIDANCE 09/05/2023 1:20 PM DIDACTIC INSTRUCTOR Common bile duct (CBD) stricture (H28) History of cholangitis Special Needs *robby-cpap, htn, dvt(2016). UPPER EUS Routine 09/05/2023 12:23 PM DIDACTIC INSTRUCTOR BASIC METABOLIC PANEL Routine 11/24/2004 8:10 AM CDT from Last 3 Months or Most Recently Relevant to Health Maintenance Results * UPPER EUS (09/05/2023 12:23 PM DIDACTIC INSTRUCTOR) Upper EUS [place] [address] ??[place] [id number] ___ Patient Name: Trell Gunter ? Procedure Date: 09/05/2023 12:23 PM ? Date of : 1955 ?Admit Type: Outpatient Age: 68 ? Room: OR [facility] Note Status: Finalized ?Attending MD: RICHARD SANDOVAL MD, Instrument Name: [id number] Linear ___ Procedure: ?Upper EUS Indications: ?previous [...] Procedure Code(s): ? --- Professional --- ? 71469, Esophagogastroduode noscopy, flexible, transoral; with endoscopic ? ultrasound examination, including the esophagus, stomach, and either the ? duodenum or a surgically altered stomach where the jejunum is examined ? distal to the anastomosis CPT copyright 2021 [employer]. All rights reserved. The codes documented in this report are preliminary and upon yard coupler review may be revised to meet current [...] PM RADIOLOGY RESULTS 09/05/2023 12:2 3 PM DIDACTIC INSTRUCTOR Richard Sandoval MD PROCEDURES RADIOLOGY RESULTS * [...] Recently Relevant to Health Maintenance Care Teams Landscape Designer Relationship Specialty Start Date End Date Aayn Shen MD [facility] [address] [id number] PCP - General Family Medicine 09/05/23
--- OUTSIDE RECORDS SUMMARY | 2023-11-14 11:53 | XMS_ITS | Clinical Summary ---
Author Name Unknown Organization [place] Address [address] [place] [address] Care Team Providers Care Inter Com Installer Name Role Phone Ayan Shen MD Primary Care Provider [phone] Allergies Active Allergy Reactions Criticality Noted Date [...] Department Care Team Description 09/05/2023 1:30 PM MANAGER DECISION SUPPORT Anesthesia Event [facility] [address] [place] [address] Darion Walton MD Scott, Meredith R, APRN SENIOR MARKETING DATA ANALYST 09/05/2023 1:20 PM MANAGER DECISION SUPPORT - 09/05/2023 2:55 PM MANAGER DECISION SUPPORT Surgery [facility] [address] [place] [address] Richard Sandoval MD endoscopic ultrasound 09/05/2023 10:55 AM MANAGER DECISION SUPPORT - 09/05/2023 2:56 PM MANAGER DECISION SUPPORT Hospital Encounter [facility] PreOP/Phase II [address] [place] [phone] Richard Sandoval MD Discharge Disposition: Home or Self Care 08/16/2023 Medical Correspondence [facility] [address] [facility] [place] [phone] Scan, Non-Provider from Last 3 Months Social [...] Blood Pressure 108/81 09/05/2023 2:55 PM MANAGER DECISION SUPPORT Pulse 72 09/05/2023 2:30 PM MANAGER DECISION SUPPORT Temperature 36.3 ??C (97.4 ??F) 09/05/2023 2:30 PM CS T Respiratory Rate 16 09/05/2023 2:55 PM MANAGER DECISION SUPPORT Oxygen Saturation 97% 09/05/2023 2:55 PM MANAGER DECISION SUPPORT Inhaled Oxygen Concentration - - Weight 112 kg (247 lb) 09/05/2023 11:14 AM MANAGER DECISION SUPPORT Height 177.8 cm (5' 10) 09/05/2023 11:14 AM MANAGER DECISION SUPPORT Body Mass Index 35.44 09/05/2023 11:14 AM MANAGER DECISION SUPPORT Plan of Treatment Health Maintenance Due Date [...] ENDOSCOPIC ULTRASOUND GUIDANCE 09/05/2023 1:20 PM MANAGER DECISION SUPPORT Common bile duct (CBD) stricture (H28) History of cholangitis Special Needs *robby-cpap, htn, dvt(2016). UPPER EUS Routine 09/05/2023 12:23 PM MANAGER DECISION SUPPORT BASIC METABOLIC PANEL Routine 11/24/2004 8:10 AM CDT from Last 3 Months or Most Recently Relevant to Health Maintenance Results * UPPER EUS (09/05/2023 12:23 PM MANAGER DECISION SUPPORT) [place] [address] [place] [address] ___ Patient Name: Trell Gunter ? Procedure Date: 09/05/2023 12:23 PM ? Date of : 1955 ?Admit Type: Outpatient Age: 68 ? Room: OR R 03 Note Status: Finalized ?Attending MD: RICHARD SANDOVAL MD, Instrument Name: 531 [id number] Linear ___ Procedure: ?Upper EUS Indications: ?previous [...] Procedure Code(s): ? --- Professional --- ? 52751, Esophagogastroduode noscopy, flexible, transoral; with endoscopic ? ultrasound examination, including the esophagus, stomach, and either the ? duodenum or a surgically altered stomach where the jejunum is examined ? distal to the anastomosis CPT copyright 2021 [employer]. All rights reserved. The codes documented in this report are preliminary and upon psychiatric assistant review may be revised to meet current [...] RADIOLOGY RESULTS 09/05/2023 12:2 3 PM MANAGER DECISION SUPPORT Richard Sandoval MD PROCEDURES RADIOLOGY RESULTS * [...] Recently Relevant to Health Maintenance Care Teams Inter Com Installer Relationship Specialty Start Date End Date Ayan Shen MD [facility] [address] [address] PCP - General Family Medicine 09/05/23
--- OUTSIDE RECORDS SUMMARY | 2023-11-14 11:54 | XMS_ITS | Encounter Summary ---
Author Name Unknown Organization [place] Address [address] [place] [address] Care Team Providers Care Licensing Coordinator Name Role Phone Ayan Shen MD Primary Care Provider [phone] Reason for Visit * Auth/Cert (Routine) Specialty Diagnoses / Procedures Referred By Jeffery t Referred To Contact Surgery Diagnoses Common bile duct (CBD) stricture (H28) History of cholangitis Common bile duct (CBD) stricture (H28) [K83.1] History of cholangitis [Z87.19] Procedures RI ERCP DX COLLECTION SPECIMEN BRUSHING/WASHING RI ENDOSCOPIC US EXAM, ESOPH RI UPPR GI ENDOSCOPY W/US FN BX RI EGD INTRMURAL NEEDLE ASPIR/BIOP ALTERED ANATOMY RI EDG US EXAM SURGICAL ALTER STOM DUODENUM/JEJUNUM Endoscopic retrograde cholangiopancreatogram endoscopic ultrasound [facility] [address] [place] [address] Referral ID Status Reason Start Date Expiration Date Visits Re quested Visits Authorized [id number] 1 1 Encounter Details Date Type Department Care Team (Late st Contact Info) Description 09/05/2023 10:55 AM PHOTOGRAPHIC ENGINEER - 09/05/2023 2:56 PM PHOTOGRAPHIC ENGINEER Hospital Encounter [facility] PreOP/Phase II [address] [place] [address] Richard Sandoval MD [facility] [address] [facility] [place] [id number] Discharge Disposition: Home or Self Care Social [...] Comments Blood Pressure 108/81 09/05/2023 2:55 PM PHOTOGRAPHIC ENGINEER Pulse 72 09/05/2023 2:30 PM PHOTOGRAPHIC ENGINEER Temperature 36.3 ??C (97.4 ??F) 09/05/2023 2:30 PM CS T Respiratory Rate 16 09/05/2023 2:55 PM PHOTOGRAPHIC ENGINEER Oxygen Saturation 97% 09/05/2023 2:55 PM PHOTOGRAPHIC ENGINEER Inhaled Oxygen Concentration - - Weight 112 kg (247 lb) 09/05/2023 11:14 AM PHOTOGRAPHIC ENGINEER Height 177.8 cm (5' 10) 09/05/2023 11:14 AM PHOTOGRAPHIC ENGINEER Body Mass Index 35.44 09/05/2023 11:14 AM PHOTOGRAPHIC ENGINEER documented in this encounter Discharge Instructions * Discharge Instructions* Aleksander Youngblood RN - 09/05/2023 2:02 PM PHOTOGRAPHIC ENGINEER Same Day Surgery Discharge Instructions for Sedation [...] about your procedure, call Dr. Sandoval at [phone]. OGRAPHIC ENGINEER documented in this encounter Medications at Time [...] in recliner and transported to Phase 2. OGRAPHIC ENGINEER * Itz Beck RN - 09/05/2023 12:37 PM CST Pt gave his wallet and cell phone to his daughter to hold onto while in surgery. OGRAPHIC ENGINEER documented in this encounter Plan of Treatment Not on file documented as of this encounter Procedures Procedure Name Priority Date/Time Associated Diagnosis Comments ESOPHAGOGASTRODUOD ENOSCOPY, WITH ENDOSCOPIC ULTRASOUND GUIDANCE 09/05/2023 1:20 PM PHOTOGRAPHIC ENGINEER Common bile duct (CBD) stricture (H28) History of cholangitis Special Needs *robby-cpap, htn, dvt(2016). UPPER EUS Routine 09/05/2023 12:23 PM PHOTOGRAPHIC ENGINEER documented in this encounter Results * UPPER EUS (09/05/2023 12:23 PM PHOTOGRAPHIC ENGINEER) Upper EUS [place] [address] [place] ??[address] ___ Patient Name: Trell Gunter ? Procedure Date: 09/05/2023 12:23 PM ? Date of : 1955 ?Admit Type: Outpatient Age: 68 ? Room: OR R 03 Note Status: Finalized ?Attending MD: RICHARD SANDOVAL MD, Instrument Name: [id number] Linear ___ Procedure: ?Upper EUS Indications: ?previous [...] Procedure Code(s): ? --- Professional --- ? 31397, Esophagogastroduode noscopy, flexible, transoral; with endoscopic ? ultrasound examination, including the esophagus, stomach, and either the ? duodenum or a surgically altered stomach where the jejunum is examined ? distal to the anastomosis CPT copyright 2021 [employer] [place] [employer]. All rights reserved. The codes documented in this report are preliminary and upon remote inpatient coder review may be revised to meet current [...] PM RADIOLOGY RESULTS 09/05/2023 12:2 3 PM PHOTOGRAPHIC ENGINEER Richard Sandoval MD PROCEDURES RADIOLOGY RESULTS documented [...] at 1357 $New Bag 09/05/2023 11:54 AM PHOTOGRAPHIC ENGINEER 10 mL/hr naloxone (NARCAN) injection 0.2 mg [...] Recently Administered Medications Times are shown in PHOTOGRAPHIC ENGINEER. Continuous Medication Order 09/03/2023 09/04/2023 09/05/2023 lactated [...] Irritant. documented in this encounter Care Teams Licensing Coordinator Relationship Specialty Start Date End Date Ayan Shen MD [facility] [address] [address] PCP - General Family Medicine 09/05/23 documented as of this encounter
--- OUTSIDE RECORDS SUMMARY | 2023-11-14 11:54 | XMS_ITS | Encounter Summary ---
Author Name Unknown Organization [place] Address [address] [place] [address]. [place] [address] Care Team Providers Care Corporate Communications Associate Name Role Phone Ayan Shen MD Primary Care Provider [phone] Encounter Details Date Type Department Care Team (Late st Contact Info) Description 08/16/2023 Medical Correspondence [facility] Info Mgmt [facility] [address] [place] [phone] Scan, Non-Provider Social History Tobacco Use [...] on filedocumented in this encounter Care Teams Corporate Communications Associate Relationship Specialty Start Date End Date Ayan Shen MD [facility] [address] [address] PCP - General Family Medicine 09/05/23 documented as of this encounter
--- OUTSIDE RECORDS SUMMARY | 2023-11-14 11:54 | XMS_ITS | Encounter Summary ---
Author Name Unknown Organization [place] Address [address] [place] [address] Care Team Providers Care Customer Manager Name Role Phone Ayan Shen MD Primary Care Provider [phone] Reason for Visit * Auth/Cert (Routine) Specialty Diagnoses / Procedures Referred By Jeffery pollard Referred To Contact Surgery Diagnoses Common bile duct (CBD) stricture (H28) History of cholangitis Common bile duct (CBD) stricture (H28) [K83.1] History of cholangitis [Z87.19] Procedures NE ERCP DX COLLECTION SPECIMEN BRUSHING/WASHING NE ENDOSCOPIC US EXAM, ESOPH NE UPPR GI ENDOSCOPY W/US FN BX NE EGD INTRMURAL NEEDLE ASPIR/BIOP ALTERED ANATOMY NE EDG US EXAM SURGICAL ALTER STOM DUODENUM/JEJUNUM Endoscopic retrograde cholangiopancreatogram endoscopic ultrasound [facility] [address] [place] [address] Referral ID Status Reason Start Date Expiration Date Visits Re quested Visits Authorized [id number] 1 1 Encounter Details Date Type Department Care Team (Late st Contact Info) Description 09/05/2023 1:20 PM ORANGE PICKER - 09/05/2023 2:55 PM ORANGE PICKER Surgery [facility] Per[facility] Services [address] [place] [address] Richard Sandoval MD [facility] [address] [facility] [place] [id number] endoscopic ultrasound Surgery Details Date/Time Status Location [...] Comments Blood Pressure 108/81 09/05/2023 2:55 PM ORANGE PICKER Pulse 72 09/05/2023 2:30 PM ORANGE PICKER Temperature 36.3 ??C (97.4 ??F) 09/05/2023 2:30 PM CS T Respiratory Rate 16 09/05/2023 2:55 PM ORANGE PICKER Oxygen Saturation 97% 09/05/2023 2:55 PM ORANGE PICKER Inhaled Oxygen Concentration - - Weight 112 kg (247 lb) 09/05/2023 11:14 AM ORANGE PICKER Height 177.8 cm (5' 10) 09/05/2023 11:14 AM ORANGE PICKER Body Mass Index 35.44 09/05/2023 11:14 AM ORANGE PICKER documented in this encounter Discharge Instructions * Discharge Instructions* Aleksander Youngblood RN - 09/05/2023 2:02 PM ORANGE PICKER Same Day Surgery Discharge Instructions for Sedation [...] about your procedure, call Dr. Sandoval at [phone]. GE PICKER documented in this encounter Medications at Time [...] in recliner and transported to Phase 2. GE PICKER * Itz Beck RN - 09/05/2023 12:37 PM CST Pt gave his wallet and cell phone to his daughter to hold onto while in surgery. GE PICKER documented in this encounter Plan of Treatment Not on file documented as of this encounter Procedures Procedure Name Priority Date/Time Associated Diagnosis Comments ESOPHAGOGASTRODUOD ENOSCOPY, WITH ENDOSCOPIC ULTRASOUND GUIDANCE 09/05/2023 1:20 PM ORANGE PICKER Common bile duct (CBD) stricture (H28) History of cholangitis Special Needs *robby-cpap, htn, dvt(2016). UPPER EUS Routine 09/05/2023 12:23 PM ORANGE PICKER documented in this encounter Results * UPPER EUS (09/05/2023 12:23 PM ORANGE PICKER) Upper EUS [place] [address] [address] ??[address] ___ Patient Name: Trell Gunter ? Procedure Date: 09/05/2023 12:23 PM ? Date of : 1955 ?Admit Type: Outpatient Age: 68 ? Room: OR 03 Note Status: Finalized ?Attending MD: RICHARD SANDOVAL MD, Instrument Name: 531 [id number] Linear ___ Procedure: ?Upper EUS Indications: ?previous [...] Procedure Code(s): ? --- Professional --- ? 60031, Esophagogastroduode noscopy, flexible, transoral; with endoscopic ? ultrasound examination, including the esophagus, stomach, and either the ? duodenum or a surgically altered stomach where the jejunum is examined ? distal to the anastomosis CPT copyright 2021 [place] [employer]. All rights reserved. The codes documented in this report are preliminary and upon cnc machine operator review may be revised to [...] PM RADIOLOGY RESULTS 09/05/2023 12:2 3 PM ORANGE PICKER Richard Sandoval MD PROCEDURES RADIOLOGY RESULTS documented [...] at 1357 $New Bag 09/05/2023 11:54 AM ORANGE PICKER 10 mL/hr naloxone (NARCAN) injection 0.2 mg [...] Recently Administered Medications Times are shown in ORANGE PICKER. Continuous Medication Order 09/03/2023 09/04/2023 09/05/2023 lactated [...] Irritant. documented in this encounter Care Teams Customer Manager Relationship Specialty Start Date End Date Ayan Shen MD [facility] [address] [address] PCP - General Family Medicine 09/05/23 documented as of this encounter
--- OUTSIDE RECORDS SUMMARY | 2023-11-14 11:54 | XMS_ITS | Encounter Summary ---
Author Name Unknown Organization [facility] Address [address] [place] [address] Care Team Providers Care Cassandra Consultant Name Role Phone Anisha Burnett MD Primary Care Provider [facility] Ayan Shah MD Primary Care Provider [phone] Encounter Details Date Type Department Care Team (Late st Contact Info) Description 01/28/2002 Abstract [facility] [address] [facility] [facility] [address] [place] [phone] Martita Franks MD [address] [place] [address] Social History Tobacco Use Types Packs/Day Years Used Date Smoking Tobacco: Never Assessed Sex and Gender Information Value Date Recorded Sex Assigned at Not on file Gender Identity Not on file Sexual Orientation Not on file documented as of this encounter Plan of Treatment Not on file documented as of this encounter Visit Diagnoses Not on filedocumented in this encounter Care Teams Cassandra Consultant Relationship Specialty Start Date End Date Anisha Burnett MD PCP - General 09/13/01 03/29/17 Ayan Shen MD [facility] [address] [address] PCP - General Family Medicine 09/05/23 documented as of this encounter
--- OUTSIDE RECORDS SUMMARY | 2023-11-14 11:54 | XMS_ITS | Clinical Summary ---
Author Name Unknown Organization [employer] [facility] Address [place], [place] [address] Care Team Providers Care Conveyor Belt Repairer Name Role Phone Nonstaff, Doctor Primary Care [...] 1:55 PM 05/24/2016 10:41 AM Care Teams Conveyor Belt Repairer Relationship Specialty Start Date End Date Nonstaff, Doctor NON STAFF DOCTOR PCP - General 01/17/19
--- OUTSIDE RECORDS SUMMARY | 2023-11-14 11:54 | XMS_ITS | Continuity of Care Document ---
Author Name [facility] Organization [facility] Care Team Providers Care Independent Freight Agent Name Role Phone [facility] Unavailable Unavailable Problems Combined list of problems from Department of Defense and [facility] facilities. It does not include entries that were removed or entered in error. Problem Status Onset Date Problem Type Date of Resolution Comments Source Diagnosis: ICD-10-CM Z46.1 Encounter for fitting and adjustment of hearing aid Active Diagnosis [facility] Diagnosis: ICD-10-CM H90.3 Sensorineural hearing loss, bilateral Active Diagnosis [facility] Encounters Combined list of: 1) Encounters from Department of Veterans Affairs facilities going back up to thelast 18 months. 2) Encounters from the Department of [facility] facilities going back up to 280 months. Location Location Details Encounter Type Encounter Number Reason For Visit Attending Provider ADM Date DC Date Status Disposition Source [facility] [place] [id number] Diagnos is: ICD-10- CM H90.3 Sensori neural hearing loss, bilater al
RUTHY SMITH 11/02 [facility] EVALUATION [id number] Diagnos is: ICD-10- CM Z46.1 Encount er for fitting and adjustm ent of hearing aid<br/ > RUTHY SMITH E 12/21 [facility]
[2023-11-14] MEDS: MORPHINE 10 MG/ML inj IM (12:02)
--- NOTE | 2023-11-14 12:12 | XR_ITS ---
Patient: MARIE MCCRARY Facility:?[facility] Patient ID:?[id number] Site Patient ID:?[id number]. Site :?1955 Study:?XRay-Knee Right 2V-11/14/2023 12:51:37 PM Ordering Physician:NIKKO Final Report: Indication: Pain postop Technique: Two views right knee Comparison: 11/12/2023 IMPRESSION: Knee arthroplasty hardware intact. No fracture. No hardware loosening. Prepatellar soft tissue swelling noted. A small amount of residual subcutaneous emphysema is present. Quadriceps tendon is intact. No effusion within the joint space Dictated by Roger Jasso MD @ 11/14/2023 12:57:16 PM Signed by:?Roger Jasso MD @11/14/2023 12:57:16 PM (Electronic Signature)
[2023-11-14] MEDS: OXYCODONE 5 MG TABLET PO (13:30)
== END 2023-11-14 14:26 | disposition home or self-care (01) ==
PROVIDERS: Emergency Provider Emergency Medicine Emergency Medical Services; PCP Family Medicine
DX: M25.561 Pain in right knee (principal); G89.18 Other acute postprocedural pain
CPT/HCPCS: 73560; 96372; 99284; A9270; J2270

== ENCOUNTER 2024-01-21 14:08 | Outpatient (CLI) | payer OTHER, SELFPAY ==
--- OUTSIDE RECORDS SUMMARY | 2024-01-21 14:22 | XMS_ITS | Referral Summary ---
Author Organization [facility] Address [address] [place] [address] Care Team Providers Care Tar Distributor Operator Name Role Phone yAan Shen MD Primary Care Provider [phone] Allergies Active Allergy Reactions Criticality Noted Date [...] Comments Blood Pressure 108/81 09/05/2023 2:55 PM ONLINE MARKETING DIRECTOR Pulse 72 09/05/2023 2:30 PM ONLINE MARKETING DIRECTOR Temperature 36.3 ??C (97.4 ??F) 09/05/2023 2:30 PM CS T Respiratory Rate 16 09/05/2023 2:55 PM ONLINE MARKETING DIRECTOR Oxygen Saturation 97% 09/05/2023 2:55 PM ONLINE MARKETING DIRECTOR Inhaled Oxygen Concentration - - Weight 112 kg (247 lb) 09/05/2023 11:14 AM ONLINE MARKETING DIRECTOR Height 177.8 cm (5' 10) 09/05/2023 11:14 AM ONLINE MARKETING DIRECTOR Body Mass Index 35.44 09/05/2023 11:14 AM ONLINE MARKETING DIRECTOR Plan of Treatment Not on file Procedures Procedure Name Priority Date/Time Associated Diagnosis Comments BASIC METABOLIC PANEL Routine 11/24/2004 8:10 AM CDT from Last 3 Months or Most Recently Relevant to Health Maintenance Results * Basic metabolic panel (11/24/2004 8:10 AM [...] Recently Relevant to Health Maintenance Care Teams Tar Distributor Operator Relationship Specialty Start Date End Date Ayan Shen MD [facility] [address] [address] PCP - General Family Medicine 09/05/23
--- OUTSIDE RECORDS SUMMARY | 2024-01-21 14:22 | XMS_ITS | Encounter Summary ---
Author Organization [place] Address [address] [place] [address] Care Team Providers Care Director Of Solutions Architecture Name Role Phone Anisha Burnett MD Primary [facility] Ayan Shah MD Primary Care Provider [phone] Encounter Details Date Type Department Care Team (Late st Contact Info) Description 01/28/2002 Abstract [facility] [address] [facility] [address] [place] [phone] Martita Franks MD [address] [place] [address] Social History Tobacco Use Types Packs/Day Years Used Date Smoking Tobacco: Never Assessed Sex and Gender Information Value Date Recorded Sex Assigned at Not on file Gender Identity Not on file Sexual Orientation Not on file documented as of this encounter Plan of Treatment Not on file documented as of this encounter Visit Diagnoses Not on filedocumented in this encounter Care Teams Director Of Solutions Architecture Relationship Specialty Start Date End Date Anisha Burnett MD PCP - General 09/13/01 03/29/17 Ayan Shen MD [facility] [address] [address] PCP - General Family Medicine 09/05/23 documented as of this encounter
--- OUTSIDE RECORDS SUMMARY | 2024-01-21 14:22 | XMS_ITS | Continuity of Care Document ---
Author Name [facility] Organization [facility] Care Team Providers Care Chiropractic Teacher Name Role Phone [facility] Unavailable Unavailable Problems Combined list of problems from Department of Defense and Veterans [facility] facilities. It does not include entries that were removed or entered in error. Problem Status Onset Date Problem Type Date of Resolution Comments Source Diagnosis: ICD-10-CM Z46.1 Encounter for fitting and adjustment of hearing aid Active Diagnosis [facility] Diagnosis: ICD-10-CM H90.3 Sensorineural hearing loss, bilateral Active Diagnosis [facility] Encounters Combined list of: 1) Encounters from Department of Veterans Affairs facilities going back up to thelast 18 months. 2) Encounters from the Department of [facility] facilities going back up to 280 months. Location Location Details Encounter Type Encounter Number Reason For Visit Attending Provider ADM Date DC Date Status Disposition Source [facility] [place] [id number] Diagnos is: ICD-10- CM H90.3 Sensori neural hearing loss, bilater al
RUTHY SMITH 11/02 [facility] CONFORMITY EVALUATION [id number] Diagnos is: ICD-10- CM Z46.1 Encount er for fitting and adjustm ent of hearing aid<br/ > RUTHY SMITH E 12/21 [facility]
--- OUTSIDE RECORDS SUMMARY | 2024-01-21 14:22 | XMS_ITS | Clinical Summary ---
Author Organization [facility] [employer] [facility] Address [place], [place] [address] Care Team Providers Care Safety Consultant Name Role Phone Nonstaff, Doctor Primary Care [...] 1 - PCV) 2018 COVID-19 vaccine series (2022- season) 2023 10/23/2020, 10/02/2020 Influenza for age [...] 1:55 PM 05/24/2016 10:41 AM Care Teams Safety Consultant Relationship Specialty Start Date End Date Nonstaff, Doctor NON STAFF DOCTOR PCP - General 01/17/19
--- OUTSIDE RECORDS SUMMARY | 2024-01-21 14:22 | XMS_ITS | Clinical Summary ---
Author Organization [place] Address [address] [place] [address] Care Team Providers Care Senior Scrum Master Name Role Phone Ayan Shen MD Primary Care Provider [phone] Allergies Active Allergy Reactions Criticality Noted Date [...] Comments Blood Pressure 108/81 09/05/2023 2:55 PM ENGINEERING MANAGER [employer]LECTRONICS Pulse 72 09/05/2023 2:30 PM ENGINEERING MANAGER [employer] Temperature 36.3 ??C (97.4 ??F) 09/05/2023 2:30 PM CS T Respiratory Rate 16 09/05/2023 2:55 PM ENGINEERING MANAGER [employer]LECTRONICS Oxygen Saturation 97% 09/05/2023 2:55 PM ENGINEERING MANAGER [employer]LECTRONICS Inhaled Oxygen Concentration - - Weight 112 kg (247 lb) 09/05/2023 11:14 AM ENGINEERING MANAGER [employer]RON[employer] Height 177.8 cm (5' 10) 09/05/2023 11:14 AM ENGINEERING MANAGER [employer]RON[employer] Body Mass Index 35.44 09/05/2023 11:14 AM ENGINEERING MANAGER [employer]LECTRON[employer] Plan of Treatment Health Maintenance Due Date [...] Completed 02/06/2020, 08/02/2018 ZOSTER IMMUNIZATION Completed 07/29/2020, INFLUENZA VACCINE Completed 06/14/2023, , 06/10/2021, Additional [...] Recently Relevant to Health Maintenance Care Teams Senior Scrum Master Relationship Specialty Start Date End Date Ayan Shen MD [facility] [address] [address] PCP - General Family Medicine 09/05/23
--- OUTSIDE RECORDS SUMMARY | 2024-01-21 14:22 | XMS_ITS | Continuity of Care Document ---
Author Organization [facility] Address [address] [address] [place] [address] Phone Care Team Providers Care Surveyor Hydrographic Name Role Phone Kenneth Amaya MD Unavailable [...] Endo; W/endo Ultrasound Ex 24 Offic/outpt E&m [facility] Mod-mn Routine Serum Collection Subsqt Hosp-da E&m Stable [...] Diagnoses Date Provider Providers Copied on Encounter [facility], [address] [address], [place], [id number], [place] tel:[phone] [facility] No Information 4 Kyle Cooper. [address] [facility], [facility] [address], [place], [id number], [place]. tel:[phone] [facility], [address] [address], [place], [id number], [place] tel:[phone] [facility] No Information 4 Vesta Ramos. [address] [place] [address], [id number], [place]. tel:[phone] Referring Provider: Ayan Shen MD, [address] [place] [address], [address]. tel:[phone] Offic/outpt E&m New Mod-hi [facility], [address] [address], [place], [id number], [place] tel:[phone] [facility] GI Symptoms or Concerns (chief complaint) Common bile duct stoneHx of cholangitis 4 Travis Mota. [address] [facility], [address], [id number], [place]. tel:[phone] Ayan Shen MD. tel:[phone] erring Provider: Referral Self, USE FOR SELF REFERRALS. [facility], [address] [address], [place], [id number], [place] tel:[phone] [facility] No Information 4 Kyle Cooper. [address] [facility], [facility] [address], [place], [id number], [place]. tel:[phone] Subsqt Hosp-da E&m Stable 15 M [facility], [address] [address], [place], [id number], [place] tel:[phone] [facility] No Information 7 No Information Init Hosp-da E&m Mod Severity [facility], [address] [address], [place], [place], [id number], [place] tel:[phone] [facility] No Information 6 No Information [facility], [address] [address], [place], [id number], [place] tel:[phone] [facility] No Information 6 Vanda Mckay. [address] [facility], [address], [place], [place], [id number], [place]. tel:[phone] Referring Provider: Woody Dc MD, [address] [facility] [address], [facility] [place], [address] . tel:[phone] Subsqt Hosp-da E&m Minr Compl [facility], [address] [address], [place], [id number], [place] tel:[phone] [facility] No Information 6 Armando Perez. [address] [facility], [address], [place], [place], [id number], [place]. tel:[phone] Referring Provider: Freedom Kowalski, [address], [facility], [address]. tel:[phone] [facility], [address] [address], [place], [id number], [place] tel:[phone] [facility] No Information 6 Joaquin Arias. [address] [facility], [address], [place], [place], [id number], [place]. tel:[phone] Referring Provider: Freedom Kowalski, [address], [place], [address]. tel:[phone] Init Hosp-da E&m Mod Severity [facility], [address] [address], [place], [id number], [place] tel:[phone] [facility] No Information 6 Arlette Gabriel. [address] [facility], [address], [place], [place], [id number], [place]. tel:[phone] Referring Provider: Freedom Comer MD Dex, [address] [facility] [address], [place], [address]. tel:[phone] Family History Family Member Type Diagnosis Age [...] bi-directional interface ; Source: Other Registry Novel [id number], injectable administered Note: [facility] bi-direct ional interface [...] Registry Payers Payer name Insurance type Covered republican ID John montiel(s) R CI [id number] Social History Type Description Quantity Date Captured [...] Mildly increased CRP. Patient was admitted in [facility] and then placed on an antibiotic [...]
== END 2024-01-21 14:09 | disposition home or self-care (01) ==
LOC: LKVREF 14:10
PROVIDERS: PCP Family Medicine; Visit Provider Family Medicine
DX: R05.1 Acute cough (principal)
CPT/HCPCS: 86140

== ENCOUNTER 2024-01-29 14:30 | Outpatient (RCR) | payer OTHER, SELFPAY ==
--- NOTE | 2023-11-16 12:39 | PT.OPE ---
PT [place] Outpatient Eval PT [facility] Outpatient Eval Start: 11/13/23 16:29 Freq: Status: Active Protocol: Document 11/16/23 07:47 ENM (Rec: 11/16/23 11:18 ENM [id number]) E-signed By Dariela Rivera, DPT Physical Therapy Outpatient Evaluation Insurance Information Recert Due Date 02/14/24 Insurance Name Other; See Comments Insurance Information/Comments UMR NHC and MCR-A Medical Diagnosis presence of right artificial knee joint s/p right TKA DOS 11/12/23 Treating Diagnosis right knee pain, decreased knee ROM, impaired gait, impaired transfers, decreased knee strength Referring MD Harp Subjective Subjective Patient presents to PT for evaluation 4 days s/p R TKA. Stayed over night in the hospital then went home. Two days after he went to the ED due to concerns of increased swelling and significant knee pain. Imaging of the knee was negative for significant findings. He was given an intramuscular injection of morphine and later a tablet of oxycodone for pain relief. MD thinks that the swelling and pain may be reactive due to history of RLE DVT. He has been icing consistently at home, has not been elevating. Has not done any exercises since the hospital. They are having him take tramadol with his oxycodone for pain management.The swelling has gone down some since then and the warmth. Is able to get the leg in/out of the bed most of the time. His main goal is to be able to get out and walk after this. May have to get his left knee replaced in the future. PMHx: 3 shoulder and knee surgeries, R shoulder replacement, hx of L achilles tendon repair, hx of R LE DVT Pain Comments on average:5-02/05 easing: icing, medication aggravating: bending the knee, sitting positions Current Work Status Retired Preferred Name [place] Objective Other/Pertinent Objective Knee ROM L 0-2-119 R 0-5-90 strength: quad set fair SLR able to complete with slight ER compensation, cramps in adductors when performing no assist needed gait/balance: Patient ambulates with antalgic gait pattern, flexed trunk and R knee posture. Walks with LLE ER and ankle eversion due to previous Achilles injury Swelling/observation: superior patella: L 46.5 cm R 52 cm mid patella: L 44cm R 49.5 cm inf patella: L 40 cm R 45 cm mild bruising present in medial knee, bandaging in place Assessment Assessment/Impression Patient returns to PT for evaluation after R TKA DOS . Had a complication of increased pain and swelling two days after surgery which led to him going to ED. Imaging was normal after his knee replacement and pain was managed with oxycodone as well as morphine. At home he is staying on top of his medication using oxycodone and tramadol. Swelling, warmth and pain has improved some since ED visit. Pain is rated at a 5-7/10 on average since ED visit. He has consistently been icing the knee and navigating his home environment with use of 2WW. PMHx significant for R shoulder replacement, multiple knee surgery, L achilles repair and RLE DVT. Upon assessment patient displays decreased knee ROM, impaired gait, impaired transfers, decreased quad strength and swelling. Impairments consistent with s/ p R TKA. He displays a fair quad set and is able to perform a SLR although he compensates with hip ER and use of adductors. Global knee swelling measured at 5-6 cm compared to contralateral side . He responds positively to manual therapy working to improve tissue tension and swelling of RLE. Tyler would benefit from skilled PT to address impairments stated above for return to PLOF after surgery. Plan of Care Rehabilitation Potential Good Physical Therapy Goals In 3-4 weeks: 1. Patient will improve knee ROM to > 105 for improved ease of STS transfers 2. Patient will ambulate with improved mechanics and less than 3/10 knee pain with or without AD >200' for improved household/community mobility 3. Patient will improve global knee swelling to within 1-2 cm of contralateral side for improved ROM and muscle activation In 6-8 weeks: 1. Patient will improve knee ROM to >115 in order to comfortably navigate stairs for household and community navigation 2. Patient will be able to walk up to 10 minutes without use of AD or report of increased knee pain 3. Patient will return to his recreational activities with less than 2/10 knee pain demonstrating improved activity tolerance for return to PLOF Coordination/Communication With Referral Source Treatment Plan/Direct Interventions Electrical Stimulation,Gait Training,Ice/Cold/ Vasopneumatic,Joint Mobilization,Manual Therapy, Neuromuscular Re-ed,Self-Care/ Home Management,Therapeutic Activities,Therapeutic Exercises Frequency/Duration per MD order 2x a week for 4 weeks 2x a week for 4 weeks, 1-2x a week for 4 weeks Patient Will Be Discharged From Therapy Completion of LTG(s), Independent w/HEP Evaluation Billing Untimed Code Treatment Minutes 22 Complexity Low Certification Information Initial Certification Date 11/16/23 Ending Certification Date 02/14/24 Provider Signature Shows Agreement With POC & Medical Necessity Physician Signature & Date Requested Please Sign/Date Here Physician Comment/Change : Physician NPI Number #
== END 2024-05-28 23:59 | disposition home or self-care (01) ==
PROVIDERS: PCP Family Medicine; Visit Provider Orthopaedic Surgery Sports Medicine
DX: M17.11 Unilateral primary osteoarthritis, right knee (principal); Z96.651 Presence of right artificial knee joint; M25.561 Pain in right knee; Z74.09 Other reduced mobility; R26.9 Unspecified abnormalities of gait and mobility; R53.1 Weakness; Z51.89 Encounter for other specified aftercare
CPT/HCPCS: 97016; 97032; 97110; 97112; 97116; 97140; 97161; A9270; J2250; J3010

== ENCOUNTER 2024-07-01 10:15 | Outpatient (CLI) | payer OTHER, SELFPAY | END 2024-07-01 10:16 | disposition home or self-care (01) | PROVIDERS: PCP Family Medicine; Visit Provider Family Medicine | DX: I10 Essential (primary) hypertension (principal); Z12.5 Encounter for screening for malignant neoplasm of prostate; Z01.818 Encounter for other preprocedural examination | CPT/HCPCS: 80053; G0103 ==

== ENCOUNTER 2024-07-07 06:25 | Day surgery (SDC) | payer OTHER, SELFPAY ==
[2024-07-07] VITALS (26 sets, daily range): BP systolic 78–134; BP diastolic 54–96; PULSE 60–87; RESP 14–18; TEMP 36.1–36.8; O2SAT 92–98; BMI 38.5
[2024-07-07] MEDS: SODIUM CHLORIDE 0.9 % (FLUSH) 10 ML SYRINGE IVF (06:37)
[2024-07-07] MEDS: LACTATED RINGERS 1000 ML 1,000 ML 100 ML IV (06:38)
[2024-07-07] MEDS: OXYCODONE (CR) 10 MG TAB.ER.12H PO (07:03)
[2024-07-07] MEDS: ACETAMINOPHEN 500 MG TABLET 1000 MG PO ×3 (07:04→18:48)
[2024-07-07] MEDS: fentaNYL 100 MCG/2 ML inj IVP (07:08)
[2024-07-07] MEDS: MIDAZOLAM HCL 1 MG/ML inj IVP (07:08)
--- NOTE | 2024-07-07 07:16 | W.PM.H&PU ---
History & Physical Update History & Physical Update H&P Reviewed and patient assessed: The following changes are noted below H&P Updates: No medical changes are noted. The patient does request to be admitted overnight for 23 hour observation. During his last total knee he struggle with pain. Feels that this would be a stearns decision.
--- NOTE | 2024-07-07 07:18 | SUR.PREOP ---
TIME?OUT:?0708 PT/RN/MDA?VERIFICATION?OF?SURGICAL?SITE,?PROCEDURE,?AND?CONSENT OBTAINED?PRIOR?TO?INVASIVE?PROCEDURE.
--- NOTE | 2024-07-07 07:19 | CRLHL7_ITS ---
For Patients: As a result of the Cures Act, medical imaging exams and procedure reports are released immediately into your electronic medical record. You may view this report before your referring provider. If you have questions, please contact your health care provider. Indication: post op TKA Technique: Two views left knee Findings/Impression: Hardware from a left total knee arthroplasty is in satisfactory position. Bone alignment is normal. No sign of acute fracture. Postop changes are within normal limits. Dictated by Roger Jasso MD @ 07/07/2024 9:56:21 AM (Electronically Signed)
[2024-07-07] MEDS: CEFAZOLIN 2 GM in 0.9 % SODIUM CHLORIDE Mini-bag 100 ML IVPB ×3 (07:35→22:03)
[2024-07-07] MEDS: TRANEXAMIC ACID 100 MG/ML INJ 1000 MG IV (07:41)
--- NOTE | 2024-07-07 08:51 | PM.ORPRC ---
Procedure Note Date of procedure: 07/07/24 Procedure: PREOPERATIVE DIAGNOSIS: 1. Left knee osteoarthritis, primary, severe POSTOPERATIVE DIAGNOSIS: 1. Left knee osteoarthritis, primary, severe PROCEDURE: 1. Left total knee arthroplasty - subvastus SURGEON: Oz Harp MD. MANAGER CARDIOLOGY: REKHA Carmona - Of note, a skilled real estate administrative assistant was critical for this case to aid in patient positioning, tissue retraction, limb manipulation/positioning, and closure. ANESTHESIA: Spinal anesthetic EBL: 50ml IMPLANTS: DePuy J&J all cemented TKA - Attune PS femur size 8 Size 7 tibia 5 poly spacer 41mm patella TOURNIQUET: 80 minutes at 300 torr COMPLICATIONS: None evident INDICATIONS: The patient is a pleasant 69-year-old male who has experienced severe left knee pain and difficulty bearing weight. Workup included x-rays which revealed severe osteoarthrosis in the knee. Given the deformity, the dysfunction, and the pain, as well as the failure of nonoperative management, recommendation was made for surgery. FINDINGS: Full-thickness chondral loss diffusely throughout the medial and patellofemoral compartments. To a lesser degree lateral compartment. Degenerative meniscus pathology with medial worse than lateral. Large effusion upon entering the joint. DESCRIPTION OF PROCEDURE: Following a thorough discussion of risks, benefits, and alternatives consent was obtained and the left knee was marked. The patient was brought to the operating room and placed supine on the operating table. Induction of anesthesia was undertaken. 2 g IV Ancef and 1 g tranexamic acid was administered within 1 hr of incision preoperatively. Proper time-out was performed identifying proper patient, site, procedure. The operative extremity was prepped and draped in the appropriate sterile fashion using ChloraPrep after the patient was positioned supine with all bony prominences well padded. A longitudinal, anterior, midline skin incision was made starting approximately 3cm proximal to the superior pole of the patella and advanced distal to the tibial tubercle. A subvastus approach was utilized. A medial subperiosteal sleeve was created with knife, almonte elevator and curved osteotome. The retropatellar fatpad was resected and the synovium in the suprapatellar pouch excised to visualize the anterior femoral cortex. Femoral preparation was performed via an intramedullary guide. Step drill allowed access into the femoral canal. The distal cutting guide was placed with 5? of valgus and 10 mm cut on the distal femur. Femur was sized using a posterior referencing guide in 3? of external rotation. This found have a best fit with the sizing noted above. The 4 in 1 cutting block was then placed, and the distal femur shaped accordingly. The box cut was then created and the trial implant inserted to confirm appropriate fit. We turned our attention to the proximal tibia. Extramedullary guide was utilized for cutting with the goal of being 90 degree cut from the mechanical axis of the tibia in the varus/valgus plane utilizing tibial crest as the primary alignment. Initially a 2 mm resection was performed from the medial tibial plateau. Ultimately, balancing was achieved in both flexion and extension in both varus and valgus. The knee was able to achieve full extension as well comfortably. The patella was initially measured and found have a thickness of 26 mm. It was resected back to approximately 15.5 mm. It was sized to be a best fit with as noted above. This was drilled, trial placed. All trials were placed and found to have an excellent stability and balance. At this stage, trial implants were removed, the knee was thoroughly irrigated with normal saline, and the cement was mixed. After irrigation, the knee was thoroughly dried, and cement placed, with the real tibial and femoral implants placed along with the patella. Trial poly spacer was placed and confirmed to have excellent range of motion and full extension, and the real poly spacer opened and inserted. All extra cement was removed, and a 3 min Betadine soak performed. Finally, a final irrigation round with normal saline was performed. Closure performed with 0 PDS and #0 Stratafix for the quad tendon/retinaculum. 2-0 Vicryl/Stratafix for the subcutaneous and 4-0 Monocryl for subcuticular closure. Dressings were applied and the patient was awoken from anesthesia after the tourniquet deflated and transferred the PACU in stable condition. A skilled real estate administrative assistant was critical for this case to aid in patient positioning, tissue retraction, bone exposure, limb manipulation/positioning, patient safety, and closure. PLAN: 1. Weight bear as tolerated operative extremity. 2. 23 hr perioperative antibiotics. 3. Ice. 4. PT/OT consults for ambulation assistance/mobility education. 5. Social work consult for discharge planning. 6. DVT prophylaxis with at SCDs and aspirin twice daily.
--- NOTE | 2024-07-07 09:22 | P.ANES_ITS ---
Anesthesia Charges Start Date/Time Anesthesia Start Date: 07/07/24 Anesthesia Start Time: 07:27 Stop Date/Time Anesthesia Stop Date: 07/07/24 Anesthesia Stop Time: 09:18 Summary Extremes of Age - Over 70 or under 1: FLIGHT INFORMATION EXPEDITER
--- NOTE | 2024-07-07 09:26 | W.PM.NB ---
Nerve Block Nerve Block Time Seen by Provider: 07:11 Date Seen: 07/07/24 Type of block requested by surgeon for post-operative analgesia: geniculars Side: left Time out performed: Yes Verification of patient name: Yes Verification of date of : Yes Site marking: site marked Name of person performing procedure: Jurgen Continuous monitoring Was continuous monitoring of O2 sat, B/P, monitoring manager, recorded every 15 minutes?: Yes Procedure Checklist: sterile prep, needles and gloves Ultrasound guided. Images saved: Yes Medications given in 5ml increments after negative aspiration: Marcaine %: 0.25 mL: 9 Needle gauge: 25 Patient tolerated procedure well: Yes Block Charges Block Charge (with Pro Fee): Genicular Nerve Block
--- NOTE | 2024-07-07 09:26 | W.PM.NB ---
Nerve Block Nerve Block Time Seen by Provider: 07:11 Date Seen: 07/07/24 Type of block requested by surgeon for post-operative analgesia: adductor canal Side: left Time out performed: Yes Verification of patient name: Yes Verification of date of : Yes Site marking: site marked Name of person performing procedure: Jurgen Continuous monitoring Was continuous monitoring of O2 sat, B/P, cardiac care unit nurse, recorded every 15 minutes?: Yes Procedure Checklist: sterile prep, needles and gloves Ultrasound guided. Images saved: Yes Medications given in 5ml increments after negative aspiration: Marcaine %: 0.25 mL: 15 Needle gauge: 20 Precedex (mcg): 25 Patient tolerated procedure well: Yes Block Charges Block Charge (with Pro Fee): Femoral Nerve Use of Ultrasound Machine for Block: Yes- US Guidance/pain block
--- NOTE | 2024-07-07 09:26 | W.ANESCHARGE ---
Anesthesia Charges Start Date/Time Anesthesia Start Date: 07/07/24 Anesthesia Start Time: 07:27 Stop Date/Time Anesthesia Stop Date: 07/07/24 Anesthesia Stop Time: 09:18 Summary Extremes of Age - Over 70 or under 1: MDA
[2024-07-07] MEDS: LACTATED RINGERS 500 ML 500 ML IV (09:39)
--- NOTE | 2024-07-07 10:40 | PM.IMCN1 ---
Date of Consult Patient: [facility] Patient Consult date: 07/07/24 Primary Care Provider: Ayan Shen MD Consult Narrative Reason for consult: Medical management of comorbidities Narrative: Trell Gunter is a 69 year old male who presented to the hospital today for an elective L TKA with Dr. Harp of Orthopedic Surgery. There were no surgical or anesthetic complications noted during procedure. Blood pressure on the lower side when I see Tyler, he is asymptomatic. Patient's H&P reviewed, PCP is Dr Shen. 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 Postoperative plan: Home with Patient has no concerns for hospitalist team this morning. Review of Systems Status of ROS: Reports: 10 or more systems reviewed and unremarkable except as noted in History and below [facility] Medical History (Updated 07/07/24 @ 11:46 by Mira Kc MD) Abnormal magnetic resonance cholangiopancreatography (MRCP) ?R93.3 - Abnormal findings on diagnostic imaging of other parts of digestive tract (ICD-10) Splenic artery aneurysm ?I72.8 - Aneurysm of other specified arteries (ICD-10) Abdominal pain ?R10.9 - Unspecified abdominal pain (ICD-10) Chronic anticoagulation ?Z79.01 - retirement (current) use of anticoagulants (ICD-10) BPH associated with nocturia ?N40.1 - Benign prostatic hyperplasia with lower urinary tract symptoms (ICD-10) ?R35.1 - Nocturia (ICD-10) Pulmonary embolism ?I26.99 - Other pulmonary embolism without acute cor pulmonale (ICD-10) Osteoarthritis of knees, bilateral ?M17.0 - Bilateral primary osteoarthritis of knee (ICD-10) Hypertension (07/29/09) ?I10 - Essential (primary) hypertension (ICD-10) Hyperlipidemia ?E78.5 - Hyperlipidemia, unspecified (ICD-10) Dysuria ?R30.0 - Dysuria (ICD-10) Umbilical hernia (07/29/09) ?K42.9 - Umbilical hernia without obstruction or gangrene (ICD-10) Rupture of Achilles tendon ?S86.019A - Strain of unspecified Achilles tendon, initial encounter (ICD-10) Encounter for routine history and physical examination of adult ?Z00.00 - Encounter for general adult medical examination without abnormal findings (ICD-10) Surgical History (Updated 07/07/24 @ 10:37 by Mira Kc MD) History of left knee replacement ?Z96.652 - Presence of left artificial knee joint (ICD-10) History of laparoscopic cholecystectomy ?Z90.49 - Acquired absence of other specified parts of digestive tract (ICD-10) 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) ?Z96.651 - Presence of right artificial knee joint (ICD-10) H/O arthroscopy of right knee (02/14/08) ?Z98.890 - Other specified postprocedural states (ICD-10) History of ERCP ?Z98.890 - Other specified postprocedural states (ICD-10) H/O arthroscopy of left knee (03/11/12) ?Z98.890 - Other specified postprocedural states (ICD-10) H/O Achilles tendon repair (08/05/12) ?Z98.890 - Other specified postprocedural states (ICD-10) H/O inguinal hernia repair (07/29/09) ?Z98.890 - Other specified postprocedural states (ICD-10) ?Z87.19 - Personal history of other diseases of the digestive system (ICD-10) Hx of shoulder surgery (07/29/09) ?Z98.890 - Other specified postprocedural states (ICD-10) 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 Rare ETOH. He reports smoking 3 or 4 cigarettes per year. What is your current living situation?: I presently have a place to live Problems where you live: no known problems Problems where you live details: N/A In the past 12 months, utilities in danger of being shut off: no In the past 12 mos, have been you worried that your food would run out before you had money to buy more?: never true In the past 12 mos, the food you bought just didn't last and you didn't have money to buy more?: never true Highest level of school completed/degree received: high school graduate Smoking Status: Never smoker Do you use any of these nicotine containing products: None Second hand tobacco smoke exposure: No How often do you have a drink containing alcohol: 2-4 times a month Alcohol type: hard liquor How many standard drinks containing alcohol do you have on a typical day: 1 or 2 How often do you have six or more drinks on one occasion: Never AUDIT-C Alcohol total score: 2 Non-prescribed substance use: denies use Caffeine: No How often does anyone, including family, friends and others, physically hurt you: never How often does anyone, including family, friends and others, insult or talk down to you: never How often does anyone, including family, friends and others, threaten you with harm: never How often does anyone, including family, friends and others, scream or curse at you: never service: Yes Meds Home Medications and Allergies Home Medications ?Medication ?Instructions ?Recorded ?Confirmed ?Type acetaminophen 325 mg tablet 650 mg PO Q4H PRN 08/15/23 07/07/24 History coffee extract 100 mg-phosphatidyl 1 cap PO DAILY 08/16/23 07/07/24 History serine 100 mg capsule (Neuriva Original) coenzyme Q10 30 mg capsule 100 mg PO DAILY 08/31/23 07/07/24 History fluticasone 250 mcg-salmeterol 50 1 inh inhalation BID PRN 08/31/23 07/07/24 History mcg/dose blistr powdr for inhalation (Advair Diskus) glucosamine sulfate 500 mg capsule 1,500 mg PO DAILY 08/31/23 07/07/24 History Allergies Allergy/AdvReac Type Severity Reaction Status Date / Time Penicillins Allergy Unknown swelling Verified 07/07/24 06:30 and redness Exam Narrative: Exam Narrative: GEN: Alert and oriented, nontoxic HEENT: EOMIs bilaterally, no scleral icterus CV: RRR, No concerning murmurs, rubs, or gallops R: LCTA bilaterally without concerning wheezing Ext: wwp, trace BLE edema Skin: No concerning skin lesions or rashes on exposed skin Neuro: Nonfocal Psych: Appropriate Const: Vital Signs, click to edit/add: Vital Signs - 24 hr 07/07/24 07:05 07/07/24 07:08 07/07/24 07:15 Temperature 98.3 F Pulse Rate 77 74 70 Respiratory Rate 16 16 16 Blood Pressure 126/88 110/71 89/66 L Pulse Oximetry 93 93 93 Oxygen Delivery Me thod Nasal Cannula Nasal Cannula Oxygen Flow Rate 2 2 07/07/24 09:15 07/07/24 09:20 07/07/24 09:25 Temperature 98 F Pulse Rate 73 72 64 Respiratory Rate 16 16 16 Blood Pressure 87/54 L 78/54 L 79/58 L Pulse Oximetry 94 94 95 Oxygen Delivery Me thod Nasal Cannula Nasal Cannula Nasal Cannula Oxygen Flow Rate 2 2 2 07/07/24 09:30 07/07/24 09:35 07/07/24 09:40 Temperature Pulse Rate 66 65 62 Respiratory Rate 16 16 16 Blood Pressure 79/57 L 87/56 L 84/60 L Pulse Oximetry 95 94 96 Oxygen Delivery Me thod Nasal Cannula Nasal Cannula Nasal Cannula Oxygen Flow Rate 2 2 2 07/07/24 09:45 07/07/24 09:50 07/07/24 09:55 Temperature 97.2 F L Pulse Rate 66 64 62 Respiratory Rate 16 16 16 Blood Pressure 88/63 L 89/78 L 93/69 Pulse Oximetry 96 96 95 Oxygen Delivery Me thod Nasal Cannula Nasal Cannula Nasal Cannula Oxygen Flow Rate 2 2 2 Assessment and Plan Assessment and plan (1) History of left knee replacement: Problem comment: - 07/07/24, Dr. Harp Status: Acute (2) Chronic anticoagulation: Problem comment: - Chronic anticoagulation on Apixaban for history of postoperative DVT and unprovoked PE, also has family history of DVT and his sister and father Status: Acute (3) Hyperlipidemia: Problem comment: - on statin Status: Acute (4) Hypertension: Problem comment: - continue home medications with holding parameters given postoperative hypotension Status: Acute (5) Obstructive sleep apnea treated with continuous positive airway pressure (CPAP): Problem comment: - continue home CPAP Status: Acute Plan - pain management and prophylaxis per orthopedic surgery team - continue home medications for comorbidities - anticipate routine postoperative course
[2024-07-07] MEDS: OXYCODONE 5 MG TABLET PO ×5 (12:57→22:14)
[2024-07-07] MEDS: HYDROmorphone 0.5 mg/0.5 ml inj IVP ×3 (14:07→17:18)
--- NOTE | 2024-07-07 17:08 | RESP.RT ---
PT home PAP unit visually inspected,clean and in good working order. Ok to use.
[2024-07-07] MEDS: ONDANSETRON 2 MG/ML inj 4 MG IVP (17:48)
--- NOTE | 2024-07-07 20:00 | PC.NURSE ---
End of shift: Pt arrived to the unit post op @ 1005, accompanied by . Pt AxOx4, pleasant, and cooperative. CMS intact, active ice applied. Pt ranging pain 4-9/10 beginning @ 1305. Pt worked with PT. Mixing Operator continued to utilize PRN medication, reposition, and ice packs. Pain control plan is still in the works of being maintained and under control, report given to LUKAS Bolton. Pt is continent of the bladder. Pt had experienced nausea during the evening, PRN medication given. Tolerating reg diet/fluids well. IV SL. LSCTA on RA. Patient appears resting with call light in reach.
[2024-07-07] MEDS: ROSUVASTATIN CALCIUM 10 MG TABLET PO (22:03)
[2024-07-07] MEDS: SENNOSIDES 1 TAB TABLET 2 TAB PO (22:03)
[2024-07-07] MEDS: LORazepam 0.5 MG TABLET PO (23:12)
[2024-07-08] MEDS: ACETAMINOPHEN 500 MG TABLET 1000 MG PO ×2 (01:41→07:33)
[2024-07-08] MEDS: OXYCODONE 5 MG TABLET PO ×4 (01:48→10:11)
[2024-07-08 03:09] VITALS: BP 117/80; PULSE 82; RESP 18; TEMP 36.6; O2SAT 93
[2024-07-08] MEDS: CEFAZOLIN 2 GM in 0.9 % SODIUM CHLORIDE Mini-bag 100 ML IVPB (05:36)
[2024-07-08] MEDS: OMEPRAZOLE 20 MG CAPSULE DR PO (06:17)
[2024-07-08 06:20] LABS: Basophils Absolute Auto 0.05 K/uL (0.00-0.30); Basophils Percent Auto 0.9 % (0.0-3.0); Eosinophils Absolute Auto 0.05 K/uL (0.00-0.50); Eosinophils Percent Auto 0.9 % (0.0-7.0); Hematocrit 43.3 % (37.0-53.0); Hemoglobin* 14.4 gm/dL (13.5-17.5); Immature Granulocytes Abs Auto 0.02 K/uL (0.00-0.30); Immature Granulocytes Pct Auto 0.4 %; Lymphocytes Absolute Auto 1.73 K/uL (0.90-2.90); Lymphocytes Percent Auto 30.7 % (20-44); Mean Corpuscular HGB Conc 33 gm/dL (32-36); Mean Corpuscular Hemoglobin 32 pg (26-34); Mean Corpuscular Volume 96 fL (80-100); Monocytes Percent Auto 15.2 % (0.0-11.0); Neutrophils Absolute Auto 2.93 K/uL (1.7-7.0); Neutrophils Percent Auto 51.9 % (42.0-72.0); Platelet Count* 233 K/uL (140-440); RDW Coefficient of Variation % 12.2 % (11.5-15.5); Red Blood Count 4.52 m/uL (4.30-5.90); White Blood Count* 5.64 K/uL (4.50-11.00)
[2024-07-08 06:21] LABS: Slide Review Reflex No
[2024-07-08 06:22] LABS: Potassium* 4.2 mmol/L (3.6-5.1); Sodium* 135 mmol/L (135-149)
[2024-07-08 06:25] LABS: Blood Urea Nitrogen* 26 mg/dL (7-30); Creatinine* 0.8 mg/dL (0.5-1.5); Est. Creatinine Clearance* 63.35; Estimated Glomerular Filt Rate 95 ml/min
--- NOTE | 2024-07-08 06:25 | PC.NURSE ---
End of shift [id number]: Pt has been A&O, afebrile and VSS overnight. Pain has been adequately controlled with scheduled Tylenol and PRN oxycodone- last given @ 0536. He is SBA with 2ww for transfers. Adequate U/O overnight with no BM. Left knee dressing C/D/I. Active ice in place majority of the night per pt preference. PIV in left hand SL and C/D/I. Eliquis is due to resume today d/t pt history of post-op DVT and unprovoked PE. Bowel sounds active & positive for flatulence. Plan to discharge home with today, 07/08. ?
[2024-07-08 07:37] VITALS: BP 118/75; PULSE 86; RESP 14; TEMP 36.6; O2SAT 92
[2024-07-08] MEDS: SENNOSIDES 1 TAB TABLET 2 TAB PO (08:28)
[2024-07-08] MEDS: APIXABAN 5 MG TABLET PO (08:28)
--- NOTE | 2024-07-08 09:34 | PM.ORPN ---
Subjective Subjective Date Seen: 07/08/24 Principal diagnosis: Status postop day 1 left total knee arthroplasty Interval history: Patient reports struggling with pain management. He has similar issues after his right knee. In fact, patient went to the ER early postop because of right knee pain. Receiving scheduled and p.r.n. medications. Receiving 10 mg of oxycodone every 2 hours. This is not fully helping the pain. No acute events over night. Received lorazepam to help with sleep. . DVT prophylaxis: Apixaban which is a chronic medication from due to history of DVT and PE, restarted this morning 07/08/2024, SCDs, walking. Denies fevers, chills, aches, N/V, CP, SOB/GARIBAY, or lightheadedness. Passing flatus. Poor appetite for the past couple days. Ortho Exam Narrative Exam Narrative: -Patient appears somewhat uncomfortable; no apparent acute distress. Reporting pain to the central left knee. Reports the knee feels very tight. -Alert and oriented times 3 -Operative knee moderately swollen; soft tissues supple; no ecchymosis; no erythematous streaking Warmth appropriate -Surgical dressing clean, dry, intact; no drainage -Bilateral calfs soft; no significant swelling, edema, tenderness, erythema, discoloration, warmth, or palpable cords. Mild edema at his left ankle -2+ DP/PT pulses, intact dermatomes and myotomes distally (5/5 strength) Const Vital Signs, click to edit/add: Vital Signs - 24 hr 07/07/24 09:35 07/07/24 09:40 07/07/24 09:45 Temperature 97.2 F L Pulse Rate 65 62 66 Pulse Rate [Bilateral Dorsalis Pedis] Pulse Rate [Left Pulse Oximeter] Respiratory Rate 16 16 16 Blood Pressure 87/56 L 84/60 L 88/63 L Blood Pressure [Left Arm] Pulse Oximetry 94 96 96 Oxygen Delivery Method Nasal Cannula Nasal Cannula Nasal Cannula Oxygen Flow Rate 2 2 2 07/07/24 09:50 07/07/24 09:55 07/07/24 10:05 Temperature 97 F L Pulse Rate 64 62 62 Pulse Rate [Bilateral Dorsalis Pedis] Pulse Rate [Left Pulse Oximeter] Respiratory Rate 16 16 14 Blood Pressure 89/78 L 93/69 96/69 Blood Pressure [Left Arm] Pulse Oximetry 96 95 95 Oxygen Delivery Method Nasal Cannula Nasal Cannula Nasal Cannula Oxygen Flow Rate 2 2 2 07/07/24 10:20 07/07/24 10:35 07/07/24 10:50 Temperature 97 F L 97.1 F L 97.3 F L Pulse Rate 60 60 60 Pulse Rate [Bilateral Dorsalis Pedis] Pulse Rate [Left Pulse Oximeter] Respiratory Rate 16 16 16 Blood Pressure 98/76 99/83 105/75 Blood Pressure [Left Arm] Pulse Oximetry 98 95 96 Oxygen Delivery Method Nasal Cannula Nasal Cannula Room Air Oxygen Flow Rate 2 1 07/07/24 11:05 07/07/24 11:35 07/07/24 12:05 Temperature 97.3 F L 97.1 F L 97.6 F Pulse Rate 64 67 70 Pulse Rate [Bilateral Dorsalis Pedis] Pulse Rate [Left Pulse Oximeter] Respiratory Rate 16 16 16 Blood Pressure 100/79 116/55 L 103/71 Blood Pressure [Left Arm] Pulse Oximetry 95 95 94 Oxygen Delivery Method Room Air Room Air Room Air Oxygen Flow Rate 07/07/24 13:05 07/07/24 14:05 07/07/24 15:00 Temperature 97.8 F 97.3 F L Pulse Rate 71 67 Pulse Rate [Bilateral Dorsalis Pedis] Pulse Rate [Left Pulse Oximeter] Respiratory Rate 16 16 Blood Pressure 100/87 98/81 Blood Pressure [Left Arm] Pulse Oximetry 96 95 96 Oxygen Delivery Method Room Air Room Air Oxygen Flow Rate 07/07/24 15:00 07/07/24 15:05 07/07/24 16:05 Temperature 97.3 F L 97.6 F Pulse Rate 74 69 Pulse Rate [Bilateral Dorsalis Pedis] Pulse Rate [Left Pulse Oximeter] Respiratory Rate 16 16 16 Blood Pressure 106/91 H 124/96 H Blood Pressure [Left Arm] Pulse Oximetry 96 97 96 Oxygen Delivery Method Room Air Room Air Room Air Oxygen Flow Rate 07/07/24 19:53 07/07/24 23:00 07/07/24 23:00 Temperature 98.0 F Pulse Rate 80 Pulse Rate [Bilateral Dorsalis Pedis] Pulse Rate [Left Pulse Oximeter] 87 Respiratory Rate 16 18 Blood Pressure 101/81 Blood Pressure [Left Arm] Pulse Oximetry 92 96 Oxygen Delivery Method Room Air Oxygen Flow Rate 07/07/24 23:00 07/07/24 23:00 07/08/24 03:09 Temperature 97.9 F 97.8 F Pulse Rate Pulse Rate [Bilateral Dorsalis Pedis] Pulse Rate [Left Pulse Oximeter] 87 82 Respiratory Rate 18 18 18 Blood Pressure Blood Pressure [Left Arm] 134/95 H 117/80 Pulse Oximetry 96 96 93 Oxygen Delivery Method Room Air Room Air Room Air Oxygen Flow Rate 07/08/24 07:37 07/08/24 07:37 07/08/24 07:37 Temperature 98 F Pulse Rate Pulse Rate [Bilateral Dorsalis Pedis] 86 Pulse Rate [Left Pulse Oximeter] Respiratory Rate 14 14 Blood Pressure Blood Pressure [Left Arm] 118/75 Pulse Oximetry 92 92 92 Oxygen Delivery Method Room Air Room Air Oxygen Flow Rate Assessment and Plan Assessment and plan (1) History of left knee replacement: Problem details: - 07/07/24, Dr. Harp Status: Acute (2) Chronic anticoagulation: Problem details: - Chronic anticoagulation on Apixaban for history of postoperative DVT and unprovoked PE, also has family history of DVT and his sister and father (restarted this morning, 07/08/24) Status: Acute (3) Hyperlipidemia: Problem details: - on statin Status: Acute (4) Hypertension: Problem details: - continue home medications with holding parameters given postoperative hypotension Status: Acute (5) Obstructive sleep apnea treated with continuous positive airway pressure (CPAP): Problem details: - continue home CPAP Status: Acute (6) Postoperative pain of left knee: Status: Acute Plan - Complete 23 hour perioperative antibiotics. - PT/OT consult for education and assistance. - Social work consult for discharge planning - Prescribed analgesics as needed - try to spread out administration of oxycodone. Strongly encouraged patient to be up and moving, especially performing left knee range of motion. Will add OxyContin to help with pain management for the 1st few days at home. - DVT prophylaxis: Apixaban which was restarted this morning, 07/08/2024, walking, and SCDs. She may consider compression socks. - Anticipation is for discharge to home with today, 07/08/2024 if the patient remains medically stable, pain is controlled, and they are safe with mobilization.
[2024-07-08] MEDS: ONDANSETRON 2 MG/ML inj 4 MG IVP (10:11)
--- NOTE | 2024-07-08 11:18 | PC.NURSE ---
Discharge: Patient pleasant and cooperative. Up with SBA, walker and gait belt. Vitals stable and WNL. Pain managed with ice, elevation and PRN medication. TEDs sent with patient at discharge due to history of clots. Tolerating regular diet. Discharge instructions discussed with patient and , questions answered as needed. Discharged via wheelchair @ 1110.
== END 2024-07-08 11:10 | disposition home or self-care (01) ==
LOC: OR 06:25 → MEDSURG 10:16
PROVIDERS: PCP Family Medicine; Visit Provider Orthopaedic Surgery Sports Medicine
PROC: (CPT 27447; principal; 2024-07-07 07:15)
DX: M17.12 Unilateral primary osteoarthritis, left knee (principal); G89.18 Other acute postprocedural pain; G47.33 Obstructive sleep apnea (adult) (pediatric); Z99.89 Dependence on other enabling machines and devices; Z86.718 Personal history of other venous thrombosis and embolism; Z86.711 Personal history of pulmonary embolism; Z79.01 Long term (current) use of anticoagulants; I10 Essential (primary) hypertension; E78.5 Hyperlipidemia, unspecified
CPT/HCPCS: 27447; 01402; 36415; 64447; 64454; 73560; 76942; 82565; 84132; 84295; 84520; 85025; 97110; 97116; 97161; 97165; 97530; 97535; 99100; A9270; C1776; J0665; J0690; J1171; J2250; J2371; J2405; J2704; J3010; J7120

== ENCOUNTER 2024-07-16 12:50 | Outpatient (CLI) | payer OTHER, SELFPAY ==
[2024-07-16] MEDS: PERFLUTREN LIPID MICROSPHERES 2 ML VIAL IVP (13:43)
--- NOTE | 2024-07-16 13:52 | PC.NURSE ---
20G IV placed in right AC. Definity given per communications technician. IV then removed, intact.
== END 2024-07-16 12:51 | disposition home or self-care (01) ==
PROVIDERS: PCP Family Medicine; Visit Provider Family Medicine
DX: I71.20 Thoracic aortic aneurysm, without rupture, unspecified (principal); R93.1 Abnormal findings on diagnostic imaging of heart and coronary circulation
CPT/HCPCS: 93306; Q9957

== ENCOUNTER 2024-07-22 10:22 | Outpatient (CLI) | payer OTHER, SELFPAY ==
--- NOTE | 2024-07-22 10:45 | CRLHL7_ITS ---
For Patients: As a result of the Century Cures Act, medical imaging exams and procedure reports are released immediately into your electronic medical record. You may view this report before your referring provider. If you have questions, please contact your health care provider. INDICATION: Aneurysm of other arteries. AAA screening. TECHNIQUE: Conventional two-dimensional grayscale, color-flow and pulsed Doppler ultrasound examination of the abdominal aorta and the common iliac arteries. COMPARISON: None FINDINGS: Above the level of the renal artery origins, the abdominal aorta measures up to 3.6 cm in diameter, and below the level of the renal artery origins the abdominal aorta measures up to 3.2 cm in diameter The right common iliac artery measures up to 1.6 cm in maximal cross-sectional dimension and the left 1.5 cm. 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 Dictated by Julius Winchester MD @ 07/24/2024 6:54:36 AM (Electronically Signed)
== END 2024-07-22 10:23 | disposition home or self-care (01) ==
LOC: US 10:23
PROVIDERS: PCP Family Medicine; Visit Provider Family Medicine
DX: Z13.6 Encounter for screening for cardiovascular disorders (principal); I71.40 Abdominal aortic aneurysm, without rupture, unspecified
CPT/HCPCS: 76775

== ENCOUNTER 2024-09-16 08:30 | Outpatient (RCR) | payer OTHER, SELFPAY ==
--- NOTE | 2024-07-09 12:41 | PT.OPE ---
[facility] Eval PT [facility] Outpatient Eval Start: 07/09/24 09:32 Freq: Status: Active Protocol: Document 07/09/24 09:32 BMS (Rec: 07/09/24 10:50 BMS [id number]) E-signed By Abby Seo PT Physical Therapy Outpatient Evaluation Insurance Information Recert Due Date 10/06/24 Insurance Information/Comments R [facility] Provider Fax Number internal Medical Diagnosis s/p LEFT TKA 07/07/24 Z96.652 Treating Diagnosis LEFT knee pain abnormal gait Referring MD Oz Harp Subjective Preferred Name Tyler Subjective not doing good. pain this time is totally different and I have a puff here where is squishy ball. (superior to patella). pain is 10/10 and then some. ok when laying down but moving is not great. trying to do the exercises. 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 Precautions Treatment Precautions/Contraindications Splenic artery aneurysm I72.8 - Aneurysm of other specified arteries (ICD-10) Abdominal pain R10.9 - Unspecified abdominal pain ( ICD-10) Chronic anticoagulation Z79.01 - exterminator (current) use of anticoagulants (ICD-10) BPH associated with nocturia N40.1 - Benign prostatic hyperplasia with lower urinary tract symptoms (ICD-10) Pulmonary embolism I26.99 - Other pulmonary embolism without acute cor pulmonale ( ICD-10) Osteoarthritis of knees, bilateral M17.0 - Bilateral primary osteoarthritis of knee (ICD-10) Hypertension (07/29/09) I10 - Essential (primary) hypertension (ICD-10) Hyperlipidemia E78.5 - Hyperlipidemia, unspecified ( ICD-10) Dysuria R30.0 - Dysuria (ICD- 10) Umbilical hernia (07/29/09) K42.9 - Umbilical hernia without obstruction or gangrene (ICD-10) Rupture of Achilles tendon S86.019A - Strain of unspecified Achilles tendon, initial encounter (ICD-10) Encounter for routine history and physical examination of adult Z00.00 - Encounter for general adult medical examination without abnormal findings (ICD-10) Surgical History (Updated 04/22 @ 10:37 by Mira Kc MD) History of left knee replacement Z96.652 - Presence of left artificial knee joint (ICD-10) History of laparoscopic cholecystectomy Z90.49 - Acquired absence of other specified parts of digestive tract (ICD-10) 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) Z96.651 - Presence of right artificial knee joint (ICD-10) H/O arthroscopy of right knee (02/14/08) Z98.890 - Other specified postprocedural states (ICD-10) History of ERCP Z98.890 - Other specified postprocedural states (ICD-10) H/O arthroscopy of left knee ( 03/11/12) Z98.890 - Other specified postprocedural states (ICD-10) H/O Achilles tendon repair () Z98.890 - Other specified postprocedural states (ICD-10) H/O inguinal hernia repair () Z98.890 - Other specified postprocedural states (ICD-10) Z87.19 - Personal history of other diseases of the digestive system (ICD-10) Hx of shoulder surgery () Z98.890 - Other specified postprocedural states (ICD-10) 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 Strength not assessed this date due to severe pain and recent surgery . able to activate hip, ankle knee and toe groups Swelling infrapatella pole 53.75 over bandage 14 cm below pole 41.0 very firm in dependent position, does improve to more mobile tissue with elevation. Palpation all mod+ tender to light touch , severe tender to mod pressure. Balance & Gait w FWW that is 2 too small for him at highest level, instructed in options for higher walker that will improve gait and body mechanics. balance with mild sway in standing. antalgic with shortened stride, forward hunched position and slow gait Posture slumped, head forward, appears mild to mod distress. knee ext in front in sitting. standing WB primarily on CL LE Sensation/Reflexes hypersensitive around knee joint , not officially tested Other/Pertinent Objective joint warm and red/bruising, redness did dissipate for most part with elevation. will keep eye on it for Fri incase of signs of infection. Functional Test Performed & Score LEFS Lower Extremity Functional Score: higher score indicates better LE function Lower Extremity Functional Scale Summary 1. Any of usual work, housework or school activities . Quite a bit of difficulty with usual work, housework or school activities (1 points) 2. Usual hobbies, recreational or sporting activities. A lot of difficulty with usual hobbies, recreational or sporting activities (0 points) 3. Getting into or out of the bath. Moderate difficulty getting into or out of the bath (2 points) 4. Walking between rooms. Moderate difficulty walking between rooms (2 points) 5. Putting on your shoes or socks. A lot of difficulty putting on shoes or socks (0 points) 6. Squatting. Quite a bit of difficulty squatting (1 points) 7. Lifting an object from the floor. Moderate difficulty lifting an object from the floor (2 points) 8. Performing light activities around home. Moderate difficulty performing light activities around home (2 points) 9. Performing heavy activities around home. Moderate difficulty performing heavy activities around home (2 points) 10. Getting into or out of a car. Moderate difficulty getting into or out of a car (2 points) 11. Walking 2 blocks. Quite a bit of difficulty walking 2 blocks (1 points) 12. Walking a mile. A lot of difficulty walking a mile (0 points) 13. Going up or down 10 stairs . A lot of difficulty going up or down 10 stairs (0 points) 14. Standing for 1 hour. A lot of difficulty standing for 1 hour (0 points) 15. Sitting for 1 hour. Moderate difficulty sitting for 1 hour (2 points) 16. Running on even ground. A lot of difficulty running on even ground (0 points) The tools listed on this website do not substitute for the informed opinion of a licensed physician or other health care provider. All scores should be re- checked. Please see our full Terms of Use. Lower Extremity Functional Scale Summary 17. Running on uneven ground. A lot of difficulty running on uneven ground (0 points) 18. Making sharp turns while running fast. A lot of difficulty making sharp turns while running fast (0 points) 19. Hopping. Quite a bit of difficulty hopping (1 points) 20. Rolling over in bed. Quite a bit of difficulty rolling over in bed (1 points) Lower Extremity Functional Score: =23.8 percent. Assessment Assessment/Impression Patient is 69 yo male well known to this therapist through previous episodes of care for multiple areas of recovery including CL TKA. Today he presents post op day 2 (DOS 07/07/24, DC from hospital yesterday afternoon). Unfortunately his pain has spiked to >10/10 this morning and he is in obvious discomfort, leg is edematous, firm, warm and red at joint, with waterproof bandage in place. Elevation does reduce redness though warmth persists . Did consult with medical coding manager CHENG for second opinion, as redness did reduce and pain improve with pain meds, ice, elevation will monitor and see him on Sunday to assess. He has been instructed in worrisome signs for infection and DVT and will go to urgent care or doctor should signs arise including streaking, loss of motor function, intractable pain, feverish feeling, redness that does not lessen with elevation. Patient reports understanding. He presents today with antalgic gait w FWW , pain with any and all movement of limb, loss of ROM and functional strength POD#2 We will institute POC adapted to his tolerance. to achieve endgoals fo full function of LE. He is and remains appropriate for skilled physical therapy to address above concerns. Primary Functional Limitations walk, jump, bend, lift, carry, dressing, grooming, all use of L LE Plan of Care Rehabilitation Potential Good Rehabilitation Potential Comments hx of many orthopedic surgeries, heart condition, hx DVT and PE, very motivated and hardworking Physical Therapy Goals 1. Pt will demonstrate abilty to ambulate with single end cane for 200' in order to improve function with household mobility. 2. Pt will complete 10 consecutive SLRs without extension lag on LLE as a measure of increased quad control. FDC GOALS: to be completed within 10 weeks 1. Pt will demonstrate L knee ROM 0-120 or greater in order to improve gait mechanics. 2. Pt will demonstrate ability to ascend/descend 14 stairs with unilateral handrail assist using step over step pattern in order to resume household obility. 3. Pt will ambulate 500' without AD in order to return to pre-surgical community mobility. 4. Pt will demonstrate independence with individualized HEP for self symptom management and to carryover therapeutic gains following discharge from PT services. Coordination/Communication With Referral Source,Patient Caregiver Treatment Plan/Direct Interventions Electrical Stimulation,Gait Training,Ice/Cold/ Vasopneumatic,Manual Therapy, Neuromuscular Re-ed,Self-Care/ Home Management,Therapeutic Activities,Therapeutic Exercises Frequency/Duration 20 visits, 1-2x/ week until able to mange at home better, then decrease to 1x/ 1-2 weeks Patient Will Be Discharged From Therapy Completion of LTG(s),Skills Plateau,Independent w/HEP, Independently Progressing Evaluation Billing Untimed Code Treatment Minutes 15 Complexity Moderate Certification Information Initial Certification Date 07/09/24 Ending Certification Date 10/06/24 Provider Signature Required Yes Provider Signature Shows Agreement With POC & Medical Necessity Physician NPI Number Write NPI# Here Physician Comment/Change : Physician Signature & Date Requested Please Sign/Date Here
--- OUTSIDE RECORDS SUMMARY | 2024-07-31 09:48 | XMS_ITS | Clinical Summary ---
Author Organization [facility] Address [place], [place] [address] Care Team Providers Care Medical Legal Investigator Name Role Phone Nonstaff, Doctor Primary Care Provider Unavailab le Allergies Active Allergy Reactions Criticality Noted Date Comments Penicillin G Rash 05/20/2016 In 20s Penicillins *Unknown 01/24/2002 Medications aspirin chewable 81 mg chewable tablet Take 81 mg by mouth once daily with a meal. Active coQ10, ubiquinol, 100 mg cap Take by mouth. Activ e omega-3 fatty acids-vitamin E (FISH OIL) 1,000 mg cap Take by mouth once daily. Active GLUCOSAMINE HCL (GLUCOSAMINE, BULK, MISC) As directed once daily. Active losartan (COZAAR) 100 mg tablet Take 100 mg by mouth once daily. Active omeprazole (PRILOSEC) 20 mg Delayed-Releas e capsule Take 20 mg by mouth once daily before a meal. Active pravastatin (PRAVACHOL) 40 mg tablet Take 40 mg by mouth at bedtime. Active acetaminophen (TYLENOL) 325 mg tablet Take 2 tablets by mouth every 4 hours if needed (For mild pain.). Max acetaminophen dose: 4000mg in 24 hrs. 0 7 Active ginkgo biloba (GINKOBA ORAL) Take 120 [...] Encounters Date Type Department Care Team Description 07/16/2024 1:00 PM RUBBER MILL TENDER Ancillary Procedure [facility] [address] [place] [address] 07/16/2024 Travel from Last 3 Months Immunizations Name Administration [...] Recorded Sex Assigned at Not on file Legal Sex Male 9:01 AM CDT Gender Identity Not on file Sexual Orientation Not on file Obstetrics History Last Filed Vital Signs Vital Sign Reading Time Taken Comments Blood Pressure 107/74 01/21/2019 10:25 AM CDT Pulse 71 01/21/2019 10:25 AM CDT Temperature 35.9 C (96.7 F) 01/21/2019 8:56 AM CDT Respiratory Rate 18 01/21/2019 10:10 AM CDT [...] 75 1998 Lipids for age 45-75 1998 Pneumococcal series for age 50+ (1 of 1 - PCV) 2003 Zoster (shingles) series for age 50+ (1 of 2) 2003 COVID-19 vaccine series ( season) 2024 10/23/2020, 10/02/2020 Influenza for age 65+ 03/30/2024 05/12/2016 RSV vaccine for adults or pr egnancy (1 - 1-dose 75+ series) 2028 Procedures Procedure Name Priority Date/Time Associated Diagnosis Comments ECHO TTE COMPLETE W CONTRAST Routine 07/16/2024 1:54 PM RUBBER MILL TENDER Aneurysm of thoracic aorta (HC) from Last 3 Months Results * ECHO TTE COMPLETE W CONTRAST (07/16/2024 1:54 PM RUBBER MILL TENDER) AORTIC VALVE MEAN PG 3 mmHg EJECTION FRACTION 60 % PEAK TR VELOCITY 2.4 m/s LVEDD 4.3 cm EJECTION FRACTION 50 - 55% Anatomical Region Laterality Modality Ultrasound 07/16/2024 1:10 PM RUBBER MILL TENDER Narrative 07/16/2024 2:10 PM RUBBER MILL TENDER ECHOCARDIOGRAM TRELL MCCRARY : 1955 69 years Study Date: 07/16/2024 1:10:44 PM Gender: M BP: 111/74 mmHg Height: 175.00 cm BSA: 2.11 m Weight: 96.00 kg Tech: MSR Referring MD: AKIKO SHEN Site: [facility] Reading Location: Mobile OP Patient Location: Outpatient. Procedure: 2D w/ Contrast. Indication for study: Aneurysm of thoracic aorta Cardiac Rhythm: Normal sinus.Study quality: Fair. Final Impressions: 1. LVEF estimate 50-55%. Normal LV size and wall thickness. 2. Apical inferior and inferoseptal hypokinesis. 3. Normal RV size and global function. 4. Mild AI and mild TR. 5. IVC not well seen. 6. Dilated aortic root [4.3 cm] and ascending aorta [4.7 cm]. 7. No LV thrombus [contrast study]. Chamber Sizes and Function Left atrial size is normal. Left atrial pressure is normal. Right ventricular cavity size is normal, global systolic RV function is normal. The right atrium is normal. The pulmonary artery is not well visualized. The sinus of Valsalva is dilated. The ascending aorta is dilated. Valves, RV Pressures and Diastolic Function The aortic valve is sclerotic, no stenosis and mild regurgitation. The mitral valve is normal in structure, no mitral regurgitation. Indeterminate pattern of LV diastolic filling. The tricuspid valve is normal in structure. Tricuspid regurgitation is mild regurgitation. The tricuspid regurgitant velocity is 2.4 m/s, the estimated right ventricular systolic pressure is 23 mmHg plus right atrial pressure. There is normal estimated pulmonary pressure by tricuspid regurgitation velocity and right atrial pressure. The pulmonic valve is not well visualized. Trace pulmonary regurgitation. Masses, Effusion, Shunts There is no pericardial effusion. The inferior vena cava is not well visualized, respiratory size variation not well visualized. Interatrial septum is not well visualized. MEASUREMENTS AND CALCULATIONS 2-D Measurements and LV Function: LVID (d) 4.3 cm LV FS% (2D) 31 % LVID (s) 3.0 cm LVOT diameter 2.2 cm IVS (d) 1.0 cm HR 90 bpm LVPW (d) 1.0 cm LA Vol index 23 ml/m2 Ao Sinus 4.3 cm RV Max 4C (d) 4.3 cm Asc Ao 4.7 cm Diastology: Mitral Tissue Doppler E Peak 0.4 m/s e', Septum 0.04 m/s A Peak 0.8 m/s e', Lateral 0.14 m/s E/A 0.5 E/e' Average 4.41 DT 159 msec Aortic Valve: Vmax 1.1 m/s JOCELIN (V) 3.00 cm AI P 1/2 621 msec VTI 0.18 m JOCELIN (I) 3.16 cm LVOT V max 0.9 m/s Max PG 5 mmHg LVOT VTI 0.14 m Mean PG 3 mmHg SV 55 ml Dim Index 0.82 SV index 26 ml/m CO 5.0 l/min CI 2.4 l/min/m Mitral Valve: MVA 4.8 cm MV P 1/2 46 msec Tricuspid Valve and estimated PA pressures: TR Vmax 2.4 m/s TAPSE 2.4 cm TR maxG 23 mmHg Pulmonic Valve: PV AT 78 msec Contrast documentation: 2ml ml diluted Definity, lot #[id number], [facility]# [id number] was administered peripherally to enhance visualization of all left ventricular segments. . This study was interpreted by an [facility] accredited facility. CC: [facility] (med records) [facility]. Final Procedure Note Olegario Elkins MD - 07/16/2024 ECHOCARDIOGRAM TRELL MCCRARY : 1955 69 years Study Date: 07/16/2024 1:10:44 PM Gender: M BP: 111/74 mmHg Height: 175.00 cm BSA: 2.11 m Weight: 96.00 kg Tech: MSR Referring MD: AKIKO SHEN Site: [facility] Reading Location: Mobile OP Patient Location: Outpatient. Procedure: 2D w/ Contrast. Indication for study: Aneurysm of thoracic aorta Cardiac Rhythm: Normal sinus.Study quality: Fair. Final Impressions: 1. LVEF estimate 50-55%. Normal LV size and wall thickness. 2. Apical inferior and inferoseptal hypokinesis. 3. Normal RV size and global function. 4. Mild AI and mild TR. 5. IVC not well seen. 6. Dilated aortic root [4.3 cm] and ascending aorta [4.7 cm]. 7. No LV thrombus [contrast study]. Chamber Sizes and Function Left atrial size is normal. Left atrial pressure is normal. Rightventricular cavity size is normal, global systolic RV function is normal.The right atrium is normal. The pulmonary artery is not well visualized.The sinus of Valsalva is dilated. The ascending aorta is dilated. Valves, RV Pressures and Diastolic Function The aortic valve is sclerotic, no stenosis and mild regurgitation. Themitral valve is normal in structure, no mitral regurgitation.Indeterminate pattern of LV diastolic filling. The tricuspid valve isnormal in structure. Tricuspid regurgitation is mild regurgitation. Thetricuspid regurgitant velocity is 2.4 m/s, the estimated right ventricularsystolic pressure is 23 mmHg plus right atrial pressure. There is normalestimated pulmonary pressure by tricuspid regurgitation velocity and rightatrial pressure. The pulmonic valve is not well visualized. Tracepulmonary regurgitation. Masses, Effusion, Shunts There is no pericardial effusion. The inferior vena cava is not wellvisualized, respiratory size variation not well visualized. Interatrialseptum is not well visualized. MEASUREMENTS AND CALCULATIONS 2-D Measurements and LV Function: LVID (d) 4.3 cm LV FS% (2D) 31 % LVID (s) 3.0 cm LVOT diameter 2.2 cm IVS (d) 1.0 cm HR 90 bpm LVPW (d) 1.0 cm LA Vol index 23 ml/m2 Ao Sinus 4.3 cm RV Max 4C (d) 4.3 cm Asc Ao 4.7 cm Diastology: Mitral Tissue Doppler E Peak 0.4 m/s e', Septum 0.04 m/s A Peak 0.8 m/s e', Lateral 0.14 m/s E/A 0.5 E/e' Average 4.41 DT 159 msec Aortic Valve: Vmax 1.1 m/s JOCELIN (V) 3.00 cm AI P 1/2 621 msec VTI 0.18 m JOCELIN (I) 3.16 cm LVOT V max 0.9 m/s Max PG 5 mmHg LVOT VTI 0.14 m Mean PG 3 mmHg SV 55 ml Dim Index 0.82 SV index 26 ml/m CO 5.0 l/min CI 2.4 l/min/m Mitral Valve: MVA 4.8 cm MV P 1/2 46 msec Tricuspid Valve and estimated PA pressures: TR Vmax 2.4 m/s TAPSE 2.4 cm TR maxG 23 mmHg Pulmonic Valve: PV AT 78 msec Contrast documentation: 2ml ml diluted Definity, lot #[id number], [facility]#[id number] was administered peripherally to enhance visualization of allleft ventricular segments. . This study was interpreted by an [facility] accredited facility. CC: [facility] (med records) [facility]. Final us Akiko Shen MD ECHO ORD Final Result from Last 3 Months Advance Directives * Full Code (Latest Code [...] 1:55 PM 05/24/2016 10:41 AM Care Teams Medical Legal Investigator Relationship Specialty Start Date End Date Nonstaff, Doctor NON STAFF DOCTOR PCP - General 01/17/19
--- OUTSIDE RECORDS SUMMARY | 2024-07-31 09:48 | XMS_ITS | Encounter Summary ---
Author Organization [facility] Address [address] [place] [address] Care Team Providers Care Soap Mixer Name Role Phone Anisha Burnett MD Primary Care Provider Ayan Cowan MD Primary Care Provider [phone] Encounter Details Date Type Department Care Team (Late st Contact Info) Description 01/28/2002 Abstract [facility] [address] [facility] [address] [place] [phone] Martita Franks MD [address] [place] [address] Social History Tobacco Use Types Packs/Day Years Used Date Smoking Tobacco: Never Assessed Sex and Gender Information Value Date Recorded Sex Assigned at Not on file Legal Sex Male 3:21 AM MEAL COOK Gender Identity Not on file Sexual Orientation Not on file documented as of this encounter Plan of Treatment Not on file documented as of this encounter Visit Diagnoses Not on filedocumented in this encounter Care Teams Soap Mixer Relationship Specialty Start Date End Date Anisha Burnett MD PCP - General 09/13/01 03/29/17 Ayan Shen MD [facility] [address] [address] PCP - General Family Medicine 09/05/23 documented as of this encounter
--- OUTSIDE RECORDS SUMMARY | 2024-07-31 09:48 | XMS_ITS | Referral Summary ---
Author Organization [facility] Address [address] [place] [address] Care Team Providers Care Manager Of Revenue Name Role Phone Ayan Shen MD Primary Care Provider [phone] Allergies Active Allergy Reactions Criticality Noted Date Comments Penicillins 01/24/2002 Medications PRINIVIL 10 MG OR TABS 1po qd 30 6 01/27/200 2 Active Ubiquinol 100 MG CAPS Take 1 [...] Take 1 capsule by mouth daily Coffee xt-phosphatidy l serine 100-100mg (Neuriva original) Active fluticasone-salme terol (ADVAIR) 250-50 MCG/ACT inhaler Inhale 1 puff into the lungs every 12 hours as needed (wheezing, SOB) Active glucosamine 500 MG CAPS capsule Take 1,500 mg by mouth daily Active hydrochlorothiazi de (HYDRODIURIL) 12.5 MG tablet Take 12.5 mg [...] on file Legal Sex Male 3:21 AM ARABIC LINGUIST Gender Identity Not on file Sexual Orientation Not on file Last Filed Vital Signs Vital Sign Reading Time Taken Comments Blood Pressure 108/81 09/05/2023 2:55 PM ARABIC LINGUIST Pulse 72 09/05/2023 2:30 PM ARABIC LINGUIST Temperature 36.3 C (97.4 F) 09/05/2023 2:30 PM ARABIC LINGUIST Respiratory Rate 16 09/05/2023 2:55 PM ARABIC LINGUIST Oxygen Saturation 97% 09/05/2023 2:55 PM ARABIC LINGUIST Inhaled Oxygen Concentration - - Weight 112 kg (247 lb) 09/05/2023 11:14 AM ARABIC LINGUIST Height 177.8 cm (5' 10) 09/05/2023 11:14 AM ARABIC LINGUIST Body Mass Index 35.44 09/05/2023 11:14 AM ARABIC LINGUIST Plan of Treatment Not on file Procedures [...] 8:10 AM CDT 11/24/2004 8:24 AM CDT us Familia Waldron MD LAB - BLOOD ORDERABLES F inal Result MISYS from Last 3 Months or Most Recently Relevant to Health Maintenance Insurance * Guarantor: LASHAWN MCCRARY Account Type Relation to Patient Date of Phone Billing Address Personal/Family [id number] [id number] [facility] CHOICE [facility] CHOICE * Guarantor: LASHAWN MCCRARY Account Type Relation to Patient Date of Phone Billing Address Personal/Family [id number] [phone] [facility] [place] [address] Care Teams Manager Of Revenue Relationship Specialty Start Date End Date Ayan Shen MD [facility] [address] [address] PCP - General Family Medicine 09/05/23
--- OUTSIDE RECORDS SUMMARY | 2024-07-31 09:48 | XMS_ITS | Clinical Summary ---
Author Organization [facility] Address [address] [place] [id number] Care Team Providers Care Clinical Documentation Developer Name Role Phone Ayan Shen MD Primary Care Provider [phone] Allergies Active Allergy Reactions Criticality Noted Date [...] on file Legal Sex Male 3:21 AM [employer] Gender Identity Not on file Sexual Orientation Not on file Last Filed Vital Signs Vital Sign Reading Time Taken Comments Blood Pressure 108/81 09/05/2023 2:55 PM [employer] Pulse 72 09/05/2023 2:30 PM [employer] Temperature 36.3 C (97.4 F) 09/05/2023 2:30 PM [employer] Respiratory Rate 16 09/05/2023 2:55 PM [employer] Oxygen Saturation 97% 09/05/2023 2:55 PM [employer] Inhaled Oxygen Concentration - - Weight 112 kg (247 lb) 09/05/2023 11:14 AM [employer] Height 177.8 cm (5' 10) 09/05/2023 11:14 AM [employer] Body Mass Index 35.44 09/05/2023 11:14 AM [employer] Plan of Treatment Health Maintenance Due Date Last Done Comments ADVANCE CARE PLANNING 1953 ANNUAL REVIEW OF HM ORDERS 1953 CT COLONOGRAPHY 1953 FIT 1953 FLEX SIG 1953 LIPID 1953 sDNA (Cologuard) 1953 COLONOSCOPY 1963 COLORECTAL CANCER SCREENING 1963 HEPATITIS C SCREENING 1971 GLUCOSE 11/25/2007 11/24/2004 FALL RISK ASSESSMENT 2018 MEDICARE ANNUAL WELLNESS VISIT 2018 PHQ-2 (once per calendar year) 2023 COVID-19 Vaccine (3 - season) 2024 10/23/2020, 10/02/2020 INFLUENZA VACCINE (#1) 2024 , 05/15/2022, 06/10/2021, Additional history exists RSV VACCINE (1 - 1-dose 75+ series) 2028 DTAP/TDAP/TD IMMUNIZATION (3 - Td or Tdap) 07/24/2033 07/24/2023, 11/23/2010 Pneumococcal Vaccine: 50+ Years Completed 02/06/2020, 08/02/2018 ZOSTER IMMUNIZATION Completed 07/29/2020, 0 HPV IMMUNIZATION Aged Out No longer e [...] CDT Familia Waldron MD LAB - BLOOD ORDERABLES F inal Result MISYS from Last 3 Months or Most Recently Relevant to Health Maintenance Insurance * Guarantor: LASHAWN MCCRARY Account Type Relation to Patient Date of Phone Billing Address Personal/Family [id number] [place] [address] MEDICARE [facility] [place] [id number] [facility] * Guarantor: LASHAWN MCCRARY Account Type Relation to Patient Date of Phone Billing Address Personal/Family [id number] [place] [address] MEDICARE [facility] [place] [id number] [facility] [employer] Care Teams Clinical Documentation Developer Relationship Specialty Start Date End Date Ayan Shen MD [facility] [address] [place] [address] PCP - General Family Medicine 09/05/23
== END 2025-01-14 23:59 | disposition home or self-care (01) ==
PROVIDERS: PCP Family Medicine; Visit Provider Orthopaedic Surgery Sports Medicine
DX: Z51.89 Encounter for other specified aftercare (principal); Z47.1 Aftercare following joint replacement surgery; Z96.652 Presence of left artificial knee joint; M17.12 Unilateral primary osteoarthritis, left knee
CPT/HCPCS: 97016; 97032; 97110; 97112; 97116; 97140; 97162; A9270; J2250; J3010

== ENCOUNTER 2024-10-28 07:58 | Outpatient (CLI) | payer OTHER, SELFPAY | END 2024-10-28 07:59 | disposition home or self-care (01) | LOC: NFLDREF 10-29 05:44 | PROVIDERS: PCP Family Medicine; Referring Provider Family Medicine; Visit Provider Family Medicine | DX: I10 Essential (primary) hypertension (principal); E78.5 Hyperlipidemia, unspecified; I25.10 Atherosclerotic heart disease of native coronary artery without angina pectoris; Z01.818 Encounter for other preprocedural examination; Z79.01 Long term (current) use of anticoagulants | CPT/HCPCS: 80053; 80061 ==

== ENCOUNTER 2024-12-24 12:36 | Outpatient (CLI) | payer OTHER, SELFPAY ==
[2024-12-24] MEDS: PERFLUTREN LIPID MICROSPHERES 2 ML VIAL IVP (13:48)
--- NOTE | 2024-12-24 13:49 | PC.NURSE ---
Definity administered per bomb technician request. PIV placed in left hand. 1 ml Definity given. Patient tolerated well. PIV discontinued after test. Catheter intact.
== END 2024-12-24 12:37 | disposition home or self-care (01) ==
LOC: RAD 12:37
PROVIDERS: PCP Family Medicine; Visit Provider Internal Medicine Cardiovascular Disease
DX: I71.20 Thoracic aortic aneurysm, without rupture, unspecified (principal); I51.7 Cardiomegaly; I35.1 Nonrheumatic aortic (valve) insufficiency; I34.0 Nonrheumatic mitral (valve) insufficiency; I07.1 Rheumatic tricuspid insufficiency; I25.10 Atherosclerotic heart disease of native coronary artery without angina pectoris; I10 Essential (primary) hypertension
CPT/HCPCS: 93306; Q9957